=== PATIENT | male | born 1945 | race Caucasian/White ===

== ENCOUNTER 2019-11-28 10:31 | Outpatient (CLI) | payer MEDICARE, MEDICAID, SELFPAY ==
--- NOTE | ~2019-11-28 | US_ITS ---
EXAMINATION: US renal BI EXAM DATE: 11/28/2019 11:13 INDICATION: Elevated creatinine. TECHNIQUE: Multiple grayscale and Doppler images of the kidneys were obtained (by a technologist who performed the scan) and subsequently reviewed. Comparison is made to prior examination from 03/16/2019 . FINDINGS: There is bilateral renal cortical thinning with large amount of central hilar fat. Right kidney: There is normal contour and echogenicity. It measures 9.5 x 4.6 x 5.9 centimeters. Th ere are no focal renal lesions identified. There is no hydronephrosis. Left kidney: There is normal contour and echogenicity. It measures 10.1 x 5.3 x 5.4 centimeters. Th ere are no focal renal lesions identified. There is no hydronephrosis. Mild diffuse bladder wall thickening, possible chronic cystitis. IMPRESSION: 1. Bilateral renal cortical thinning, atrophy. 2. Mild diffuse bladder wall thickening. Reviewed, dictated and finalized at location B. CENTER RECEPTIONIST
== END 2019-11-28 10:32 | disposition home or self-care (01) ==
PROVIDERS: PCP Internal Medicine; Visit Provider Internal Medicine
DX: R79.89 Other specified abnormal findings of blood chemistry (principal); N28.9 Disorder of kidney and ureter, unspecified; N32.9 Bladder disorder, unspecified
CPT/HCPCS: 76775

== ENCOUNTER 2020-02-08 10:04 | Outpatient (CLI) | payer MEDICARE, MEDICAID, SELFPAY ==
--- NOTE | ~2020-02-08 | XR_ITS ---
XR chest 2V DATE: 02/08/2020 10:29 INDICATION: Shortness of breath. History of COPD. TECHNIQUE: PA and lateral views COMPARISON: 06/27/2019 2 view chest FINDINGS: Bilateral hyperinflation and relative flattening of the diaphragm Consistent with COPD. No pulmonary infiltrate or consolidation or pulmonary mass lesion is evident. Normal heart size. Aortic arch calcification. No hilar or mediastinal enlargement. No pleural effusio n or pulmonary vascular congestion or pneumothorax. Postoperative change from anterior and posterior cervical spine fusion. IMPRESSION: COPD Aortic atherosclerosis Osteopenia Status post anterior and posterior cervical spine surgical fusion Reviewed, dictated and finalized at location A.
[2020-02-08 10:33] LABS: Basophils Percent Auto 0.7 % (0.2-1.2); Eosinophils Absolute Auto 0.1 K/mm3 (0-0.3); Eosinophils Percent Auto 1.2 % (0-4.4); Hematocrit 41.8 % (42.0-52.0); Hemoglobin 13.5 g/dL (14.0-18.0); Immature Granulocyte Absolute 0.02 K/mm3 (0.00-0.031); Immature Granulocyte Percent A 0.3 % (0-0.5); Lymphocytes Absolute Auto 1.11 K/mm3 (0.9-3.2); Mean Corpuscular HGB Conc 32.3 g/dl (32-36); Mean Corpuscular Hemoglobin 31.9 pg (26-34); Mean Corpuscular Volume 98.8 fl (80-100); Mean Platelet Volume 10.4 fl (7.4-10.4); Monocytes Absolute Auto 0.6 K/mm3 (0.1-0.6); Monocytes Percent Auto 9.6 % (2.6-8.5); Neutrophils Absolute Auto 4.1 K/mm3 (1.3-6.7); Neutrophils Percent Auto 69.2 % (45.5-73.1); Platelet Count Result 192 k/mm3 (150-375); Red Blood Count 4.23 M/mm3 (4.6-6.20); Red Cell Distribution Width 12.7 % (11.5-14.5); White Blood Count 5.9 K/mm3 (4.5-10.0)
[2020-02-08 10:47] LABS: Blood Urea Nitrogen 28 mg/dL (9-20); Calcium 9.1 mg/dL (8.4-10.2); Carbon Dioxide 24 mmol/L (22-30); Chloride 108 mmol/L (98-107); Estimated Glomerular Filt Rate 42; Glucose 117 mg/dL (75-110); Sodium 139 mmol/L (137-145)
[2020-02-08 10:53] LABS: NT Pro B Type Natriuretic Pept 350 PG/ML (5-100)
== END 2020-02-08 10:05 | disposition home or self-care (01) ==
PROVIDERS: PCP Internal Medicine; Visit Provider Internal Medicine
DX: R06.02 Shortness of breath (principal); J44.9 Chronic obstructive pulmonary disease, unspecified; I70.0 Atherosclerosis of aorta; M85.89 Other specified disorders of bone density and structure, multiple sites; Z98.1 Arthrodesis status
CPT/HCPCS: 36415; 71046; 80048; 83880; 85025

== ENCOUNTER 2020-03-07 10:53 | Outpatient (CLI) | payer MEDICARE, MEDICAID, SELFPAY ==
--- NOTE | ~2020-03-07 | US_ITS ---
US renal BI DATE: 03/07/2020 11:20 INDICATION: Elevated serum creatinine level TECHNIQUE: Real-time imaging of kidneys and urinary bladder COMPARISON: 11/28/2019 bilateral renal ultrasound 11/03/[address] abdomen pelvis FINDINGS: The right kidney measures approximately 10 cm length, the left kidney approximately 9 cm le ngth. No renal mass lesion or hydronephrosis is evident. There is diffuse thickening of the urinary bladder wall no bladder filling defect is evident. IMPRESSION: No evidence of obstructive uropathy No renal mass lesion is evident. Diffuse thickening of the urinary bladder wall Reviewed, dictated and finalized at Location A. Reviewed, dictated and finalized at location A.
== END 2020-03-07 10:54 | disposition home or self-care (01) ==
PROVIDERS: PCP Internal Medicine; Visit Provider Internal Medicine
DX: R79.9 Abnormal finding of blood chemistry, unspecified (principal); N32.9 Bladder disorder, unspecified
CPT/HCPCS: 76775

== ENCOUNTER 2020-11-06 15:43 | Outpatient (CLI) | payer MEDICARE, MEDICAID, SELFPAY ==
--- NOTE | ~2020-11-06 | US_ITS ---
EXAMINATION: US soft tissue LE LT INDICATION: Left heel pain TECHNIQUE: Targeted ultrasound of the left heel was obtained. COMPARISON: None available FINDINGS: No sonographically detected abnormality is identified in the area of clinical concern. IMPRESSION: 1. No sonographic correlate for the patient's symptoms. Reviewed, dictated and finalized at location A. LLITE COMMUNICATIONS ENGINEER
--- NOTE | ~2020-11-06 | US_ITS ---
EXAMINATION: US venous doppler [facility] DATE: 11/06/2020 16:37 INDICATION: Left lower limb pain TECHNIQUE: Gonsalez scale images without and with compression and Doppler images of the left lower extrem ity veins were obtained. COMPARISON: None FINDINGS: The left common femoral vein, profunda femoral vein, femoral vein, popliteal vein, peroneal trunk, posterior tibial veins, and greater saphenous vein are patent. IMPRESSION: 1. Patent left lower extremity veins. No evidence of deep venous thrombosis. Reviewed, dictated and finalized at location A. HAND
--- NOTE | ~2020-11-06 | XR_ITS ---
EXAMINATION: XR foot LT min 3V DATE: 11/06/2020 16:47 INDICATION: Left heel pain TECHNIQUE: Dorsoplantar, two oblique and lateral views of the left foot were obtained. COMPARISON: None. FINDINGS: No acute fracture identified. There is however flattening of Boehler's angle suggesting either old he aled calcaneal fracture or more recent fracture with occult fracture lines. Otherwise normal alignmen t of the left foot. Mild polyarticular osteoarthritis involving many of the joints of the left foot. Tiny plantar calcaneal spur. IMPRESSION: 1. Abnormal appearance to the calcaneus with flattening of Boehler's angle suggesting age-indetermina te calcaneal fracture. Correlate with clinical history. 2. Mild polyarticular osteoarthritis throughout the left foot. Reviewed, dictated and finalized at location A. ETCAR OPERATOR IMPRESSION: 1. Abnormal appearance to the calcaneus with flattening of Boehler's angle sugg esting age-indeterminate calcaneal fracture. Correlate with clinical history. 2. Mild polyarticular osteoarthritis throughout the left foot.
== END 2020-11-06 15:44 | disposition home or self-care (01) ==
PROVIDERS: Family Provider Internal Medicine; PCP Internal Medicine; Visit Provider Internal Medicine
DX: M79.89 Other specified soft tissue disorders (principal); M19.072 Primary osteoarthritis, left ankle and foot
CPT/HCPCS: 73630; 76882; 93971

== ENCOUNTER 2021-11-28 08:20 | Outpatient (CLI) | payer MEDICARE, MEDICAID, SELFPAY ==
--- NOTE | 2021-11-28 08:49 | ECHO_ITS ---
Patient Info Name: Rc Rodríguez Age: 76 years : 1945 Gender: Male Ht: 74 in Wt: 199 lbs BSA: 2.18 m2 HR: 69 bpm BP: 156 / 78 mmHg Technical Quality: Fair Exam Date: 11/28/2021 9:04 AM Exam Location: [facility] Patient Status: Outpatient Admit Date: 11/28/2021 Staff Ordering Physician: Luis A Pang DO Mail List Processor: Luma Gonzales RDCS Attending Provider: Luis A Pang DO Referring Physician: Bird CLARK; Exam Type: CA echo doppler color flow Study Info Indications R06.09 - other forms of dyspnea Complete two-dimensional, color flow and Doppler transthoracic echocardiogram is performed. Summary 1. Complete two-dimensional, color flow and Doppler transthoracic echocardiogram is performed. 2. Left ventricular chamber dimension is normal. 3. Ventricular septum is sigmoid shaped. No LVOT obstruction. 4. Basal to mid posterior wall and basal to mid lateral wall are hypokinetic. 5. Left ventricular systolic function is mildly reduced, estimated at 45-50%. 6. The left ventricular diastolic function is grade I diastolic dysfunction. 7. E/e' 7 is not elevated. 8. Global longitudinal strain is abnormal at -13.7%. 9. There is moderate aortic valve sclerosis. 10. There is trace mitral valve regurgitation. 11. No pulmonary hypertension, estimated pulmonary arterial systolic pressure is 25 mmHg. Left Ventricle E/e' 7 is not elevated. Global longitudinal strain is abnormal at -13.7%. Ventricular septum is sigmoid shaped. No LVOT obstruction. Basal to mid posterior wall and basal to mid lateral wall are hypokinetic. Left ventricular chamber dimension is normal. Left ventricular systolic function is mildly reduced, estimated at 45-50%. The left ventricular diastolic function is grade I diastolic dysfunction. Right Ventricle Right ventricular chamber dimension is normal. Right ventricular systolic function is normal. Left Atria Left atrial chamber dimension is normal. Right Atria Right atrial chamber dimension is normal. Aortic Valve The aortic valve is trileaflet. There is moderate aortic valve sclerosis. There is no aortic valve stenosis. There is no aortic valve regurgitation. Pulmonic Valve There is no pulmonic regurgitation. Mitral Valve There is no mitral valve stenosis. There is trace mitral valve regurgitation. Tricuspid Valve There is no tricuspid valve regurgitation. No pulmonary hypertension, estimated pulmonary arterial systolic pressure is 25 mmHg. Pericardium/Pleural There is no pericardial effusion. Inferior Vena Cava Normal inferior vena cava with >50% collapse upon inspiration consistent with normal right atrial pressure, 5 mmHg. Aorta The aortic root size at the sinus of Valsalva is normal. Left Ventricular Outflow Tract Name Value Normal LVOT 2D LVOT Diameter 2.1 cm LVOT Doppler LVOT Peak Gradient 4 mmHg LVOT Mean Gradient 2 mmHg LVOT VTI 24 cm LVOT VTI/AV VTI Ratio 0.8 LVOT Stroke Volume
== END 2021-11-28 08:21 | disposition home or self-care (01) ==
LOC: ANHCARD 08:23
PROVIDERS: PCP Internal Medicine; Visit Provider Internal Medicine Cardiovascular Disease
DX: R06.09 Other forms of dyspnea (principal)
CPT/HCPCS: 93306

== ENCOUNTER 2022-03-05 08:57 | Outpatient (CLI) | payer MEDICARE, MEDICAID, SELFPAY ==
--- NOTE | ~2022-03-05 | NM_ITS ---
EXAMINATION: NM marie stress w perfusion DATE: 03/05/2022 11:05 INDICATION: Dyspnea. TECHNIQUE: Rest images were obtained following intravenous administration of 8.6 mCi Tc99m tetrofosmi n (Myoview). The patient was infused intravenously with Lexiscan (regadenoson). Then, 27.7 mCi Tc99m tetrofosmin (Myoview) was administered intravenously, and supine and prone stress images were obtaine d. Data was reconstructed into short axis and horizontal and vertical long axis SPECT images. Gated S PECT images were also obtained. COMPARISON: None. FINDINGS: There is no definite reversible or fixed perfusion abnormality to suggest ischemia or infar ction. There is no segmental wall motion abnormality. Left ventricular ejection fraction measures 5 4%. IMPRESSION: 1. No definite ischemia or infarct. 2. Normal left ventricular ejection fraction measuring 54%. Reviewed, dictated and finalized at location B.
--- NOTE | 2022-03-05 09:25 | EST_ITS ---
Patient Info Name: Rc Rodríguez Age: 76 years : 1945 Gender: Male Ht: 74 in Wt: 200 lbs BSA: 2.18 m2 HR: 56 bpm BP: 150 / 74 mmHg Heart Rhythm: Sinus Rhythm Exam Date: 03/05/2022 9:52 AM Exam Location: [facility] Stress Patient Status: Outpatient Admit Date: 03/05/2022 Staff Ordering Physician: Luis A Pang DO Attending Provider: Luis A Pang DO Exercise Technologist: Danika Gabriel CT Exercise Physician: Luis A Pang DO Exam Type: CA stress marie w NM Study Info Indications R06.09 - Other forms of dyspnea A regadenoson stress test was performed. Summary 1. 1. Negative lexiscan stress test for ischemic ST changes by ECG criteria. 2. 2. Baseline hypertension. 3. 3. Nuclear scan to follow and will be reported separately. Please correlate with it. 4. 4. Patient informed of the above results. Protocol: Lexiscan Stress ECG Details Stage: REST Duration (min): 0 min : 58 sec HR (bpm): 56 SBP (mmHg): 150 DBP (mmHg): 74 Stage: REST Duration (min): 16 min : 26 sec HR (bpm): 59 SBP (mmHg): 150 DBP (mmHg): 74 Stage: STAGE 1 Duration (min): 0 min : 59 sec HR (bpm): 63 SBP (mmHg): 146 DBP (mmHg): 64 Stage: RECOVERY Duration (min): 1 min : 0 sec HR (bpm): 71 SBP (mmHg): 146 DBP (mmHg): 64 Stage: RECOVERY Duration (min): 2 min : 0 sec HR (bpm): 78 SBP (mmHg): 146 DBP (mmHg): 64 Stage: RECOVERY Duration (min): 3 min : 0 sec HR (bpm): 73 SBP (mmHg): 138 DBP (mmHg): 64 Stage: RECOVERY Duration (min): 3 min : 5 sec HR (bpm): 74 SBP (mmHg): 138 DBP (mmHg): 64 Rest HR: 59 bpm Peak HR: 78 bpm Rest Sys BP: 150 mmHg Peak Sys BP: 146 mmHg Max Pred HR: 143 bpm % Max Pred HR: 55 % Target HR: 122 bpm Max RPP: 11,388 bpm*mmHg Termination Reason: Completed protocol Cardiac Symptoms: Shortness of breath Total Time: 1 min : 0 sec Rest Sethi BP: 74 mmHg Peak Sethi BP: 64 mmHg Total Dose: 0.4 mg Resting ECG Sinus bradycardia. Stress ECG No ST changes. Arrhythmias None. Report Signatures
== END 2022-03-05 08:58 | disposition home or self-care (01) ==
PROVIDERS: PCP Internal Medicine; Visit Provider Internal Medicine Cardiovascular Disease
DX: R06.00 Dyspnea, unspecified (principal)
CPT/HCPCS: 78452; 93017; A9502; J2785

== ENCOUNTER 2022-10-21 09:09 | Outpatient (CLI) | payer MEDICARE, MEDICAID, SELFPAY ==
--- NOTE | ~2022-10-21 | XR_ITS ---
EXAMINATION: XR ribs LT 2V w CXR 2V DATE: 10/21/2022 09:39 INDICATION: Pleurodynia. TECHNIQUE: Frontal and lateral views of the chest and 2 views on 4 radiographs of the left ribs were obtained. COMPARISON: Chest 2 views 02/08/2020 FINDINGS: CHEST TWO VIEWS: There is mild scarring at the lung apices. No pleural effusion or pneumothorax. The heart size is normal. There are changes of anterior and posterior fusion procedures in cervical spine . There is fracture of two posterior fixation screws. LEFT RIBS: There is an old healed fracture of left ninth rib. IMPRESSION: 1. No acute rib fracture. 2. Stable mild scarring at the lung apices. 3. Anterior and posterior fusion procedures in cervical spine with chronic fracture of 2 posterior fi xation screws. Reviewed, dictated and finalized at location A. LAPPER HAND IMPRESSION: 1. No acute rib fracture. 2. Stable mild scarring at the lung apices. 3. Anterior and posterior fusion procedures in cervical spine with chronic frac ture of 2 posterior fixation screws.
--- NOTE | ~2022-10-21 | XR_ITS ---
Left Shoulder Technique: AP and scapular Y views were obtained. Clinical History: Pain Findings: No fracture or dislocation is seen. Osseous alignment is anatomic. The glenohumeral and acr omioclavicular joint spaces are preserved. Soft tissues are unremarkable. Impression: Unremarkable left shoulder radiographs. Reviewed, dictated and finalized at [facility]. RADE ROLLER OPERATOR Impression: Unremarkable left shoulder radiographs.
== END 2022-10-21 09:10 | disposition home or self-care (01) ==
PROVIDERS: PCP Internal Medicine; Visit Provider Internal Medicine
DX: R07.81 Pleurodynia (principal); R07.89 Other chest pain; M25.512 Pain in left shoulder; Z98.1 Arthrodesis status; R91.8 Other nonspecific abnormal finding of lung field
CPT/HCPCS: 71046; 71100; 73030

== ENCOUNTER 2022-12-26 12:28 | Outpatient (CLI) | payer MEDICARE, MEDICAID, SELFPAY ==
--- NOTE | 2022-12-26 12:37 | ECHO_ITS ---
Patient Info Name: Rc Rodríguez Age: 77 years : 1945 Gender: Male Ht: 74 in Wt: 200 lbs BSA: 2.18 m2 HR: 70 bpm BP: 123 / 66 mmHg Heart Rhythm: Sinus Rhythm Technical Quality: Fair Exam Date: 12/26/2022 12:47 PM Exam Location: [facility] Patient Status: Outpatient Admit Date: 12/26/2022 Staff Ordering Physician: Luis A Pang DO Medical Biller Coder: Lindsey Higgins RDCS Attending Provider: Luis A Pang DO Referring Physician: Bird CLARK; Exam Type: CA echo doppler color flow Study Info Indications I51.9 - Heart disease, unspecified Complete two-dimensional, color flow and Doppler transthoracic echocardiogram is performed. Summary 1. Complete two-dimensional, color flow and Doppler transthoracic echocardiogram is performed. 2. Left ventricular chamber dimension is normal. 3. Left ventricular systolic function is normal, estimated at 60-65%. 4. The left ventricular diastolic function is grade I diastolic dysfunction. 5. E/e' 9 is minimally elevated. 6. There is moderate aortic valve sclerosis. 7. No pulmonary hypertension, estimated pulmonary arterial systolic pressure is 20 mmHg. Left Ventricle E/e' 9 is minimally elevated. Left ventricular chamber dimension is normal. Left ventricular systolic function is normal, estimated at 60-65%. The left ventricular diastolic function is grade I diastolic dysfunction. Right Ventricle Right ventricular systolic function is normal and with normal TAPSE 2.4 cm. Right ventricular chamber dimension is normal. Left Atria Left atrial chamber dimension is normal. Right Atria Right atrial chamber dimension is normal. Aortic Valve The aortic valve is trileaflet. There is moderate aortic valve sclerosis. There is no aortic valve stenosis. There is no aortic valve regurgitation. Pulmonic Valve There is no pulmonic regurgitation. Mitral Valve There is no mitral valve stenosis. There is no mitral valve regurgitation. Tricuspid Valve There is no tricuspid valve regurgitation. No pulmonary hypertension, estimated pulmonary arterial systolic pressure is 20 mmHg. Pericardium/Pleural There is no pericardial effusion. Inferior Vena Cava Normal inferior vena cava with >50% collapse upon inspiration consistent with normal right atrial pressure, 5 mmHg. Aorta The aortic root size at the sinus of Valsalva is normal. Left Ventricular Outflow Tract Name Value Normal LVOT 2D LVOT Diameter 2.0 cm LVOT Doppler LVOT Peak Gradient 3 mmHg LVOT Mean Gradient 1 mmHg LVOT VTI 19 cm LVOT VTI/AV VTI Ratio 0.6 LVOT Stroke Volume 60 ml LVOT CO 3.5 l/min LVOT CI 1.6 l/min/m2 Pulmonic Valve Name Value Normal RVOT Doppler
== END 2022-12-26 12:29 | disposition home or self-care (01) ==
LOC: ANHCARD 12:29
PROVIDERS: PCP Internal Medicine; Visit Provider Internal Medicine Cardiovascular Disease
DX: I51.9 Heart disease, unspecified (principal)
CPT/HCPCS: 93306

== ENCOUNTER 2023-02-27 14:32 | Outpatient (CLI) | payer MEDICARE, MEDICAID, SELFPAY ==
--- NOTE | ~2023-02-27 | XR_ITS ---
XR hip RT 2V w AP pelvis 02/27/2023 14:54 Indication: Right hip pain Procedure: AP pelvis and 2 views right hip Comparison: No prior studies for comparison. Findings: Mild osteoarthritis of the hips. Mild lower lumbar spondylosis. Osteopenia. There is athero sclerosis. No significant soft tissue abnormality. No foreign bodies. Impression: 1: Mild osteoarthritis of the hips. Reviewed, dictated and finalized at location B. Impression: 1: Mild osteoarthritis of the hips.
== END 2023-02-27 14:33 | disposition home or self-care (01) ==
LOC: ANHIMG 14:39
PROVIDERS: PCP Internal Medicine; Visit Provider Internal Medicine
DX: M16.11 Unilateral primary osteoarthritis, right hip (principal)
CPT/HCPCS: 73502

== ENCOUNTER 2023-02-28 08:16 | Emergency (ER) | payer MEDICARE, MEDICAID, SELFPAY ==
--- NOTE | ~2023-02-28 | CT_ITS ---
EXAMINATION: CT hip RT wo con DATE: 02/28/2023 08:39 INDICATION: Right hip pain TECHNIQUE: Computed tomography (CT) of the right hip was performed without intravenous contrast. The dose-length product was 445.19 mGy-cm. Automated exposure control and iterative reconstruction techni que were employed. COMPARISON: None FINDINGS: There is mild osteoarthritis of the right hip. There is chondrocalcinosis. There are small bone islands in the right pelvis. No acute fracture or traumatic malalignment. There is atheroscleros is. IMPRESSION: 1. No acute fracture. Reviewed, dictated and finalized at location A. IMPRESSION: 1. No acute fracture.
[2023-02-28 08:16] VITALS: BP 148/81; PULSE 64; RESP 16; TEMP 37.2; O2SAT 96
--- NOTE | 2023-02-28 08:24 | ED.FALL ---
HPI - Fall General Chief Complaint: Fall Stated Complaint: hip pain post fall History of Present Illness HPI Narrative: 77-year-old male presented to the ED for evaluation of right hip pain. Patient reports on he was walking to the couch when he tripped over a cat and injured his right hip. Patient states he was able to ambulate okay on . Patient was using a cane on Thursday to ambulate and did have outpatient x-rays. Patient states last night the pain woke him up so he presented to the emergency department for evaluation today. Patient did take aspirin for pain control but did not take any ibuprofen or Tylenol. Patient reports right hip pain that is worsened with movement including rolling over in bed. Patient denies any other pain or injury from the fall. Related Data Home Medications Medication Instructions Recorded Confirmed aspirin 81 mg tablet,delayed 81 mg PO DAILY 09/13/19 01/29/23 release (Adult Low Dose Aspirin) budesonide 160 mcg-glycopyr 9 2 inh inhalation BID 07/19/21 01/29/23 mcg-formot 4.8 mcg/actuation HFA inhaler (Breztri Aerosphere) cholecalciferol (vitamin D3) 50 150 mcg PO DAILY 07/19/21 01/29/23 mcg (2,000 unit) capsule calcium carbonate 600 mg calcium 600 mg PO DAILY 10/09/21 01/29/23 (1,500 mg) tablet (Calcium) valacyclovir 1 gram tablet 1,000 mg PO TID 09/17/22 01/29/23 Allergies Allergy/AdvReac Type Severity Reaction Status Date / Time metoprolol Allergy Unknown shortness Verified 01/28/23 10:56 of breath Review of Systems Review of Systems: All systems reviewed & are unremarkable except as noted in HPI and below [facility] Past Medical History Medical History (Updated 02/28/23 @ 09:45 by Av Irene MD) Anemia Anxiety Benign essential hypertension Blindness of right eye BMI 24.0-24.9, adult BMI 25.0-25.9,adult BMI 26.0-26.9,adult Bronchitis Cardiac arrhythmia Chronic obstructive pulmonary disease Chronic sinusitis CKD (chronic kidney disease) CKD (chronic kidney disease) Colon cancer screening COPD exacerbation Creatinine elevation Elevated homocysteine Encounter for Medicare annual wellness exam Encounter for routine adult health examination with abnormal findings Encounter for routine adult health examination without abnormal findings Encounter for special screening examination for neoplasm of prostate Follow up Generalized abdominal pain Herpes simplex infection of eye Hyperlipidemia Left shoulder pain Muscle cramps On roasterman drug therapy Optic disc edema Pain and swelling of left lower leg Pain of left heel Parotitis Personal history of nicotine dependence Pleuritic pain Pre-diabetes PVC's (premature ventricular contractions) Skin pruritus SOB (shortness of breath) Stage 1 chronic kidney disease Vision changes Vitamin D deficiency Family History Family History Mother Hypertension Family history of malignant neoplasm of breast in first degree relative Acute myocardial infarction Family history of congestive heart failure Social History Social History Smoking packs per day: 0 Smoking cigarettes per day: 0.0 Years smoked: 60 Smoking pack-years: 0.00 Smoking status: Former smoker Second hand tobacco smoke exposure: No Additional smoking assessment comments: 06/2018 Alcohol intake: never Substance use: unknown Substance use type: unknown Lack of Transportation: No Lack of Food: Never True Current Housing: I Have Housing Concerned About Future Housing: No Difficulty Paying Gas/Electric Bills: No Difficulty Paying for Meds: No Currently Unemployed: No Education: High School Diploma/GED Difficulty w/ Childcare or Family Care: No Living arrangements: with family Occupation/Education: retired Gender identity (if verbalized by the patient): Male Exam Narrative: MARYJANE
[2023-02-28] MEDS: HYDROcodone/acetaminophen (*CRX) 5-325 MG TABLET 1 TAB PO (08:40)
[2023-02-28] MEDS: CYCLOBENZAPRINE HCL 10 MG TABLET PO (08:40)
[2023-02-28 10:00] VITALS: BP 140/78; PULSE 66; RESP 16; O2SAT 97
== END 2023-02-28 10:10 | disposition home or self-care (01) ==
PROVIDERS: Emergency Provider Emergency Medicine; PCP Internal Medicine
DX: M25.551 Pain in right hip (principal); I12.9 Hypertensive chronic kidney disease with stage 1 through stage 4 chronic kidney disease, or unspecified chronic kidney disease; N18.9 Chronic kidney disease, unspecified; Z87.891 Personal history of nicotine dependence; W01.0XXA Fall on same level from slipping, tripping and stumbling without subsequent striking against object, initial encounter
CPT/HCPCS: 73700; 99284; A9270

== ENCOUNTER 2023-04-10 14:41 | Outpatient (CLI) | payer MEDICARE, MEDICAID, SELFPAY ==
--- NOTE | ~2023-04-10 | XR_ITS ---
EXAMINATION: XR chest 2V Exam Date/Time: 04/10/2023 14:57 CDT HISTORY: Shortness of breath;COPD, prev smoker,HTN Comparison: 10/21/2022. RESULT: Lines, tubes, and devices: Partially visualized cervical fusion hardware. Lungs and pleura: Senescent change. No focal consolidation, effusion, or pneumothorax. Emphysematous change. Cardiomediastinal silhouette: Stable. Other: No acute osseous or upper abdominal finding. IMPRESSION: No acute cardiopulmonary process. Reviewed, dictated and finalized at location K.
--- NOTE | ~2023-04-10 | XR_ITS ---
EXAM: XR lumbar spine 2-3V DATE: 04/10/2023 15:15 HISTORY: W19.XXXA - Unspecified fall, initial encounter . COMPARISON: None available. FINDINGS: Atherosclerotic aortic calcification, without evident aneurysm. Linear scar/atelectasis in the right lung base 5 nonrib-bearing lumbar-type vertebral bodies. Pedicles intact. Normal vertebral body alignment. Vertebral body heights preserved. Multilevel disc space narrowing and marginal osteop hytosis, moderate at L4-5 and severe at L5-S1. Level moderate facet sclerosis and hypertrophy in the mid and lower lumbar spine. Degenerative changes in the bilateral SI joints and hips. No fracture or dislocation. IMPRESSION: Multilevel degenerative disc disease, moderate at L4-5 and severe at L5-S1. Multilevel mo derate mid and lower lumbar facet arthropathy. Reviewed, dictated and finalized at location K. IMPRESSION: Multilevel degenerative disc disease, moderate at L4-5 and severe a t L5-S1. Multilevel moderate mid and lower lumbar facet arthropathy.
== END 2023-04-10 14:42 | disposition home or self-care (01) ==
PROVIDERS: PCP Internal Medicine; Visit Provider Internal Medicine
DX: R06.02 Shortness of breath (principal); R05.9 Cough, unspecified; M51.36 Other intervertebral disc degeneration, lumbar region; M51.37 Other intervertebral disc degeneration, lumbosacral region
CPT/HCPCS: 71046; 72100

== ENCOUNTER 2024-04-17 17:49 | Inpatient (IN) | payer MEDICARE, MEDICAID, SELFPAY ==
[2024-04-17] VITALS (13 sets, daily range): BP systolic 167–204; BP diastolic 57–99; PULSE 56–77; RESP 17–22; TEMP 36.4; O2SAT 87–98; BMI 24.7; BMI 24.4
--- NOTE | ~2024-04-17 | XR_ITS ---
EXAMINATION: XR chest 1V portable DATE: 04/18/2024 12:24 INDICATION: Hypoxia. TECHNIQUE: A single frontal view of the chest was obtained on 2 radiographs. COMPARISON: Chest 2 views 04/10/2023, CT abdomen and pelvis 04/17/2024 FINDINGS: There are lucencies in the lungs, consistent with emphysema. There is an interstitial patte rn in the lungs, consistent mild pulmonary edema. No pleural effusion or pneumothorax. The heart size is normal. There are prominent pericardial fat pads. There are changes of anterior fusion procedure in cervical spine. There are changes of posterior fusion procedure in cervical thoracic spine. IMPRESSION: 1. Mild pulmonary edema. 2. Emphysema. Reviewed, dictated and finalized at location A.
--- NOTE | ~2024-04-17 | XR_ITS ---
EXAMINATION: XR abdomen/kub 1V DATE: 04/20/2024 11:29 INDICATION: Abdominal distention. TECHNIQUE: A supine view of the abdomen on 2 radiographs was obtained. COMPARISON: MRCP 04/18/2024 FINDINGS: There are no dilated loops of bowel. A catheter overlies the bladder. There is a small left pleural effusion. There are airspace opacities at left lung base, likely atelectasis. IMPRESSION: 1. Nonobstructive bowel gas pattern. Reviewed, dictated and finalized at location A.
--- NOTE | ~2024-04-17 | XR_ITS ---
EXAMINATION: XR ERCP DATE: 04/22/2024 11:40 INDICATION: Choledocholithiasis. TECHNIQUE: 3 spot fluoroscopic images of the right upper quadrant were obtained during endoscopic ret rograde cholangiopancreatography (ERCP). Fluoroscopy exposure time was 104 seconds. COMPARISON: CT abdomen and pelvis 04/21/2024 FINDINGS: The endoscope is in the second portion of the duodenum. Images demonstrate contrast opacifi cation of the common duct and balloon sweeping of the common duct. IMPRESSION: 1. Balloon sweeping of the common duct. Please refer to the ERCP procedure note for additional detail s. Reviewed, dictated and finalized at location A. IMPRESSION: 1. Balloon sweeping of the common duct. Please refer to the ERCP procedure note for additional details.
--- NOTE | ~2024-04-17 | XR_ITS ---
EXAMINATION: XR abdomen/kub 1V DATE: 04/24/2024 10:52 INDICATION: Abdominal pain. Abdominal distention. TECHNIQUE: A supine view of the abdomen on 3 radiographs was obtained. COMPARISON: Abdomen radiograph 04/20/2024, CT abdomen and pelvis 08/22/2024 FINDINGS: There are dilated loops of small bowel. There is a small volume of stool in the colon. A ca theter overlies the bladder. There are small pleural effusions. IMPRESSION: 1. Dilated small bowel, likely adynamic ileus. 2. Small pleural effusions. Reviewed, dictated and finalized at location E.
--- NOTE | ~2024-04-17 | CT_ITS ---
EXAMINATION: CT abdomen pelvis wo con DATE: 04/21/2024 11:42 INDICATION: Epigastric abdominal pain. TECHNIQUE: Computed tomography (CT) of the abdomen and pelvis was performed without intravenous contr ast. Automated exposure control and iterative reconstruction technique were employed. The dose-length product was 717.12 mGy-cm. COMPARISON: CT abdomen and pelvis 04/17/2024, MRI 04/18/2024 FINDINGS: The visualized portions of the lung bases demonstrate emphysema and dependent atelectasis. There are small pleural effusions. The heart size is normal. There are coronary artery calcifications . There are calcifications of the aortic valve. No pericardial effusion. There is a small sliding hia kiki hernia. The liver and spleen are normal. The gallbladder is distended. There is hypodensity in th e head of the pancreas. There is fat stranding and fluid in the abdomen centered at the pancreas, con sistent with pancreatitis. There is a 5 mm stone at the ampulla of Vater. The adrenal glands and kidn eys are normal. There is a Nelson catheter in expected position. There are no dilated loops of bowel. The appendix is normal. There is a small volume of ascites. There are no pathologically enlarged lymp h nodes. There is moderate lumbar spondylosis. IMPRESSION: 1. 5 mm stone at the ampulla of Vater. 2. Stable acute pancreatitis. 3. Worsened small volume of ascites. 4. Worsened small pleural effusions. 5. Emphysema. Reviewed, dictated and finalized at location E.
--- NOTE | ~2024-04-17 | XR_ITS ---
Supine and upright views of the abdomen Clinical history: Reason ERCP, evaluate for free air Findings: Bowel gas pattern is nonspecific. No evidence for obstruction or free air. No abnormal mass lesion or calcification is seen. Osseous structures are intact. Impression: Nonspecific bowel gas pattern. No free air. Reviewed, dictated and finalized at [facility]. Impression: Nonspecific bowel gas pattern. No free air.
--- NOTE | ~2024-04-17 | MR_ITS ---
EXAMINATION: MR MRCP wo/w con/w 3D wo ind DATE: 04/18/2024 15:15 INDICATION: Pancreatitis and ampulla of Vater stone TECHNIQUE: Magnetic resonance imaging (MRI) of the abdomen was performed without and with 17 mL Multi brigitte intravenous contrast. Sequences included coronal T2-weighted SS-FSE, coronal T2-weighted FS SS- FSE, coronal T2-weighted FS FIESTA, axial T2-weighted FS FIESTA, axial T2-weighted FIESTA, sagittal T 2-weighted SS-FSE, axial T1-weighted dual-echo FSPGR, axial T2-weighted SS-FSE, axial T1-weighted LAV A, axial T2-weighted STIR FSE. Thick-slab T2-weighted FRFSE-XL images were obtained for magnetic reso nance cholangiopancreatography (MRCP). Rotating maximum intensity projection 3-D reconstructions of t he volumetric data were created by the technologist. Postcontrast sequences included a time course of axial T1-weighted LAVA. COMPARISON: None. FINDINGS: ABDOMEN MRI: Line small bilateral posterior layering pleural effusions with associated consolidation in the dependent bilateral lower lobes which could represent atelectasis or pneumonia. Heart size is normal. No pericardial effusion. Liver, gallbladder, spleen and bilateral adrenal glands are normal. Again seen is prominent peripancreatic inflammatory stranding and fluid consistent with acute interst itial pancreatitis. There is extensive retroperitoneal edema surrounding more prominently at the left pararenal space and along the lesser omentum and root of the mesentery. There is also a small amount of perihepatic and perisplenic ascites. There is a small ovoid 2.7 x 1.3 x 0.9 cm loculated fluid co llection without organized enhancing wall and which is new since the prior study position between the tail of the pancreas and the stomach consistent with an acute peripancreatic fluid collection. No ab scess. Bilateral kidneys are otherwise normal. No bowel obstruction. No pathologically enlarged abdom inal or upper pelvic lymphadenopathy. Moderate lumbar spondylosis. ABDOMEN MRCP: No intra or extrahepatic biliary ductal dilation with the common bile duct measuring 5 mm in maximal diameter which is normal. No evident cholelithiasis/choledocholithiasis. The previously seen calcifie d likely obstructing stone at the ampulla is no longer visualized. The main pancreatic duct is also n ormal in caliber. IMPRESSION: 1. Acute interstitial pancreatitis with adjacent 2.7 x 1.3 x 0.9 cm loculated acute peripancreatic fl uid collection. 2. No cholelithiasis/choledocholithiasis. No correlate identified for the previous noted calcified st one at the ampulla which has likely passed. 3. Small bilateral pleural effusions with consolidation in the dependent aspect of the lower lobes wh ich could represent atelectasis and/or pneumonia. 4. Likely reactive small amount of perihepatic and perisplenic ascites. Reviewed, dictated and finalized at location B. IMPRESSION: 1. Acute interstitial pancreatitis with adjacent 2.7 x 1.3 x 0.9 cm loculated a cute peripancreatic fluid collection. 2. No cholelithiasis/choledocholithiasis. No correlate identified for the previ ous noted calcified stone at the ampulla which has likely passed. 3. Small bilateral pleural effusions with consolidation in the dependent aspect of the lower lobes which could represent atelectasis and/or pneumonia. 4. Likely reactive small amount of perihepatic and perisplenic ascites.
--- NOTE | ~2024-04-17 | CT_ITS ---
EXAMINATION: CT abdomen pelvis w con DATE: 04/17/2024 20:58 INDICATION: Abdominal pain. Vomiting. TECHNIQUE: Computed tomography (CT) of the abdomen and pelvis was performed with 100 mL Omnipaque 350 intravenous contrast. Automated exposure control and iterative reconstruction technique were employe d. The dose-length product was 673.92 mGy-cm. COMPARISON: CT abdomen pelvis 11/03/2018 FINDINGS: The visualized portions of the lung bases demonstrate emphysema and mild atelectasis. There are calcified pleural plaques on the left. The heart size is normal. No pericardial effusion. There are coronary artery calcifications. The liver is normal. The gallbladder is normal in size. The splee n is normal. There is fat stranding and fluid around the pancreas, consistent with acute pancreatitis . There is a 5 mm stone at the ampulla of Vater. The adrenal glands are normal. Cortical thinning is noted. The bladder is distended. There is diverticulosis of the colon without evidence of diverticuli tis. There are no dilated loops of bowel. The appendix is not visualized. There is calcified atherosc lerosis of the aorta and many of the other arteries. There is moderate lumbar spondylosis. IMPRESSION: 1. Acute interstitial pancreatitis. 2. 5 mm stone at the ampulla of Vater. 3. Emphysema. Reviewed, dictated and finalized at location E.
--- NOTE | ~2024-04-17 | XR_ITS ---
Portable chest x-ray Comparison: 04/23/2024 Clinical History: Dyspnea Findings: There are small bilateral pleural effusions with diffuse interstitial pattern of the lungs and mild bibasilar haziness. Cardiomediastinal silhouette is stable. Stable cervicothoracic spinal fixation hardware. Impression: Small bilateral pleural effusions, with probable mild mixed alveolar and interstitial pulmonary edema . Correlate for underlying chronic interstitial disease. Reviewed, dictated and finalized at location . Impression: Small bilateral pleural effusions, with probable mild mixed alveolar and inters titial pulmonary edema. Correlate for underlying chronic interstitial disease.
--- NOTE | ~2024-04-17 | XR_ITS ---
EXAMINATION: XR chest 1V portable DATE: 04/23/2024 23:04 INDICATION: Shortness of breath. TECHNIQUE: A single frontal view of the chest was obtained. COMPARISON: Chest single view 04/18/2024, CT abdomen pelvis 04/21/2024 FINDINGS: There are small pleural effusions. There are lucencies and interstitial opacities in the mulu ngs, consistent with emphysema. There are airspace opacities at the lung bases. No pneumothorax. The heart size is normal. There are changes of posterior fusion procedure in cervical thoracic spine. The re are changes of anterior fusion procedure in cervical spine. IMPRESSION: 1. Emphysema. 2. Airspace opacities at the lung bases with worsening on the right, consistent with atelectasis vers us pneumonia. 3. Worsened small pleural effusions. Reviewed, dictated and finalized at location E. IMPRESSION: 1. Emphysema. 2. Airspace opacities at the lung bases with worsening on the right, consistent with atelectasis versus pneumonia. 3. Worsened small pleural effusions.
--- NOTE | 2024-04-17 19:24 | ED.NAVMDI ---
HPI - Nausea/Vomiting/Diarrhea General Chief complaint: Nausea/Vomiting/Diarrhea Stated complaint: n/v Time Seen by Provider: 04/17/24 18:58 Source: patient Mode of arrival: ambulatory Limitations: no limitations History of Present Illness HPI Narrative: This is a 78-year-old male that presents to the emergency department for abdominal pain, nausea and vomiting. Ongoing over the last several hours. Reports diffuse abdominal cramping. Reports shortness of breath that is chronic for him. Denies fever, chest pain or diarrhea. Related Data Home Medications Medication Instructions Recorded Confirmed aspirin 81 mg tablet,delayed 81 mg PO DAILY 09/13/19 03/16/24 release (Adult Low Dose Aspirin) budesonide 160 mcg-glycopyr 9 2 inh inhalation BID 07/19/21 03/16/24 mcg-formot 4.8 mcg/actuation HFA inhaler (Breztri Aerosphere) cholecalciferol (vitamin D3) 50 150 mcg PO DAILY 07/19/21 03/16/24 mcg (2,000 unit) capsule calcium carbonate (Calcium 600) 600 mg PO DAILY 10/09/21 03/16/24 valacyclovir 1 gram tablet 1,000 mg PO TID 09/17/22 03/16/24 melatonin 5 mg capsule mg PO 11/02/23 03/16/24 prednisolone acetate 1 % eye 1 drp RIGHT EYE DAILY 11/02/23 03/16/24 drops,suspension artificial tears EACH EYE 03/16/24 03/16/24 Allergies Allergy/AdvReac Type Severity Reaction Status Date / Time metoprolol Allergy Unknown shortness Verified 03/16/24 10:55 of breath Review of Systems Review of Systems: CONSTITUTIONAL: Denies fever CARDIOVASCULAR: Denies chest pain, or edema. RESPIRATORY: Reports dyspnea. GASTROINTESTINAL: Reports abdominal pain, nausea, vomiting. Denies diarrhea. All systems reviewed & are unremarkable except as noted in HPI and below PMFSH Past Medical History Medical History (Updated 04/17/24 @ 21:47 by Christine Bishop PA-C) Anemia Anxiety Benign essential hypertension Blindness of right eye BMI 24.0-24.9, adult BMI 25.0-25.9,adult BMI 26.0-26.9,adult Bronchitis Cardiac arrhythmia Chronic obstructive pulmonary disease Chronic sinusitis CKD (chronic kidney disease) CKD (chronic kidney disease) Colon cancer screening COPD exacerbation Creatinine elevation Elevated homocysteine Encounter for Medicare annual wellness exam Encounter for routine adult health examination with abnormal findings Encounter for routine adult health examination without abnormal findings Follow up Generalized abdominal pain Herpes simplex infection of eye Hyperlipidemia Insomnia Left shoulder pain Muscle cramps 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 Optic disc edema Pain and swelling of left lower leg Pain of left heel Parotitis Personal history of nicotine dependence Pleuritic pain Pre-diabetes PVC's (premature ventricular contractions) Skin pruritus SOB (shortness of breath) Stage 1 chronic kidney disease Vision changes Vitamin D deficiency Family History Family History Mother Hypertension Family history of malignant neoplasm of breast in first degree relative Acute myocardial infarction Family history of congestive heart failure Social History Social History Smoking packs per day: 0 Smoking cigarettes per day: 0.0 Years smoked: 60 Smoking pack-years: 0.00 Smoking status: Former smoker Second hand tobacco smoke exposure: No Additional smoking assessment comments: 06/2018 Alcohol intake: never Substance use: unknown Substance use type: unknown Lack of Transportation: No Lack of Food: Never True Current Housing: I Have Housing Concerned About Future Housing: No Difficulty Paying Gas/Electric Bills: No Difficulty Paying for Meds: No Currently Unemployed: No Education: High School Diploma/GED Difficulty w/ Childcare or Family Care: No Living arrangements: with family Occupation/Education: retired Gender identity (if verbalized by the patient): Male
[2024-04-17] MEDS: ONDANSETRON INJ 4 MG/2 ML VIAL IV PUSH (19:38)
[2024-04-17] MEDS: SODIUM CHLORIDE 0.9% IV 500 ML 999 ML IV CONT (19:38)
[2024-04-17] MEDS: MORPHINE SULFATE (*CRX) 4 MG/ML INJ IV PUSH ×2 (19:38→21:49)
[2024-04-17 19:39] LABS: Basophils Percent Auto 0.3 % (0.2-1.2); Eosinophils Percent Auto 0.1 % (0-4.4); Hematocrit 41.8 % (42.0-52.0); Hemoglobin 14.6 g/dL (14.0-18.0); Immature Granulocyte Absolute 0.03 K/mm3 (0.00-0.031); Immature Granulocyte Percent A 0.2 % (0-0.5); Lymphocytes Percent Auto 5.8 % (18.3-44.2); Mean Corpuscular HGB Conc 34.9 g/dl (32-36); Mean Corpuscular Hemoglobin 35.4 pg (26-34); Mean Corpuscular Volume 101.2 fl (80-100); Mean Platelet Volume 10.1 fl (7.4-10.4); Monocytes Absolute Auto 0.7 K/mm3 (0.1-0.6); Monocytes Percent Auto 5.5 % (2.6-8.5); Neutrophils Absolute Auto 10.6 K/mm3 (1.3-6.7); Neutrophils Percent Auto 88.1 % (45.5-73.1); Platelet Count Result 191 k/mm3 (150-375); Red Blood Count 4.13 M/mm3 (4.6-6.20); Red Cell Distribution Width 13.4 % (11.5-14.5)
[2024-04-17 19:56] LABS: Lactic Acid Reflex 1.3 mmol/L (0.7-2.0)
[2024-04-17 20:09] LABS: Alanine Aminotransferase 26 U/L (6-50); Albumin Level 4.7 g/dL (3.5-5.1); Alkaline Phosphatase 81 U/L (38-126); Anion Gap 11 mmol/L (4-12); Aspartate Amino Transferase 33 U/L (17-59); Bilirubin,Total 0.6 mg/dL (0.2-1.3); Blood Urea Nitrogen 44 mg/dL (9-20); Calcium 9.9 mg/dL (8.4-10.2); Carbon Dioxide 23 mmol/L (22-30); Chloride 105 mmol/L (98-107); Estimated CRCL calculation 35 ml/min; Estimated Glomerular Filt Rate 37; Glucose 188 mg/dL (65-110); Potassium 4.5 mmol/L (3.4-5.0); Sodium 139 mmol/L (137-145)
[2024-04-17 20:54] LABS: Lipase 31663 U/L (23-300)
[2024-04-17 21:34] LABS: Appearance Urine Clear (Clear); Bacteria Urine None Seen /hpf; Bilirubin Urine Negative (Negative); Blood Urine Negative (Negative); Color Urine Yellow (Yellow); Glucose Urine UA Negative (Negative); Ketones Urine Trace mg/dL (Negative); Leukocyte Esterase Ur Negative LEU/UL (Negative); Nitrate Urine Negative (Negative); Non Pathogenic Casts 0-2; Protein Urine 2+ mg/dL (Negative); RBC Urine 0-2 /hpf (0-2); Specific Grav Ur 1.026 (1.001-1.035); Squamous Epithelial Cell Urine None Seen /hpf (Few); Urobilinogen Urine 0.2 mg/dL (<2.0); WBC Urine 0-5 /hpf (0-3)
[2024-04-17 21:35] LABS: Add Urine Microscopic? YES
--- NOTE | 2024-04-17 21:40 | PM.IMHP ---
H&P: HPI History of Present Illness Date/Time: 04/17/24 21:40 Chief Complaint: epigastric pain Narrative: This is a 78-year-old male with past medical history significant for COPD/ emphysema, hypertension, chronic kidney disease, dyslipidemia. patient presents to the emergency room with acute onset of epigastric pain, nausea, vomiting rates his pain at 10/10 in intensity, patient has been his usual state of health prior to today, denies any fevers, rigors, chills, night sweats. Preliminary workup was significant for CT of abdomen and pelvis with a 5 mm stone in the ampulla of Vater acute interstitial pancreatitis. patient has been admitted for further evaluation management and treatment. EXAMINATION: CT abdomen pelvis w con DATE: 04/17/2024 20:58 INDICATION: Abdominal pain. Vomiting. TECHNIQUE: Computed tomography (CT) of the abdomen and pelvis was performed with 100 mL Omnipaque 350 intravenous contrast. Automated exposure control and iterative reconstruction technique were employed. The dose-length product was 673.92 mGy-cm. COMPARISON: CT abdomen pelvis 11/03/2018 FINDINGS: The visualized portions of the lung bases demonstrate emphysema and mild atelectasis. There are calcified pleural plaques on the left. The heart size is normal. No pericardial effusion. There are coronary artery calcifications. The liver is normal. The gallbladder is normal in size. The spleen is normal. There is fat stranding and fluid around the pancreas, consistent with acute pancreatitis. There is a 5 mm stone at the ampulla of Vater. The adrenal glands are normal. Cortical thinning is noted. The bladder is distended. There is diverticulosis of the colon without evidence of diverticulitis. There are no dilated loops of bowel. The appendix is not visualized. There is calcified atherosclerosis of the aorta and many of the other arteries. There is moderate lumbar spondylosis. IMPRESSION: 1. Acute interstitial pancreatitis. 2. 5 mm stone at the ampulla of Vater. 3. Emphysema. Review of Systems Review of Systems: epigastric pain, n/V PMFSH Past Medical History Medical History Anemia Anxiety Benign essential hypertension Blindness of right eye BMI 24.0-24.9, adult BMI 25.0-25.9,adult BMI 26.0-26.9,adult Bronchitis Cardiac arrhythmia Chronic obstructive pulmonary disease Chronic sinusitis CKD (chronic kidney disease) CKD (chronic kidney disease) Colon cancer screening COPD exacerbation Creatinine elevation Elevated homocysteine Encounter for Medicare annual wellness exam Encounter for routine adult health examination with abnormal findings Encounter for routine adult health examination without abnormal findings Follow up Generalized abdominal pain Herpes simplex infection of eye Hyperlipidemia Insomnia Left shoulder pain Muscle cramps On [facility] drug therapy Optic disc edema Pain and swelling of left lower leg Pain of left heel Parotitis Personal history of nicotine dependence Pleuritic pain Pre-diabetes PVC's (premature ventricular contractions) Skin pruritus SOB (shortness of breath) Stage 1 chronic kidney disease Vision changes Vitamin D deficiency Family History Family History Mother Hypertension Family history of malignant neoplasm of breast in first degree relative Acute myocardial infarction Family history of congestive heart failure Social History Social History (Updated 04/17/24 @ 23:25 by Leroy Donovan, RN) Smoking packs per day: 0 Smoking cigarettes per day: 0.0 Years smoked: 60 Smoking pack-years: 0.00 Smoking status: Former smoker Second hand tobacco smoke exposure: No Additional smoking assessment comments: 06/2018 Alcohol intake: never Substance use: unknown Substance use type: unknown Lack of Transportation: No Lack of Food: Never True Current Housing: I
[2024-04-17] MEDS: SODIUM CHLORIDE 0.9% IV 1,000 ML 999 ML IV CONT (21:49)
[2024-04-17] MEDS: HYDROmorphone HCL INJ (*CRX) 1 MG/ML SYR IV PUSH (23:41)
[2024-04-18] VITALS (17 sets, daily range): BP systolic 111–151; BP diastolic 41–64; PULSE 66–94; RESP 16–22; TEMP 36.1–36.4; O2SAT 89–94
[2024-04-18] MEDS: DEXTROSE 5%/LACTATED RINGERS 1,000 ML 85 ML IV CONT (00:28)
--- NOTE | 2024-04-18 00:29 | ADMGEN ---
This patient, Rc Rodríguez, was admitted to IMU Room 212-01 at 2320. Patient/family oriented to hospital policies and general routines including ID bracelet, bed and alarms, visiting hours, pain management, procedures, bathroom and other care routines, personal items, smoking policy, room service/diet, and visiting hours. Information on how to activate the Rapid Response Team has been discussed. Patient/Family are encouraged to report perceived risks to care and to ask questions if they do not understand what they are told or what they should do.
[2024-04-18] MEDS: HYDROmorphone HCL INJ (*CRX) 1 MG/ML SYR IV PUSH ×6 (02:31→22:53)
--- NOTE | 2024-04-18 08:20 | PCRCNOTE ---
Pt. states unable to take a powder inhaler; called his son to bring in his Breztri inhaler from home. R.N. notified.
--- NOTE | 2024-04-18 08:44 | WPDGICN ---
Assessment and Plan Assessment and plan (1) Acute pancreatitis: Qualifiers: Acute pancreatitis complication: no infection or necrosis Pancreatitis type: unspecified pancreatitis type Qualified Code(s): K85.90 - Acute pancreatitis without necrosis or infection, unspecified Code(s): K85.90 - Acute pancreatitis without necrosis or infection, unspecified Status: Acute (2) Elevated lipase: Code(s): R74.8 - Abnormal levels of other serum enzymes Status: Acute Plan 1) Acute pancreatitis/elevated lipase: Presented with acute onset epigastric stabbing pain, nausea and vomiting. Pain started yesterday afternoon and progressed to the point he couldn't get out of chair or stand up. Patient has never had an EGD. CT showed fat stranding and fluid around pancreas consistent with acute interstitial pancreatitis as well as a 5 mm stone at the [place]pulla [place] [id number]. Liver enzymes are normal. Of note, patient reports that about 6 weeks ago he was trying to cut some branches back that were hanging over his driveway and he got bit by something but didn't pay attention to it at the time. Later that day he noticed a ring about the size of a half dollar with a spot right in the middle on his arm. It stayed that way for about a week then started turning yellow and faded away. Denies any recent change in medications, illness, or EtOH use. No prior history of pancreatitis. Gallbladder in situ. Patient on aspirin 81 mg daily but denies any other anticoagulant use. DXX: pancreatitis secondary to biliary obstruction versus idiopathic versus secondary to unknown sting/bite MRCP pending to further evaluate pancreatic and biliary ducts NPO, IV fluids, pain control May need ERCP depending on MRCP results Will also check labs for possible autoimmune etiology Thank you very much for allowing me to share in the care of this very nice patient. This report may have been done utilizing a voice recognition system. Attempts have been made to correct errors. However, there may be uncorrected grammatical, spelling, and recognition errors present. GI Consult Note Consult date/time: 04/18/24 08:44 Reason for consult: pancreatitis HPI: This is a very pleasant 78 year old male with past medical surgical history of COPD, emphysema, HTN, CKD, HLD who presented to the emergency room yesterday with complaints of acute onset epigastric pain, nausea and vomiting. GI consulted for pancreatitis. Patient reports that yesterday afternoon around 3 or 4 o'clock he started having dry heaves and noticed his stomach was starting to hurt. The pain kept getting worse to the point he couldn't even hardly get out of the chair and couldn't stand up. He describes the pain as a big pain and a stabbing pain located in the epigastric region. He denies any pain like this before. He had a negative Cologuard 07/29/2021. He denies any swallowing difficulty, heartburn, weight loss, changes in bowel habits, blood in stool or black stools. He reports having a colonoscopy more than 10 years ago but has never had an EGD. He takes an 81 mg aspirin daily for his age and denies any other NSAIDs or blood thinners. He still has his gallbladder and appendix. He denies any alcohol or tobacco use. Of note, patient reports that about 6 weeks ago he was trying to cut some branches back that were hanging over his driveway and he got bit by something but didn't pay attention to it at the time. Later that day he noticed a ring about the size of a half dollar with a spot right in the middle on his arm. It stayed that way for about a week then started turning yellow and faded away. He showed it to his PCP at his annual checkup who couldn't figure out what it was but it wasn't swollen or hardened so they figured something just bit him. ENDOSCOPY HISTORY: The patient states that his last colonosc
--- NOTE | 2024-04-18 10:37 | PM.IMPN ---
Progress Note: A&P Assessment and Plan (1) Acute pancreatitis: Qualifiers: Acute pancreatitis complication: no infection or necrosis Pancreatitis type: unspecified pancreatitis type Qualified Code(s): K85.90 - Acute pancreatitis without necrosis or infection, unspecified Code(s): K85.90 - Acute pancreatitis without necrosis or infection, unspecified Status: Acute Assessment and Plan: 04/18/24: CT showing acute interstitial pancreatitis, 5 mm stone at the ampulla of Vater, emphysema Currently NPO MRCP shown acute interstitial pancreatitis with adjacent 2.7x1.3X0.9 cm loculated acute peripancreatic fluid collection. No cholelithiasis/choledocholithiasis, small bilateral pleural effusions with consolidation in the dependent aspect of the lower lobes which could represent atelectasis or pneumonia, reactive small amount of perihepatic and perisplenic ascites GI consulted Continue antiemetic and pain medication as needed IVF switched to LR @ 150ml/hr (2) Acute hypoxic respiratory failure: Code(s): J96.01 - Acute respiratory failure with hypoxia Status: Acute Assessment and Plan: 04/18/24: O2 saturation noted to be 87 % on room air while in the ED, patient was placed on 2 L nasal cannula Patient does have history of COPD He is a former smoker and smoked 1 pack per day for 60 years, quit in June of 2018 Wean oxygen to keep sat between 88-92% Chest x-ray today shown mild pulmonary edema (3) Chronic obstructive pulmonary disease: Qualifiers: COPD type: unspecified COPD Qualified Code(s): J44.9 - Chronic obstructive pulmonary disease, unspecified Code(s): J44.9 - Chronic obstructive pulmonary disease, unspecified Status: Acute Assessment and Plan: See above (4) CKD (chronic kidney disease): Qualifiers: Chronic kidney disease stage: stage 4 (severe) Qualified Code(s): N18.4 - Chronic kidney disease, stage 4 (severe) Code(s): N18.9 - Chronic kidney disease, unspecified Status: Acute Assessment and Plan: 04/18/24: Initial creatinine 1.8, EGFR 37 Baseline creatinine 1.6 to 2.12 according to EMR Baseline EGFR 31-43 Continue to trend (5) Essential (primary) hypertension: Code(s): I10 - Essential (primary) hypertension Status: Acute Assessment and Plan: 04/18/24: Blood pressures ranging 128/62 193/76 Continue Bystolic (6) Hyperlipidemia: Qualifiers: Hyperlipidemia type: mixed hyperlipidemia Qualified Code(s): E78.2 - Mixed hyperlipidemia Code(s): E78.5 - Hyperlipidemia, unspecified Status: Acute Assessment and Plan: 04/18/24: Continue atorvastatin Aspirin on hold for today Time Spent With Patient Time with patient: Greater than 35 minutes Subjective Date/time seen: 04/18/24 10:37 Interval history: This is a 78-year-old male presented to on 04/17/2024 complaints of nausea vomiting. Workup in the hospital included an abdomen/pelvis CT which showed acute interstitial pancreatitis, 5 mm stone at the ampulla Vater, emphysema. Initial labs revealed white blood cell count of 12.0, creatinine 1.8, EGFR 37, lactic acid was 1.9, liver enzymes were normal, lipase 31,663. UA was obtained and showed 2+ urine protein, trace urine ketones. Echo from 12/26/2022 was reviewed and shown normal LV systolic function with an estimated EF of 60-65%, grade 1 diastolic dysfunction, moderate aortic valve sclerosis. Patient was given 1 L normal saline, pain meds, antiemetics while in the ED. GI was consulted. Patient endorses 10/10 abdominal pain and nausea. Patient denies any fever, chills, nausea, vomiting, diarrhea, abdominal pain, chest pain. Patient did state that he was bit or stung by something on his left arm but did not feel any pain or itching. He states that a red ring formed around it for a few days and then it went away. He has not been anywhere geographically that scorp
[2024-04-18] MEDS: HYDROcodone/acetaminophen (*CRX) 5-325 MG TABLET 1 TAB PO (12:46)
[2024-04-18] MEDS: ATORVASTATIN 20 MG TABLET BY MOUTH (12:47)
[2024-04-18] MEDS: LACTATED RINGERS 1,000 ML 150 ML IV CONT ×2 (12:47→20:30)
[2024-04-18] MEDS: MONTELUKAST SODIUM 10 MG TABLET BY MOUTH (12:47)
[2024-04-18] MEDS: NEBIVOLOL HCL 5 MG TABLET BY MOUTH (12:47)
[2024-04-18] MEDS: ONDANSETRON INJ 4 MG/2 ML VIAL IV PUSH (12:49)
[2024-04-18 13:07] LABS: Basophils Percent Auto 0.2 % (0.2-1.2); Hematocrit 43.8 % (42.0-52.0); Hemoglobin 14.9 g/dL (14.0-18.0); Immature Granulocyte Absolute 0.06 K/mm3 (0.00-0.031); Immature Granulocyte Percent A 0.4 % (0-0.5); Lymphocytes Percent Auto 3.6 % (18.3-44.2); Mean Corpuscular Hemoglobin 35.3 pg (26-34); Mean Corpuscular Volume 103.8 fl (80-100); Mean Platelet Volume 10.2 fl (7.4-10.4); Monocytes Absolute Auto 1.2 K/mm3 (0.1-0.6); Monocytes Percent Auto 6.9 % (2.6-8.5); Neutrophils Absolute Auto 14.7 K/mm3 (1.3-6.7); Neutrophils Percent Auto 88.9 % (45.5-73.1); Platelet Count Result 169 k/mm3 (150-375); Red Blood Count 4.22 M/mm3 (4.6-6.20); Red Cell Distribution Width 13.6 % (11.5-14.5); White Blood Count 16.6 K/mm3 (4.5-10.0)
[2024-04-18 13:44] LABS: Alanine Aminotransferase 20 U/L (6-50); Alkaline Phosphatase 63 U/L (38-126); Anion Gap 9 mmol/L (4-12); Aspartate Amino Transferase 30 U/L (17-59); Bilirubin,Total 0.6 mg/dL (0.2-1.3); Blood Urea Nitrogen 35 mg/dL (9-20); Calcium 8.3 mg/dL (8.4-10.2); Carbon Dioxide 22 mmol/L (22-30); Chloride 109 mmol/L (98-107); Estimated CRCL calculation 39 ml/min; Estimated Glomerular Filt Rate 42; Glucose 129 mg/dL (65-110); Potassium 3.9 mmol/L (3.4-5.0); Sodium 140 mmol/L (137-145)
--- NOTE | 2024-04-18 15:43 | PHAR ---
PT'S HOME MED BREZTRI AEROSPHERE INHALER VERIFIED BY PHARMACY
[2024-04-18 16:17] LABS: Lipase 7052 U/L (23-300)
[2024-04-18] MEDS: PIPERACILLN/TAZ 3.375GM/NS50ML 3.375 GM/50 ML BAG IVPB (18:56)
[2024-04-18] MEDS: FORMOTEROL FUMARATE INHALATION (20:35)
[2024-04-18] MEDS: BUDESONIDE INHALATION (20:35)
[2024-04-18] MEDS: GLYCOPYRROLATE INHALATION (20:35)
[2024-04-18] MEDS: [UNRECOGNIZED DRUG - OTHER] INHALATION (20:35)
[2024-04-19] VITALS (22 sets, daily range): BP systolic 118–149; BP diastolic 48–64; PULSE 70–90; RESP 20–24; TEMP 36.2–36.9; O2SAT 92–95
[2024-04-19] MEDS: PIPERACILLN/TAZ 3.375GM/NS50ML 3.375 GM/50 ML BAG IVPB ×3 (00:46→11:03)
[2024-04-19] MEDS: HYDROmorphone HCL INJ (*CRX) 1 MG/ML SYR IV PUSH ×7 (01:59→22:11)
[2024-04-19] MEDS: LACTATED RINGERS 1,000 ML 150 ML IV CONT ×3 (04:57→17:15)
[2024-04-19] MEDS: [UNRECOGNIZED DRUG - OTHER] INHALATION ×2 (08:00→20:06)
[2024-04-19] MEDS: GLYCOPYRROLATE INHALATION ×2 (08:00→20:06)
[2024-04-19] MEDS: FORMOTEROL FUMARATE INHALATION ×2 (08:00→20:06)
[2024-04-19] MEDS: BUDESONIDE INHALATION ×2 (08:00→20:06)
[2024-04-19] MEDS: HYDROcodone/acetaminophen (*CRX) 5-325 MG TABLET 1 TAB PO ×4 (08:49→20:55)
[2024-04-19] MEDS: NEBIVOLOL HCL 5 MG TABLET BY MOUTH (08:50)
[2024-04-19] MEDS: CHOLECALCIFEROL 1,000 UNITS TABLET 6000 UNITS PO ×2 (08:50→15:59)
[2024-04-19] MEDS: prednisoLONE ACETATE 1% OPHTH 5 ML 1 DROP RIGHT EYE (08:50)
[2024-04-19] MEDS: ATORVASTATIN 20 MG TABLET BY MOUTH (08:50)
[2024-04-19] MEDS: MONTELUKAST SODIUM 10 MG TABLET BY MOUTH (08:50)
[2024-04-19] MEDS: ARTIFICIAL TEARS OPHTH SOLN 15 ML BOTTLE 2 DROP EACH EYE ×2 (08:51→15:59)
--- NOTE | 2024-04-19 09:03 | P.PNIM_ITS ---
Progress Note: A&P Assessment and Plan (1) Acute pancreatitis: Qualifiers: Acute pancreatitis complication: no infection or necrosis Pancreatitis type: unspecified pancreatitis type Qualified Code(s): K85.90 - Acute pancreatitis without necrosis or infection, unspecified Code(s): K85.90 - Acute pancreatitis without necrosis or infection, unspecified Status: Acute Assessment and Plan: 04/18/24: * CT showing acute interstitial pancreatitis, 5 mm stone at the ampulla of [address] ter, emphysema * Currently NPO * MRCP shown acute interstitial pancreatitis with adjacent 2.7x1.3X0.9 cm loculated acute peripancreatic fluid collection. No cholelithiasis/choledocholithiasis, small bilateral pleural effusions with consolidation in the dependent aspect of the lower lobes which could represent atelectasis or pneumonia, reactive small amount of perihepatic and perisplenic ascites * GI consulted * Continue antiemetic and pain medication as needed * IVF switched to LR @ 150ml/hr 04/19/24: * Continue IV fluid * Continue NPO status * Continue antiemetic and pain medication as needed * Lipase 1950 * Patient still reporting severe abdominal pain and nausea (2) Acute hypoxic respiratory failure: Code(s): J96.01 - Acute respiratory failure with hypoxia Status: Acute Assessment and Plan: 04/18/24: * O2 saturation noted to be 87 % on room air while in the ED, patient was placed on 2 L nasal cannula * Patient does have history of COPD * He is a former smoker and smoked 1 pack per day for 60 years, quit in June of 2018 * Wean oxygen to keep sat between 88-92% * Chest x-ray today shown mild pulmonary edema 04/19/24: * Patient currently on room air with oxygen sat 93-94% (3) Chronic obstructive pulmonary disease: Qualifiers: COPD type: unspecified COPD Qualified Code(s): J44.9 - Chronic obstructive pulmonary disease, unspecified Code(s): J44.9 - Chronic obstructive pulmonary disease, unspecified Status: Acute Assessment and Plan: See above (4) CKD (chronic kidney disease): Qualifiers: Chronic kidney disease stage: stage 4 (severe) Qualified Code(s): N18.4 - Chronic kidney disease, stage 4 (severe) Code(s): N18.9 - Chronic kidney disease, unspecified Status: Acute Assessment and Plan: 04/18/24: * Initial creatinine 1.8, EGFR 37 * Baseline creatinine 1.6 to 2.12 according to EMR * Baseline EGFR 31-43 * Continue to trend 04/19/24: * Creatinine 1.8 * Continue to trend (5) Essential (primary) hypertension: Code(s): I10 - Essential (primary) hypertension Status: Acute Assessment and Plan: 04/18/24: * Blood pressures ranging 128/62-193/76 * Continue Bystolic 04/19/24: * Change to current treatment plan (6) Hyperlipidemia: Qualifiers: Hyperlipidemia type: mixed hyperlipidemia Qualified Code(s): E78.2 - Mixed hyperlipidemia Code(s): E78.5 - Hyperlipidemia, unspecified Status: Acute Assessment and Plan: 04/18/24: * Continue atorvastatin * Aspirin on hold for today 04/18/24: * Continue aspirin Time Spent With Patient Time with patient: Greater than 35 minutes Subjective Date/time seen: 04/19/24 09:03 Interval history: Interval history: This is a 78-year-old male presented to on 04/17/2024 complaints of nausea vomiting. Workup in the hospital included an abdomen/pelvis CT which showed acute interstitial pancreatitis, 5 mm stone at the ampulla Vater, emphysema.
--- NOTE | 2024-04-19 09:03 | PM.IMPN ---
Progress Note: A&P Assessment and Plan (1) Acute pancreatitis: Qualifiers: Acute pancreatitis complication: no infection or necrosis Pancreatitis type: unspecified pancreatitis type Qualified Code(s): K85.90 - Acute pancreatitis without necrosis or infection, unspecified Code(s): K85.90 - Acute pancreatitis without necrosis or infection, unspecified Status: Acute Assessment and Plan: 04/18/24: CT showing acute interstitial pancreatitis, 5 mm stone at the ampulla of Vater, emphysema Currently NPO MRCP shown acute interstitial pancreatitis with adjacent 2.7x1.3X0.9 cm loculated acute peripancreatic fluid collection. No cholelithiasis/choledocholithiasis, small bilateral pleural effusions with consolidation in the dependent aspect of the lower lobes which could represent atelectasis or pneumonia, reactive small amount of perihepatic and perisplenic ascites GI consulted Continue antiemetic and pain medication as needed IVF switched to LR @ 150ml/hr 04/19/24: Continue IV fluid Continue NPO status Continue antiemetic and pain medication as needed Lipase 1950 Patient still reporting severe abdominal pain and nausea (2) Acute hypoxic respiratory failure: Code(s): J96.01 - Acute respiratory failure with hypoxia Status: Acute Assessment and Plan: 04/18/24: O2 saturation noted to be 87 % on room air while in the ED, patient was placed on 2 L nasal cannula Patient does have history of COPD He is a former smoker and smoked 1 pack per day for 60 years, quit in June of 2018 Wean oxygen to keep sat between 88-92% Chest x-ray today shown mild pulmonary edema 04/19/24: Patient currently on room air with oxygen sat 93-94% (3) Chronic obstructive pulmonary disease: Qualifiers: COPD type: unspecified COPD Qualified Code(s): J44.9 - Chronic obstructive pulmonary disease, unspecified Code(s): J44.9 - Chronic obstructive pulmonary disease, unspecified Status: Acute Assessment and Plan: See above (4) CKD (chronic kidney disease): Qualifiers: Chronic kidney disease stage: stage 4 (severe) Qualified Code(s): N18.4 - Chronic kidney disease, stage 4 (severe) Code(s): N18.9 - Chronic kidney disease, unspecified Status: Acute Assessment and Plan: 04/18/24: Initial creatinine 1.8, EGFR 37 Baseline creatinine 1.6 to 2.12 according to EMR Baseline EGFR 31-43 Continue to trend 04/19/24: Creatinine 1.8 Continue to trend (5) Essential (primary) hypertension: Code(s): I10 - Essential (primary) hypertension Status: Acute Assessment and Plan: 04/18/24: Blood pressures ranging 128/62-193/76 Continue Bystolic 04/19/24: Change to current treatment plan (6) Hyperlipidemia: Qualifiers: Hyperlipidemia type: mixed hyperlipidemia Qualified Code(s): E78.2 - Mixed hyperlipidemia Code(s): E78.5 - Hyperlipidemia, unspecified Status: Acute Assessment and Plan: 04/18/24: Continue atorvastatin Aspirin on hold for today 04/18/24: Continue aspirin Time Spent With Patient Time with patient: Greater than 35 minutes Subjective Date/time seen: 04/19/24 09:03 Interval history: Interval history: This is a 78-year-old male presented to on 04/17/2024 complaints of nausea vomiting. Workup in the hospital included an abdomen/pelvis CT which showed acute interstitial pancreatitis, 5 mm stone at the ampulla Vater, emphysema. Initial labs revealed white blood cell count of 12.0, creatinine 1.8, EGFR 37, lactic acid was 1.9, liver enzymes were normal, lipase 31,663. UA was obtained and showed 2+ urine protein, trace urine ketones. Echo from 12/26/2022 was reviewed and shown normal LV systolic function with an estimated EF of 60-65%, grade 1 diastolic dysfunction, moderate aortic valve sclerosis. Patient was given 1 L normal saline, pain meds, antiemetics while in the ED. GI was consulted.
[2024-04-19 09:20] LABS: Basophils Absolute Auto 0.1 K/mm3 (0.0-0.1); Basophils Percent Auto 0.3 % (0.2-1.2); Hematocrit 39.8 % (42.0-52.0); Hemoglobin 13.4 g/dL (14.0-18.0); Immature Granulocyte Absolute 0.07 K/mm3 (0.00-0.031); Immature Granulocyte Percent A 0.4 % (0-0.5); Lymphocytes Percent Auto 3.9 % (18.3-44.2); Mean Corpuscular HGB Conc 33.7 g/dl (32-36); Mean Corpuscular Hemoglobin 35.4 pg (26-34); Mean Corpuscular Volume 105.3 fl (80-100); Mean Platelet Volume 10.1 fl (7.4-10.4); Monocytes Absolute Auto 1.1 K/mm3 (0.1-0.6); Neutrophils Absolute Auto 16.1 K/mm3 (1.3-6.7); Neutrophils Percent Auto 89.4 % (45.5-73.1); Platelet Count Result 137 k/mm3 (150-375); Red Blood Count 3.78 M/mm3 (4.6-6.20); Red Cell Distribution Width 13.9 % (11.5-14.5)
[2024-04-19 09:31] LABS: Alanine Aminotransferase 18 U/L (6-50); Albumin Level 3.6 g/dL (3.5-5.1); Alkaline Phosphatase 60 U/L (38-126); Anion Gap 6 mmol/L (4-12); Aspartate Amino Transferase 32 U/L (17-59); Bilirubin,Total 1.1 mg/dL (0.2-1.3); Blood Urea Nitrogen 37 mg/dL (9-20); Calcium 7.9 mg/dL (8.4-10.2); Carbon Dioxide 25 mmol/L (22-30); Chloride 108 mmol/L (98-107); Estimated CRCL calculation 35 ml/min; Estimated Glomerular Filt Rate 37; Glucose 117 mg/dL (65-110); Lipase 1951 U/L (23-300); Potassium 4.2 mmol/L (3.4-5.0); Sodium 139 mmol/L (137-145)
[2024-04-19] MEDS: MEROPENEM 1 GM/NS 100 ML 1 GM/100 ML BAG IVPB (13:42)
--- NOTE | 2024-04-19 16:57 | WPDGIPROGNO ---
Progress Note: A&P Assessment and Plan (1) Acute pancreatitis: Qualifiers: Acute pancreatitis complication: no infection or necrosis Pancreatitis type: unspecified pancreatitis type Qualified Code(s): K85.90 - Acute pancreatitis without necrosis or infection, unspecified Code(s): K85.90 - Acute pancreatitis without necrosis or infection, unspecified Status: Acute Assessment and Plan: probably GB related without any other clear etiology- it seems that stone has passed- not longer seen in MRCP still quite symptomatic no cholelithiasis but on admission description of possible stone at ampulla- will ask surgery to evaluate (2) Elevated lipase: Code(s): R74.8 - Abnormal levels of other serum enzymes Status: Acute Assessment and Plan: trending down (3) Nausea & vomiting: Code(s): R11.2 - Nausea with vomiting, unspecified Status: Acute Assessment and Plan: better (4) Leukocytosis: Code(s): D72.829 - Elevated white blood cell count, unspecified Status: Acute Assessment and Plan: probably reactive from pancreatitis (5) Abdominal pain: Code(s): R10.9 - Unspecified abdominal pain Status: Acute (6) Acute hypoxic respiratory failure: Code(s): J96.01 - Acute respiratory failure with hypoxia Status: Acute Subjective Date/time seen: 04/19/24 16:57 Interval history: nausea has improved but still significant pain and feeling bloated Review of Systems Review of Systems: All systems reviewed & are unremarkable except as noted in HPI and below Exam Const: General: no acute distress HENMT: Face/Nose/Sinus: Normal nares present Eyes: General: appearance normal, both eyes and all related structures Neck: Neck: supple Resp: Auscultation: clear to auscultation bilaterally Cardio: Rate: regular rate Rhythm: regular rhythm GI: Inspection: distended GI Palp: Yes Soft to palpation and Yes Tenderness to palpation present (GI) (diffusely) Other: decrease BS Skin: General skin exam: normal color Neuro: Speech: normal speech Motor exam (neuro): 5/5 motor strength present throughout Extrem: General: normal to inspection Psych: Mental Status: mental status grossly normal Objective Data Vital Signs Vital Signs: Vital Signs - 24 hr 04/18/24 18:00 04/18/24 20:15 04/18/24 20:38 Temperature 97.3 F L Pulse Rate 74 78 Respiratory Rate 20 Blood Pressure 111/41 L Pulse Oximetry 89 L 90 Oxygen Delivery Nasal Cannula Oxygen Flow Rate 3 04/18/24 20:38 04/18/24 20:00 04/18/24 22:00 Temperature Pulse Rate 88 81 79 Respiratory Rate 20 Blood Pressure Pulse Oximetry Oxygen Delivery Oxygen Flow Rate 04/19/24 00:06 04/19/24 00:00 04/19/24 02:00 Temperature 97.3 F L Pulse Rate 83 81 77 Respiratory Rate 20 Blood Pressure 118/48 L Pulse Oximetry 92 Oxygen Delivery Oxygen Flow Rate 04/19/24 05:01 04/19/24 04:00 04/19/24 04:00 Temperature 97.2 F L Pulse Rate 70 90 Respiratory Rate 20 Blood Pressure 131/51 L Pulse Oximetry 92 Oxygen Delivery Room Air Oxygen Flow Rate 04/19/24 06:00 04/19/24 07:46 04/19/24 08:16 Temperature 97.8 F Pulse Rate 79 71 Respiratory Rate 24 H Blood Pressure 145/52 H Pulse Oximetry 95 93 Oxygen Delivery Nasal Cannula Oxygen Flow Rate 3 04/19/24 08:50 04/19/24 08:00 04/19/24 10:00 Temperature Pulse Rate 80 81 80 Respiratory Rate Blood Pressure Pulse Oximetry Oxygen Delivery Oxygen Flow Rate 04/19/24 08:00 04/19/24 11:32 04/19/24 12:00 Temperature 98.1 F Pulse Rate 81 71 74 Respiratory Rate 20 Blood Pressure 134/59 L Pulse Oximetry 93 Oxygen Delivery Room Air Oxygen Flow Rate 04/19/24 12:00 04/19/24 14:00 04/19/24 15:48 Temperature 98.5 F Pulse Rate 74 80 73 Respiratory Rate 20 Blood Pressure 149/62 H Pulse Oximetry 95 O
[2024-04-19] MEDS: LIDOCAINE HCL 2% GEL UROJET 10 ML PKG MUCOUS MEM (18:53)
[2024-04-20] VITALS (20 sets, daily range): BP systolic 140–169; BP diastolic 55–92; PULSE 61–90; RESP 18–24; TEMP 35.7–37.1; O2SAT 91–95
[2024-04-20] MEDS: MEROPENEM 1 GM/NS 100 ML 1 GM/100 ML BAG IVPB ×3 (00:10→23:56)
[2024-04-20] MEDS: HYDROmorphone HCL INJ (*CRX) 1 MG/ML SYR IV PUSH ×9 (01:31→23:56)
[2024-04-20] MEDS: HYDROmorphone HCL INJ (*CRX) 1 MG/ML SYR 0.5 MG IV PUSH (02:17)
[2024-04-20 04:42] LABS: Basophils Percent Auto 0.3 % (0.2-1.2); Eosinophils Absolute Auto 0.1 K/mm3 (0-0.3); Eosinophils Percent Auto 0.5 % (0-4.4); Hematocrit 37.6 % (42.0-52.0); Hemoglobin 13.1 g/dL (14.0-18.0); Immature Granulocyte Absolute 0.05 K/mm3 (0.00-0.031); Immature Granulocyte Percent A 0.4 % (0-0.5); Immature Platelet Fraction Pct 3.2 % (0.9-11.2); Lymphocytes Absolute Auto 0.48 K/mm3 (0.9-3.2); Lymphocytes Percent Auto 3.8 % (18.3-44.2); Mean Corpuscular HGB Conc 34.8 g/dl (32-36); Mean Corpuscular Hemoglobin 35.8 pg (26-34); Mean Corpuscular Volume 102.7 fl (80-100); Mean Platelet Volume 10.6 fl (7.4-10.4); Monocytes Absolute Auto 0.7 K/mm3 (0.1-0.6); Monocytes Percent Auto 5.3 % (2.6-8.5); Neutrophils Absolute Auto 11.2 K/mm3 (1.3-6.7); Neutrophils Percent Auto 89.7 % (45.5-73.1); Platelet Count Result 124 k/mm3 (150-375); Red Blood Count 3.66 M/mm3 (4.6-6.20); Red Cell Distribution Width 13.7 % (11.5-14.5); White Blood Count 12.5 K/mm3 (4.5-10.0)
[2024-04-20] MEDS: LACTATED RINGERS 1,000 ML 150 ML IV CONT ×3 (04:47→19:57)
[2024-04-20 07:32] LABS: Alanine Aminotransferase 25 U/L (6-50); Albumin Level 3.6 g/dL (3.5-5.1); Alkaline Phosphatase 103 U/L (38-126); Anion Gap 9 mmol/L (4-12); Aspartate Amino Transferase 47 U/L (17-59); Bilirubin,Total 0.8 mg/dL (0.2-1.3); Blood Urea Nitrogen 37 mg/dL (9-20); Calcium 8.1 mg/dL (8.4-10.2); Carbon Dioxide 21 mmol/L (22-30); Chloride 108 mmol/L (98-107); Estimated CRCL calculation 42 ml/min; Estimated Glomerular Filt Rate 45; Glucose 113 mg/dL (65-110); Potassium 3.6 mmol/L (3.4-5.0); Sodium 138 mmol/L (137-145)
[2024-04-20] MEDS: NEBIVOLOL HCL 5 MG TABLET BY MOUTH (08:04)
[2024-04-20] MEDS: MONTELUKAST SODIUM 10 MG TABLET BY MOUTH (08:04)
[2024-04-20] MEDS: ASPIRIN 81 MG ENTERIC TABLET PO (08:04)
[2024-04-20] MEDS: ATORVASTATIN 20 MG TABLET BY MOUTH (08:05)
[2024-04-20] MEDS: ARTIFICIAL TEARS OPHTH SOLN 15 ML BOTTLE 2 DROP EACH EYE ×2 (08:05→16:05)
[2024-04-20] MEDS: CHOLECALCIFEROL 1,000 UNITS TABLET 6000 UNITS PO (08:05)
[2024-04-20] MEDS: prednisoLONE ACETATE 1% OPHTH 5 ML 1 DROP RIGHT EYE (08:05)
[2024-04-20] MEDS: BUDESONIDE INHALATION ×2 (08:14→19:56)
[2024-04-20] MEDS: FORMOTEROL FUMARATE INHALATION ×2 (08:14→19:56)
[2024-04-20] MEDS: GLYCOPYRROLATE INHALATION ×2 (08:14→19:56)
[2024-04-20] MEDS: [UNRECOGNIZED DRUG - OTHER] INHALATION ×2 (08:14→19:56)
--- NOTE | 2024-04-20 09:38 | PM.CNGS ---
Assessment and Plan Assessment and plan (1) Acute pancreatitis: Qualifiers: Acute pancreatitis complication: no infection or necrosis Pancreatitis type: unspecified pancreatitis type Qualified Code(s): K85.90 - Acute pancreatitis without necrosis or infection, unspecified Code(s): K85.90 - Acute pancreatitis without necrosis or infection, unspecified Status: Acute Assessment and Plan: The patient was admitted with acute pancreatitis. Lipase was initially 31,000 and is down to 1,[address] scan three days ago showed a gallstone at the ampulla of Vater, as well as acute pancreatitis. MRCP two days ago showed the stone likely passed, and again showed acute pancreatitis with a small adjacent peripancreatic fluid collection. The etiology for his pancreatitis appears to be biliary, but there are no other gallstones seen in the gallbladder on his CT or MRCP. He would likely benefit from eventually having a laparoscopic cholecystectomy, but this is not urgent. His pancreatitis would need to improve prior to considering an interval cholecystectomy. We would recommend to continue medical management for the pancreatitis at this time, and we will continue to follow along to decide timing of surgery depending on how he progresses clinically. (2) Abdominal pain: Code(s): R10.9 - Unspecified abdominal pain Status: Acute Assessment and Plan: He continues to have abdominal pain reportedly without much improvement. He feels it is not well controlled. We will adjust his pain medication to try and improve his pain control. Will also get a KUB today as I am concerned he may be developing an ileus. Will have nursing try to get him up to the chair and increase his activity if tolerated today. May try stimulating his bowels depending on KUB results. He is having nausea this morning but no vomiting. May need to consider NG tube placement if he starts vomiting. (3) Chronic obstructive pulmonary disease: Qualifiers: COPD type: unspecified COPD Qualified Code(s): J44.9 - Chronic obstructive pulmonary disease, unspecified Code(s): J44.9 - Chronic obstructive pulmonary disease, unspecified Status: Acute (4) CKD (chronic kidney disease) stage 3, GFR 30-59 ml/min: Code(s): N18.3 - Chronic kidney disease, stage 3 (moderate) Status: Acute (5) Urinary retention: Code(s): R33.9 - Retention of urine, unspecified Status: Acute Assessment and Plan: Urinary retention yesterday with Nelson placement. Creatinine down some today. Plan I have discussed the patient's case and plan of care with Dr. Alvarez. Thank you for allowing us to see the patient in consultation and we will continue to follow along with you. History of Present Illness Consult details Consult date: 04/20/24 Reason for consult: other (Pancreatitis) Requesting physician: Danie Manuel MD Narrative: This is a 78-year-old man with a history of COPD/emphysema, CKD, and hypertension, who we have been asked to see in surgical consultation for pancreatitis. He presented to the ER 4 days ago for evaluation of abdominal pain, nausea, and vomiting. Workup in the ER showed CT evidence of acute pancreatitis and a 5 mm stone at the ampulla Vater. Labs showed a white blood cell count 08060 and lipase 31,000. LFTs essentially normal. He was admitted to the hospitalist service. GI was consulted and evaluated the patient. MRCP ordered and showed no cholelithiasis or choledocholithiasis. Previous noted calcified stone at the ampulla has likely passed. Also seen is acute interstitial pancreatitis with adjacent 2.7 x 1.3 x 0.9 cm loculated acute peripancreatic fluid collection. Lipase has been trending down to 1900 yesterday. GI consulted our service for evaluation of the biliary pancreatitis. The patient is now seen in IMU. He is still having a significant amount of abdominal pain. He feels his
[2024-04-20] MEDS: IBUPROFEN IV 400 MG in SODIUM CHLORIDE 0.9% IV 100 ML 208 MG IVPB ×2 (11:52→18:15)
--- NOTE | 2024-04-20 15:21 | WPDGIPROGNO ---
Progress Note: A&P Assessment and Plan (1) Acute pancreatitis: Qualifiers: Acute pancreatitis complication: no infection or necrosis Pancreatitis type: unspecified pancreatitis type Qualified Code(s): K85.90 - Acute pancreatitis without necrosis or infection, unspecified Code(s): K85.90 - Acute pancreatitis without necrosis or infection, unspecified Status: Acute Assessment and Plan: probably GB related without any other clear etiology- it seems that stone has passed- not longer seen in MRCP symptomatic no cholelithiasis but on admission description of possible stone at ampulla interval cholecystectomy but once pancreatitis resolves continue supportive care (2) Elevated lipase: Code(s): R74.8 - Abnormal levels of other serum enzymes Status: Acute Assessment and Plan: trending down (3) Nausea & vomiting: Code(s): R11.2 - Nausea with vomiting, unspecified Status: Acute Assessment and Plan: better (4) Leukocytosis: Code(s): D72.829 - Elevated white blood cell count, unspecified Status: Acute Assessment and Plan: probably reactive from pancreatitis (5) Abdominal pain: Code(s): R10.9 - Unspecified abdominal pain Status: Acute Assessment and Plan: still with pain (6) Acute hypoxic respiratory failure: Code(s): J96.01 - Acute respiratory failure with hypoxia Status: Acute Subjective Date/time seen: 04/20/24 15:21 Interval history: some improvement but still with abdominal pain Review of Systems Review of Systems: All systems reviewed & are unremarkable except as noted in HPI and below Exam Const: General: comfortable and no acute distress Nutritional Appearance: average body habitus Orientation/consciousness: patient oriented x3 HENMT: Head: normocephalic and atraumatic Ears: hearing grossly normal bilaterally Mouth: Yes moist mucous membranes Eyes: General: appearance normal, both eyes and all related structures Pupils: Equal, round and reactive pupils present Neck: Neck: normal visual inspection and full ROM Resp: Effort & Inspection: no respiratory distress Auscultation: clear to auscultation bilaterally Cardio: Rate: regular rate Rhythm: regular rhythm GI: Inspection: distended GI Palp: Yes Soft to palpation, Yes Tenderness to palpation present (GI) (diffusely tender), Yes Guarding due to palpation present (GI) (voluntary guarding across the upper abdomen) and No Rebound tenderness present Auscultation: Hypoactive bowel sounds present Skin: General skin exam: normal color Neuro: General: moves all extremities and no focal motor deficits Speech: normal speech Motor exam (neuro): 5/5 motor strength present throughout Extrem: General: normal to inspection and no edema Psych: Mental Status: mental status grossly normal Attitude: cooperative Insight: Good insight present (Psych) Judgement: Good judgement present (Psych) Objective Data Vital Signs Vital Signs: Vital Signs - 24 hr 04/19/24 15:48 04/19/24 16:00 04/19/24 18:00 Temperature 98.5 F Pulse Rate 73 72 77 Respiratory Rate 20 Blood Pressure 149/62 H Pulse Oximetry 95 Oxygen Delivery Oxygen Flow Rate 04/19/24 16:00 04/19/24 19:54 04/19/24 20:00 Temperature 98.5 F Pulse Rate 72 74 Respiratory Rate 20 Blood Pressure 145/60 H Pulse Oximetry 95 Oxygen Delivery Room Air Room Air Oxygen Flow Rate 04/19/24 20:00 04/19/24 23:53 04/20/24 00:00 Temperature 98.5 F Pulse Rate 85 70 Respiratory Rate 20 Blood Pressure 136/64 Pulse Oximetry 94 Oxygen Delivery Room Air Oxygen Flow Rate 04/19/24 20:06 04/19/24 22:00 04/20/24 00:00 Temperature Pulse Rate 75 74 Respiratory Rate Blood Pressure Pulse Oximetry 95 Oxygen Delivery Room Air Oxygen Flow Rate 04/20/24 02:00 04/20/24 04:00 04/20/24 04:29 Temperature 98.7 F Pulse Rate 75 72
[2024-04-20] MEDS: CHOLECALCIFEROL 5,000 UNITS TABLET 5000 UNITS PO (16:04)
[2024-04-20] MEDS: CHOLECALCIFEROL 1,000 UNITS TABLET 1000 UNITS PO (16:05)
[2024-04-20] MEDS: BISACODYL 10 MG SUPPOSITORY RECTAL (16:25)
--- NOTE | 2024-04-20 16:41 | WPDPN ---
Progress Note: A&P Assessment and Plan (1) Acute pancreatitis: Qualifiers: Acute pancreatitis complication: no infection or necrosis Pancreatitis type: unspecified pancreatitis type Qualified Code(s): K85.90 - Acute pancreatitis without necrosis or infection, unspecified Code(s): K85.90 - Acute pancreatitis without necrosis or infection, unspecified Status: Acute (2) Acute hypoxic respiratory failure: Code(s): J96.01 - Acute respiratory failure with hypoxia Status: Acute (3) Chronic obstructive pulmonary disease: Qualifiers: COPD type: unspecified COPD Qualified Code(s): J44.9 - Chronic obstructive pulmonary disease, unspecified Code(s): J44.9 - Chronic obstructive pulmonary disease, unspecified Status: Acute (4) CKD (chronic kidney disease) stage 3, GFR 30-59 ml/min: Code(s): N18.3 - Chronic kidney disease, stage 3 (moderate) Status: Acute (5) Essential (primary) hypertension: Code(s): I10 - Essential (primary) hypertension Status: Acute Plan Interval history: 04/20/2024: 78 y/o male presented with epigastric pain is found to have acute complicated pancreatitis seen by GI suspect most likely 2/2 gallbladder as patient had MRCP showed no cholelithiasis/choledocholithiasis suggesting patient had passed the stone, patient continue to have epigastric pain seen by surgery survice suggested to monitor until clinical symptoms improve before lap gena, will monitor LFT. Subjective Date/time seen: 04/20/24 16:41 Interval history: Interval history: 04/20/2024: 78 y/o male presented with epigastric pain is found to have acute complicated pancreatitis seen by GI suspect most likely 2/2 gallbladder as patient had MRCP showed no cholelithiasis/choledocholithiasis suggesting patient had passed the stone, patient continue to have epigastric pain seen by surgery survice suggested to monitor until clinical symptoms improve before lap gena, will monitor LFT. Review of Systems Review of Systems: All systems reviewed & are unremarkable except as noted in HPI and below Exam Narrative: General: patient is comfortable NAD HEENT: eyes are clear nonicteric, normocephalic, atraumatic. Oral mucosa moist. RESP: CTA HEART: RR S1S2 LUNGS: CTA ABD: obese BS+, diffusely tender. SKIN: no obvious rash EXTREMITIES: no edema NEURO:A&O grossly intact PSYCH: Pleasant and cooperative with normal mood and affect Objective Data Vital Signs Vital Signs: Vital Signs - 24 hr 04/19/24 18:00 04/19/24 19:54 04/19/24 20:00 Temperature 36.9 C Pulse Rate 77 74 Respiratory Rate 20 Blood Pressure 145/60 H Pulse Oximetry 95 Oxygen Delivery Room Air Oxygen Flow Rate 04/19/24 20:00 04/19/24 23:53 04/20/24 00:00 Temperature 36.9 C Pulse Rate 85 70 Respiratory Rate 20 Blood Pressure 136/64 Pulse Oximetry 94 Oxygen Delivery Room Air Oxygen Flow Rate 04/19/24 20:06 04/19/24 22:00 04/20/24 00:00 Temperature Pulse Rate 75 74 Respiratory Rate Blood Pressure Pulse Oximetry 95 Oxygen Delivery Room Air Oxygen Flow Rate 04/20/24 02:00 04/20/24 04:00 04/20/24 04:29 Temperature 37.1 C Pulse Rate 75 72 Respiratory Rate 22 H Blood Pressure 162/65 H Pulse Oximetry 95 Oxygen Delivery Room Air Oxygen Flow Rate 04/20/24 04:00 04/20/24 06:00 04/20/24 07:56 Temperature 35.8 C L Pulse Rate 78 79 80 Respiratory Rate 22 H Blood Pressure 163/65 H Pulse Oximetry 91 Oxygen Delivery Oxygen Flow Rate 04/20/24 08:04 04/20/24 08:15 04/20/24 08:00 Temperature Pulse Rate 90 Respiratory Rate Blood Pressure Pulse Oximetry 93 92 Oxygen Delivery Nasal Cannula Nasal Cannula Oxygen Flow Rate 2 2 04/20/24 08:00 04/20/24 11:48 04/20/24 10:00 Temperature 35.7 C L Pulse Rate 75 77 67 Respiratory Rate 24 H Blood Pressure 140/92 H Pulse Oximetry 92 Oxygen Del
--- NOTE | 2024-04-20 16:44 | PC.NURSE ---
Discussed with patient upon assuming care @ 1300 that our plan was to treat pain with PRN hydromorphone, attempt to nap until 1600 when it is time for vitals, we will attempt to ambulate around room, attempt to use restroom, and sit in recliner for dinner. Upon 1600 rounds/med pass his pain had increased to a 10/10 after sitting at the bedside to get cleaned up with the assistance of tech. Redosed PRN medications (see MAR) administered one time dose suppository, and encouraged patient to ambulate. At this time he only felt capable of stand pivot to the bedside commode where he proceeded to belch and pass gas. Stressed the importance of ambulation to promote bowel motility and relief of gas pains, however he still declined at this time. Attempted to have him at least sit in the recliner for dinner (his diet has been advanced to clear liquids) he stated that recliner is a sad excuse of a chair, I'd rather sit on this commode all day Returned to bed with no further issues.
[2024-04-20 22:38] LABS: Immunoglobulin G, Serum 440 mg/dL (600-1540); Immunoglobulin G1 295 mg/dL (382-929); Immunoglobulin G2 42 mg/dL (241-700); Immunoglobulin G3 43 mg/dL (22-178); Immunoglobulin G4 2.6 mg/dL (4.0-86.0)
[2024-04-21] VITALS (20 sets, daily range): BP systolic 145–171; BP diastolic 56–69; PULSE 67–81; RESP 14–24; TEMP 36.6–37.5; O2SAT 90–100
[2024-04-21] MEDS: HYDROmorphone HCL INJ (*CRX) 1 MG/ML SYR IV PUSH ×11 (02:10→22:36)
[2024-04-21] MEDS: LACTATED RINGERS 1,000 ML 150 ML IV CONT ×3 (02:11→17:34)
[2024-04-21] MEDS: IBUPROFEN IV 400 MG in SODIUM CHLORIDE 0.9% IV 100 ML 208 MG IVPB ×3 (03:10→22:25)
[2024-04-21 04:31] LABS: Hematocrit 35.3 % (42.0-52.0); Hemoglobin 12.5 g/dL (14.0-18.0); Mean Corpuscular HGB Conc 35.4 g/dl (32-36); Mean Corpuscular Hemoglobin 35.7 pg (26-34); Mean Corpuscular Volume 100.9 fl (80-100); Mean Platelet Volume 10.4 fl (7.4-10.4); Platelet Count Result 124 k/mm3 (150-375); Red Cell Distribution Width 13.3 % (11.5-14.5); White Blood Count 11.4 K/mm3 (4.5-10.0)
[2024-04-21 04:42] LABS: Alanine Aminotransferase 23 U/L (6-50); Albumin Level 3.4 g/dL (3.5-5.1); Alkaline Phosphatase 102 U/L (38-126); Anion Gap 8 mmol/L (4-12); Aspartate Amino Transferase 46 U/L (17-59); Bilirubin,Total 0.9 mg/dL (0.2-1.3); Blood Urea Nitrogen 37 mg/dL (9-20); Calcium 8.4 mg/dL (8.4-10.2); Carbon Dioxide 22 mmol/L (22-30); Chloride 109 mmol/L (98-107); Estimated CRCL calculation 45 ml/min; Estimated Glomerular Filt Rate 49; Glucose 100 mg/dL (65-110); Lipase 59 U/L (23-300); Magnesium 2.2 mg/dL (1.6-2.3); Potassium 3.4 mmol/L (3.4-5.0); Sodium 139 mmol/L (137-145)
[2024-04-21 05:02] LABS: Anisocytosis 1+; Band Neutrophils Percent 13 % (0-6); Burr Cells 1+; Lymphocytes Absolute Manual 0.22 K/mm3 (1.1-4.5); Monocytes Absolute Manual 1.02 K/mm3 (0.1-0.90); Monocytes Percent Manual 9 % (3-9); Neutrophils Absolute Manual 10.14 K/mm3 (1.3-6.7); Neutrophils Percent Manual 76 % (46-73); Platelet Estimate Decreased (Adequate); Schistocytes None Seen; Total Cells Counted 100
[2024-04-21] MEDS: BUDESONIDE INHALATION ×2 (07:38→19:58)
[2024-04-21] MEDS: FORMOTEROL FUMARATE INHALATION ×2 (07:38→19:58)
[2024-04-21] MEDS: [UNRECOGNIZED DRUG - OTHER] INHALATION ×2 (07:38→19:58)
[2024-04-21] MEDS: GLYCOPYRROLATE INHALATION ×2 (07:38→19:58)
[2024-04-21] MEDS: hydrALAZINE HCL 20 MG/ML VIAL 10 MG IV PUSH (08:32)
[2024-04-21] MEDS: NEBIVOLOL HCL 5 MG TABLET BY MOUTH (10:12)
[2024-04-21] MEDS: prednisoLONE ACETATE 1% OPHTH 5 ML 1 DROP RIGHT EYE (10:13)
[2024-04-21] MEDS: ARTIFICIAL TEARS OPHTH SOLN 15 ML BOTTLE 2 DROP EACH EYE ×2 (10:13→16:58)
--- NOTE | 2024-04-21 10:38 | PM.PNGS ---
Progress Note: A&P Assessment and Plan (1) Acute pancreatitis: Qualifiers: Acute pancreatitis complication: no infection or necrosis Pancreatitis type: unspecified pancreatitis type Qualified Code(s): K85.90 - Acute pancreatitis without necrosis or infection, unspecified Code(s): K85.90 - Acute pancreatitis without necrosis or infection, unspecified Status: Acute Assessment and Plan: labs normalized, still c/o significant pain, would hold off on interval cholecystectomy until symptoms improve, will give Miralax for constipation Subjective Subjective Date/Time Seen: 04/21/24 10:38 Interval history: still c/o significant abd pain c radiation to back, feels quite weak and constipated Review of Systems Review of Systems: All systems reviewed & are unremarkable except as noted in HPI and below Exam Const: General: cooperative, no acute distress, ill appearing, tired appearing and uncomfortable Resp: Auscultation: clear to auscultation bilaterally Cardio: Rate: regular rate Rhythm: regular rhythm GI: Inspection: normal to inspection and distended GI Palp: Yes abdominal tenderness, Yes Soft to palpation, Yes Tenderness to palpation present (GI), No Guarding due to palpation present (GI) and No Rigid due to palpation Objective Data Vital Signs Vital Signs: Vital Signs - 24 hr 04/20/24 11:48 04/20/24 12:00 04/20/24 14:00 Temperature 35.7 C L Pulse Rate 77 77 74 Respiratory Rate 24 H Blood Pressure 140/92 H Pulse Oximetry 92 Oxygen Delivery Oxygen Flow Rate 04/20/24 12:00 04/20/24 16:36 04/20/24 16:00 Temperature 35.8 C L Pulse Rate 63 61 Respiratory Rate 20 Blood Pressure 153/68 H Pulse Oximetry 92 95 Oxygen Delivery Oxygen Flow Rate 3 04/20/24 16:00 04/20/24 18:00 04/20/24 19:11 Temperature 36.3 C L Pulse Rate 79 66 Respiratory Rate 18 Blood Pressure 156/55 H Pulse Oximetry 94 91 Oxygen Delivery Nasal Cannula Oxygen Flow Rate 2 04/20/24 20:00 04/20/24 20:00 04/20/24 20:00 Temperature Pulse Rate 75 Respiratory Rate Blood Pressure Pulse Oximetry 91 93 Oxygen Delivery Nasal Cannula Nasal Cannula Oxygen Flow Rate 2 3 04/20/24 20:00 04/20/24 22:00 04/20/24 23:41 Temperature 37.0 C Pulse Rate 64 68 65 Respiratory Rate 18 Blood Pressure 169/63 H Pulse Oximetry 92 Oxygen Delivery Oxygen Flow Rate 04/21/24 00:00 04/21/24 00:00 04/21/24 02:00 Temperature Pulse Rate 67 69 Respiratory Rate Blood Pressure Pulse Oximetry 92 Oxygen Delivery Nasal Cannula Oxygen Flow Rate 3 04/21/24 03:20 04/21/24 03:48 04/21/24 04:00 Temperature 36.6 C Pulse Rate 69 68 Respiratory Rate 18 Blood Pressure 153/64 H Pulse Oximetry 92 94 Oxygen Delivery Nasal Cannula Oxygen Flow Rate 3 04/21/24 07:39 04/21/24 07:52 04/21/24 06:00 Temperature 36.7 C Pulse Rate 67 76 Respiratory Rate 24 H Blood Pressure 168/62 H Pulse Oximetry 100 94 Oxygen Delivery Nasal Cannula Oxygen Flow Rate 3 Intake/Output Intake/Output: Intake & Output 04/18/24 04/19/24 04/20/24 04/21/24 23:59 23:59 23:59 23:59 Intake Total 2129.4 4295 2950.5 2859 Output Total 2250 675 1000 500 Balance -120.6 3620 1950.5 2359 Meds/Results Medications: Active Medications Generic Name Dose Route Start Last Admin Trade Name Freq PRN Reason Stop Dose Admin Acetaminophen 650 mg 04/18/24 10:42 Acetaminophen 325 Mg Tablet PO Q4H PRN Mild Pain (1-3) or Fever Artificial Tears 2 drop 04/18/24 09:00 04/21/24 10:13 Artificial Tears Ophth Soln 15 Ml Bottle EACH EYE 2 drop BID [facility] Administration Aspirin 81 mg 04/20/24 09:00 04/20/24 08:04 Aspirin 81 Mg Enteric Tablet PO 81 mg DAILY [facility] Administration Atorvastatin Calcium 20 mg 04/18/24 10:55 04/21/24 10:18 Atorvastatin 20 Mg Tablet BY MOUTH Not Given DAILY [facility] Hydralazine HCl 10 m
--- NOTE | 2024-04-21 10:50 | WPDGIPROGNO ---
Progress Note: A&P Assessment and Plan (1) Acute pancreatitis: Qualifiers: Acute pancreatitis complication: no infection or necrosis Pancreatitis type: unspecified pancreatitis type Qualified Code(s): K85.90 - Acute pancreatitis without necrosis or infection, unspecified Code(s): K85.90 - Acute pancreatitis without necrosis or infection, unspecified Status: Acute Assessment and Plan: probably GB related without any other clear etiology- it seems that stone has passed- not longer seen in MRCP stil symptomatic but labs normalized including lipase, also normal liver enzymes no cholelithiasis but on admission description of possible stone at ampulla interval cholecystectomy but once pancreatitis resolves and pain is better, surgery team on board continue supportive care (2) Elevated lipase: Code(s): R74.8 - Abnormal levels of other serum enzymes Status: Acute Assessment and Plan: resolved but still with pain (3) Nausea & vomiting: Code(s): R11.2 - Nausea with vomiting, unspecified Status: Acute (4) Leukocytosis: Code(s): D72.829 - Elevated white blood cell count, unspecified Status: Acute Assessment and Plan: probably reactive from pancreatitis, improved (5) Abdominal pain: Code(s): R10.9 - Unspecified abdominal pain Status: Acute Assessment and Plan: still with pain (6) Acute on chronic renal failure: Code(s): N17.9 - Acute kidney failure, unspecified; N18.9 - Chronic kidney disease, unspecified Status: Acute Assessment and Plan: improving Subjective Date/time seen: 04/21/24 10:50 Interval history: still with significant abdominal pain, he almost fell after using commode Review of Systems Review of Systems: All systems reviewed & are unremarkable except as noted in HPI and below Exam Const: General: no acute distress Nutritional Appearance: average body habitus Orientation/consciousness: patient oriented x3 Other: still with pain HENMT: Head: normocephalic and atraumatic Ears: hearing grossly normal bilaterally Mouth: Yes moist mucous membranes Eyes: General: appearance normal, both eyes and all related structures Pupils: Equal, round and reactive pupils present Neck: Neck: normal visual inspection and full ROM Resp: Effort & Inspection: no respiratory distress Auscultation: clear to auscultation bilaterally Cardio: Rate: regular rate Rhythm: regular rhythm GI: Inspection: distended GI Palp: Yes Soft to palpation, Yes Tenderness to palpation present (GI) (diffusely tender), Yes Guarding due to palpation present (GI) (voluntary guarding across the upper abdomen) and No Rebound tenderness present Auscultation: Hypoactive bowel sounds present Skin: General skin exam: normal color Neuro: General: moves all extremities and no focal motor deficits Speech: normal speech Motor exam (neuro): 5/5 motor strength present throughout Extrem: General: normal to inspection and no edema Psych: Mental Status: mental status grossly normal Attitude: cooperative Insight: Good insight present (Psych) Judgement: Good judgement present (Psych) Objective Data Vital Signs Vital Signs: Vital Signs - 24 hr 04/20/24 11:48 04/20/24 12:00 04/20/24 14:00 Temperature 96.3 F L Pulse Rate 77 77 74 Respiratory Rate 24 H Blood Pressure 140/92 H Pulse Oximetry 92 Oxygen Delivery Oxygen Flow Rate 04/20/24 12:00 04/20/24 16:36 04/20/24 16:00 Temperature 96.4 F L Pulse Rate 63 61 Respiratory Rate 20 Blood Pressure 153/68 H Pulse Oximetry 92 95 Oxygen Delivery Oxygen Flow Rate 3 04/20/24 16:00 04/20/24 18:00 04/20/24 19:11 Temperature 97.4 F L Pulse Rate 79 66 Respiratory Rate 18 Blood Pressure 156/55 H Pulse Oximetry 94 91 Oxygen Delivery Nasal Cannula Oxygen Flow Rate 2 04/20/24 20:00 04/20/24 20:00 04/20/24 20:00 Temperature
[2024-04-21] MEDS: MEROPENEM 1 GM/NS 100 ML 1 GM/100 ML BAG IVPB ×2 (12:15→23:41)
--- NOTE | 2024-04-21 18:58 | WPDPN ---
Progress Note: A&P Assessment and Plan (1) Acute pancreatitis: Qualifiers: Acute pancreatitis complication: no infection or necrosis Pancreatitis type: unspecified pancreatitis type Qualified Code(s): K85.90 - Acute pancreatitis without necrosis or infection, unspecified Code(s): K85.90 - Acute pancreatitis without necrosis or infection, unspecified Status: Acute (2) Acute hypoxic respiratory failure: Code(s): J96.01 - Acute respiratory failure with hypoxia Status: Acute (3) Chronic obstructive pulmonary disease: Qualifiers: COPD type: unspecified COPD Qualified Code(s): J44.9 - Chronic obstructive pulmonary disease, unspecified Code(s): J44.9 - Chronic obstructive pulmonary disease, unspecified Status: Acute (4) CKD (chronic kidney disease) stage 3, GFR 30-59 ml/min: Code(s): N18.3 - Chronic kidney disease, stage 3 (moderate) Status: Acute (5) Essential (primary) hypertension: Code(s): I10 - Essential (primary) hypertension Status: Acute Plan Interval history: 04/20/2024: 78 y/o male presented with epigastric pain is found to have acute complicated pancreatitis seen by GI suspect most likely 2/2 gallbladder as patient had MRCP showed no cholelithiasis/choledocholithiasis suggesting patient had passed the stone, patient continue to have epigastric pain seen by surgery survice suggested to monitor until clinical symptoms improve before lap gena, will monitor LFT. Interval history 04/21/2024: patient with acute complicated pancreatitis contineu to have persistent pain epigastric pain to further evaluate today patient had repeat CT scan of the abdomen, whiche showed: 1. 5 mm stone at the ampulla of Vater. 2. Stable acute pancreatitis. 3. Worsened small volume of ascites. 4. Worsened small pleural effusions. 5. Emphysema. Discussed with GI, most likely pain is worsening due to stone and patient will need ERCP to remove the stone, which is scheduled for tomorrow 04/22/2024, today patient family is present and with patient permission was given updates and answered all the questions. will monitor and plan. Subjective Date/time seen: 04/21/24 18:58 Interval history: Interval history: 04/20/2024: 78 y/o male presented with epigastric pain is found to have acute complicated pancreatitis seen by GI suspect most likely 2/2 gallbladder as patient had MRCP showed no cholelithiasis/choledocholithiasis suggesting patient had passed the stone, patient continue to have epigastric pain seen by surgery survice suggested to monitor until clinical symptoms improve before lap gena, will monitor LFT. Interval history 04/21/2024: patient with acute complicated pancreatitis contineu to have persistent pain epigastric pain to further evaluate today patient had repeat CT scan of the abdomen, whiche showed: 1. 5 mm stone at the ampulla of Vater. 2. Stable acute pancreatitis. 3. Worsened small volume of ascites. 4. Worsened small pleural effusions. 5. Emphysema. Discussed with GI, most likely pain is worsening due to stone and patient will need ERCP to remove the stone, which is scheduled for tomorrow 04/22/2024, today patient family is present and with patient permission was given updates and answered all the questions. will monitor and plan. Review of Systems Review of Systems: epigastric pain, n/V Exam Narrative: General: patient is comfortable NAD HEENT: eyes are clear nonicteric, normocephalic, atraumatic. Oral mucosa moist. RESP: CTA HEART: RR S1S2 LUNGS: CTA ABD: obese BS+, diffusely tender. SKIN: no obvious rash EXTREMITIES: no edema NEURO:A&O grossly intact PSYCH: Pleasant and cooperative with normal mood and affect Objective Data Vital Signs Vital Signs: Vital Signs - 24 hr 04/20/24 19:11 04/20/24 20:00 04/20/24 20:00 Temperature 36.3 C L Pulse Rate 66 75 Respiratory Rate 18 Blood Pressure 156/55 H Pulse Oxim
[2024-04-22] VITALS (27 sets, daily range): BP systolic 151–177; BP diastolic 62–97; PULSE 69–94; RESP 12–24; TEMP 36–37.1; O2SAT 89–98
[2024-04-22] MEDS: HYDROmorphone HCL INJ (*CRX) 1 MG/ML SYR IV PUSH ×11 (01:14→23:42)
[2024-04-22] MEDS: LACTATED RINGERS 1,000 ML 150 ML IV CONT ×3 (01:14→10:52)
[2024-04-22 05:02] LABS: Hematocrit 35.4 % (42.0-52.0); Immature Platelet Fraction Pct 3.2 % (0.9-11.2); Mean Corpuscular HGB Conc 33.9 g/dl (32-36); Mean Corpuscular Hemoglobin 34.9 pg (26-34); Mean Corpuscular Volume 102.9 fl (80-100); Mean Platelet Volume 10.4 fl (7.4-10.4); Platelet Count Result 136 k/mm3 (150-375); Red Blood Count 3.44 M/mm3 (4.6-6.20); Red Cell Distribution Width 13.2 % (11.5-14.5); White Blood Count 11.1 K/mm3 (4.5-10.0)
[2024-04-22 05:13] LABS: Alanine Aminotransferase 27 U/L (6-50); Albumin Level 3.1 g/dL (3.5-5.1); Alkaline Phosphatase 94 U/L (38-126); Anion Gap 6 mmol/L (4-12); Aspartate Amino Transferase 45 U/L (17-59); Bilirubin,Total 0.8 mg/dL (0.2-1.3); Blood Urea Nitrogen 36 mg/dL (9-20); Calcium 8.3 mg/dL (8.4-10.2); Carbon Dioxide 24 mmol/L (22-30); Chloride 109 mmol/L (98-107); Estimated CRCL calculation 52 ml/min; Estimated Glomerular Filt Rate 58; Glucose 98 mg/dL (65-110); Lipase 31 U/L (23-300); Magnesium 2.1 mg/dL (1.6-2.3); Potassium 3.6 mmol/L (3.4-5.0); Sodium 139 mmol/L (137-145)
[2024-04-22 05:37] LABS: Anisocytosis 1+; Burr Cells 1+; Myelocytes Percent 1 %; Platelet Estimate Decreased (Adequate); Poikilocytosis 1+; Schistocytes None Seen; Total Cells Counted 100
[2024-04-22 05:43] LABS: Band Neutrophils Percent 10 % (0-6); Eosinophils Absolute Manual 0.11 K/mm3 (0.02-0.50); Eosinophils Percent Manual 1 % (0-4); Lymphocytes Absolute Manual 0.66 K/mm3 (1.1-4.5); Monocytes Absolute Manual 0.55 K/mm3 (0.1-0.90); Monocytes Percent Manual 5 % (3-9); Neutrophils Absolute Manual 9.65 K/mm3 (1.3-6.7); Neutrophils Percent Manual 77 % (46-73)
[2024-04-22] MEDS: CHOLECALCIFEROL 1,000 UNITS TABLET 1000 UNITS PO ×2 (08:02→16:18)
[2024-04-22] MEDS: CHOLECALCIFEROL 5,000 UNITS TABLET 5000 UNITS PO ×2 (08:02→16:19)
[2024-04-22] MEDS: NEBIVOLOL HCL 5 MG TABLET BY MOUTH (08:02)
[2024-04-22] MEDS: ATORVASTATIN 20 MG TABLET BY MOUTH (08:02)
[2024-04-22] MEDS: MONTELUKAST SODIUM 10 MG TABLET BY MOUTH (08:02)
[2024-04-22] MEDS: prednisoLONE ACETATE 1% OPHTH 5 ML 1 DROP RIGHT EYE (08:03)
[2024-04-22] MEDS: ARTIFICIAL TEARS OPHTH SOLN 15 ML BOTTLE 2 DROP EACH EYE ×2 (08:03→16:17)
--- NOTE | 2024-04-22 08:14 | PM.PNGS ---
Progress Note: A&P Assessment and Plan (1) Acute pancreatitis: Qualifiers: Acute pancreatitis complication: no infection or necrosis Pancreatitis type: unspecified pancreatitis type Qualified Code(s): K85.90 - Acute pancreatitis without necrosis or infection, unspecified Code(s): K85.90 - Acute pancreatitis without necrosis or infection, unspecified Status: Acute Assessment and Plan: Still experiencing significant pain. Lipase normalized. Repeat CT yesterday showed worsening fluid collections around pancreas and persistent stone in CBD. ERCP today per GI. Hopefully that will help with symptoms. Continue to monitor. Surgery won't be considered until pancreatitis resolves. (2) Choledocholithiasis: Code(s): K80.50 - Calculus of bile duct without cholangitis or cholecystitis without obstruction Status: Acute Subjective Subjective Date/Time Seen: 04/22/24 08:14 Interval history: Still with significant pain. Repeat CT yesterday shows persistent stone at ampulla of Vater. Bowels moving. Exam GI: Inspection: distended GI Palp: Yes Soft to palpation, Yes Tenderness to palpation present (GI) (epigastric) and No Guarding due to palpation present (GI) Auscultation: Hypoactive bowel sounds present Objective Data Vital Signs Vital Signs: Vital Signs - 24 hr 04/21/24 11:57 04/21/24 15:57 04/21/24 12:00 Temperature 37.4 C 37.2 C Pulse Rate 76 71 Respiratory Rate 20 14 Blood Pressure 170/68 H 159/69 H Pulse Oximetry 90 95 90 Oxygen Delivery Nasal Cannula Oxygen Flow Rate 3 04/21/24 16:00 04/21/24 10:00 04/21/24 12:00 Temperature Pulse Rate 78 71 Respiratory Rate Blood Pressure Pulse Oximetry 95 Oxygen Delivery Nasal Cannula Oxygen Flow Rate 3 04/21/24 14:00 04/21/24 16:00 04/21/24 18:00 Temperature Pulse Rate 69 76 70 Respiratory Rate Blood Pressure Pulse Oximetry Oxygen Delivery Oxygen Flow Rate 04/21/24 19:59 04/21/24 20:00 04/21/24 20:00 Temperature 37.5 C Pulse Rate 74 81 Respiratory Rate 20 Blood Pressure 171/69 H Pulse Oximetry 91 92 Oxygen Delivery Nasal Cannula Oxygen Flow Rate 4 04/21/24 20:00 04/21/24 23:58 04/21/24 22:00 Temperature 36.6 C Pulse Rate 70 72 Respiratory Rate 18 Blood Pressure 145/56 H Pulse Oximetry 90 94 Oxygen Delivery Nasal Cannula Oxygen Flow Rate 4 04/22/24 00:00 04/22/24 00:00 04/22/24 02:00 Temperature Pulse Rate 83 69 Respiratory Rate Blood Pressure Pulse Oximetry 92 Oxygen Delivery Nasal Cannula Oxygen Flow Rate 4 04/22/24 04:00 04/22/24 04:00 04/22/24 04:00 Temperature 36.7 C Pulse Rate 73 85 Respiratory Rate 18 Blood Pressure 167/62 H Pulse Oximetry 95 97 Oxygen Delivery Nasal Cannula Oxygen Flow Rate 4 04/22/24 06:00 04/22/24 08:02 04/22/24 08:00 Temperature 37.0 C Pulse Rate 73 83 82 Respiratory Rate 24 H Blood Pressure 177/70 H Pulse Oximetry 95 Oxygen Delivery Oxygen Flow Rate Intake/Output Intake/Output: Intake & Output 04/19/24 04/20/24 04/21/24 04/22/24 23:59 23:59 23:59 23:59 Intake Total 4295 2950.5 4407 2100 Output Total 675 1000 1150 500 Balance 3620 1950.5 3257 1600 Meds/Results Medications: Active Medications Generic Name Dose Route Start Last Admin Trade Name Freq PRN Reason Stop Dose Admin Acetaminophen 650 mg 04/18/24 10:42 Acetaminophen 325 Mg Tablet PO Q4H PRN Mild Pain (1-3) or Fever Artificial Tears 2 drop 04/18/24 09:00 04/22/24 08:03 Artificial Tears Ophth Soln 15 Ml Bottle EACH EYE 2 drop BID [facility] Administration Aspirin 81 mg 04/20/24 09:00 04/20/24 08:04 Aspirin 81 Mg Enteric Tablet PO 81 mg DAILY [facility] Administration Atorvastatin Calcium 20 mg 04/18/24 10:55 04/22/24 08:02 Atorvastatin 20 Mg Tablet BY MOUTH 20 mg DAILY [facility] Administration Hydralazine HCl 10 mg 04/18/24 00:
[2024-04-22] MEDS: FORMOTEROL FUMARATE INHALATION ×2 (08:19→20:04)
[2024-04-22] MEDS: BUDESONIDE INHALATION ×2 (08:19→20:04)
[2024-04-22] MEDS: [UNRECOGNIZED DRUG - OTHER] INHALATION ×2 (08:19→20:04)
[2024-04-22] MEDS: GLYCOPYRROLATE INHALATION ×2 (08:19→20:04)
--- NOTE | 2024-04-22 10:33 | PC.NURSE ---
off floor at 1035 for GI lab for ERCP
--- NOTE | 2024-04-22 10:46 | WPDANESEPPF ---
Anes - Initial Pre Proc Eval Procedure: Operation Date: 04/22/24 16:00 Proposed Procedures p Endoscopic Retro Cholangiopancreatogram - Danie Manuel MD Date/Time: 04/22/24 10:46 Surgeon: Polly Feng APRN Pre Op Diagnosis: Pancreatitis acute respiratory failure hypoxia Patient Data Age: 78 Gender: M Height: 1.88 m Weight: 94 kg Last Vital Signs Temp 98.6 F 04/22/24 08:00 Pulse 90 04/22/24 10:00 Resp 22 H 04/22/24 08:00 BP 177/70 H 04/22/24 08:00 Pulse Ox 94 04/22/24 08:21 O2 Del Method Nasal Cannula 04/22/24 08:21 O2 Flow Rate 4 04/22/24 08:21 FiO2 36 04/22/24 08:21 Allergies Allergy/AdvReac Type Severity Reaction Status Date / Time metoprolol Allergy Unknown shortness Verified 03/16/24 10:55 of breath Home Medications Medication Instructions Recorded Confirmed Type aspirin 81 mg tablet,delayed 81 mg PO DAILY 09/13/19 04/17/24 History release (Adult Low Dose Aspirin) budesonide 160 mcg-glycopyr 9 2 inh inhalation BID 07/19/21 04/17/24 History mcg-formot 4.8 mcg/actuation HFA inhaler (Breztri Aerosphere) cholecalciferol (vitamin D3) 50 150 mcg PO BID 07/19/21 04/17/24 History mcg (2,000 unit) capsule calcium carbonate (Calcium 600) 600 mg PO BID 10/09/21 04/17/24 History valacyclovir 1 gram tablet 500 mg PO BID 09/17/22 04/17/24 History prednisolone acetate 1 % eye 1 drp RIGHT EYE DAILY 11/02/23 04/17/24 History drops,suspension nebivolol 5 mg tablet See Rx Instructions .Route 01/05/24 04/17/24 Rx .COMPLEX #90 tabs atorvastatin 20 mg tablet See Rx Instructions .Route 03/04/24 04/17/24 Rx .COMPLEX #100 tabs montelukast 10 mg tablet See Rx Instructions .Route 03/04/24 04/17/24 Rx .COMPLEX #100 tabs artificial tears 2 drp EACH EYE BID 03/16/24 04/17/24 History Laboratory Tests 04/22/24 04:24 WBC 11.1 H K/mm3 (4.5-10.0) RBC 3.44 L M/mm3 (4.6-6.20) Hgb 12.0 L g/dL (14.0-18.0) Hct 35.4 L % (42.0-52.0) MCV 102.9 H fl (80-100) MCH 34.9 H pg (26-34) MCHC 33.9 g/dl (32-36) RDW 13.2 % (11.5-14.5) Plt Count 136 L k/mm3 (150-375) MPV 10.4 fl (7.4-10.4) Immature Gran % (Auto) Not Reportable Neut % (Auto) Not Reportable Lymph % (Auto) Not Reportable Curry % (Auto) Not Reportable Eos % (Auto) Not Reportable Baso % (Auto) Not Reportable Lymph # (Auto) Not Reportable Curry # (Auto) Not Reportable Eos # (Auto) Not Reportable Baso # (Auto) Not Reportable Abs Immat Gran (auto) Not Reportable Absolute Neuts (auto) Not Reportable Absolute Nucleated RBC Not Reportable Total Counted 100 Neutrophils % (Manual) 77 H % (46-73) Band Neutrophils % 10 H % (0-6) Lymphocytes % (Manual) 6.0 L % (18-44) Monocytes % (Manual) 5 % (3-9) Eosinophils % (Manual) 1 % (0-4) Myelocytes % 1 % Nucleated RBC % Not Reportable Abs Neuts (Manual) 9.65 H K/mm3 (1.3-6.7) Abs Lymphs (Manual) 0.66 L K/mm3 (1.1-4.5) Abs Monocytes (Manual) 0.55 K/mm3 (0.1-0.90) Absolute Eos (Manual) 0.11 K/mm3 (0.02-0.50) Platelet Estimate Decreased (Adequate) % Immature Plt Fraction 3.2 % (0.9-11.2) Poikilocytosis 1+ Anisocytosis 1+ Selvin Cells 1+ Schistocytes None seen Sodium 139 mmol/L (137-145) Potassium 3.6 mmol/L (3.4-5.0) Chloride 109 H mmol/L (98-107) Carbon Dioxide 24 mmol/L (22-30) Anion Gap 6 mmol/L (4-12) BUN 36 H mg/dL (9-20) Creatinine 1.20 mg/dL (0.7-1.3) Estim Creat Clear Calc 52 ml/min Estimated GFR 58 L (59 - ) Glucose 98 mg/dL (65-110) Calcium 8.3 L mg/dL (8.4-10.2) Magnesium 2.1 mg/dL (1.6-2.3) Total Bilirubin 0.8 mg/dL (0.2-1.3) AST 45 U/L (17-59) ALT 27 U/L (6-50) Alkaline Phosphatase 94 U/L (38-126) Total Protein 6.0
[2024-04-22] MEDS: MEROPENEM 1 GM/NS 100 ML 1 GM/100 ML BAG IVPB ×2 (13:02→23:10)
--- NOTE | 2024-04-22 13:14 | PC.NURSE ---
returned to floor at 1255 from lab
[2024-04-22] MEDS: SIMETHICONE 80 MG TAB.CHEW 160 MG PO (15:36)
[2024-04-22] MEDS: IBUPROFEN IV 400 MG in SODIUM CHLORIDE 0.9% IV 100 ML 208 MG IVPB ×2 (15:37→22:36)
[2024-04-22] MEDS: polyethylene glycoL 3350 17 GM POWD.PACK PO (15:37)
[2024-04-22] MEDS: hydrALAZINE HCL 20 MG/ML VIAL 10 MG IV PUSH (17:15)
--- NOTE | 2024-04-22 18:42 | WPDPN ---
Progress Note: A&P Assessment and Plan (1) Acute pancreatitis: Qualifiers: Acute pancreatitis complication: no infection or necrosis Pancreatitis type: unspecified pancreatitis type Qualified Code(s): K85.90 - Acute pancreatitis without necrosis or infection, unspecified Code(s): K85.90 - Acute pancreatitis without necrosis or infection, unspecified Status: Acute (2) Acute hypoxic respiratory failure: Code(s): J96.01 - Acute respiratory failure with hypoxia Status: Acute (3) Chronic obstructive pulmonary disease: Qualifiers: COPD type: unspecified COPD Qualified Code(s): J44.9 - Chronic obstructive pulmonary disease, unspecified Code(s): J44.9 - Chronic obstructive pulmonary disease, unspecified Status: Acute (4) CKD (chronic kidney disease) stage 3, GFR 30-59 ml/min: Code(s): N18.3 - Chronic kidney disease, stage 3 (moderate) Status: Acute (5) Essential (primary) hypertension: Code(s): I10 - Essential (primary) hypertension Status: Acute Plan Interval history: 04/20/2024: 78 y/o male presented with epigastric pain is found to have acute complicated pancreatitis seen by GI suspect most likely 2/2 gallbladder as patient had MRCP showed no cholelithiasis/choledocholithiasis suggesting patient had passed the stone, patient continue to have epigastric pain seen by surgery survice suggested to monitor until clinical symptoms improve before lap gena, will monitor LFT. Interval history 04/21/2024: patient with acute complicated pancreatitis contineu to have persistent pain epigastric pain to further evaluate today patient had repeat CT scan of the abdomen, whiche showed: 1. 5 mm stone at the ampulla of Vater. 2. Stable acute pancreatitis. 3. Worsened small volume of ascites. 4. Worsened small pleural effusions. 5. Emphysema. Discussed with GI, most likely pain is worsening due to stone and patient will need ERCP to remove the stone, which is scheduled for tomorrow 04/22/2024, today patient family is present and with patient permission was given updates and answered all the questions. Interval history 04/22/2024: patient continue to c/o epigastric pain and seen by GI and patient will have ERCP today.which will improve patient pain, this will also improve patient pancreatitis as patient LFT and lipase are improving, once clinically stable patient will have lap gena. will continue to monitor. will monitor and plan. Subjective Date/time seen: 04/22/24 18:42 Interval history: Interval history: 04/20/2024: 78 y/o male presented with epigastric pain is found to have acute complicated pancreatitis seen by GI suspect most likely 2/2 gallbladder as patient had MRCP showed no cholelithiasis/choledocholithiasis suggesting patient had passed the stone, patient continue to have epigastric pain seen by surgery survice suggested to monitor until clinical symptoms improve before lap gena, will monitor LFT. Interval history 04/21/2024: patient with acute complicated pancreatitis contineu to have persistent pain epigastric pain to further evaluate today patient had repeat CT scan of the abdomen, whiche showed: 1. 5 mm stone at the ampulla of Vater. 2. Stable acute pancreatitis. 3. Worsened small volume of ascites. 4. Worsened small pleural effusions. 5. Emphysema. Discussed with GI, most likely pain is worsening due to stone and patient will need ERCP to remove the stone, which is scheduled for tomorrow 04/22/2024, today patient family is present and with patient permission was given updates and answered all the questions. will monitor and plan. Interval history 04/22/2024: patient continue to c/o epigastric pain and seen by GI and patient will have ERCP today.which will improve patient pain, this will also improve patient pancreatitis as patient LFT and lipase are improving, once clinically stable patient will have lap gena. will continue to monitor.
[2024-04-23] VITALS (22 sets, daily range): BP systolic 146–159; BP diastolic 61–87; PULSE 62–169; RESP 19–24; TEMP 36.4–36.8; O2SAT 92–98
[2024-04-23] MEDS: HYDROmorphone HCL INJ (*CRX) 1 MG/ML SYR IV PUSH ×4 (02:51→22:58)
[2024-04-23 03:57] LABS: Basophils Percent Auto 0.1 % (0.2-1.2); Eosinophils Absolute Auto 0.1 K/mm3 (0-0.3); Eosinophils Percent Auto 1.2 % (0-4.4); Hematocrit 35.2 % (42.0-52.0); Hemoglobin 11.9 g/dL (14.0-18.0); Immature Granulocyte Absolute 0.07 K/mm3 (0.00-0.031); Immature Granulocyte Percent A 0.6 % (0-0.5); Lymphocytes Percent Auto 3.5 % (18.3-44.2); Mean Corpuscular HGB Conc 33.8 g/dl (32-36); Mean Corpuscular Hemoglobin 34.9 pg (26-34); Mean Corpuscular Volume 103.2 fl (80-100); Monocytes Absolute Auto 0.9 K/mm3 (0.1-0.6); Monocytes Percent Auto 7.7 % (2.6-8.5); Neutrophils Absolute Auto 9.8 K/mm3 (1.3-6.7); Neutrophils Percent Auto 86.9 % (45.5-73.1); Platelet Count Result 136 k/mm3 (150-375); Red Blood Count 3.41 M/mm3 (4.6-6.20); Red Cell Distribution Width 13.4 % (11.5-14.5); White Blood Count 11.3 K/mm3 (4.5-10.0)
[2024-04-23 04:12] LABS: Alanine Aminotransferase 80 U/L (6-50); Albumin Level 2.8 g/dL (3.5-5.1); Alkaline Phosphatase 198 U/L (38-126); Anion Gap 6 mmol/L (4-12); Aspartate Amino Transferase 126 U/L (17-59); Bilirubin,Total 3.1 mg/dL (0.2-1.3); Blood Urea Nitrogen 33 mg/dL (9-20); Carbon Dioxide 21 mmol/L (22-30); Chloride 108 mmol/L (98-107); Estimated CRCL calculation 52 ml/min; Estimated Glomerular Filt Rate 58; Glucose 105 mg/dL (65-110); Lipase 297 U/L (23-300); Sodium 135 mmol/L (137-145)
[2024-04-23] MEDS: IBUPROFEN IV 400 MG in SODIUM CHLORIDE 0.9% IV 100 ML 208 MG IVPB ×3 (05:41→17:50)
[2024-04-23] MEDS: POTASSIUM CHLORIDE 20 MEQ PACKET (FOR LIQUID) PO (06:43)
[2024-04-23] MEDS: POTASSIUM CHLORIDE INJ 40 MEQ in SODIUM CHLORIDE 0.9% IV 500 ML 130 MEQ IVPB (06:43)
[2024-04-23] MEDS: [UNRECOGNIZED DRUG - OTHER] INHALATION ×2 (07:09→19:54)
[2024-04-23] MEDS: BUDESONIDE INHALATION ×2 (07:09→19:54)
[2024-04-23] MEDS: FORMOTEROL FUMARATE INHALATION ×2 (07:09→19:54)
[2024-04-23] MEDS: GLYCOPYRROLATE INHALATION ×2 (07:09→19:54)
[2024-04-23] MEDS: SIMETHICONE 80 MG TAB.CHEW 160 MG PO ×2 (08:17→14:22)
[2024-04-23] MEDS: ATORVASTATIN 20 MG TABLET BY MOUTH (08:18)
[2024-04-23] MEDS: CHOLECALCIFEROL 1,000 UNITS TABLET 1000 UNITS PO ×2 (08:18→16:59)
[2024-04-23] MEDS: CHOLECALCIFEROL 5,000 UNITS TABLET 5000 UNITS PO ×2 (08:18→16:59)
[2024-04-23] MEDS: prednisoLONE ACETATE 1% OPHTH 5 ML 1 DROP RIGHT EYE (08:18)
[2024-04-23] MEDS: MONTELUKAST SODIUM 10 MG TABLET BY MOUTH (08:18)
[2024-04-23] MEDS: ARTIFICIAL TEARS OPHTH SOLN 15 ML BOTTLE 2 DROP EACH EYE ×2 (08:18→16:59)
[2024-04-23] MEDS: NEBIVOLOL HCL 5 MG TABLET BY MOUTH (08:18)
--- NOTE | 2024-04-23 11:10 | P.PNAN_ITS ---
Anes - Prog Note Post-Op Date/Time: 04/23/24 11:10 Cardiovascular status: normal Respiratory status: normal Airway patency: baseline Mental status: baseline Post-Op hydration status: normal Vital Signs: Last Vital Signs Temp 36.6 C 04/23/24 08:00 Pulse 83 04/23/24 08:18 Resp 24 H 04/23/24 08:00 BP 152/87 H 04/23/24 08:00 Pulse Ox 92 04/23/24 08:00 O2 Del Method Nasal Cannula 04/23/24 08:00 O2 Flow Rate 3 04/23/24 08:00 FiO2 36 04/22/24 08:21 Pain Score (VAS): 01/26 I/O: Intake & Output 04/22/24 04/23/24 04/23/24 23:59 07:59 15:59 Intake Total 2398 554 240 Output Total 1000 450 Balance 1398 104 240 Laboratory Tests 04/23/24 03:35 04/23/24 03:35 04/23/24 03:35 WBC 11.3 H RBC 3.41 L Hgb 11.9 L Hct 35.2 L MCV 103.2 H MCH 34.9 H MCHC 33.8 RDW 13.4 Plt Count 136 L MPV 10.0 Immature Gran % (Auto) 0.6 H Neut % (Auto) 86.9 H Lymph % (Auto) 3.5 L [place] % (Auto) 7.7 Eos % (Auto) 1.2 Baso % (Auto) 0.1 L Lymph # (Auto) 0.40 L [place] # (Auto) 0.9 H Eos # (Auto) 0.1 Baso # (Auto) 0.0 Abs Immat Gran (auto) 0.07 H Absolute Neuts (auto) 9.8 H Absolute Nucleated RBC 0.000 Nucleated RBC % 0.0 Sodium 135 L Potassium 3.0 L Chloride 108 H Carbon Dioxide 21 L Anion Gap 6 BUN 33 H Creatinine 1.20 Estim Creat Clear Calc 52 Estimated GFR 58 L Glucose 105 Calcium 8.0 L Magnesium 2.0 Total Bilirubin 3.1 H AST 126 H ALT 80 H Alkaline Phosphatase 198 H Total Protein 5.0 L Albumin 2.8 L Lipase 297 Post-procedural complaints: none Patient Feedback: Patient satisfied with anesthetic care.
--- NOTE | 2024-04-23 11:16 | PM.PNGS ---
Progress Note: A&P Assessment and Plan (1) Choledocholithiasis: Code(s): K80.50 - Calculus of bile duct without cholangitis or cholecystitis without obstruction Status: Acute Assessment and Plan: ERCP reviewed, exam improving, cont clears and ADAT, cont abx, will need interval gena, encourage OOB Subjective Subjective Date/Time Seen: 04/23/24 11:16 Interval history: feels a little better, bev clears Review of Systems Review of Systems: All systems reviewed & are unremarkable except as noted in HPI and below Exam Const: General: cooperative, no acute distress and uncomfortable Resp: Auscultation: clear to auscultation bilaterally Cardio: Rate: regular rate Rhythm: regular rhythm GI: Inspection: normal to inspection and distended GI Palp: Yes abdominal tenderness, Yes Soft to palpation, Yes Tenderness to palpation present (GI), No Guarding due to palpation present (GI) and No Rigid due to palpation Objective Data Vital Signs Vital Signs: Vital Signs - 24 hr 04/22/24 11:38 04/22/24 11:48 04/22/24 11:58 Temperature 37.0 C Pulse Rate 77 77 84 Respiratory Rate 12 12 22 H Blood Pressure 170/81 H 162/78 H 176/81 H Pulse Oximetry 98 93 94 Oxygen Delivery Simple Face Mask Simple Face Mask Simple Face Mask Oxygen Flow Rate 10 4 4 04/22/24 12:08 04/22/24 12:18 04/22/24 12:28 Temperature Pulse Rate 75 77 73 Respiratory Rate 17 21 H 19 Blood Pressure 171/85 H 166/78 H 170/97 H Pulse Oximetry 92 92 94 Oxygen Delivery Simple Face Mask Simple Face Mask Simple Face Mask Oxygen Flow Rate 4 4 4 04/22/24 14:00 04/22/24 14:28 04/22/24 15:16 Temperature Pulse Rate 76 83 Respiratory Rate 22 H Blood Pressure Pulse Oximetry 92 92 Oxygen Delivery Nasal Cannula Nasal Cannula Oxygen Flow Rate 4 4 04/22/24 16:00 04/22/24 16:00 04/22/24 17:40 Temperature 36.0 C L Pulse Rate 82 73 80 Respiratory Rate 24 H 20 Blood Pressure 161/95 H Pulse Oximetry 89 L 90 Oxygen Delivery Nasal Cannula Oxygen Flow Rate 5 04/22/24 18:00 04/22/24 19:37 04/22/24 19:57 Temperature 36.6 C Pulse Rate 72 74 Respiratory Rate 22 H Blood Pressure 151/77 H Pulse Oximetry 93 92 Oxygen Delivery Nasal Cannula Oxygen Flow Rate 5 04/22/24 20:04 04/22/24 20:00 04/22/24 22:00 Temperature Pulse Rate 80 87 Respiratory Rate Blood Pressure Pulse Oximetry 93 Oxygen Delivery Nasal Cannula Oxygen Flow Rate 5 04/22/24 23:27 04/23/24 00:03 04/23/24 00:00 Temperature 36.4 C Pulse Rate 79 Respiratory Rate 20 Blood Pressure 159/72 H Pulse Oximetry 92 95 92 Oxygen Delivery Nasal Cannula Nasal Cannula Oxygen Flow Rate 5 4 04/23/24 00:00 04/23/24 01:55 04/23/24 03:01 Temperature Pulse Rate 75 78 Respiratory Rate Blood Pressure Pulse Oximetry 93 Oxygen Delivery Nasal Cannula Oxygen Flow Rate 4 04/23/24 04:00 04/23/24 04:00 04/23/24 05:49 Temperature 36.6 C Pulse Rate 81 78 169 H Respiratory Rate 19 Blood Pressure 151/61 H Pulse Oximetry 94 Oxygen Delivery Oxygen Flow Rate 04/23/24 06:00 04/23/24 07:12 04/23/24 08:00 Temperature 36.6 C Pulse Rate 79 91 Respiratory Rate 24 H Blood Pressure 152/87 H Pulse Oximetry 92 92 Oxygen Delivery Nasal Cannula Oxygen Flow Rate 3 04/23/24 08:18 04/23/24 08:00 Temperature Pulse Rate 83 Respiratory Rate Blood Pressure Pulse Oximetry 92 Oxygen Delivery Nasal Cannula Oxygen Flow Rate 3 Intake/Output Intake/Output: Intake & Output 04/20/24 04/21/24 04/22/24 04/23/24 23:59 23:59 23:59 23:59 Intake Total 2950.5 4407 4598 794 Output Total 1000 1150 1500 450 Balance 1950.5 3257 3098 344 Meds/Results Medications: Active Medications Generic Name Dose Route Start Last Admin Trade Name Freq PRN Reason Stop Dose Admin Acetaminophen 650 mg 04/18/24 10:42 Acetaminophen 325 Mg Tablet PO Q4H PRN Mild P
--- NOTE | 2024-04-23 11:24 | WPDGIPROGNO ---
Progress Note: A&P Assessment and Plan (1) Acute pancreatitis: Qualifiers: Acute pancreatitis complication: no infection or necrosis Pancreatitis type: unspecified pancreatitis type Qualified Code(s): K85.90 - Acute pancreatitis without necrosis or infection, unspecified Code(s): K85.90 - Acute pancreatitis without necrosis or infection, unspecified Status: Acute Assessment and Plan: s/p ercp after repeat CT scan showed stone at ampulla interval cholecystectomy but once pancreatitis resolves and pain is better, surgery team on board continue supportive care, overall better with less pain (2) Elevated lipase: Code(s): R74.8 - Abnormal levels of other serum enzymes Status: Acute Assessment and Plan: today more elevated liver enzymes, this is probably from ercp instrumentation (3) Nausea & vomiting: Code(s): R11.2 - Nausea with vomiting, unspecified Status: Acute Assessment and Plan: better (4) Leukocytosis: Code(s): D72.829 - Elevated white blood cell count, unspecified Status: Acute Assessment and Plan: probably reactive from pancreatitis, improved and stable (5) Abdominal pain: Code(s): R10.9 - Unspecified abdominal pain Status: Acute Assessment and Plan: still with pain but better Subjective Date/time seen: 04/23/24 11:24 Interval history: better, still some abdominal distension, less nausea ercp yesterday, noted dark bile with some sludge but no stone (clear bile duct after multiple sweeps) Review of Systems Review of Systems: All systems reviewed & are unremarkable except as noted in HPI and below Exam Const: General: cooperative and no acute distress HENMT: Face/Nose/Sinus: Normal nares present Eyes: General: appearance normal, both eyes and all related structures Neck: Neck: supple Resp: Auscultation: clear to auscultation bilaterally Cardio: Rate: regular rate Rhythm: regular rhythm GI: Inspection: normal to inspection and distended GI Palp: Yes abdominal tenderness, Yes Soft to palpation, Yes Tenderness to palpation present (GI) (less tender), No Guarding due to palpation present (GI) and No Rigid due to palpation Skin: General skin exam: normal color Neuro: Speech: normal speech Motor exam (neuro): 5/5 motor strength present throughout Extrem: General: normal to inspection Psych: Mental Status: mental status grossly normal Objective Data Vital Signs Vital Signs: Vital Signs - 24 hr 04/22/24 11:38 04/22/24 11:48 04/22/24 11:58 Temperature 98.6 F Pulse Rate 77 77 84 Respiratory Rate 12 12 22 H Blood Pressure 170/81 H 162/78 H 176/81 H Pulse Oximetry 98 93 94 Oxygen Delivery Simple Face Mask Simple Face Mask Simple Face Mask Oxygen Flow Rate 10 4 4 04/22/24 12:08 04/22/24 12:18 04/22/24 12:28 Temperature Pulse Rate 75 77 73 Respiratory Rate 17 21 H 19 Blood Pressure 171/85 H 166/78 H 170/97 H Pulse Oximetry 92 92 94 Oxygen Delivery Simple Face Mask Simple Face Mask Simple Face Mask Oxygen Flow Rate 4 4 4 04/22/24 14:00 04/22/24 14:28 04/22/24 15:16 Temperature Pulse Rate 76 83 Respiratory Rate 22 H Blood Pressure Pulse Oximetry 92 92 Oxygen Delivery Nasal Cannula Nasal Cannula Oxygen Flow Rate 4 4 04/22/24 16:00 04/22/24 16:00 04/22/24 17:40 Temperature 96.8 F L Pulse Rate 82 73 80 Respiratory Rate 24 H 20 Blood Pressure 161/95 H Pulse Oximetry 89 L 90 Oxygen Delivery Nasal Cannula Oxygen Flow Rate 5 04/22/24 18:00 04/22/24 19:37 04/22/24 19:57 Temperature 97.8 F Pulse Rate 72 74 Respiratory Rate 22 H Blood Pressure 151/77 H Pulse Oximetry 93 92 Oxygen Delivery Nasal Cannula Oxygen Flow Rate 5 04/22/24 20:04 04/22/24 20:00 04/22/24 22:00 Temperature Pulse Rate 80 87 Respiratory Rate Blood Pressure Pulse Oximetry 93 Oxygen Delivery Nasal Cannula Oxygen Flow Rate 5
[2024-04-23] MEDS: polyethylene glycoL 3350 17 GM POWD.PACK PO (11:35)
[2024-04-23] MEDS: MEROPENEM 1 GM/NS 100 ML 1 GM/100 ML BAG IVPB (11:36)
--- NOTE | 2024-04-23 13:50 | WPDPN ---
Progress Note: A&P Assessment and Plan (1) Acute pancreatitis: Qualifiers: Acute pancreatitis complication: no infection or necrosis Pancreatitis type: unspecified pancreatitis type Qualified Code(s): K85.90 - Acute pancreatitis without necrosis or infection, unspecified Code(s): K85.90 - Acute pancreatitis without necrosis or infection, unspecified Status: Acute (2) Acute hypoxic respiratory failure: Code(s): J96.01 - Acute respiratory failure with hypoxia Status: Acute (3) Chronic obstructive pulmonary disease: Qualifiers: COPD type: unspecified COPD Qualified Code(s): J44.9 - Chronic obstructive pulmonary disease, unspecified Code(s): J44.9 - Chronic obstructive pulmonary disease, unspecified Status: Acute (4) CKD (chronic kidney disease) stage 3, GFR 30-59 ml/min: Code(s): N18.3 - Chronic kidney disease, stage 3 (moderate) Status: Acute (5) Essential (primary) hypertension: Code(s): I10 - Essential (primary) hypertension Status: Acute Plan Interval history: 04/20/2024: 78 y/o male presented with epigastric pain is found to have acute complicated pancreatitis seen by GI suspect most likely 2/2 gallbladder as patient had MRCP showed no cholelithiasis/choledocholithiasis suggesting patient had passed the stone, patient continue to have epigastric pain seen by surgery survice suggested to monitor until clinical symptoms improve before lap gena, will monitor LFT. Interval history 04/21/2024: patient with acute complicated pancreatitis contineu to have persistent pain epigastric pain to further evaluate today patient had repeat CT scan of the abdomen, whiche showed: 1. 5 mm stone at the ampulla of Vater. 2. Stable acute pancreatitis. 3. Worsened small volume of ascites. 4. Worsened small pleural effusions. 5. Emphysema. Discussed with GI, most likely pain is worsening due to stone and patient will need ERCP to remove the stone, which is scheduled for tomorrow 04/22/2024, today patient family is present and with patient permission was given updates and answered all the questions. Interval history 04/22/2024: patient continue to c/o epigastric pain and seen by GI and patient will have ERCP today.which will improve patient pain, this will also improve patient pancreatitis as patient LFT and lipase are improving, once clinically stable patient will have lap gena. will continue to monitor. Interval history 04/23/2024: Repeat scan showed in a stone in CBD and on 04/22/2024 patient had ERCP and the duct was flushed, today patient stats his epigastric pain has improved, but patent feels bloated and has not had BM for everal days will reduce his pain medication, and start patient stool softener and erick lax. seen by surgery service once pancreatitis has improved patient will have gena, will have PT/OT work with the patient. will monitor and plan. Subjective Date/time seen: 04/23/24 13:50 Interval history: Interval history: 04/20/2024: 78 y/o male presented with epigastric pain is found to have acute complicated pancreatitis seen by GI suspect most likely 2/2 gallbladder as patient had MRCP showed no cholelithiasis/choledocholithiasis suggesting patient had passed the stone, patient continue to have epigastric pain seen by surgery survice suggested to monitor until clinical symptoms improve before lap gena, will monitor LFT. Interval history 04/21/2024: patient with acute complicated pancreatitis contineu to have persistent pain epigastric pain to further evaluate today patient had repeat CT scan of the abdomen, whiche showed: 1. 5 mm stone at the ampulla of Vater. 2. Stable acute pancreatitis. 3. Worsened small volume of ascites. 4. Worsened small pleural effusions. 5. Emphysema. Discussed with GI, most likely pain is worsening due to stone and patient will need ERCP to remove the stone, which is scheduled for tomorrow 04/22/2024, today patient
[2024-04-23] MEDS: ACETAMINOPHEN 325 MG TABLET 650 MG PO (14:21)
--- NOTE | 2024-04-23 15:19 | PCOTNOTE ---
Patient OT evaluation was not completed this date due to patient refusing secondary to pain from increased gas present. Will evaluate when patient agreeable.
[2024-04-23] MEDS: HYDROcodone/acetaminophen (*CRX) 5-325 MG TABLET 1 TAB PO ×2 (15:48→20:34)
[2024-04-23] MEDS: SENNA/DOCUSATE SODIUM TABLET 1 TAB PO (20:34)
[2024-04-23] MEDS: IPRATROPIUM 0.5 MG/ALBUTEROL SULFATE 2.5 MG AMPUL.NEB 3 ML INHALATION (22:57)
--- NOTE | 2024-04-23 23:00 | PC.NURSE ---
patient and medication barcode override due to scanner not working. Medication dose, route, and patient verified by this nurse and Lesly Zamudio RN.
[2024-04-23] MEDS: guaiFENesin 12 HR 600 MG TABCR 1200 MG PO (23:15)
[2024-04-24] VITALS (24 sets, daily range): BP systolic 145–168; BP diastolic 61–76; PULSE 68–88; RESP 16–22; TEMP 36.4–36.7; O2SAT 92–95
[2024-04-24] MEDS: IBUPROFEN IV 400 MG in SODIUM CHLORIDE 0.9% IV 100 ML 208 MG IVPB ×5 (00:38→23:46)
[2024-04-24] MEDS: MEROPENEM 1 GM/NS 100 ML 1 GM/100 ML BAG IVPB ×3 (01:14→23:16)
[2024-04-24] MEDS: HYDROcodone/acetaminophen (*CRX) 5-325 MG TABLET 1 TAB PO (03:00)
[2024-04-24] MEDS: HYDROmorphone HCL INJ (*CRX) 1 MG/ML SYR IV PUSH (04:33)
[2024-04-24] MEDS: SIMETHICONE 80 MG TAB.CHEW 160 MG PO (04:41)
[2024-04-24 05:09] LABS: Basophils Absolute Auto 0.1 K/mm3 (0.0-0.1); Basophils Percent Auto 0.9 % (0.2-1.2); Eosinophils Absolute Auto 0.2 K/mm3 (0-0.3); Eosinophils Percent Auto 1.5 % (0-4.4); Hematocrit 33.4 % (42.0-52.0); Hemoglobin 11.8 g/dL (14.0-18.0); Immature Granulocyte Absolute 0.16 K/mm3 (0.00-0.031); Lymphocytes Absolute Auto 0.49 K/mm3 (0.9-3.2); Lymphocytes Percent Auto 3.1 % (18.3-44.2); Mean Corpuscular HGB Conc 35.3 g/dl (32-36); Mean Corpuscular Hemoglobin 35.9 pg (26-34); Mean Corpuscular Volume 101.5 fl (80-100); Mean Platelet Volume 10.7 fl (7.4-10.4); Monocytes Percent Auto 6.6 % (2.6-8.5); Neutrophils Absolute Auto 13.7 K/mm3 (1.3-6.7); Neutrophils Percent Auto 86.9 % (45.5-73.1); Platelet Count Result 142 k/mm3 (150-375); Red Blood Count 3.29 M/mm3 (4.6-6.20); Red Cell Distribution Width 13.7 % (11.5-14.5); White Blood Count 15.7 K/mm3 (4.5-10.0)
[2024-04-24 05:28] LABS: Alanine Aminotransferase 80 U/L (6-50); Albumin Level 2.7 g/dL (3.5-5.1); Alkaline Phosphatase 245 U/L (38-126); Anion Gap 7 mmol/L (4-12); Aspartate Amino Transferase 83 U/L (17-59); Bilirubin,Total 1.1 mg/dL (0.2-1.3); Blood Urea Nitrogen 34 mg/dL (9-20); Calcium 8.1 mg/dL (8.4-10.2); Carbon Dioxide 21 mmol/L (22-30); Chloride 107 mmol/L (98-107); Estimated CRCL calculation 52 ml/min; Estimated Glomerular Filt Rate 58; Glucose 109 mg/dL (65-110); Lipase 31 U/L (23-300); Magnesium 2.1 mg/dL (1.6-2.3); Potassium 3.2 mmol/L (3.4-5.0); Sodium 135 mmol/L (137-145)
[2024-04-24] MEDS: FORMOTEROL FUMARATE INHALATION (07:08)
[2024-04-24] MEDS: GLYCOPYRROLATE INHALATION (07:08)
[2024-04-24] MEDS: BUDESONIDE INHALATION (07:08)
[2024-04-24] MEDS: IPRATROPIUM 0.5 MG/ALBUTEROL SULFATE 2.5 MG AMPUL.NEB 3 ML INHALATION ×3 (07:08→19:40)
[2024-04-24] MEDS: [UNRECOGNIZED DRUG - OTHER] INHALATION (07:08)
--- NOTE | 2024-04-24 08:48 | PM.PNGS ---
Progress Note: A&P Assessment and Plan (1) Choledocholithiasis: Code(s): K80.50 - Calculus of bile duct without cholangitis or cholecystitis without obstruction Status: Acute Assessment and Plan: cont diet, cont bowel regimen, LFTs improved and exam improved, will need interval gena at some point Subjective Subjective Date/Time Seen: 04/24/24 08:48 Interval history: feels ok, still quite constipated, bev full liquids this am Review of Systems Review of Systems: All systems reviewed & are unremarkable except as noted in HPI and below Exam Const: General: cooperative, no acute distress and uncomfortable Resp: Auscultation: clear to auscultation bilaterally Cardio: Rate: regular rate Rhythm: regular rhythm GI: Inspection: normal to inspection and distended GI Palp: Yes abdominal tenderness, Yes Soft to palpation, Yes Tenderness to palpation present (GI), No Guarding due to palpation present (GI) and No Rigid due to palpation Objective Data Vital Signs Vital Signs: Vital Signs - 24 hr 04/23/24 11:59 04/23/24 10:00 04/23/24 12:00 Temperature 36.5 C Pulse Rate 78 74 95 Respiratory Rate 20 Blood Pressure 146/68 H Pulse Oximetry 93 Oxygen Delivery Oxygen Flow Rate 04/23/24 12:00 04/23/24 13:53 04/23/24 14:00 Temperature Pulse Rate 77 Respiratory Rate Blood Pressure Pulse Oximetry 92 Oxygen Delivery Nasal Cannula Nasal Cannula Oxygen Flow Rate 3 3 04/23/24 16:00 04/23/24 16:00 04/23/24 16:00 Temperature 36.4 C Pulse Rate 68 62 Respiratory Rate 24 H Blood Pressure 147/70 H Pulse Oximetry 96 95 Oxygen Delivery Nasal Cannula Oxygen Flow Rate 3 04/23/24 18:00 04/23/24 19:54 04/23/24 20:00 Temperature 36.8 C Pulse Rate 77 70 Respiratory Rate 19 Blood Pressure 154/80 H Pulse Oximetry 94 93 Oxygen Delivery Nasal Cannula Oxygen Flow Rate 3 04/23/24 20:00 04/23/24 22:57 04/23/24 23:03 Temperature Pulse Rate 73 82 Respiratory Rate 22 H 22 H Blood Pressure Pulse Oximetry 94 Oxygen Delivery Nasal Cannula Oxygen Flow Rate 3 04/23/24 20:00 04/23/24 22:00 04/24/24 00:00 Temperature Pulse Rate 66 66 72 Respiratory Rate Blood Pressure Pulse Oximetry Oxygen Delivery Oxygen Flow Rate 04/24/24 00:00 04/23/24 23:00 04/24/24 01:48 Temperature 36.4 C Pulse Rate 71 Respiratory Rate 19 Blood Pressure 152/61 H Pulse Oximetry 95 98 95 Oxygen Delivery Nasal Cannula Nasal Cannula Oxygen Flow Rate 3 2 04/24/24 02:00 04/24/24 03:17 04/24/24 04:00 Temperature 36.4 C Pulse Rate 68 72 Respiratory Rate 19 Blood Pressure 166/72 H Pulse Oximetry 93 94 Oxygen Delivery Nasal Cannula Oxygen Flow Rate 2 04/24/24 04:00 04/24/24 06:00 04/24/24 07:08 Temperature Pulse Rate 68 72 Respiratory Rate Blood Pressure Pulse Oximetry 95 Oxygen Delivery Nasal Cannula Oxygen Flow Rate 2 04/24/24 07:08 04/24/24 08:00 04/24/24 08:00 Temperature 36.7 C Pulse Rate 75 70 84 Respiratory Rate 22 H 20 Blood Pressure 145/66 H Pulse Oximetry 95 Oxygen Delivery Oxygen Flow Rate Intake/Output Intake/Output: Intake & Output 04/21/24 04/22/24 04/23/24 04/24/24 23:59 23:59 23:59 23:59 Intake Total 4407 4598 2112 824 Output Total 1150 1500 850 400 Balance 3257 3098 1262 424 Meds/Results Medications: Active Medications Generic Name Dose Route Start Last Admin Trade Name Freq PRN Reason Stop Dose Admin Acetaminophen 650 mg 04/18/24 10:42 04/23/24 14:21 Acetaminophen 325 Mg Tablet PO 650 mg Q4H PRN Administration Mild Pain (1-3) or Fever Hydrocodone Bitart/Acetaminophen 1 tab 04/23/24 14:31 04/24/24 03:00 Hydrocodone/Acetaminophen (*Crx) 5-325 Mg Tablet PO 1 tab Q4H PRN Administration Pain Rated 4-6 Albuterol/Ipratropium 3 ml 04/24/24 02:00 04/24/24 07:08 Ipratropium 0.5 Mg/Albuterol Sulfa
[2024-04-24] MEDS: guaiFENesin 12 HR 600 MG TABCR 1200 MG PO (09:41)
[2024-04-24] MEDS: CHOLECALCIFEROL 1,000 UNITS TABLET 1000 UNITS PO (09:41)
[2024-04-24] MEDS: polyethylene glycoL 3350 17 GM POWD.PACK PO (09:41)
[2024-04-24] MEDS: CHOLECALCIFEROL 5,000 UNITS TABLET 5000 UNITS PO (09:41)
[2024-04-24] MEDS: MONTELUKAST SODIUM 10 MG TABLET BY MOUTH (09:41)
[2024-04-24] MEDS: ATORVASTATIN 20 MG TABLET BY MOUTH (09:41)
[2024-04-24] MEDS: NEBIVOLOL HCL 5 MG TABLET BY MOUTH (09:41)
[2024-04-24] MEDS: ARTIFICIAL TEARS OPHTH SOLN 15 ML BOTTLE 2 DROP EACH EYE ×2 (09:41→18:14)
[2024-04-24] MEDS: POTASSIUM CHLORIDE 20 MEQ PACKET (FOR LIQUID) 40 MEQ PO (12:39)
[2024-04-24] MEDS: prednisoLONE ACETATE 1% OPHTH 5 ML 1 DROP RIGHT EYE (12:39)
--- NOTE | 2024-04-24 12:46 | WPDPN ---
Progress Note: A&P Assessment and Plan (1) Acute pancreatitis: Qualifiers: Acute pancreatitis complication: no infection or necrosis Pancreatitis type: unspecified pancreatitis type Qualified Code(s): K85.90 - Acute pancreatitis without necrosis or infection, unspecified Code(s): K85.90 - Acute pancreatitis without necrosis or infection, unspecified Status: Acute (2) Acute hypoxic respiratory failure: Code(s): J96.01 - Acute respiratory failure with hypoxia Status: Acute (3) Chronic obstructive pulmonary disease: Qualifiers: COPD type: unspecified COPD Qualified Code(s): J44.9 - Chronic obstructive pulmonary disease, unspecified Code(s): J44.9 - Chronic obstructive pulmonary disease, unspecified Status: Acute (4) CKD (chronic kidney disease) stage 3, GFR 30-59 ml/min: Code(s): N18.3 - Chronic kidney disease, stage 3 (moderate) Status: Acute (5) Essential (primary) hypertension: Code(s): I10 - Essential (primary) hypertension Status: Acute Plan Interval history: 04/20/2024: 78 y/o male presented with epigastric pain is found to have acute complicated pancreatitis seen by GI suspect most likely 2/2 gallbladder as patient had MRCP showed no cholelithiasis/choledocholithiasis suggesting patient had passed the stone, patient continue to have epigastric pain seen by surgery survice suggested to monitor until clinical symptoms improve before lap gena, will monitor LFT. Interval history 04/21/2024: patient with acute complicated pancreatitis contineu to have persistent pain epigastric pain to further evaluate today patient had repeat CT scan of the abdomen, whiche showed: 1. 5 mm stone at the ampulla of Vater. 2. Stable acute pancreatitis. 3. Worsened small volume of ascites. 4. Worsened small pleural effusions. 5. Emphysema. Discussed with GI, most likely pain is worsening due to stone and patient will need ERCP to remove the stone, which is scheduled for tomorrow 04/22/2024, today patient family is present and with patient permission was given updates and answered all the questions. Interval history 04/22/2024: patient continue to c/o epigastric pain and seen by GI and patient will have ERCP today.which will improve patient pain, this will also improve patient pancreatitis as patient LFT and lipase are improving, once clinically stable patient will have lap gena. will continue to monitor. Interval history 04/23/2024: Repeat scan showed in a stone in CBD and on 04/22/2024 patient had ERCP and the duct was flushed, today patient stats his epigastric pain has improved, but patent feels bloated and has not had BM for everal days will reduce his pain medication, and start patient stool softener and erick lax. seen by surgery service once pancreatitis has improved patient will have gena, will have PT/OT work with the patient. Interval history 04/24/2024: Repeat scan showed in a stone in CBD and on 04/22/2024 patient had ERCP and the duct was flushed, today patient stats his epigastric pain has improved, but patent feels bloated and has not had BM for everal days and passing some gas will reduce his pain medication, and started patient stool softener and erick lax. today still no BM, KUB showed 1. Dilated small bowel, likely adynamic ileus., will keep patient NPO, will gently hydrate the patient will encourage patient to ambulate. will monitor. Subjective Date/time seen: 04/24/24 12:46 Interval history: Interval history: 04/20/2024: 78 y/o male presented with epigastric pain is found to have acute complicated pancreatitis seen by GI suspect most likely 2/2 gallbladder as patient had MRCP showed no cholelithiasis/choledocholithiasis suggesting patient had passed the stone, patient continue to have epigastric pain seen by surgery survice suggested to monitor until clinical symptoms improve before lap gena, will monitor LFT. Interval history 04/21/2024: karen
[2024-04-24] MEDS: KCL 20MEQ/0.9% SOD CHL 1,000 ML 75 ML IV CONT (14:32)
--- NOTE | 2024-04-24 15:29 | WPDGIPROGNO ---
Progress Note: A&P Assessment and Plan (1) Acute pancreatitis: Qualifiers: Acute pancreatitis complication: no infection or necrosis Pancreatitis type: unspecified pancreatitis type Qualified Code(s): K85.90 - Acute pancreatitis without necrosis or infection, unspecified Code(s): K85.90 - Acute pancreatitis without necrosis or infection, unspecified Status: Acute Assessment and Plan: s/p ercp after repeat CT scan showed stone at ampulla interval cholecystectomy but once pancreatitis resolves and pain is better, surgery team on board kub showed ileus but now he is passing gas and feeling better after BM npo but if continues to improve then ok to advance diet again no need of NGT now (2) Elevated lipase: Code(s): R74.8 - Abnormal levels of other serum enzymes Status: Acute Assessment and Plan: liver enzymes trending down, this is probably from ercp instrumentation (3) Nausea & vomiting: Code(s): R11.2 - Nausea with vomiting, unspecified Status: Acute Assessment and Plan: better (4) Leukocytosis: Code(s): D72.829 - Elevated white blood cell count, unspecified Status: Acute Assessment and Plan: probably reactive from pancreatitis (5) Abdominal pain: Code(s): R10.9 - Unspecified abdominal pain Status: Acute Assessment and Plan: better after BM Subjective Date/time seen: 04/24/24 15:29 Interval history: still abdominal distension and earlier had KUB that showed ileus however just right now he is passing gas and had BM- feeling much better Review of Systems Review of Systems: All systems reviewed & are unremarkable except as noted in HPI and below Exam Const: General: cooperative and no acute distress HENMT: Face/Nose/Sinus: Normal nares present Eyes: General: appearance normal, both eyes and all related structures Neck: Neck: supple Resp: Auscultation: clear to auscultation bilaterally Cardio: Rate: regular rate Rhythm: regular rhythm GI: Inspection: distended GI Palp: Yes abdominal tenderness, Yes Soft to palpation, Yes Tenderness to palpation present (GI) (less tender), No Guarding due to palpation present (GI) and No Rigid due to palpation Skin: General skin exam: normal color Neuro: Speech: normal speech Motor exam (neuro): 5/5 motor strength present throughout Extrem: General: normal to inspection Psych: Mental Status: mental status grossly normal Objective Data Vital Signs Vital Signs: Vital Signs - 24 hr 04/23/24 16:00 04/23/24 16:00 04/23/24 16:00 Temperature 97.6 F Pulse Rate 68 62 Respiratory Rate 24 H Blood Pressure 147/70 H Pulse Oximetry 96 95 Oxygen Delivery Nasal Cannula Oxygen Flow Rate 3 04/23/24 18:00 04/23/24 19:54 04/23/24 20:00 Temperature 98.2 F Pulse Rate 77 70 Respiratory Rate 19 Blood Pressure 154/80 H Pulse Oximetry 94 93 Oxygen Delivery Nasal Cannula Oxygen Flow Rate 3 04/23/24 20:00 04/23/24 22:57 04/23/24 23:03 Temperature Pulse Rate 73 82 Respiratory Rate 22 H 22 H Blood Pressure Pulse Oximetry 94 Oxygen Delivery Nasal Cannula Oxygen Flow Rate 3 04/23/24 20:00 04/23/24 22:00 04/24/24 00:00 Temperature Pulse Rate 66 66 72 Respiratory Rate Blood Pressure Pulse Oximetry Oxygen Delivery Oxygen Flow Rate 04/24/24 00:00 04/23/24 23:00 04/24/24 01:48 Temperature 97.6 F Pulse Rate 71 Respiratory Rate 19 Blood Pressure 152/61 H Pulse Oximetry 95 98 95 Oxygen Delivery Nasal Cannula Nasal Cannula Oxygen Flow Rate 3 2 04/24/24 02:00 04/24/24 03:17 04/24/24 04:00 Temperature 97.6 F Pulse Rate 68 72 Respiratory Rate 19 Blood Pressure 166/72 H Pulse Oximetry 93 94 Oxygen Delivery Nasal Cannula Oxygen Flow Rate 2 04/24/24 04:00 04/24/24 06:00 04/24/24 07:08 Temperature Pulse Rate 68 72 Respiratory Rate Blood Pressure Pulse O
--- NOTE | 2024-04-24 20:44 | PC.NURSE ---
Spoke with Dr Rubio and Dr Rubio consents to transfer to medical with tele.
--- NOTE | 2024-04-24 21:54 | PC.NURSE ---
Transfer patient received from IMU per bed. Report received from CHRIS Tellez.
--- NOTE | 2024-04-24 22:16 | PC.NURSE ---
Pt transferred to room 247.
[2024-04-25] VITALS (21 sets, daily range): BP systolic 150–167; BP diastolic 60–80; PULSE 69–126; RESP 17–24; TEMP 35.7–36.8; O2SAT 94–98; BMI 28.8
[2024-04-25] MEDS: IPRATROPIUM 0.5 MG/ALBUTEROL SULFATE 2.5 MG AMPUL.NEB 3 ML INHALATION ×4 (02:18→20:27)
[2024-04-25] MEDS: hydrALAZINE HCL 20 MG/ML VIAL 10 MG IV PUSH (04:07)
[2024-04-25] MEDS: KCL 20MEQ/0.9% SOD CHL 1,000 ML 75 ML IV CONT (04:11)
--- NOTE | 2024-04-25 04:23 | ECG_ITS ---
Test Date: 2024-04-25 04:41:25 Measurements Intervals [place] Rate: 81 P: 61 NH: 170 QRS: 58 QRSD: 113 T: 54 QT: 373 QTc: 434 Interpretive Statements SINUS RHYTHM WITH FREQUENT VENTRICULAR PREMATURE COMPLEXES BORDERLINE ST-T WAVE ABNORMALITY- LAT/HIGH LAT LEADS ABNORMAL ECG No previous ECG available for comparison Electronically Signed On 04-25-2024 06:22:11 CDT by Luis A Pang D.O.
[2024-04-25 04:54] LABS: Basophils Percent Auto 0.3 % (0.2-1.2); Eosinophils Absolute Auto 0.1 K/mm3 (0-0.3); Eosinophils Percent Auto 0.7 % (0-4.4); Hematocrit 34.4 % (42.0-52.0); Hemoglobin 11.6 g/dL (14.0-18.0); Immature Granulocyte Absolute 0.16 K/mm3 (0.00-0.031); Immature Granulocyte Percent A 1.1 % (0-0.5); Lymphocytes Absolute Auto 0.67 K/mm3 (0.9-3.2); Lymphocytes Percent Auto 4.6 % (18.3-44.2); Mean Corpuscular HGB Conc 33.7 g/dl (32-36); Mean Corpuscular Hemoglobin 34.3 pg (26-34); Mean Corpuscular Volume 101.8 fl (80-100); Monocytes Absolute Auto 0.8 K/mm3 (0.1-0.6); Monocytes Percent Auto 5.4 % (2.6-8.5); Neutrophils Absolute Auto 12.9 K/mm3 (1.3-6.7); Neutrophils Percent Auto 87.9 % (45.5-73.1); Platelet Count Result 170 k/mm3 (150-375); Red Blood Count 3.38 M/mm3 (4.6-6.20); Red Cell Distribution Width 13.4 % (11.5-14.5); White Blood Count 14.7 K/mm3 (4.5-10.0)
[2024-04-25] MEDS: GLYCOPYRROLATE INHALATION ×3 (04:56→20:36)
[2024-04-25] MEDS: BUDESONIDE INHALATION ×3 (04:56→20:36)
[2024-04-25] MEDS: FORMOTEROL FUMARATE INHALATION ×3 (04:56→20:36)
[2024-04-25] MEDS: [UNRECOGNIZED DRUG - OTHER] INHALATION ×3 (04:56→20:36)
[2024-04-25 05:03] LABS: Alanine Aminotransferase 50 U/L (6-50); Albumin Level 2.7 g/dL (3.5-5.1); Alkaline Phosphatase 192 U/L (38-126); Anion Gap 9 mmol/L (4-12); Aspartate Amino Transferase 41 U/L (17-59); Bilirubin,Total 0.8 mg/dL (0.2-1.3); Blood Urea Nitrogen 30 mg/dL (9-20); Calcium 8.4 mg/dL (8.4-10.2); Carbon Dioxide 19 mmol/L (22-30); Chloride 107 mmol/L (98-107); Estimated CRCL calculation 52 ml/min; Estimated Glomerular Filt Rate 58; Glucose 122 mg/dL (65-110); Lipase 28 U/L (23-300); Magnesium 1.9 mg/dL (1.6-2.3); Potassium 3.6 mmol/L (3.4-5.0); Sodium 135 mmol/L (137-145)
[2024-04-25] MEDS: IBUPROFEN IV 400 MG in SODIUM CHLORIDE 0.9% IV 100 ML 208 MG IVPB ×2 (05:06→12:45)
[2024-04-25 05:14] LABS: Troponin I 0.033 ng/mL (0.000-0.034)
[2024-04-25 05:18] LABS: Platelet Estimate Adequate (Adequate)
[2024-04-25 05:20] LABS: Anisocytosis 1+; Microcytosis 1+ (NORMAL); Platelet Clumps Present; Poikilocytosis 2+
[2024-04-25 05:21] LABS: Acanthocytes 2+; Schistocytes None Seen
[2024-04-25] MEDS: PANTOPRAZOLE SODIUM IV 40 MG VIAL IV PUSH (05:26)
[2024-04-25] MEDS: BELLADONNA ALK/PHENOB ELIX 10 ML, MAG HYDROX/ALUMINUM HYD/SIMETH 30 ML, LIDOCAINE HCL 2... PO (05:29)
[2024-04-25] MEDS: FUROSEMIDE INJ 40 MG/4 ML VIAL IV PUSH (05:46)
[2024-04-25] MEDS: ATORVASTATIN 20 MG TABLET BY MOUTH (08:31)
[2024-04-25] MEDS: CHOLECALCIFEROL 5,000 UNITS TABLET 5000 UNITS PO ×2 (08:31→17:27)
[2024-04-25] MEDS: CHOLECALCIFEROL 1,000 UNITS TABLET 1000 UNITS PO ×2 (08:31→17:27)
[2024-04-25] MEDS: guaiFENesin 12 HR 600 MG TABCR 1200 MG PO ×2 (08:32→21:39)
[2024-04-25] MEDS: NEBIVOLOL HCL 5 MG TABLET BY MOUTH (08:32)
[2024-04-25] MEDS: prednisoLONE ACETATE 1% OPHTH 5 ML 1 DROP RIGHT EYE (08:35)
[2024-04-25] MEDS: MONTELUKAST SODIUM 10 MG TABLET BY MOUTH (08:37)
[2024-04-25] MEDS: MEROPENEM 1 GM/NS 100 ML 1 GM/100 ML BAG IVPB ×2 (12:09→21:40)
--- NOTE | 2024-04-25 13:06 | PC.NURSE ---
On 04/25/24, the RN EDUCATION REVIEWER, [Dalton Barlow ], provided care and completed [facility] documentation on this patient. I have reviewed the EDUCATION REVIEWER's documentation and agree with the findings.
--- NOTE | 2024-04-25 14:40 | P.PN_ITS ---
Progress Note: A&P Assessment and Plan (1) Acute pancreatitis: Qualifiers: Acute pancreatitis complication: no infection or necrosis Pancreatitis type: unspecified pancreatitis type Qualified Code(s): K85.90 - Acute pancreatitis without necrosis or infection, unspecified Code(s): K85.90 - Acute pancreatitis without necrosis or infection, unspecified Status: Acute (2) Acute hypoxic respiratory failure: Code(s): J96.01 - Acute respiratory failure with hypoxia Status: Acute (3) Chronic obstructive pulmonary disease: Qualifiers: COPD type: unspecified COPD Qualified Code(s): J44.9 - Chronic obstructive pulmonary disease, unspecified Code(s): J44.9 - Chronic obstructive pulmonary disease, unspecified Status: Acute (4) CKD (chronic kidney disease) stage 3, GFR 30-59 ml/min: Code(s): N18.3 - Chronic kidney disease, stage 3 (moderate) Status: Acute (5) Essential (primary) hypertension: Code(s): I10 - Essential (primary) hypertension Status: Acute Plan Interval history: 04/20/2024: 78 y/o male presented with epigastric pain is found to have acute complicated pancreatitis seen by GI suspect most likely 2/2 gallbladder as patient had MRCP showed no cholelithiasis/choledocholithiasis suggesting patient had passed the stone, patient continue to have epigastric pain seen by surgery survice suggested to monitor until clinical symptoms improve before lap gena, will monitor LFT. Interval history 04/21/2024: patient with acute complicated pancreatitis contineu to have persistent pain epigastric pain to further evaluate today patient had repeat CT scan of the abdomen, whiche showed: 1. 5 mm stone at the ampulla of Vater. 2. Stable acute pancreatitis. 3. Worsened small volume of ascites. 4. Worsened small pleural effusions. 5. Emphysema. Discussed with GI, most likely pain is worsening due to stone and patient will need ERCP to remove the stone, which is scheduled for tomorrow 04/22/2024, today patient family is present and with patient permission was given updates and ans wered all the questions. Interval history 04/22/2024: patient continue to c/o epigastric pain and seen by GI and patient will have ERCP today.which will improve patient pain, this will also improve patient pancreatitis as patient LFT and lipase are improving, once clinically stable patient will have lap gena. will continue to monitor. Interval history 04/23/2024: Repeat scan showed in a stone in CBD and on 04/22/2024 patient had ERCP and the duct was flushed, today patient stats his epigastric pain has improved, but patent feels bloated and has not had BM for everal days will reduce his pain medication, and start patient stool softener and erick lax. seen by surgery service once pancreatitis has improved patient will have gena, will have PT/OT work with the patient. Interval history 04/24/2024: Repeat scan showed in a stone in CBD and on 04/22/2024 patient had ERCP and the duct was flushed, today patient stats his epigastric pain has improved, but patent feels bloated and has not had BM for everal days and passing some gas will reduce his pain medication, and started patient stool softener and erick lax. today still no BM, KUB showed 1. Dilated small bowel, likely adynamic ileus., will keep patient NPO, will gently hydrate the patient will encourage patient to ambulate. will monitor. Interval history 04/25/2024: Repeat scan showed in a stone in CBD and on 04/22/2024 patient had ERCP and the duct was flushed,last night and today had couple of BM, patient stats his epigastric pain has improved, and patient feels he is not as bl
--- NOTE | 2024-04-25 14:55 | PM.PNGS ---
Progress Note: A&P Assessment and Plan (1) Choledocholithiasis: Code(s): K80.50 - Calculus of bile duct without cholangitis or cholecystitis without obstruction Status: Acute Assessment and Plan: He will eventually need an interval cholecystectomy. His pancreatitis is resolving, but he is very weak and deconditioned from his acute illness. Discussed with the patient that he will eventual need a cholecystectomy, but it would be ideal to allow him to recover from this episode of pancreatitis and try to regain strength prior to proceeding with surgery. We can plan for a laparoscopic cholecystectomy as an outpatient when he is better medically optimized. (2) Acute pancreatitis: Qualifiers: Acute pancreatitis complication: no infection or necrosis Pancreatitis type: unspecified pancreatitis type Qualified Code(s): K85.90 - Acute pancreatitis without necrosis or infection, unspecified Code(s): K85.90 - Acute pancreatitis without necrosis or infection, unspecified Status: Acute Assessment and Plan: Resolving. Lipase normalized. WBC up slightly over the weekend, but down to 14,000 today. Clinically, his abdominal pain and exam have improved significantly. Ileus has resolved as well. Advance to a low fat diet. Plan I have discussed the patient's case and plan of care with Dr. Alvarez. Subjective Subjective Date/Time Seen: 04/25/24 14:55 Patient reports: no new complaints, feels better, pain is less, tolerating liquids well, flatus, bowel movement and afebrile Interval history: Chart reviewed since last seen. Patient has significantly improved over the past few days. He denies any abdominal pain today. Denies any nausea, vomiting, or bloating. He is tolerating clear liquids. He had a large bowel movement yesterday and again today. He reports generalized weakness and requiring 1-2 staff members to help him get up out of bed. He was previously independent. Per nursing, he had a fall today when trying to get out of bed. Therapy is working with the patient on his strength. Exam Const: General: comfortable and no acute distress Orientation/consciousness: patient oriented x3 GI: Inspection: non-distended GI Palp: Yes Soft to palpation, Yes Tenderness to palpation present (GI) (very mild RUQ and LUQ tenderness, much improved), No Guarding due to palpation present (GI) and No Rebound tenderness present Auscultation: normal bowel sounds Objective Data Vital Signs Vital Signs: Vital Signs - 24 hr 04/24/24 16:00 04/24/24 16:00 04/24/24 18:00 Temperature 98.1 F Pulse Rate 73 75 74 Respiratory Rate 16 Blood Pressure 168/68 H Pulse Oximetry 95 Oxygen Delivery Oxygen Flow Rate Fraction of Inspired Oxygen 04/24/24 16:00 04/24/24 19:32 04/24/24 19:40 Temperature 98.0 F Pulse Rate 76 78 Respiratory Rate 20 20 Blood Pressure 158/64 H Pulse Oximetry 92 94 Oxygen Delivery Nasal Cannula Oxygen Flow Rate 2 Fraction of Inspired Oxygen 04/24/24 19:41 04/24/24 19:48 04/24/24 22:10 Temperature Pulse Rate 74 88 Respiratory Rate 20 Blood Pressure Pulse Oximetry 95 Oxygen Delivery Nasal Cannula Oxygen Flow Rate 2 Fraction of Inspired Oxygen 04/24/24 22:26 04/25/24 00:00 04/25/24 00:00 Temperature 98.1 F Pulse Rate 74 81 Respiratory Rate 20 Blood Pressure 150/67 H Pulse Oximetry 95 95 Oxygen Delivery Nasal Cannula Oxygen Flow Rate 2 Fraction of Inspired Oxygen 04/25/24 02:18 04/25/24 02:27 04/25/24 04:00 Temperature 98.2 F Pulse Rate 81 84 97 Respiratory Rate 20 20 20 Blood Pressure 167/68 H Pulse Oximetry 95 Oxygen Delivery Oxygen Flow Rate Fraction of Inspired Oxygen 04/25/24 04:00 04/25/24 07:12 04/25/24 07:12 Temperature Pulse Rate 83 104 H Respiratory Rate 20 Blood Pressure Pulse Oximetry 94 Oxygen Delivery Nasal Cannula Oxygen Flow Rate 2 [facility]
--- NOTE | 2024-04-25 16:13 | WPDGIPROGNO ---
Progress Note: A&P Assessment and Plan (1) Acute pancreatitis: Qualifiers: Acute pancreatitis complication: no infection or necrosis Pancreatitis type: unspecified pancreatitis type Qualified Code(s): K85.90 - Acute pancreatitis without necrosis or infection, unspecified Code(s): K85.90 - Acute pancreatitis without necrosis or infection, unspecified Status: Acute Assessment and Plan: s/p ercp after repeat CT scan showed stone at ampulla interval cholecystectomy but once pancreatitis resolves and pain is better, surgery team on board- probably will need more time to recover and could be done as outpatietn tolerating diet and ok to advance to low fat, normalization of liver enzymes and he is passing gas, abdomen is better (2) Nausea & vomiting: Code(s): R11.2 - Nausea with vomiting, unspecified Status: Acute Assessment and Plan: better (3) Leukocytosis: Code(s): D72.829 - Elevated white blood cell count, unspecified Status: Acute Assessment and Plan: probably reactive from pancreatitis (4) Abdominal pain: Code(s): R10.9 - Unspecified abdominal pain Status: Acute Assessment and Plan: this is improving Subjective Date/time seen: 04/25/24 16:13 Interval history: better, tolerating liquid diet Review of Systems Review of Systems: All systems reviewed & are unremarkable except as noted in HPI and below Exam Const: General: comfortable and no acute distress Orientation/consciousness: patient oriented x3 HENMT: Face/Nose/Sinus: Normal nares present Eyes: Sclera: sclerae normal Neck: Neck: supple Resp: Effort & Inspection: normal respiratory effort Cardio: Rate: regular rate GI: Inspection: non-distended GI Palp: Yes Soft to palpation, Yes Tenderness to palpation present (GI) (very mild RUQ and LUQ tenderness, much improved), No Guarding due to palpation present (GI) and No Rebound tenderness present Auscultation: normal bowel sounds Skin: General skin exam: normal color Neuro: Speech: normal speech Motor exam (neuro): 5/5 motor strength present throughout Extrem: General: normal to inspection Psych: Mental Status: mental status grossly normal Objective Data Vital Signs Vital Signs: Vital Signs - 24 hr 04/24/24 18:00 04/24/24 19:32 04/24/24 19:40 Temperature 98.0 F Pulse Rate 74 76 78 Respiratory Rate 20 20 Blood Pressure 158/64 H Pulse Oximetry 94 Oxygen Delivery Oxygen Flow Rate Fraction of Inspired Oxygen 04/24/24 19:41 04/24/24 19:48 04/24/24 22:10 Temperature Pulse Rate 74 88 Respiratory Rate 20 Blood Pressure Pulse Oximetry 95 Oxygen Delivery Nasal Cannula Oxygen Flow Rate 2 Fraction of Inspired Oxygen 04/24/24 22:26 04/25/24 00:00 04/25/24 00:00 Temperature 98.1 F Pulse Rate 74 81 Respiratory Rate 20 Blood Pressure 150/67 H Pulse Oximetry 95 95 Oxygen Delivery Nasal Cannula Oxygen Flow Rate 2 Fraction of Inspired Oxygen 04/25/24 02:18 04/25/24 02:27 04/25/24 04:00 Temperature 98.2 F Pulse Rate 81 84 97 Respiratory Rate 20 20 20 Blood Pressure 167/68 H Pulse Oximetry 95 Oxygen Delivery Oxygen Flow Rate Fraction of Inspired Oxygen 04/25/24 04:00 04/25/24 07:12 04/25/24 07:12 Temperature Pulse Rate 83 104 H Respiratory Rate 20 Blood Pressure Pulse Oximetry 94 Oxygen Delivery Nasal Cannula Oxygen Flow Rate 2 Fraction of Inspired Oxygen 04/25/24 07:21 04/25/24 08:00 04/25/24 08:17 Temperature 96.9 F L Pulse Rate 92 106 H 104 H Respiratory Rate 20 19 Blood Pressure 150/80 H Pulse Oximetry 96 Oxygen Delivery Oxygen Flow Rate Fraction of Inspired Oxygen 04/25/24 08:32 04/25/24 09:30 04/25/24 09:30 Temperature 96.3 F L Pulse Rate 111 H 126 H Respiratory Rate 24 H Blood Pressure 153/71 H Pulse Oximetry 95 96 Oxygen Delivery Nasal Cannula Oxyg
[2024-04-25] MEDS: ARTIFICIAL TEARS OPHTH SOLN 15 ML BOTTLE 2 DROP EACH EYE (17:27)
[2024-04-25] MEDS: SENNA/DOCUSATE SODIUM TABLET 1 TAB PO (21:40)
[2024-04-25] MEDS: SIMETHICONE 80 MG TAB.CHEW 160 MG PO (21:45)
[2024-04-26] VITALS (19 sets, daily range): BP systolic 134–156; BP diastolic 57–73; PULSE 68–112; RESP 16–20; TEMP 35.9–36.8; O2SAT 93–100
[2024-04-26] MEDS: HYDROmorphone HCL INJ (*CRX) 1 MG/ML SYR IV PUSH ×2 (01:10→07:40)
[2024-04-26] MEDS: IPRATROPIUM 0.5 MG/ALBUTEROL SULFATE 2.5 MG AMPUL.NEB 3 ML INHALATION ×4 (01:29→20:27)
[2024-04-26] MEDS: HYDROcodone/acetaminophen (*CRX) 5-325 MG TABLET 1 TAB PO ×3 (04:17→23:14)
[2024-04-26] MEDS: SIMETHICONE 80 MG TAB.CHEW 160 MG PO (04:17)
[2024-04-26] MEDS: hydrALAZINE HCL 20 MG/ML VIAL 10 MG IV PUSH (04:17)
[2024-04-26 05:06] LABS: Basophils Percent Auto 0.3 % (0.2-1.2); Eosinophils Absolute Auto 0.1 K/mm3 (0-0.3); Eosinophils Percent Auto 0.9 % (0-4.4); Hematocrit 32.6 % (42.0-52.0); Immature Granulocyte Absolute 0.15 K/mm3 (0.00-0.031); Immature Granulocyte Percent A 1.2 % (0-0.5); Lymphocytes Absolute Auto 0.69 K/mm3 (0.9-3.2); Lymphocytes Percent Auto 5.4 % (18.3-44.2); Mean Corpuscular HGB Conc 33.7 g/dl (32-36); Mean Corpuscular Hemoglobin 34.5 pg (26-34); Mean Corpuscular Volume 102.2 fl (80-100); Mean Platelet Volume 10.5 fl (7.4-10.4); Monocytes Absolute Auto 0.8 K/mm3 (0.1-0.6); Neutrophils Percent Auto 86.2 % (45.5-73.1); Platelet Count Result 195 k/mm3 (150-375); Red Blood Count 3.19 M/mm3 (4.6-6.20); Red Cell Distribution Width 13.5 % (11.5-14.5); White Blood Count 12.8 K/mm3 (4.5-10.0)
[2024-04-26 05:13] LABS: Alanine Aminotransferase 40 U/L (6-50); Albumin Level 2.7 g/dL (3.5-5.1); Alkaline Phosphatase 172 U/L (38-126); Anion Gap 9 mmol/L (4-12); Aspartate Amino Transferase 38 U/L (17-59); Bilirubin,Total 0.8 mg/dL (0.2-1.3); Blood Urea Nitrogen 32 mg/dL (9-20); Calcium 8.5 mg/dL (8.4-10.2); Carbon Dioxide 23 mmol/L (22-30); Chloride 104 mmol/L (98-107); Estimated CRCL calculation 45 ml/min; Estimated Glomerular Filt Rate 49; Glucose 137 mg/dL (65-110); Lipase 57 U/L (23-300); Magnesium 1.8 mg/dL (1.6-2.3); Potassium 3.4 mmol/L (3.4-5.0); Sodium 136 mmol/L (137-145)
[2024-04-26] MEDS: BELLADONNA ALK/PHENOB ELIX 10 ML, MAG HYDROX/ALUMINUM HYD/SIMETH 30 ML, LIDOCAINE HCL 2... PO (05:29)
[2024-04-26] MEDS: MEROPENEM 1 GM/NS 100 ML 1 GM/100 ML BAG IVPB (05:30)
[2024-04-26] MEDS: PANTOPRAZOLE SODIUM IV 40 MG VIAL IV PUSH (05:30)
[2024-04-26] MEDS: FUROSEMIDE INJ 40 MG/4 ML VIAL 20 MG IV PUSH (08:23)
[2024-04-26] MEDS: guaiFENesin 12 HR 600 MG TABCR 1200 MG PO ×2 (08:24→21:16)
[2024-04-26] MEDS: NEBIVOLOL HCL 5 MG TABLET BY MOUTH (08:24)
[2024-04-26] MEDS: CHOLECALCIFEROL 1,000 UNITS TABLET 1000 UNITS PO ×2 (08:24→16:31)
[2024-04-26] MEDS: ATORVASTATIN 20 MG TABLET BY MOUTH (08:24)
[2024-04-26] MEDS: MONTELUKAST SODIUM 10 MG TABLET BY MOUTH (08:24)
[2024-04-26] MEDS: CHOLECALCIFEROL 5,000 UNITS TABLET 5000 UNITS PO ×2 (08:24→16:31)
[2024-04-26] MEDS: ARTIFICIAL TEARS OPHTH SOLN 15 ML BOTTLE 2 DROP EACH EYE ×2 (08:25→16:31)
[2024-04-26] MEDS: prednisoLONE ACETATE 1% OPHTH 5 ML 1 DROP RIGHT EYE (08:25)
[2024-04-26] MEDS: levoFLOXacin 750 MG TABLET PO (08:31)
--- NOTE | 2024-04-26 09:58 | WPDPN ---
Progress Note: A&P Assessment and Plan (1) Acute pancreatitis: Qualifiers: Acute pancreatitis complication: no infection or necrosis Pancreatitis type: unspecified pancreatitis type Qualified Code(s): K85.90 - Acute pancreatitis without necrosis or infection, unspecified Code(s): K85.90 - Acute pancreatitis without necrosis or infection, unspecified Status: Acute (2) Acute hypoxic respiratory failure: Code(s): J96.01 - Acute respiratory failure with hypoxia Status: Acute (3) Chronic obstructive pulmonary disease: Qualifiers: COPD type: unspecified COPD Qualified Code(s): J44.9 - Chronic obstructive pulmonary disease, unspecified Code(s): J44.9 - Chronic obstructive pulmonary disease, unspecified Status: Acute (4) CKD (chronic kidney disease) stage 3, GFR 30-59 ml/min: Code(s): N18.3 - Chronic kidney disease, stage 3 (moderate) Status: Acute (5) Essential (primary) hypertension: Code(s): I10 - Essential (primary) hypertension Status: Acute Plan Interval history: 04/20/2024: 78 y/o male presented with epigastric pain is found to have acute complicated pancreatitis seen by GI suspect most likely 2/2 gallbladder as patient had MRCP showed no cholelithiasis/choledocholithiasis suggesting patient had passed the stone, patient continue to have epigastric pain seen by surgery survice suggested to monitor until clinical symptoms improve before lap gena, will monitor LFT. Interval history 04/21/2024: patient with acute complicated pancreatitis contineu to have persistent pain epigastric pain to further evaluate today patient had repeat CT scan of the abdomen, whiche showed: 1. 5 mm stone at the ampulla of Vater. 2. Stable acute pancreatitis. 3. Worsened small volume of ascites. 4. Worsened small pleural effusions. 5. Emphysema. Discussed with GI, most likely pain is worsening due to stone and patient will need ERCP to remove the stone, which is scheduled for tomorrow 04/22/2024, today patient family is present and with patient permission was given updates and answered all the questions. Interval history 04/22/2024: patient continue to c/o epigastric pain and seen by GI and patient will have ERCP today.which will improve patient pain, this will also improve patient pancreatitis as patient LFT and lipase are improving, once clinically stable patient will have lap gena. will continue to monitor. Interval history 04/23/2024: Repeat scan showed in a stone in CBD and on 04/22/2024 patient had ERCP and the duct was flushed, today patient stats his epigastric pain has improved, but patent feels bloated and has not had BM for everal days will reduce his pain medication, and start patient stool softener and erick lax. seen by surgery service once pancreatitis has improved patient will have gena, will have PT/OT work with the patient. Interval history 04/24/2024: Repeat scan showed in a stone in CBD and on 04/22/2024 patient had ERCP and the duct was flushed, today patient stats his epigastric pain has improved, but patent feels bloated and has not had BM for everal days and passing some gas will reduce his pain medication, and started patient stool softener and erick lax. today still no BM, KUB showed 1. Dilated small bowel, likely adynamic ileus., will keep patient NPO, will gently hydrate the patient will encourage patient to ambulate. will monitor. Interval history 04/25/2024: Repeat scan showed in a stone in CBD and on 04/22/2024 patient had ERCP and the duct was flushed,last night and today had couple of BM, patient stats his epigastric pain has improved, and patient feels he is not as bloated, his LFT are improving, patient will be seen by GI and surgery and further recommendation to follow. Interval history 04/26/2024: Repeat scan showed stone in CBD and on 04/22/2024 patient had ERCP and the duct was flushed,on 04/25 had couple of BM, apparently patient had a lar
--- NOTE | 2024-04-26 10:21 | PC.NURSE ---
On 04/26/24, RN the LABEL MACHINE OPERATOR, [ Dalton Barlow], provided care and completed [facility] documentation on this patient. I have reviewed the LABEL MACHINE OPERATOR's documentation and agree with the findings.
[2024-04-26] MEDS: metroNIDAZOLE 500 MG TABLET PO ×2 (13:36→21:16)
[2024-04-26] MEDS: FUROSEMIDE INJ 40 MG/4 ML VIAL IV PUSH (14:26)
[2024-04-26] MEDS: IBUPROFEN IV 400 MG in SODIUM CHLORIDE 0.9% IV 100 ML 208 MG IVPB (14:31)
--- NOTE | 2024-04-26 16:41 | WPDGIPROGNO ---
Progress Note: A&P Assessment and Plan (1) Acute pancreatitis: Qualifiers: Acute pancreatitis complication: no infection or necrosis Pancreatitis type: unspecified pancreatitis type Qualified Code(s): K85.90 - Acute pancreatitis without necrosis or infection, unspecified Code(s): K85.90 - Acute pancreatitis without necrosis or infection, unspecified Status: Acute Assessment and Plan: s/p ercp after repeat CT scan showed stone at ampulla interval cholecystectomy but once pancreatitis resolves and pain is better, surgery team on board- probably will need more time to recover and could be done as outpatietn advance again to low fat diet- eat only small amount, daughter at bedside (2) Leukocytosis: Code(s): D72.829 - Elevated white blood cell count, unspecified Status: Acute Assessment and Plan: probably reactive from pancreatitis stable (3) Abdominal pain: Code(s): R10.9 - Unspecified abdominal pain Status: Acute Assessment and Plan: stable Subjective Date/time seen: 04/26/24 16:41 Interval history: had again abdominal discomfort after eating but better now. daughter is at bedside, she herself had pancreatitis and would like to try again strict low fat diet, patient is willing again had BM x2 yesterday Review of Systems Review of Systems: All systems reviewed & are unremarkable except as noted in HPI and below Exam Const: General: comfortable and no acute distress Orientation/consciousness: patient oriented x3 HENMT: Face/Nose/Sinus: Normal nares present Eyes: Sclera: sclerae normal Neck: Neck: supple Resp: Effort & Inspection: normal respiratory effort Cardio: Rate: regular rate GI: Inspection: distended GI Palp: Yes Soft to palpation, Yes Tenderness to palpation present (GI) (very mild RUQ and LUQ tenderness), No Guarding due to palpation present (GI) and No Rebound tenderness present Auscultation: normal bowel sounds Skin: General skin exam: normal color Neuro: Speech: normal speech Motor exam (neuro): 5/5 motor strength present throughout Extrem: General: normal to inspection Psych: Mental Status: mental status grossly normal Objective Data Vital Signs Vital Signs: Vital Signs - 24 hr 04/25/24 18:06 04/25/24 19:38 04/25/24 20:28 Temperature 96.5 F L 97.0 F L Pulse Rate 71 78 94 Respiratory Rate 21 H 18 18 Blood Pressure 151/60 H 150/67 H Pulse Oximetry 98 95 Oxygen Delivery Oxygen Flow Rate 04/25/24 20:28 04/25/24 20:38 04/25/24 20:00 Temperature Pulse Rate 90 104 H Respiratory Rate 18 Blood Pressure Pulse Oximetry 95 Oxygen Delivery Nasal Cannula Oxygen Flow Rate 2 04/25/24 20:00 04/26/24 00:00 04/26/24 00:00 Temperature 97.5 F L Pulse Rate 86 68 Respiratory Rate 20 Blood Pressure 149/58 H Pulse Oximetry 95 100 Oxygen Delivery Nasal Cannula Oxygen Flow Rate 2 04/26/24 01:30 04/26/24 01:40 04/26/24 04:00 Temperature Pulse Rate 98 97 82 Respiratory Rate 20 20 Blood Pressure Pulse Oximetry Oxygen Delivery Oxygen Flow Rate 04/26/24 04:00 04/26/24 07:53 04/26/24 07:53 Temperature 97.4 F L Pulse Rate 86 96 Respiratory Rate 20 20 Blood Pressure 156/66 H Pulse Oximetry 98 93 Oxygen Delivery Nasal Cannula Oxygen Flow Rate 2 04/26/24 08:02 04/26/24 08:05 04/26/24 08:24 Temperature 96.6 F L Pulse Rate 96 106 H 112 H Respiratory Rate 18 20 Blood Pressure 145/73 H Pulse Oximetry 93 Oxygen Delivery Oxygen Flow Rate 04/26/24 08:00 04/26/24 08:24 04/26/24 12:06 Temperature 97.2 F L Pulse Rate 101 H 84 Respiratory Rate 20 Blood Pressure 147/69 H Pulse Oximetry 94 96 Oxygen Delivery Nasal Cannula Oxygen Flow Rate 2 04/26/24 12:00 04/26/24 14:07 04/26/24 14:22 Temperature Pulse Rate 83 73 77 Respiratory Rate 20 20 Blood Pressure Pulse Oximetry Oxygen Delivery Oxygen Justin
--- NOTE | 2024-04-26 16:48 | PM.PNGS ---
Progress Note: A&P Assessment and Plan (1) Choledocholithiasis: Code(s): K80.50 - Calculus of bile duct without cholangitis or cholecystitis without obstruction Status: Acute Assessment and Plan: He will eventually need an interval cholecystectomy. His pancreatitis is resolving, but he is very weak and deconditioned from his acute illness. Discussed with the patient that he will eventual need a cholecystectomy, but it would be ideal to allow him to recover from this episode of pancreatitis and try to regain strength prior to proceeding with surgery. We can plan for a laparoscopic cholecystectomy as an outpatient when he is better medically optimized. (2) Acute pancreatitis: Qualifiers: Acute pancreatitis complication: no infection or necrosis Pancreatitis type: unspecified pancreatitis type Qualified Code(s): K85.90 - Acute pancreatitis without necrosis or infection, unspecified Code(s): K85.90 - Acute pancreatitis without necrosis or infection, unspecified Status: Acute Assessment and Plan: Resolving. Lipase normalized. WBC up slightly over the weekend, trending down. Clinically, his abdominal pain and exam have improved. Still slightly distended. Advance to a low fat diet tomorrow. Subjective Subjective Date/Time Seen: 04/26/24 16:48 Interval history: Pain a little better this afternoon, but had severe pain last night after eating dinner. Backed off to clear liquids today. Attempting low fat diet for breakfast tomorrow. Exam Const: General: comfortable and no acute distress Orientation/consciousness: patient oriented x3 GI: Inspection: distended and obesity GI Palp: Yes Soft to palpation, Yes Tenderness to palpation present (GI) (very mild RUQ and LUQ tenderness, much improved), No Guarding due to palpation present (GI) and No Rebound tenderness present Auscultation: normal bowel sounds Objective Data Vital Signs Vital Signs: Vital Signs - 24 hr 04/25/24 18:06 04/25/24 19:38 04/25/24 20:28 Temperature 35.8 C L 36.1 C L Pulse Rate 71 78 94 Respiratory Rate 21 H 18 18 Blood Pressure 151/60 H 150/67 H Pulse Oximetry 98 95 Oxygen Delivery Oxygen Flow Rate 04/25/24 20:28 04/25/24 20:38 04/25/24 20:00 Temperature Pulse Rate 90 104 H Respiratory Rate 18 Blood Pressure Pulse Oximetry 95 Oxygen Delivery Nasal Cannula Oxygen Flow Rate 2 04/25/24 20:00 04/26/24 00:00 04/26/24 00:00 Temperature 36.4 C L Pulse Rate 86 68 Respiratory Rate 20 Blood Pressure 149/58 H Pulse Oximetry 95 100 Oxygen Delivery Nasal Cannula Oxygen Flow Rate 2 04/26/24 01:30 04/26/24 01:40 04/26/24 04:00 Temperature Pulse Rate 98 97 82 Respiratory Rate 20 20 Blood Pressure Pulse Oximetry Oxygen Delivery Oxygen Flow Rate 04/26/24 04:00 04/26/24 07:53 04/26/24 07:53 Temperature 36.3 C L Pulse Rate 86 96 Respiratory Rate 20 20 Blood Pressure 156/66 H Pulse Oximetry 98 93 Oxygen Delivery Nasal Cannula Oxygen Flow Rate 2 04/26/24 08:02 04/26/24 08:05 04/26/24 08:24 Temperature 35.9 C L Pulse Rate 96 106 H 112 H Respiratory Rate 18 20 Blood Pressure 145/73 H Pulse Oximetry 93 Oxygen Delivery Oxygen Flow Rate 04/26/24 08:00 04/26/24 08:24 04/26/24 12:06 Temperature 36.2 C L Pulse Rate 101 H 84 Respiratory Rate 20 Blood Pressure 147/69 H Pulse Oximetry 94 96 Oxygen Delivery Nasal Cannula Oxygen Flow Rate 2 04/26/24 12:00 04/26/24 14:07 04/26/24 14:22 Temperature Pulse Rate 83 73 77 Respiratory Rate 20 20 Blood Pressure Pulse Oximetry Oxygen Delivery Oxygen Flow Rate 04/26/24 16:00 Temperature Pulse Rate 85 Respiratory Rate Blood Pressure Pulse Oximetry Oxygen Delivery Oxygen Flow Rate Intake/Output Intake/Output: Intake & Output 04/23/24 04/24/24 04/25/24 04/26/24 23:59 23:59 23:59 23:59 Intake Total 2119 133
[2024-04-26] MEDS: BUDESONIDE INHALATION (20:31)
[2024-04-26] MEDS: FORMOTEROL FUMARATE INHALATION (20:31)
[2024-04-26] MEDS: [UNRECOGNIZED DRUG - OTHER] INHALATION (20:31)
[2024-04-26] MEDS: GLYCOPYRROLATE INHALATION (20:31)
[2024-04-26] MEDS: SENNA/DOCUSATE SODIUM TABLET 1 TAB PO (21:16)
[2024-04-27] VITALS (14 sets, daily range): BP systolic 132–138; BP diastolic 59–64; PULSE 80–110; RESP 16–20; TEMP 36.1–36.8; O2SAT 89–96
[2024-04-27] MEDS: HYDROmorphone HCL INJ (*CRX) 1 MG/ML SYR IV PUSH ×2 (00:23→05:30)
[2024-04-27] MEDS: IPRATROPIUM 0.5 MG/ALBUTEROL SULFATE 2.5 MG AMPUL.NEB 3 ML INHALATION ×3 (02:42→13:16)
[2024-04-27] MEDS: HYDROcodone/acetaminophen (*CRX) 5-325 MG TABLET 1 TAB PO ×4 (04:09→15:23)
[2024-04-27 05:16] LABS: Basophils Absolute Auto 0.1 K/mm3 (0.0-0.1); Basophils Percent Auto 0.4 % (0.2-1.2); Eosinophils Absolute Auto 0.1 K/mm3 (0-0.3); Eosinophils Percent Auto 0.9 % (0-4.4); Hemoglobin 10.2 g/dL (14.0-18.0); Immature Granulocyte Absolute 0.13 K/mm3 (0.00-0.031); Immature Granulocyte Percent A 1.1 % (0-0.5); Lymphocytes Absolute Auto 0.64 K/mm3 (0.9-3.2); Lymphocytes Percent Auto 5.7 % (18.3-44.2); Mean Corpuscular Hemoglobin 34.9 pg (26-34); Mean Corpuscular Volume 102.7 fl (80-100); Mean Platelet Volume 10.4 fl (7.4-10.4); Monocytes Absolute Auto 0.7 K/mm3 (0.1-0.6); Monocytes Percent Auto 6.5 % (2.6-8.5); Neutrophils Absolute Auto 9.7 K/mm3 (1.3-6.7); Neutrophils Percent Auto 85.4 % (45.5-73.1); Platelet Count Result 182 k/mm3 (150-375); Red Blood Count 2.92 M/mm3 (4.6-6.20); Red Cell Distribution Width 13.5 % (11.5-14.5); White Blood Count 11.3 K/mm3 (4.5-10.0)
[2024-04-27 05:27] LABS: Alanine Aminotransferase 31 U/L (6-50); Albumin Level 2.5 g/dL (3.5-5.1); Alkaline Phosphatase 137 U/L (38-126); Anion Gap 8 mmol/L (4-12); Aspartate Amino Transferase 32 U/L (17-59); Bilirubin,Total 0.8 mg/dL (0.2-1.3); Blood Urea Nitrogen 32 mg/dL (9-20); Calcium 8.4 mg/dL (8.4-10.2); Carbon Dioxide 24 mmol/L (22-30); Chloride 100 mmol/L (98-107); Estimated CRCL calculation 45 ml/min; Estimated Glomerular Filt Rate 49; Glucose 139 mg/dL (65-110); Lipase 72 U/L (23-300); Magnesium 1.7 mg/dL (1.6-2.3); Potassium 3.2 mmol/L (3.4-5.0); Sodium 132 mmol/L (137-145)
[2024-04-27] MEDS: metroNIDAZOLE 500 MG TABLET PO (05:27)
[2024-04-27] MEDS: FORMOTEROL FUMARATE INHALATION (07:31)
[2024-04-27] MEDS: [UNRECOGNIZED DRUG - OTHER] INHALATION (07:31)
[2024-04-27] MEDS: GLYCOPYRROLATE INHALATION (07:31)
[2024-04-27] MEDS: BUDESONIDE INHALATION (07:31)
[2024-04-27] MEDS: ARTIFICIAL TEARS OPHTH SOLN 15 ML BOTTLE 2 DROP EACH EYE (08:48)
[2024-04-27] MEDS: CHOLECALCIFEROL 1,000 UNITS TABLET 1000 UNITS PO (08:48)
[2024-04-27] MEDS: ATORVASTATIN 20 MG TABLET BY MOUTH (08:48)
[2024-04-27] MEDS: POTASSIUM CHLORIDE 20 MEQ PACKET (FOR LIQUID) 40 MEQ PO (08:48)
[2024-04-27] MEDS: guaiFENesin 12 HR 600 MG TABCR 1200 MG PO (08:49)
[2024-04-27] MEDS: CHOLECALCIFEROL 5,000 UNITS TABLET 5000 UNITS PO (08:49)
[2024-04-27] MEDS: MONTELUKAST SODIUM 10 MG TABLET BY MOUTH (08:49)
[2024-04-27] MEDS: polyethylene glycoL 3350 17 GM POWD.PACK PO (08:49)
[2024-04-27] MEDS: levoFLOXacin 750 MG TABLET PO (08:49)
[2024-04-27] MEDS: prednisoLONE ACETATE 1% OPHTH 5 ML 1 DROP RIGHT EYE (08:49)
[2024-04-27] MEDS: NEBIVOLOL HCL 5 MG TABLET BY MOUTH (08:49)
--- NOTE | 2024-04-27 10:51 | PCNFU ---
Nutrition Follow-Up Complete: Inadequate oral intake related to altered GI function, as evidenced by ileus, clear liquid diet Goal: Adequate PO intake after diet advancement Patient is progressing towards goal. We will continue current goal. Pt current nutrition is Low Fat/Low Fiber diet. Last recorded weight is 97.7 kg, down from 101.63 kg on admit. Bowel Motility: +BM reported 04/25 Labs Reviewed:Glu 139, BUN 32, K 3.2,Alb 2.5 Meds Noted: Flagyl, Dilaudid, Levaquin, Mucinex, Lipitor. Skin: WNL Additional Notes: Diet order has advanced to a Low fat/Low Fiber diet. Patient reports eating fruit-peaches/pears and cream of wheat for breakfast. PO intake encouraged. Agree with diet orders. Monitoring diet advancement, intakes, weights, labs, plan of care Follow up in 5 days
--- NOTE | 2024-04-27 12:38 | PM.DS ---
DS: Admitting Diagnosis Discharge Date 04/27/2024 Admitting Diagnosis epigastric pain DS: Discharge Diagnosis Discharge Diagnosis (1) Acute necrotizing pancreatitis: Code(s): K85.91 - Acute pancreatitis with uninfected necrosis, unspecified Status: Acute (2) Macrocytic anemia: Code(s): D53.9 - Nutritional anemia, unspecified Status: Acute (3) Anasarca: Code(s): R60.1 - Generalized edema Status: Acute (4) Hypoxic respiratory failure: Code(s): J96.91 - Respiratory failure, unspecified with hypoxia Status: Acute DS: Summary Hospital Course Hospital Course: Interval history: 04/20/2024: 78 y/o male presented with epigastric pain is found to have acute complicated pancreatitis seen by GI suspect most likely 2/2 gallbladder as patient had MRCP showed no cholelithiasis/choledocholithiasis suggesting patient had passed the stone, patient continue to have epigastric pain seen by surgery survice suggested to monitor until clinical symptoms improve before lap gena, will monitor LFT. Interval history 04/21/2024: patient with acute complicated pancreatitis contineu to have persistent pain epigastric pain to further evaluate today patient had repeat CT scan of the abdomen, whiche showed: 1. 5 mm stone at the ampulla of Vater. 2. Stable acute pancreatitis. 3. Worsened small volume of ascites. 4. Worsened small pleural effusions. 5. Emphysema. Discussed with GI, most likely pain is worsening due to stone and patient will need ERCP to remove the stone, which is scheduled for tomorrow 04/22/2024, today patient family is present and with patient permission was given updates and answered all the questions. Interval history 04/22/2024: patient continue to c/o epigastric pain and seen by GI and patient will have ERCP today.which will improve patient pain, this will also improve patient pancreatitis as patient LFT and lipase are improving, once clinically stable patient will have lap gena. will continue to monitor. Interval history 04/23/2024: Repeat scan showed in a stone in CBD and on 04/22/2024 patient had ERCP and the duct was flushed, today patient stats his epigastric pain has improved, but patent feels bloated and has not had BM for everal days will reduce his pain medication, and start patient stool softener and erick lax. seen by surgery service once pancreatitis has improved patient will have gena, will have PT/OT work with the patient. Interval history 04/24/2024: Repeat scan showed in a stone in CBD and on 04/22/2024 patient had ERCP and the duct was flushed, today patient stats his epigastric pain has improved, but patent feels bloated and has not had BM for everal days and passing some gas will reduce his pain medication, and started patient stool softener and erick lax. today still no BM, KUB showed 1. Dilated small bowel, likely adynamic ileus., will keep patient NPO, will gently hydrate the patient will encourage patient to ambulate. will monitor. Interval history 04/25/2024: Repeat scan showed in a stone in CBD and on 04/22/2024 patient had ERCP and the duct was flushed,last night and today had couple of BM, patient stats his epigastric pain has improved, and patient feels he is not as bloated, his LFT are improving, patient will be seen by GI and surgery and further recommendation to follow. Interval history 04/26/2024: Repeat scan showed stone in CBD and on 04/22/2024 patient had ERCP and the duct was flushed,on 04/25 had couple of BM, apparently patient had a large meal last night now having abdomen pain, will switch diet to clear liquids, his LFT are improving, patient will be seen by GI and surgery and further recommendation to follow. surgery recommending to wait for lap gena as patient is weak and needs time to recover from pancreatitis, patient will benefit going to rehab, will monitor. Today patient is clinically stable, able to tolerate his diet, he is quite weak, will discharge
[2024-04-27 14:14] LABS: SARS-CoV-2 RNA PCR Negative (Negative)
--- NOTE | 2024-04-27 16:40 | WPDGIPROGNO ---
Progress Note: A&P Assessment and Plan (1) Acute pancreatitis: Qualifiers: Acute pancreatitis complication: no infection or necrosis Pancreatitis type: unspecified pancreatitis type Qualified Code(s): K85.90 - Acute pancreatitis without necrosis or infection, unspecified Code(s): K85.90 - Acute pancreatitis without necrosis or infection, unspecified Status: Acute Assessment and Plan: s/p ercp after repeat CT scan showed stone at ampulla interval cholecystectomy but as outpatient, he is going now to rehab and once he is fully recovered then surgery is planning to set up gena low fat diet (2) Leukocytosis: Code(s): D72.829 - Elevated white blood cell count, unspecified Status: Acute Assessment and Plan: probably reactive from pancreatitis stable (3) Abdominal pain: Code(s): R10.9 - Unspecified abdominal pain Status: Acute Assessment and Plan: stable (4) Choledocholithiasis: Code(s): K80.50 - Calculus of bile duct without cholangitis or cholecystitis without obstruction Status: Acute Assessment and Plan: treated with ercp few days ago Subjective Date/time seen: 04/27/24 13:40 Interval history: much better, he is going to be discharged to short term rehab eating and less discomfort Review of Systems Review of Systems: All systems reviewed & are unremarkable except as noted in HPI and below Exam Const: General: comfortable and no acute distress Orientation/consciousness: patient oriented x3 HENMT: Face/Nose/Sinus: Normal nares present Eyes: Sclera: sclerae normal Neck: Neck: supple Resp: Effort & Inspection: normal respiratory effort Cardio: Rate: regular rate GI: GI Palp: Yes Soft to palpation, Yes Tenderness to palpation present (GI) (very mild RUQ and LUQ tenderness), No Guarding due to palpation present (GI) and No Rebound tenderness present Auscultation: normal bowel sounds Skin: General skin exam: normal color Neuro: Speech: normal speech Motor exam (neuro): 5/5 motor strength present throughout Extrem: General: normal to inspection Psych: Mental Status: mental status grossly normal Objective Data Vital Signs Vital Signs: Vital Signs - 24 hr 04/26/24 17:11 04/26/24 19:36 04/26/24 20:28 Temperature 98.2 F 96.7 F L Pulse Rate 80 76 74 Respiratory Rate 17 16 20 Blood Pressure 134/57 L 144/69 H Pulse Oximetry 95 94 Oxygen Delivery Oxygen Flow Rate 04/26/24 20:33 04/26/24 20:00 04/26/24 20:00 Temperature Pulse Rate 72 Respiratory Rate Blood Pressure Pulse Oximetry 94 94 Oxygen Delivery Nasal Cannula Nasal Cannula Oxygen Flow Rate 2 2 04/27/24 00:00 04/27/24 00:00 04/27/24 02:44 Temperature 97.2 F L Pulse Rate 98 93 82 Respiratory Rate 20 20 Blood Pressure 137/60 Pulse Oximetry 94 Oxygen Delivery Oxygen Flow Rate 04/27/24 02:50 04/27/24 04:00 04/27/24 04:00 Temperature 96.9 F L Pulse Rate 80 88 84 Respiratory Rate 20 20 Blood Pressure 138/59 L Pulse Oximetry 93 Oxygen Delivery Oxygen Flow Rate 04/27/24 07:32 04/27/24 07:32 04/27/24 07:46 Temperature Pulse Rate 88 89 Respiratory Rate 20 20 Blood Pressure Pulse Oximetry 92 Oxygen Delivery Nasal Cannula Oxygen Flow Rate 1.5 04/27/24 08:00 04/27/24 08:49 04/27/24 08:00 Temperature 97.9 F Pulse Rate 103 H 110 H Respiratory Rate 20 Blood Pressure 134/64 Pulse Oximetry 93 93 Oxygen Delivery Nasal Cannula Oxygen Flow Rate 2 04/27/24 08:00 04/27/24 12:00 04/27/24 12:32 Temperature Pulse Rate 108 H 110 H Respiratory Rate Blood Pressure Pulse Oximetry 96 Oxygen Delivery Nasal Cannula Oxygen Flow Rate 1.5 04/27/24 12:43 04/27/24 13:17 04/27/24 13:28 Temperature Pulse Rate 96 99 Respiratory Rate 20 20 Blood Pressure Pulse Oximetry 89 L Oxygen Delivery Room Air Oxygen Flow Rate 04/27/24
== END 2024-04-27 15:52 | DRG 438 ==
LOC: ANHED 21:52 → ANHIMU 22:36 → ANH2MED 04-27 12:34 → ANHIMU 04-28 09:53
PROVIDERS: Internal Medicine Gastroenterology; Nurse Practitioner; Nurse Practitioner Acute Care; Nurse Practitioner Family; Admitting Provider Internal Medicine; Emergency Provider Physician Assistant; PCP Internal Medicine; Visit Provider Family Medicine
PROC: 0FC98ZZ Extirpation of Matter from Common Bile Duct, Via Natural or Artificial Opening Endoscopic (ICD-10-PCS; CPT 43260; principal; 2024-04-22 16:00)
DX: K85.10 Biliary acute pancreatitis without necrosis or infection (principal); J96.01 Acute respiratory failure with hypoxia; K56.0 Paralytic ileus; N18.4 Chronic kidney disease, stage 4 (severe); N17.9 Acute kidney failure, unspecified; K80.50 Calculus of bile duct without cholangitis or cholecystitis without obstruction; I12.9 Hypertensive chronic kidney disease with stage 1 through stage 4 chronic kidney disease, or unspecified chronic kidney disease; J44.9 Chronic obstructive pulmonary disease, unspecified; J32.9 Chronic sinusitis, unspecified; E78.5 Hyperlipidemia, unspecified; E55.9 Vitamin D deficiency, unspecified; F41.9 Anxiety disorder, unspecified; Z20.822 Contact with and (suspected) exposure to COVID-19; Z79.82 Long term (current) use of aspirin; Z79.899 Other long term (current) drug therapy; Z87.891 Personal history of nicotine dependence
CPT/HCPCS: 36415; 71045; 74018; 74019; 74176; 74177; 74183; 74329; 76376; 80053; 81001; 82784; 82787; 83605; 83690; 83735; 84484; 85025; 85055; 87635; 93005; 94640; 96361; 96374; 96375; 96376; 97110; 97161; 97165; 97530; 97535; 99285; A9270; A9577; J0330; J0360; J1170; J1741; J1940; J2185; J2270; J2405; J2470; J2543; J2704; J3480; J7030; J7040; J7120; J7121; Q9966; Q9967

== ENCOUNTER 2024-04-28 13:58 | Inpatient (IN) | payer MEDICARE, MEDICAID, SELFPAY ==
[2024-04-28] VITALS (28 sets, daily range): BP systolic 132–159; BP diastolic 61–137; PULSE 70–91; RESP 13–32; TEMP 36.7; O2SAT 92–100
--- NOTE | ~2024-04-28 | XR_ITS ---
Supine and upright views of the abdomen Clinical history: Pancreatitis COMPARISON: 04/25/2024 Findings: Bowel gas pattern is nonspecific. No evidence for obstruction or free air. No abnormal mass lesion or calcification is seen. Osseous structures are intact. Impression: No significant abnormality is seen. Reviewed, dictated and finalized at [facility]. Impression: No significant abnormality is seen.
--- NOTE | ~2024-04-28 | CT_ITS ---
EXAMINATION: CT abdomen pelvis w con DATE: 04/28/2024 16:20 INDICATION: Abdominal pain. Constipation. TECHNIQUE: Computed tomography (CT) of the abdomen and pelvis was performed with 100 mL Omnipaque 350 intravenous contrast. Automated exposure control and iterative reconstruction technique were employe d. The dose-length product was 1029.34 mGy-cm. COMPARISON: CT abdomen pelvis 04/21/2024 FINDINGS: The visualized portions of the lung bases demonstrate emphysema and dependent atelectasis. There are small pleural effusions. The heart size is normal. There are coronary artery calcifications . No pericardial effusion. There are dystrophic calcifications in left hepatic lobe. The gallbladder spleen are normal. The adrenal glands and kidneys are normal. The pancreas enhances throughout. There is widespread fat stranding in the abdomen centered at the pancreas. There is a rim-enhancing collec tion around the pancreas, consistent with an acute necrotic collection. There is a small volume of as cites. The appendix is normal. There is calcified atherosclerosis of the aorta and many of the other arteries. There are no pathologically enlarged lymph nodes. There is moderate lumbar spondylosis. IMPRESSION: 1. Worsened acute necrotizing pancreatitis with acute necrotic collection. 2. Small volume of ascites. 3. Worsened small pleural effusions. Reviewed, dictated and finalized at location [facility].
--- NOTE | ~2024-04-28 | CT_ITS ---
EXAMINATION: CT abdomen pelvis w con DATE: 04/30/2024 07:48 INDICATION: Necrotizing pancreatitis TECHNIQUE: Computed tomography (CT) of the abdomen and pelvis was performed with 100 mL Omnipaque-350 intravenous contrast. Automated exposure control and iterative reconstruction technique were employe d. The dose-length product was 1368.58 mGy-cm. COMPARISON: 04/28/2024 FINDINGS: Mild emphysema at the visualized lung bases. Unchanged small posterior layering bilateral pleural eff usions with associated dependent atelectasis in both lower lobes. A few scattered calcified pleural p laques at the inferior left hemithorax suggesting prior exudative effusion. Heart size is normal. Ath erosclerotic coronary artery calcific location. No pericardial effusion. Unchanged small cluster of d ystrophic calcification in the left hepatic lobe. Spleen, bilateral adrenal glands and kidneys are no rmal. No significant interval change in rim-enhancing collections around the pancreas with prominent surrounding inflammatory stranding in the central abdomen consistent with acute necrotic collections in the setting of acute pancreatitis. Interval increase in a still small amount of ascites in the abd omen and pelvis. Bladder is normal with some residual excreted contrast from the earlier contrast-enh anced CT. No bowel obstruction. Normal appendix. There is calcified atherosclerosis of the aorta and many of the other arteries. Vasculature is otherwise unremarkable with no evident thrombosis in the p ortal venous system. No pathologically enlarged moderate lumbar spondylosis. lymphadenopathy. IMPRESSION: 1. Relatively stable appearance of acute necrotic pancreatitis with peripancreatic acute necrotic col lections. 2. Increasing still small amount of ascites. 3. Emphysema with unchanged small bilateral pleural effusions. Reviewed, dictated and finalized at location A. IMPRESSION: 1. Relatively stable appearance of acute necrotic pancreatitis with peripancrea tic acute necrotic collections. 2. Increasing still small amount of ascites. 3. Emphysema with unchanged small bilateral pleural effusions.
--- NOTE | ~2024-04-28 | XR_ITS ---
XR chest 1V portable Ordering provider: Gail Carvalho MD History: 78 years Male with . hypoxia . Comparison: April 25, 2024 FINDINGS: MEDIASTINUM: The cardiac silhouette is not enlarged. Congestive cj. LUNGS: No pneumothorax. Opacification in the left lung base suggestive of atelectasis versus pneumoni a with possible effusion. Bilateral interstitial thickening. OTHER: No free air under the diaphragm. IMPRESSION: Left basal pneumonia. Possibility of left effusion is not excluded. Underlying pulmonary edema cannot be excluded. Reviewed, dictated and finalized at location A.
--- NOTE | 2024-04-28 14:45 | ED.GENADULT ---
HPI - General Adult General Chief complaint: Recheck/Abnormal Lab/Rx Stated complaint: sbo Time Seen by Provider: 04/28/24 14:33 History of Present Illness HPI narrative: 78-year-old male presents to the emergency department for evaluation for worsening abdominal pain. Patient was discharged from the hospital yesterday to [facility]. Patient had been admitted for SBO and a large gallstone. Patient reports prior To being discharged that he did feel improved. Patient states he is only getting [place] 5s for pain control and thinks this may have contributed to his poorly controlled pain. patient describes 06/28 abdominal pain. Plan is for the patient to go to the intermediate to regain his strength ultimately to have cholecystectomy once his strength is improved. Related Data Home Medications Medication Instructions Recorded Confirmed aspirin 81 mg tablet,delayed 81 mg PO DAILY 09/13/19 04/17/24 release (Adult Low Dose Aspirin) budesonide 160 mcg-glycopyr 9 2 inh inhalation BID 07/19/21 04/17/24 mcg-formot 4.8 mcg/actuation HFA inhaler (Aunt [employer] Access Closure) cholecalciferol (vitamin D3) 50 150 mcg PO BID 07/19/21 04/17/24 mcg (2,000 unit) capsule calcium carbonate (Calcium 600) 600 mg PO BID 10/09/21 04/17/24 valacyclovir 1 gram tablet 500 mg PO BID 09/17/22 04/17/24 prednisolone acetate 1 % eye 1 drp RIGHT EYE DAILY 11/02/23 04/17/24 drops,suspension artificial tears 2 drp EACH EYE BID 03/16/24 04/17/24 Allergies Allergy/AdvReac Type Severity Reaction Status Date / Time metoprolol Allergy Unknown shortness Verified 03/16/24 10:55 of breath Review of Systems Review of Systems: All systems reviewed & are unremarkable except as noted in HPI and below PMFSH Past Medical History Medical History (Updated 04/28/24 @ 21:17 by Av Irene MD) Acute on chronic renal failure Anemia Anxiety Benign essential hypertension Blindness of right eye Bronchitis Cardiac arrhythmia Chronic obstructive pulmonary disease Chronic sinusitis CKD (chronic kidney disease) COPD exacerbation Creatinine elevation 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 Hyperlipidemia Insomnia Left shoulder pain Muscle cramps 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 SOB (shortness of breath) Stage 1 chronic kidney disease Vitamin D deficiency Family History Family History Mother Hypertension Family history of malignant neoplasm of breast in first degree relative Acute myocardial infarction Family history of congestive heart failure Social History Social History Smoking packs per day: 1 Smoking cigarettes per day: 20.0 Years smoked: 60 Smoking pack-years: 60.00 Smoking status: Former smoker Second hand tobacco smoke exposure: No Additional smoking assessment comments: 06/2018 Alcohol intake: current Drinks per week: 1 Substance use: never Substance use type: unknown Do You Feel Safe in your Home?: Yes Lack of Transportation: YES Lack of Food: Never True Current Housing: I Have Housing Concerned About Future Housing: No Difficulty Paying Gas/Electric Bills: No Difficulty Paying for Meds: No Currently Unemployed: No Education: High School Diploma/GED Difficulty w/ Childcare or Family Care: No Living arrangements: with family Occupation/Education: retired Gender identity (if verbalized by the patient): Male Spiritual care concerns: No Exam Narrative: APPEARANCE: Uncomfortable appearing HEAD: normocephalic, atraumatic. EYES: PERRLA/EOMI, conjunctivae clear. NOSE: Normal no drainage EARS:TMS clear with good light reflex. THROAT: Pharynx clear, no exudate. NE
[2024-04-28 14:59] LABS: Basophils Percent Auto 0.3 % (0.2-1.2); Eosinophils Absolute Auto 0.1 K/mm3 (0-0.3); Eosinophils Percent Auto 0.7 % (0-4.4); Hematocrit 31.2 % (42.0-52.0); Hemoglobin 10.6 g/dL (14.0-18.0); Immature Granulocyte Absolute 0.15 K/mm3 (0.00-0.031); Immature Granulocyte Percent A 1.2 % (0-0.5); Lymphocytes Absolute Auto 0.73 K/mm3 (0.9-3.2); Lymphocytes Percent Auto 5.7 % (18.3-44.2); Mean Corpuscular Hemoglobin 34.8 pg (26-34); Mean Corpuscular Volume 102.3 fl (80-100); Mean Platelet Volume 10.3 fl (7.4-10.4); Monocytes Absolute Auto 0.7 K/mm3 (0.1-0.6); Monocytes Percent Auto 5.4 % (2.6-8.5); Neutrophils Absolute Auto 11.1 K/mm3 (1.3-6.7); Neutrophils Percent Auto 86.7 % (45.5-73.1); Platelet Count Result 224 k/mm3 (150-375); Red Blood Count 3.05 M/mm3 (4.6-6.20); Red Cell Distribution Width 13.4 % (11.5-14.5); White Blood Count 12.8 K/mm3 (4.5-10.0)
[2024-04-28 15:08] LABS: Alanine Aminotransferase 26 U/L (6-50); Albumin Level 2.6 g/dL (3.5-5.1); Alkaline Phosphatase 135 U/L (38-126); Anion Gap 8 mmol/L (4-12); Aspartate Amino Transferase 33 U/L (17-59); Bilirubin,Total 0.8 mg/dL (0.2-1.3); Blood Urea Nitrogen 30 mg/dL (9-20); Calcium 8.8 mg/dL (8.4-10.2); Carbon Dioxide 24 mmol/L (22-30); Chloride 99 mmol/L (98-107); Estimated CRCL calculation 45 ml/min; Estimated Glomerular Filt Rate 49; Glucose 105 mg/dL (65-110); Lipase 39 U/L (23-300); Potassium 3.8 mmol/L (3.4-5.0); Sodium 131 mmol/L (137-145)
[2024-04-28] MEDS: SODIUM CHLORIDE 0.9% IV 1,000 ML 999 ML IV CONT (15:48)
[2024-04-28] MEDS: HYDROmorphone HCL INJ (*CRX) 1 MG/ML SYR 0.5 MG IV PUSH ×3 (15:49→22:39)
[2024-04-28 16:20] LABS: Lactic Acid Reflex 1.1 mmol/L (0.7-2.0)
[2024-04-28 16:21] LABS: INR 1.2; Prothrombin Time 15.8 Seconds (11.1-14.7)
[2024-04-28 16:24] LABS: Partial Thromboplastin Time 27.7 Seconds (22.3-36.8)
--- NOTE | 2024-04-28 17:45 | PC.NURSE ---
Pt had large, liquid BM in bed. Pt cleaned up and clean linens placed on bed. Reconnected to monitors. Pt and family updated by MD Irene on CT results and plan to transfer. Pt requested transfer to [place]. No requests or complaints at this time. Call light in reach.
[2024-04-28 17:54] LABS: Appearance Urine Clear (Clear); Bacteria Urine None Seen /hpf; Bilirubin Urine Negative (Negative); Blood Urine Negative (Negative); Color Urine Yellow (Yellow); Glucose Urine UA Negative (Negative); Ketones Urine Negative (Negative); Leukocyte Esterase Ur Negative LEU/UL (Negative); Nitrate Urine Negative (Negative); Non Pathogenic Casts 0-2; Protein Urine Trace mg/dL (Negative); RBC Urine 0-2 /hpf (0-2); Specific Grav Ur 1.024 (1.001-1.035); Squamous Epithelial Cell Urine None Seen /hpf (Few); Urobilinogen Urine 0.2 mg/dL (<2.0); WBC Urine 0-5 /hpf (0-3); pH Urine 6.5 (5.0-9.0)
[2024-04-28 17:56] LABS: Add Urine Microscopic? YES
--- NOTE | 2024-04-28 20:18 | PC.NURSE ---
Pt placed on hospital bed at this time. Pt awaiting bed placement at [place].
[2024-04-28] MEDS: PIPERACILLN/TAZ 3.375GM/NS50ML 3.375 GM/50 ML BAG IVPB (21:19)
[2024-04-28] MEDS: SODIUM CHLORIDE 0.9% IV 1,000 ML 125 ML IV CONT (21:19)
[2024-04-28] MEDS: prednisoLONE ACETATE 1% OPHTH 5 ML 1 DROP RIGHT EYE (21:36)
[2024-04-29] VITALS (15 sets, daily range): BP systolic 141–166; BP diastolic 60–78; PULSE 72–96; RESP 14–22; TEMP 36.4; O2SAT 91–98
[2024-04-29] MEDS: HYDROmorphone HCL INJ (*CRX) 1 MG/ML SYR 0.5 MG IV PUSH ×4 (02:38→19:03)
[2024-04-29] MEDS: PIPERACILLN/TAZ 3.375GM/NS50ML 3.375 GM/50 ML BAG IVPB ×4 (04:01→21:03)
[2024-04-29] MEDS: SODIUM CHLORIDE 0.9% IV 1,000 ML 125 ML IV CONT (05:08)
--- NOTE | 2024-04-29 07:09 | PC.NURSE ---
report given to melanie stark at this time. call light within reach.
[2024-04-29] MEDS: ASPIRIN 81 MG CHEWABLE TABLET PO (09:10)
[2024-04-29] MEDS: prednisoLONE ACETATE 1% OPHTH 5 ML 1 DROP RIGHT EYE (09:12)
--- NOTE | 2024-04-29 11:05 | PC.NURSE ---
Spoke w/[facility] transfer center, no placement at this time.
[2024-04-29] MEDS: SODIUM CHLORIDE 0.9% IV 1,000 ML 999 ML IV CONT (11:50)
--- NOTE | 2024-04-29 12:17 | ECG_ITS ---
Test Date: 2024-04-29 12:22:58 Measurements Intervals [place] Rate: 81 P: 58 TX: 173 QRS: 60 QRSD: 113 T: 52 QT: 389 QTc: 454 Interpretive Statements SINUS RHYTHM WITH FREQUENT VENTRICULAR PREMATURE COMPLEXES INTRAVENTRICULAR CONDUCTION DELAY BORDERLINE ST-T WAVE ABNORMALITY- HIGH LATERAL LEADS BASELINE ARTIFACT- I, II, III, AVR, V3 ABNORMAL ECG Compared to ECG 04/25/2024 04:41:25 NO SIGNIFICANT CHANGE Electronically Signed On 04-29-2024 12:51:52 CDT by Luis A Pang D.O.
[2024-04-29] MEDS: SODIUM CHLORIDE 0.9% IV 1,000 ML 250 ML IV CONT (12:23)
--- NOTE | 2024-04-29 12:31 | PC.NURSE ---
[facility] only taking time critical patients
[2024-04-29 12:56] LABS: Basophils Percent Auto 0.4 % (0.2-1.2); Eosinophils Absolute Auto 0.1 K/mm3 (0-0.3); Eosinophils Percent Auto 0.9 % (0-4.4); Hematocrit 30.7 % (42.0-52.0); Hemoglobin 10.4 g/dL (14.0-18.0); Immature Granulocyte Absolute 0.09 K/mm3 (0.00-0.031); Immature Granulocyte Percent A 0.8 % (0-0.5); Lymphocytes Absolute Auto 0.65 K/mm3 (0.9-3.2); Lymphocytes Percent Auto 5.7 % (18.3-44.2); Mean Corpuscular HGB Conc 33.9 g/dl (32-36); Mean Corpuscular Hemoglobin 34.8 pg (26-34); Mean Corpuscular Volume 102.7 fl (80-100); Monocytes Absolute Auto 0.6 K/mm3 (0.1-0.6); Monocytes Percent Auto 5.5 % (2.6-8.5); Neutrophils Absolute Auto 9.9 K/mm3 (1.3-6.7); Neutrophils Percent Auto 86.7 % (45.5-73.1); Platelet Count Result 231 k/mm3 (150-375); Red Blood Count 2.99 M/mm3 (4.6-6.20); Red Cell Distribution Width 13.4 % (11.5-14.5); White Blood Count 11.4 K/mm3 (4.5-10.0)
[2024-04-29 13:07] LABS: Alanine Aminotransferase 22 U/L (6-50); Albumin Level 2.5 g/dL (3.5-5.1); Alkaline Phosphatase 121 U/L (38-126); Anion Gap 10 mmol/L (4-12); Aspartate Amino Transferase 34 U/L (17-59); Bilirubin,Total 0.7 mg/dL (0.2-1.3); Blood Urea Nitrogen 28 mg/dL (9-20); Calcium 8.4 mg/dL (8.4-10.2); Carbon Dioxide 22 mmol/L (22-30); Chloride 102 mmol/L (98-107); Estimated CRCL calculation 42 ml/min; Estimated Glomerular Filt Rate 45; Glucose 89 mg/dL (65-110); Lipase 31 U/L (23-300); Potassium 3.6 mmol/L (3.4-5.0); Sodium 134 mmol/L (137-145)
[2024-04-29 13:14] LABS: Amylase < 30 U/L (30-110)
[2024-04-29 13:19] LABS: Troponin I 0.016 ng/mL (0.000-0.034)
--- NOTE | 2024-04-29 13:30 | PC.NURSE ---
[facility] and [facility] contacted for possible placement. Both facilities declined patient stating they were only accepting time sensitive patients at this time. Provider aware. Will continue to wait for [facility]. Patient and family aware.
[2024-04-29] MEDS: ONDANSETRON INJ 4 MG/2 ML VIAL IV PUSH ×2 (14:30→19:04)
[2024-04-29] MEDS: SODIUM CHLORIDE 0.9% IV 1,000 ML 150 ML IV CONT (19:03)
--- NOTE | 2024-04-29 21:32 | PC.NURSE ---
Updated [facility] transfer center who states they still do not have a bed and it could still be days before they will.
[2024-04-30] VITALS (112 sets, daily range): BP systolic 140–182; BP diastolic 56–128; PULSE 68–114; RESP 12–26; TEMP 37.2; O2SAT 87–100
[2024-04-30] MEDS: HYDROmorphone HCL INJ (*CRX) 1 MG/ML SYR 0.5 MG IV PUSH ×4 (00:15→21:39)
[2024-04-30] MEDS: PIPERACILLN/TAZ 3.375GM/NS50ML 3.375 GM/50 ML BAG IVPB ×4 (03:35→21:31)
--- NOTE | 2024-04-30 05:44 | PC.NURSE ---
Pt has been turned every 3 hours throughout this shift. Pt has gotten up to use commode 3 times since 1930. Pt has had 3 bowel movements. Pt has been receiving PRN pain medications every 4 hours. Pt continues to have c/o increasing abd pain. Pt is currently resting comfortably.
[2024-04-30] MEDS: ASPIRIN 81 MG CHEWABLE TABLET PO (08:08)
--- NOTE | 2024-04-30 08:22 | ECG_ITS ---
Test Date: 2024-04-30 08:21:19 Measurements Intervals [place] Rate: 87 P: 67 MS: 198 QRS: 59 QRSD: 111 T: 64 QT: 386 QTc: 466 Interpretive Statements SINUS RHYTHM WITH FREQUENT VENTRICULAR PREMATURE COMPLEXES INTRAVENTRICULAR CONDUCTION DELAY ABNORMAL ECG Compared to ECG 04/29/2024 12:22:58 No significant changes Electronically Signed On 04-30-2024 10:00:17 CDT by Luis A Pang D.O.
--- NOTE | 2024-04-30 09:16 | PC.NURSE ---
[facility] transfer line called for patient status update. All questions answered.
[2024-04-30] MEDS: prednisoLONE ACETATE 1% OPHTH 5 ML 1 DROP RIGHT EYE (09:20)
--- NOTE | 2024-04-30 15:58 | PC.NURSE ---
1558 update-still @ capacity remains on waitlist
--- NOTE | 2024-04-30 19:26 | PC.NURSE ---
Report received from CHRIS Castro. Assumed care of patient at this time. Patient resting with eyes closed on stretcher, VSS. Call light within reach.
--- NOTE | 2024-04-30 20:38 | PC.NURSE ---
Patient given ice chips upon request. Patient denies any pain and complaints at this time. Patient states he does not need to be turned at this time. Patient states I can turn or readjust myself if needed. Patient resting comfortably on stretcher, urinal and call light within reach.
--- NOTE | 2024-04-30 20:38 | PC.NURSE ---
Ice chips provided to pt per request. Also assisted pt with covering up with blankets, having urinal in reach and putting pulse ox back in finger. Pt verbalized no additional needs at this time. States was trying to sleep. Door closed for comfort. Call light in reach.
--- NOTE | 2024-04-30 21:22 | PC.NURSE ---
Updated [facility] with pt most recent VS.
--- NOTE | 2024-04-30 21:45 | PC.NURSE ---
Patient used bedside commode and transferred back to bed with minimal assistance. Patient has call light within reach. PRN pain meds given via IVP. Patient also has IV abx going at this time.
[2024-05-01] VITALS (43 sets, daily range): BP systolic 130–173; BP diastolic 28–86; PULSE 67–109; RESP 11–26; TEMP 36.6–37; O2SAT 93–100
--- NOTE | 2024-05-01 01:50 | PC.NURSE ---
Patient boosted in bed. Patient updated that no beds available at this time, that patient is still on waitlist for room.
[2024-05-01] MEDS: HYDROmorphone HCL INJ (*CRX) 1 MG/ML SYR 0.5 MG IV PUSH ×5 (03:09→22:09)
[2024-05-01] MEDS: SODIUM CHLORIDE 0.9% IV 1,000 ML 125 ML IV CONT ×2 (03:10→11:40)
[2024-05-01] MEDS: PIPERACILLN/TAZ 3.375GM/NS50ML 3.375 GM/50 ML BAG IVPB ×4 (03:24→21:12)
--- NOTE | 2024-05-01 03:36 | PC.NURSE ---
Patient used BSC with minimal assistance. Patient assisted back into bed. Patient repositioned, connected back to monitor. Patient had IV fluids started via pump and IV abx as well. Patient given new ice chips upon request. Call light within reach.
[2024-05-01 05:28] LABS: Anion Gap 10 mmol/L (4-12); Blood Urea Nitrogen 27 mg/dL (9-20); Calcium 8.4 mg/dL (8.4-10.2); Carbon Dioxide 20 mmol/L (22-30); Chloride 105 mmol/L (98-107); Estimated CRCL calculation 45 ml/min; Estimated Glomerular Filt Rate 49; Glucose 86 mg/dL (65-110); Lipase 34 U/L (23-300); Potassium 3.4 mmol/L (3.4-5.0); Sodium 135 mmol/L (137-145)
--- NOTE | 2024-05-01 06:11 | PC.NURSE ---
Called [facility] transfer at [phone], remains on waiting list. Hopefully to have patient discharge today.
[2024-05-01] MEDS: ASPIRIN 81 MG CHEWABLE TABLET PO (07:15)
--- NOTE | 2024-05-01 07:17 | PC.NURSE ---
Assumed care of pt. Pt medicated for pain as per prn orders. Pt denies nausea at this time. Abd soft tender to palpation. Bowel sounds hypoactive. Continue to wait for transfer to [place]
[2024-05-01] MEDS: prednisoLONE ACETATE 1% OPHTH 5 ML 1 DROP RIGHT EYE (09:50)
--- NOTE | 2024-05-01 13:26 | PC.NURSE ---
Family at bedside. Pt update given. Pt up to BSC with x1 assist. Medicated for pain. Hygiene items given. Pt not ready at this time for hygiene care
--- NOTE | 2024-05-01 17:08 | PC.NURSE ---
Pt & family informed of update from [facility]. All voice understanding.
--- NOTE | 2024-05-01 20:30 | PC.NURSE ---
this rn assumed care of patient. this rn took patient report from lincoln garcia.
--- NOTE | 2024-05-01 21:29 | PC.NURSE ---
this rn spoke with Rubi Park at [facility] transfer center to give update on patient status. rubi park stated there were no beds available at this time for patient.
[2024-05-02] VITALS (39 sets, daily range): BP systolic 136–179; BP diastolic 59–118; PULSE 64–104; RESP 12–31; TEMP 36.6–37.1; O2SAT 94–100
--- NOTE | 2024-05-02 02:38 | PC.NURSE ---
pt repositioned in bed. pt was able to ambulate with a stand by assist from bedside commode to patient bed. pt requested pain medication due to pain being a 9/10.
[2024-05-02] MEDS: HYDROmorphone HCL INJ (*CRX) 1 MG/ML SYR 0.5 MG IV PUSH ×4 (03:04→21:04)
[2024-05-02] MEDS: PIPERACILLN/TAZ 3.375GM/NS50ML 3.375 GM/50 ML BAG IVPB ×4 (03:05→21:42)
[2024-05-02] MEDS: DEXTROSE 5%/0.9% SOD CHL 1,000 ML 125 ML IV CONT ×2 (03:53→12:41)
[2024-05-02 05:25] LABS: Anion Gap 10 mmol/L (4-12); Blood Urea Nitrogen 24 mg/dL (9-20); Calcium 8.3 mg/dL (8.4-10.2); Carbon Dioxide 20 mmol/L (22-30); Chloride 105 mmol/L (98-107); Estimated CRCL calculation 52 ml/min; Estimated Glomerular Filt Rate 58; Glucose 98 mg/dL (65-110); Potassium 3.8 mmol/L (3.4-5.0); Sodium 135 mmol/L (137-145)
--- NOTE | 2024-05-02 07:03 | PC.NURSE ---
pt had bowel movement accident and urinary accident in bed. pt was able to use call light for help. this rn gave patient a partial bed bath. pt was then able to use bedside commode with standby assist to get to commode. this rn changed patient linen, pt gown, pt diaper.
[2024-05-02] MEDS: ASPIRIN 81 MG CHEWABLE TABLET PO (08:25)
[2024-05-02] MEDS: ONDANSETRON INJ 4 MG/2 ML VIAL IV PUSH (08:34)
[2024-05-02] MEDS: prednisoLONE ACETATE 1% OPHTH 5 ML 1 DROP RIGHT EYE (09:06)
--- NOTE | 2024-05-02 11:09 | PC.NURSE ---
This RN spoke with Tonya at [facility] transfer center who stated pt is still on medical waitlist but is considered a high priority patient
[2024-05-02] MEDS: FUROSEMIDE INJ 40 MG/4 ML VIAL 20 MG IV PUSH (19:42)
[2024-05-02] MEDS: MONTELUKAST SODIUM 10 MG TABLET PO (21:05)
[2024-05-02] MEDS: CHOLECALCIFEROL 1,000 UNITS TABLET 2000 UNITS PO (21:05)
--- NOTE | 2024-05-02 21:34 | PHAR ---
HOME MED BREZTRI INHALER VERIFIED BY PHARMACY
[2024-05-02] MEDS: valACYclovir HCL 500 MG TABLET PO (22:43)
[2024-05-03] VITALS (15 sets, daily range): BP systolic 135–167; BP diastolic 48–76; PULSE 62–88; RESP 14–20; TEMP 36.4–36.6; O2SAT 90–98; BMI 26.7
[2024-05-03] MEDS: HYDROmorphone HCL INJ (*CRX) 1 MG/ML SYR 0.5 MG IV PUSH ×2 (02:51→09:04)
[2024-05-03] MEDS: FUROSEMIDE INJ 40 MG/4 ML VIAL IV PUSH (02:53)
--- NOTE | 2024-05-03 03:15 | PC.NURSE ---
This RN attempted to initiate scheduled abx. Pt c/o pain at IV site in L forearm. This RN attempted to flush 2nd line in L wrist, unable to flush, infiltrated. This RN unable to establish additional IV access due to edema to upper extremities. hand drawer in helper made aware, will wait for vascular access in AM.
--- NOTE | 2024-05-03 07:17 | ED.PROGRESS ---
Subjective Date/time seen: 05/03/24 05:17 Objective Data Vital Signs Vital Signs: Vital Signs - 24 hr 05/03/24 04:47 05/03/24 07:40 05/03/24 09:11 Temperature 36.5 C Pulse Rate 71 80 76 Respiratory Rate 14 20 Blood Pressure 157/62 H 163/76 H Pulse Oximetry 96 97 05/03/24 09:00 Temperature 36.6 C Pulse Rate 74 Respiratory Rate 18 Blood Pressure 146/63 H Pulse Oximetry 97 Intake/Output Intake/Output: Intake & Output 05/01/24 05/02/24 05/03/24 05/04/24 23:59 23:59 23:59 23:59 Intake Total 2200 2200.0 50 / 200 Output Total 700 400 Balance 1500 1800.0 50 / 200 Meds/Results Medications: Active Medications Generic Name Dose Route Start Last Admin Trade Name Freq PRN Reason Stop Dose Admin Aspirin 81 mg 04/29/24 08:00 05/03/24 09:16 Aspirin 81 Mg Chewable Tablet PO 81 mg DAILY@0800 SOFYA Administration Atorvastatin Calcium 20 mg 05/03/24 09:00 05/03/24 09:12 Atorvastatin 20 Mg Tablet PO 20 mg DAILY SOFYA Administration Calcium Carbonate 600 mg 05/02/24 15:49 Calcium Carbonate (Tums) 500 Mg (200 Mg Elemental) PO BID PRN Indigestion Dextrose 12.5 gm 05/03/24 09:30 Dextrose 50% 25 Gm/50 Ml Syringe IV PUSH PRN PRN Hypoglycemia Protocol Glucose 15 gm 05/03/24 09:30 Glucose Oral Gel 15 Gm Of Glucse In 37.5 Gm Tube PO PRN PRN Hypoglycemia Protocol Heparin Sodium (Porcine) 5,000 units 05/03/24 10:00 05/03/24 10:31 Heparin Sodium 5,000 Units/Ml Vial SUB-Q 5,000 units Q8H SOFYA Administration Hydromorphone HCl 0.5 mg 04/28/24 21:24 05/03/24 02:51 Hydromorphone Hcl Inj (*Crx) 1 Mg/Ml Syr IV PUSH 0.5 mg Q4H PRN Administration Pain Rated 7-10 Piperacillin/Tazobactam/Dextrose 3.375 gm in 50 mls @ 100 mls/hr 04/28/24 21:00 05/03/24 20:51 Zosyn 3.375 Gm/Ns 50 Ml IVPB 100 mls/hr Q6H SOFYA Administration Metronidazole 500 mg in 100 mls @ 100 mls/hr 05/03/24 10:00 05/03/24 20:51 Flagyl 500 Mg/Iso Soln 100 Ml IVPB 100 mls/hr Q8H SOFYA Administration Albumin Human 100 mls @ 60 mls/hr 05/03/24 10:00 05/03/24 16:44 Albutein IVPB 60 mls/hr Q6H SOFYA Administration Dextrose 1,000 mls @ 100 mls/hr 05/03/24 09:30 Dextrose 5% 1,000 Ml IVPB PRN PRN Hypoglycemia Protocol Montelukast Sodium 10 mg 05/02/24 21:00 05/03/24 20:51 Montelukast Sodium 10 Mg Tablet PO 10 mg HS SOFYA Administration Nebivolol 5 mg 05/03/24 09:00 05/03/24 09:11 Nebivolol Hcl 5 Mg Tablet PO 5 mg DAILY SOFYA Administration Non-Formulary Medication 2 inhalation 05/03/24 09:40 05/03/24 20:49 Agzmiqdpyw-Bhysxayh-Hbsrodepxw [Breztri Aerosphere] INHALATION 06/02/24 09:39 2 inhalation Q12HRT SOFYA Administration Ondansetron HCl 4 mg 04/28/24 21:24 05/02/24 08:34 Ondansetron Inj 4 Mg/2 Ml Vial IV PUSH 4 mg Q4H PRN Administration Nausea Pantoprazole Sodium 40 mg 05/03/24 09:00 05/03/24 12:14 Pantoprazole Sodium Iv 40 Mg Vial IV PUSH Not Given QAM SOFYA Prednisolone Acetate 1 drop 04/30/24 09:00 05/03/24 09:11 Prednisolone Acetate 1% Ophth 5 Ml RIGHT EYE 1 drop DAILY SOFYA Administration Valacyclovir HCl 500 mg 05/02/24 21:00 05/03/24 20:51 Valacyclovir Hcl 500 Mg Tablet PO 500 mg Q12HR SOFYA Administration Vitamin D 2,000 units 05/02/24 17:00 05/03/24 16:44 Cholecalciferol 1,000 Units Tablet PO 2,000 units BID SOFYA Administration Radiology Results: ITS Impressions Abdomen/Pelvis CT 04/30/24 07:52 IMPRESSION: 1. Relatively stable appearance of acute necrotic pancreatitis with peripancreatic acute necrotic collections. 2. Increasing still small amount of ascites. 3. Emphysema with unchanged small bilateral pleural effusions. Chest X-Ray 05/03/24 10:00 IMPRESSION: Left basal pneumonia. Possibility of left effusion is not excluded. Underlying pulmonary edema cannot be excluded.
[2024-05-03 07:59] LABS: Basophils Percent Auto 0.6 % (0.2-1.2); Eosinophils Absolute Auto 0.1 K/mm3 (0-0.3); Eosinophils Percent Auto 1.9 % (0-4.4); Hematocrit 30.2 % (42.0-52.0); Hemoglobin 10.5 g/dL (14.0-18.0); Immature Granulocyte Absolute 0.09 K/mm3 (0.00-0.031); Immature Granulocyte Percent A 1.2 % (0-0.5); Lymphocytes Absolute Auto 0.75 K/mm3 (0.9-3.2); Lymphocytes Percent Auto 10.3 % (18.3-44.2); Mean Corpuscular HGB Conc 34.8 g/dl (32-36); Mean Corpuscular Hemoglobin 34.9 pg (26-34); Mean Corpuscular Volume 100.3 fl (80-100); Mean Platelet Volume 9.3 fl (7.4-10.4); Monocytes Absolute Auto 0.6 K/mm3 (0.1-0.6); Monocytes Percent Auto 8.3 % (2.6-8.5); Neutrophils Absolute Auto 5.7 K/mm3 (1.3-6.7); Neutrophils Percent Auto 77.7 % (45.5-73.1); Platelet Count Result 346 k/mm3 (150-375); Red Blood Count 3.01 M/mm3 (4.6-6.20); Red Cell Distribution Width 12.9 % (11.5-14.5); White Blood Count 7.3 K/mm3 (4.5-10.0)
[2024-05-03 08:10] LABS: Alanine Aminotransferase 19 U/L (6-50); Albumin Level 2.6 g/dL (3.5-5.1); Alkaline Phosphatase 98 U/L (38-126); Amylase 42 U/L (30-110); Anion Gap 8 mmol/L (4-12); Aspartate Amino Transferase 36 U/L (17-59); Bilirubin,Total 0.4 mg/dL (0.2-1.3); Blood Urea Nitrogen 17 mg/dL (9-20); Calcium 8.5 mg/dL (8.4-10.2); Carbon Dioxide 25 mmol/L (22-30); Chloride 102 mmol/L (98-107); Estimated CRCL calculation 45 ml/min; Estimated Glomerular Filt Rate 49; Glucose 111 mg/dL (65-110); Lipase 51 U/L (23-300); Sodium 135 mmol/L (137-145)
[2024-05-03] MEDS: PIPERACILLN/TAZ 3.375GM/NS50ML 3.375 GM/50 ML BAG IVPB ×3 (09:02→20:51)
[2024-05-03] MEDS: POTASSIUM CHLORIDE INJ 40 MEQ in SODIUM CHLORIDE 0.9% IV 500 ML 130 MEQ IVPB (09:03)
[2024-05-03] MEDS: NEBIVOLOL HCL 5 MG TABLET PO (09:11)
[2024-05-03] MEDS: prednisoLONE ACETATE 1% OPHTH 5 ML 1 DROP RIGHT EYE (09:11)
[2024-05-03] MEDS: ATORVASTATIN 20 MG TABLET PO (09:12)
[2024-05-03] MEDS: CHOLECALCIFEROL 1,000 UNITS TABLET 2000 UNITS PO ×2 (09:12→16:44)
[2024-05-03] MEDS: ASPIRIN 81 MG CHEWABLE TABLET PO (09:16)
[2024-05-03] MEDS: valACYclovir HCL 500 MG TABLET PO ×2 (09:16→20:51)
[2024-05-03 09:38] LABS: Magnesium 1.4 mg/dL (1.6-2.3)
--- NOTE | 2024-05-03 10:04 | PM.IMHP ---
H&P: HPI History of Present Illness Date/Time: 05/03/24 10:04 Chief Complaint: Abdominal pain Narrative: Mr. Rodríguez is a pleasant 78-year-old male with PMH COPD, hypertension, dyslipidemia, chronic macrocytic anemia, CKD stage IIIA, prior tobacco abuse. He was recently discharged with pancreatitis and returns with increased abdominal pain. The story is as follows: Admitted on 04/17/2024 to [facility] with abdominal pain and found to have acute pancreatitis with peripancreatic fluid collection and small amount of ascites. His course was complicated by refractory pain requiring large amounts of IV Dilaudid. Abdomen was extremely distended. A MRCP was performed on 04/18 demonstrating acute interstitial pancreatitis with adjacent 2.7 x 1.3 x 0.9 cm loculated acute peripancreatic fluid collection. Small bilateral pleural effusions with consolidation at the dependent lower lobes. He did present with transaminitis and elevated total bilirubin which eventually resolved. CT imaging revealed stone at the ampulla. ERCP was performed on 04/22/2024 with sphincterotomy, revealing 10 mm diameter dilation in the common bile duct without finding of stricture, filling defect, or obvious stone. Bile duct was swept with removal of sludge in dark bile but no stones identified. To this extent, his pancreatitis is thought to be due to choledocholithiasis. Ultimately, treated conservatively and discharged on 04/27/2024. Plan was to perform interval cholecystectomy. He presents again to [place] ER on 04/28/[address] with [address] abdomen pelvis with contrast demonstrating worsened acute necrotizing pancreatitis with acute necrotic collection, small volume of ascites and worsened small pleural effusions. The patient was accepted to [facility]. However, on 05/03 the patient has still not been transferred due to bed hold up. Repeat CT on 04/30 demonstrates acute necrotizing pancreatitis which is stable. Requested by Dr. Son of the ER to admit the patient day-to-day management while awaiting transfer. GI and general surgery consultants request transfer out to tertiary care center. Unfortunately the patient's ER course is now complicated by anasarca status post isotonic volume resuscitation, fluids now DC'ed and received multiple doses of Lasix. He is also now requiring 3 L of nasal cannula. Does not complain of shortness of breath or chest pain. Reports his abdominal pain is actually very well controlled and his abdominal distention is greatly improved compared to prior admission. While the patient would benefit greatly from transfer, noted by Dr. Son he has slightly worsened in the ER and would benefit from inpatient status for day to day medical care while awaiting transfer. Dr. Davidson aware however at this time the patient does not need ICU care and will be admitted to telemetry floor on 05/03/2024. Of note, Dr. Son has had the patient accepted to [facility] and [facility] as well however they report there is a bed hold up. Initially, they refused because of time sensitive transfers only. [facility] refused as they could not manage necrotizing pancreatitis. 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
[2024-05-03 10:13] LABS: Influenza A QL RT-PCR Negative (Negative); Influenza B QL RT-PCR Negative (Negative); RSV RNA, RT-PCR Negative (Negative); SARS-CoV-2 RNA PCR Negative (Negative)
[2024-05-03] MEDS: HEPARIN SODIUM 5,000 UNITS/ML VIAL 5000 UNITS SUB-Q (10:31)
[2024-05-03] MEDS: [UNRECOGNIZED DRUG - OTHER] 2 EACH INHALATION ×2 (10:33→20:49)
--- OUTSIDE RECORDS SUMMARY | 2024-05-03 11:26 | XMS_ITS | Continuity of Care Document ---
Author Name Unknown Organization [facility] Address [address] [place] [phone] Care Team Providers Care Water Commissioner Name Role Phone Bo Chang Primary Care Physician Encounter [facility] Financial Number [id number] Date(s): 06/19/22 - 06/19/[address] [id number] Encounter Diagnosis Optic neuritis, left(Discharge Diagnosis) - 06/19/22 Discharge Disposition: Home or Self Care Attending Physician: Moe López M.D. Referring Physician: Self, Referred Allergies, Adverse Reactions, Alerts No Known Allergies Medications montelukast 10 mg oral tablet 0 Start Date: 06/19/22 Status: Ordered predniSONE 20 mg oral tablet 80 mg, 4 tablet(s), Oral, daily, 7 day(s), 28 tablet(s), Tablet(s), 0, 0, 06/26/2022 1552, Print Requisition Start Date: 06/19/22 Stop Date: 06/26/22 Status: Ordered Mental Status 06/19/22 Orientation_ND Oriented x4 Results Laboratory List Name Date Basic Metabolic Profile (BMP) 06/19/22 C-Reactive Protein (CRP) 06/19/22 CBC with Differential 06/19/22 Differential, Automated 06/19/22 Sedimentation Rate (Sed Rate) 06/19/22 Most recent to oldest [Reference Range]: 1 BUN [9-20 mg/dL] 31 mg/dL *H* (06/19/22 2:29 PM) Calcium [8.4-10.2 mg/dL] 10.0 mg/dL (06/19/22 2:29 PM) Chloride [98-107 mmol/L] 107 mmol/L (06/19/22 2:29 PM) CO2 [22-30 mmol/L] 20 mmol/L *L* (06/19/22 2:29 PM) Glucose [74-106 mg/dL] 93 mg/dL (06/19/22 2:29 PM) Potassium [3.5-4.9 mmol/L] 4.1 mmol/L (06/19/22 2:29 PM) Sodium [137-145 mmol/L] 137 mmol/L (06/19/22 2:29 PM) CRP (Non-Cardiac) [0.0-0.9 mg/dL] <0.5 m g/dL (06/19/22 2:29 PM) Baso # [0.0-0
--- OUTSIDE RECORDS SUMMARY | 2024-05-03 11:26 | XMS_ITS | Continuity of Care Document ---
Author Name Unknown Organization [facility] Address [address] [place] [phone] Care Team Providers Care Curb Worker Name Role Phone Bo Chang Primary Care Physician Encounter [facility] Financial Number [id number] Date(s): 06/09/22 - 06/09/[address] [id number] Discharge Disposition: Home or Self Care Attending Physician: Jeet Donohue MD Referring Physician: Jeet Donohue MD Problem List Diagnosis Diagnosis Type Effective Dates Health Status Clinical Service Informant Unspecified optic neuritis 06/09/22 Non-Specified Unspecified optic neuritis 06/09/22 Non-Specified Unspecified optic neuritis 06/09/22 Non-Specified Results Laboratory List Name Date C-Reactive Protein 06/09/22 CBC with Differential 06/09/22 Differential, Automated 06/09/22 Sedimentation Rate 06/09/22 Most recent to oldest [Reference Range]: 1 CRP (Non-Cardiac) [0.0-0.9 mg/dL] <0.5 m g/dL (06/09/22 11:23 AM) Baso # [0.0-0.2 K/uL] 0.0 K/uL (06/09/22 11:23 AM) Eos # [0.0-0.7 K/uL] 0.2 K/uL (06/09/22 11:23 AM) Hematocrit [40.0-48.0 %] 39.6 % *L* (06/09/22 11:23 AM) Lymph % 16 % (06/09/22 11:23 AM) Lymph # [0.7-4.5 K/uL] 1.0 K/uL (06/09/22 11:23 AM) MCHC [31.5-35.5 g/dL] 34.1 g/dL (06/09/22 11:23 AM) MCH [27.2-32.6 pg] 36.2 pg *H* (06/09/22 11:23 AM) MCV [82.0-99.0 fL] 106.2 fL *H* (06/09/22 11:23 AM) [place] # [0.1-1.3 K/uL] 0.6 K/uL
--- NOTE | 2024-05-03 11:36 | ADMGEN ---
This patient, Rc Rodríguez, was admitted to IMU Room 204-01. Patient/family oriented to hospital policies and general routines including ID bracelet, bed and alarms, visiting hours, pain management, procedures, bathroom and other care routines, personal items, smoking policy, room service/diet, and visiting hours. Information on how to activate the Rapid Response Team has been discussed. Patient/Family are encouraged to report perceived risks to care and to ask questions if they do not understand what they are told or what they should do.
[2024-05-03] MEDS: MAGNESIUM SULF 4 GM/WATER100ML 4 GM/100 ML BAG IVPB (11:58)
[2024-05-03] MEDS: metroNIDAZOLE 500 MG/ISO 100ML 500 MG/100 ML BAG 100 MG IVPB ×2 (12:04→20:51)
--- NOTE | 2024-05-03 13:07 | PC.NURSE ---
Family requested to speak with me. Upon arrival daughterLesly was present at the bedside. Patient was alert and oriented x4, VSS. Patient was tearful but pleasant. Patient was concerned that he wasn't getting the care he needed and since he was placed in a bed, then it would delay transfer. As patient began to talk, more family came into the room with equal concerns. Lesly, stated they said he was number 4 on the list at [facility] on Thursday05-01-24. Lesly had many concerns with ER care and had already made call to patient advocacy. I told the family I would talk with our team, and see what his status is. Family was speaking with Rakel as I left the room. Care continued
[2024-05-03] MEDS: ALBUMIN HUMAN 25% 25 GM/100 ML 100 ML IVPB ×3 (13:12→22:14)
[2024-05-03 16:32] LABS: Glucose Point of Care 99 mg/dl (65-105)
--- NOTE | 2024-05-03 17:10 | WPDGICN ---
Assessment and Plan Assessment and plan (1) Acute necrotizing pancreatitis: Code(s): K85.91 - Acute pancreatitis with uninfected necrosis, unspecified Status: Inactive Assessment and Plan: he had earlier ercp, no stones but dark bile noted worsening pancreatitis with fluid collection, awaiting bed at tertiary hospital given early satiety probably will need endoscopy intervention with EUS to assess if may benefit from drainage on liquid diet for now (2) Abdominal pain: Code(s): R10.9 - Unspecified abdominal pain Status: Acute Assessment and Plan: on iv pain meds (3) Anasarca: Code(s): R60.1 - Generalized edema Status: Acute (4) Macrocytic anemia: Code(s): D53.9 - Nutritional anemia, unspecified Status: Acute Assessment and Plan: stable GI Consult Note Consult date/time: 05/03/24 17:10 Reason for consult: necrotizing pancreatitis HPI: Rc Rodríguez is a 78 year old male with PMH COPD, hypertension, dyslipidemia, chronic macrocytic anemia, CKD stage IIIA, prior tobacco abuse. He was recently discharged with pancreatitis, underwent ERCP after CT scan noted stone at ampulla with acute interstitial pancreatitis, ERCP was successful, did not find stone but duct swept multiple times and removed dark bile with sludge, treated also with iv antibiotics because persistent leukocytosis. He also was evaluated by surgery and decided to discharge to rehab and elective cholecystectomy when more stable. He is back again with increased abdominal pain and came to [place] on 04/28/2024, CT abdomen pelvis with contrast demonstrating worsened acute necrotizing pancreatitis with acute necrotic collection, small volume of ascites and worsened small pleural effusions. The patient was accepted to [facility] and has been in the ER since however they did not have bed ready yet therefore admitted to floor, abdominal pain has improved, still poor appetite mostly because early satiety. Repeat CT on 04/30 demonstrates acute necrotizing pancreatitis which is stable Review of Systems Constitutional: Constitutional: Reports lethargy Eyes: Eyes: Denies blurry vision ENT: Reports Normal hearing present Cardiovascular: Cardiovascular: Denies chest pain Respiratory: Respiratory: Denies cough Gastrointestinal: Gastrointestinal: Reports abdominal pain and Reports nausea Genitourinary: Genitourinary: Denies urinary frequency Musculoskeletal: Musculoskeletal: Denies neck pain Integumentary/Breasts: Skin/Breast: Denies rash Neurologic: Denies Abnormal speech present Psychiatric: Psychiatric: Denies behavioral changes [facility] Past Medical History Medical History Acute on chronic renal failure Anemia Anxiety Benign essential hypertension Blindness of right eye Bronchitis Cardiac arrhythmia Chronic obstructive pulmonary disease Chronic sinusitis CKD (chronic kidney disease) COPD exacerbation Creatinine elevation 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 Hyperlipidemia Insomnia Left shoulder pain Muscle cramps On halfway 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 SOB (shortness of breath) Stage 1 chronic kidney disease Vitamin D deficiency Family History Family History Mother Hypertension Family history of malignant neoplasm of breast in first degree relative Acute myocardial infarction Family history of congestive heart failure Social History Social History Smoking packs per day: 1 Smoking cigarettes per day: 20.0 Years smoked: 60 Smoking pack-years: 60.00 Smoking status: Former smoker
[2024-05-03 20:13] LABS: Glucose Point of Care 103 mg/dl (65-105)
[2024-05-03] MEDS: MONTELUKAST SODIUM 10 MG TABLET PO (20:51)
[2024-05-03 23:32] LABS: Glucose Point of Care 95 mg/dl (65-105)
[2024-05-04] VITALS (16 sets, daily range): BP systolic 151–179; BP diastolic 58–69; PULSE 58–96; RESP 16–20; TEMP 36.2–36.7; O2SAT 94–99
[2024-05-04 04:28] LABS: Basophils Percent Auto 0.5 % (0.2-1.2); Eosinophils Absolute Auto 0.1 K/mm3 (0-0.3); Eosinophils Percent Auto 2.2 % (0-4.4); Hematocrit 26.8 % (42.0-52.0); Hemoglobin 9.3 g/dL (14.0-18.0); Immature Granulocyte Absolute 0.06 K/mm3 (0.00-0.031); Immature Granulocyte Percent A 1.1 % (0-0.5); Lymphocytes Absolute Auto 0.65 K/mm3 (0.9-3.2); Lymphocytes Percent Auto 11.8 % (18.3-44.2); Mean Corpuscular HGB Conc 34.7 g/dl (32-36); Mean Corpuscular Hemoglobin 34.3 pg (26-34); Mean Corpuscular Volume 98.9 fl (80-100); Mean Platelet Volume 9.5 fl (7.4-10.4); Monocytes Absolute Auto 0.4 K/mm3 (0.1-0.6); Monocytes Percent Auto 7.5 % (2.6-8.5); Neutrophils Absolute Auto 4.2 K/mm3 (1.3-6.7); Neutrophils Percent Auto 76.9 % (45.5-73.1); Platelet Count Result 305 k/mm3 (150-375); Red Blood Count 2.71 M/mm3 (4.6-6.20); Red Cell Distribution Width 12.5 % (11.5-14.5); White Blood Count 5.5 K/mm3 (4.5-10.0)
[2024-05-04 04:37] LABS: Alanine Aminotransferase 15 U/L (6-50); Albumin Level 3.1 g/dL (3.5-5.1); Alkaline Phosphatase 77 U/L (38-126); Anion Gap 12 mmol/L (4-12); Aspartate Amino Transferase 30 U/L (17-59); Bilirubin,Total 0.6 mg/dL (0.2-1.3); Blood Urea Nitrogen 16 mg/dL (9-20); Calcium 8.8 mg/dL (8.4-10.2); Carbon Dioxide 24 mmol/L (22-30); Chloride 99 mmol/L (98-107); Estimated CRCL calculation 45 ml/min; Estimated Glomerular Filt Rate 49; Glucose 88 mg/dL (65-110); Magnesium 1.8 mg/dL (1.6-2.3); Phosphorus 3.5 mg/dL (2.5-4.5); Potassium 3.1 mmol/L (3.4-5.0); Sodium 135 mmol/L (137-145)
[2024-05-04 04:40] LABS: Iron 30 ug/dL (49-181)
[2024-05-04] MEDS: PIPERACILLN/TAZ 3.375GM/NS50ML 3.375 GM/50 ML BAG IVPB ×3 (04:45→15:29)
[2024-05-04] MEDS: ALBUMIN HUMAN 25% 25 GM/100 ML 100 ML IVPB ×2 (04:45→10:21)
[2024-05-04] MEDS: metroNIDAZOLE 500 MG/ISO 100ML 500 MG/100 ML BAG 100 MG IVPB ×2 (04:45→10:22)
[2024-05-04 04:49] LABS: Percent Iron Saturation 21 % (20-50)
[2024-05-04 04:56] LABS: Procalcitonin 0.2 ng/mL
[2024-05-04] MEDS: HEPARIN SODIUM 5,000 UNITS/ML VIAL 5000 UNITS SUB-Q (05:26)
[2024-05-04 05:44] LABS: Vitamin B12 > 1000.0 pg/mL (239-931)
[2024-05-04 06:50] LABS: Glucose Point of Care 85 mg/dl (65-105)
[2024-05-04] MEDS: [UNRECOGNIZED DRUG - OTHER] 2 EACH INHALATION (07:15)
--- NOTE | 2024-05-04 07:17 | ECG_ITS ---
Test Date: 2024-05-04 10:31:57 Measurements Intervals [place] Rate: 63 P: 53 [place]: 202 QRS: 44 QRSD: 109 T: 66 QT: 494 QTc: 507 Interpretive Statements SINUS RHYTHM NORMAL ECG Compared to ECG 04/30/2024 08:21:19 Ventricular premature complex(es) no longer present Electronically Signed On 05-04-2024 17:33:23 CDT by Luis A Pang D.O.
--- NOTE | 2024-05-04 07:19 | PM.IMPN ---
Progress Note: A&P Assessment and Plan (1) Macrocytic anemia: Code(s): D53.9 - Nutritional anemia, unspecified Status: Acute (2) Anasarca: Code(s): R60.1 - Generalized edema Status: Acute (3) Hypoxic respiratory failure: Code(s): J96.91 - Respiratory failure, unspecified with hypoxia Status: Acute (4) Choledocholithiasis: Code(s): K80.50 - Calculus of bile duct without cholangitis or cholecystitis without obstruction Status: Acute (5) Acute necrotizing pancreatitis: Code(s): K85.91 - Acute pancreatitis with uninfected necrosis, unspecified Status: Inactive Plan Mr. 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 He was recently discharged with pancreatitis and returns with increased abdominal pain. The story is as follows: Admitted on 04/17/2024 to [facility] with abdominal pain and found to have acute pancreatitis with peripancreatic fluid collection and small amount of ascites. His course was complicated by refractory pain requiring large amounts of IV Dilaudid. Abdomen was extremely distended. A MRCP was performed on 04/18 demonstrating acute interstitial pancreatitis with adjacent 2.7 x 1.3 x 0.9 cm loculated acute peripancreatic fluid collection. Small bilateral pleural effusions with consolidation at the dependent lower lobes. He did present with transaminitis and elevated total bilirubin which eventually resolved. CT imaging revealed stone at the ampulla. ERCP was performed on 04/22/2024 with sphincterotomy, revealing 10 mm diameter dilation in the common bile duct without finding of stricture, filling defect, or obvious stone. Bile duct was swept with removal of sludge in dark bile but no stones identified. To this extent, his pancreatitis is thought to be due to choledocholithiasis. Ultimately, treated conservatively and discharged on 04/27/2024. Plan was to perform interval cholecystectomy. He presents again to [place] ER on 04/28/2024 with increased abdominal pain. CT abdomen pelvis with contrast demonstrating worsened acute necrotizing pancreatitis with acute necrotic collection, small volume of ascites and worsened small pleural effusions. The patient was accepted to [facility]. However, on 05/03 the patient has still not been transferred due to bed hold up. Repeat CT on 04/30 demonstrates acute necrotizing pancreatitis which is stable. Requested by Dr. Son of the ER to admit the patient day-to-day management while awaiting transfer. GI and general surgery consultants request transfer out to tertiary care center. Unfortunately the patient's ER course is now complicated by anasarca status post isotonic volume resuscitation, fluids now DC'ed and received multiple doses of Lasix. He is also now requiring 3 L of nasal cannula. Does not complain of shortness of breath or chest pain. Reports his abdominal pain is actually very well controlled and his abdominal distention is greatly improved compared to prior admission. While the patient would benefit greatly from transfer, noted by Dr. Son he has slightly worsened in the ER and would benefit from inpatient status for day to day medical care while awaiting transfer. Dr. Son has persuaded [facility] to move the pt to high priority list. Dr. Beltranly aware however at this time the patient does not need ICU care and will be admitted to telemetry floor on 05/03/2024. # acute necrotic pancreatitis with peripancreatic acute necrotic collections with small amount of ascites # choledocholithiasis # anasarca # diarrhea -status: Acute, severe, improved. -as described above, the patient is on a high prior transfer list for [facility], on transfer list for [facility] and [facility]. -at this time, will continue supportive management with Dilaudid 0.5 mg IV q.4 hours p.r.n., Zofran p.r.n.
[2024-05-04 07:42] LABS: Troponin I 0.018 ng/mL (0.000-0.034)
[2024-05-04] MEDS: ASPIRIN 81 MG CHEWABLE TABLET PO (08:41)
[2024-05-04] MEDS: POTASSIUM CHLORIDE INJ 40 MEQ in SODIUM CHLORIDE 0.9% IV 500 ML 130 MEQ IVPB (08:41)
[2024-05-04] MEDS: CHOLECALCIFEROL 1,000 UNITS TABLET 2000 UNITS PO (08:42)
[2024-05-04] MEDS: amLODIPine BESYLATE 5 MG TABLET PO ×2 (08:42→15:29)
[2024-05-04] MEDS: NEBIVOLOL HCL 5 MG TABLET PO (08:42)
[2024-05-04] MEDS: ATORVASTATIN 20 MG TABLET PO (08:42)
[2024-05-04] MEDS: prednisoLONE ACETATE 1% OPHTH 5 ML 1 DROP RIGHT EYE (08:43)
[2024-05-04] MEDS: valACYclovir HCL 500 MG TABLET PO (08:43)
[2024-05-04] MEDS: PANTOPRAZOLE SODIUM IV 40 MG VIAL IV PUSH (08:43)
[2024-05-04] MEDS: DEXTROSE 5%/0.9% SOD CHL 1,000 ML 20 ML IV CONT (08:46)
[2024-05-04 14:19] LABS: IFOB Positive Control Positive; Immunochemical Fecal Occult Bl Negative (N)
[2024-05-04 14:46] LABS: Glucose Point of Care 88 mg/dl (65-105)
[2024-05-04] MEDS: IPRATROPIUM 0.5 MG/ALBUTEROL SULFATE 2.5 MG AMPUL.NEB 3 ML INHALATION (16:00)
[2024-05-04] MEDS: HYDROmorphone HCL INJ (*CRX) 1 MG/ML SYR 0.5 MG IV PUSH (16:12)
--- NOTE | 2024-05-04 18:19 | WPDGIPROGNO ---
Progress Note: A&P Assessment and Plan (1) Acute necrotizing pancreatitis: Code(s): K85.91 - Acute pancreatitis with uninfected necrosis, unspecified Status: Inactive Assessment and Plan: he has been accepted to [facility] and will be moved later today (2) Nausea & vomiting: Code(s): R11.2 - Nausea with vomiting, unspecified Status: Acute Assessment and Plan: on antiemetics (3) Abdominal pain: Code(s): R10.9 - Unspecified abdominal pain Status: Acute Assessment and Plan: better but still needs iv narcotics (4) Anasarca: Code(s): R60.1 - Generalized edema Status: Acute (5) Macrocytic anemia: Code(s): D53.9 - Nutritional anemia, unspecified Status: Acute Subjective Date/time seen: 05/04/24 18:19 Interval history: less pain, on liquid diet but gets full quickly Review of Systems Review of Systems: All systems reviewed & are unremarkable except as noted in HPI and below Exam Const: General: comfortable and no acute distress Other: A&O x3. HENMT: Face/Nose/Sinus: Normal nares present Eyes: EOM: EOMs intact bilaterally Neck: Neck: supple Resp: Effort & Inspection: normal respiratory effort Other: Diminished lung sounds at bilateral bases. No rhonchi crackles or wheezes identified Cardio: Rate: regular rate Rhythm: regular rhythm GI: Other: Mildly distended. Nontender. No guarding. Bowel sounds hyperactive. Skin: General skin exam: normal color Neuro: Speech: normal speech Motor exam (neuro): 5/5 motor strength present throughout Extrem: General: pedal edema Other: Diffuse anasarca, pitting. Psych: Affect: normal affect Objective Data Vital Signs Vital Signs: Vital Signs - 24 hr 05/03/24 20:00 05/03/24 20:45 05/03/24 20:45 Temperature Pulse Rate 66 66 66 Respiratory Rate 18 Blood Pressure Pulse Oximetry 93 Oxygen Delivery Nasal Cannula Oxygen Flow Rate 2 05/03/24 23:11 05/03/24 20:00 05/04/24 00:00 Temperature 97.8 F Pulse Rate 72 72 72 Respiratory Rate 16 16 16 Blood Pressure 167/61 H Pulse Oximetry 96 96 96 Oxygen Delivery Nasal Cannula Nasal Cannula Oxygen Flow Rate 2 2 05/04/24 03:16 05/04/24 04:00 05/03/24 20:00 Temperature 97.2 F L Pulse Rate 67 67 73 Respiratory Rate 20 20 Blood Pressure 162/58 H Pulse Oximetry 96 96 Oxygen Delivery Nasal Cannula Oxygen Flow Rate 2 05/04/24 00:00 05/04/24 02:00 05/04/24 04:00 Temperature Pulse Rate 69 68 67 Respiratory Rate Blood Pressure Pulse Oximetry Oxygen Delivery Oxygen Flow Rate 05/04/24 06:00 05/03/24 22:00 05/04/24 07:15 Temperature Pulse Rate 65 70 61 Respiratory Rate 18 Blood Pressure Pulse Oximetry 95 Oxygen Delivery Nasal Cannula Oxygen Flow Rate 2 05/04/24 07:15 05/04/24 08:14 05/04/24 08:42 Temperature 97.4 F L Pulse Rate 61 62 60 Respiratory Rate 18 16 Blood Pressure 179/60 H Pulse Oximetry 98 Oxygen Delivery Oxygen Flow Rate 05/04/24 11:57 05/04/24 16:08 05/04/24 16:15 Temperature 97.6 F 98.1 F Pulse Rate 61 96 73 Respiratory Rate 16 16 18 Blood Pressure 173/69 H 151/68 H Pulse Oximetry 97 99 Oxygen Delivery Oxygen Flow Rate 05/04/24 08:00 05/04/24 12:00 05/04/24 16:00 Temperature Pulse Rate Respiratory Rate Blood Pressure Pulse Oximetry 94 97 95 Oxygen Delivery Nasal Cannula Nasal Cannula Nasal Cannula Oxygen Flow Rate 2 2 2 05/04/24 08:00 05/04/24 10:00 05/04/24 12:00 Temperature Pulse Rate 59 L 58 L 61 Respiratory Rate Blood Pressure Pulse Oximetry Oxygen Delivery Oxygen Flow Rate 05/04/24 14:00 Temperature Pulse Rate 60 Respiratory Rate Blood Pressure Pulse Oximetry Oxygen Delivery Oxygen Flow Rate Intake/Output Intake/Output: Intake & Output 05/01/24 05/02/24 05/03/24 05/04/24 23:59 23:59 23:59 23:59
[2024-05-09 18:18] LABS: Pneumococcal Antigen Urine NOT DETECTED
--- NOTE | 2024-05-10 18:03 | PM.TDS ---
Transfer Discharge Sum: Prov Provider Date of admission: 05/03/24 10:14 Primary care physician: Bo Chang MD Admitting clinician: Gail Carvalho MD Attending physician on admission: Gail Carvalho Consults: 05/03/24 Care Coordination Consult Routine Reason for Consult:: Other Additional Comments: Patient reports transportation issue since he has gone blind. does not drive. Consult to Physician Routine Comment: Consulting Provider: Danie Manuel Reason for consultation: necrotizing pancreatitis Has provider been notified: Yes Attending physician on discharge: Gail Carvalho Discharging clinician: Gail Carvalho Anticipated date of transfer: 05/04/24 Receiving physician/facility: [facility] DS: Admitting Diagnosis Discharge Date 05/04/24 Admitting Diagnosis abdominal pain DS: Discharge Diagnosis Discharge Diagnosis (1) Acute pancreatitis: Qualifiers: Acute pancreatitis complication: no infection or necrosis Pancreatitis type: unspecified pancreatitis type Qualified Code(s): K85.90 - Acute pancreatitis without necrosis or infection, unspecified Code(s): K85.90 - Acute pancreatitis without necrosis or infection, unspecified Status: Acute (2) Acute necrotizing pancreatitis: Code(s): K85.91 - Acute pancreatitis with uninfected necrosis, unspecified Status: Acute Transfer Discharge Sum: Med Medications Active and Home Medications: Home Medications aspirin 81 mg tablet,delayed release (Adult Low Dose Aspirin) 81 mg PO DAILY 09/13/19 [History Confirmed 05/02/24] budesonide 160 mcg-glycopyr 9 mcg-formot 4.8 mcg/actuation HFA inhaler (Breztri Aerosphere) 2 inh inhalation BID 07/19/21 [History Confirmed 05/02/24] cholecalciferol (vitamin D3) 50 mcg (2,000 unit) capsule 150 mcg PO BID 07/19/21 [History Confirmed 05/02/24] calcium carbonate (Calcium 600) 600 mg PO BID 10/09/21 [History Confirmed 05/02/24] valacyclovir 1 gram tablet 500 mg PO BID 09/17/22 [History Confirmed 05/02/24] prednisolone acetate 1 % eye drops,suspension 1 drp RIGHT EYE DAILY 11/02/23 [History Confirmed 05/02/24] nebivolol 5 mg tablet See Rx Instructions .Route .COMPLEX #90 tabs 03/19/24 [Rx Confirmed 05/02/24] atorvastatin 20 mg tablet See Rx Instructions .Route .COMPLEX #100 tabs 03/04/24 [Rx Confirmed 05/02/24] montelukast 10 mg tablet See Rx Instructions .Route .COMPLEX #100 tabs 03/04/24 [Rx Confirmed 05/02/24] artificial tears 2 drp LEFT EYE ONCE 03/16/24 [History Confirmed 05/02/24] guaifenesin 600 mg tablet, extended release 12 hr (Mucus Relief ER) 1,200 mg PO Q12HR #30 tabs 04/27/24 [Rx Confirmed 05/03/24] hydrocodone 5 mg-acetaminophen 325 mg tablet 1 tablet PO Q4H PRN Pain Rated 4-6 #10 tabs 04/27/24 [Rx Confirmed 05/03/24] polyethylene glycol 3350 17 gram oral powder packet (Miralax) 17 g PO QAM #30 ea 04/27/24 [Rx Confirmed 05/03/24] sennosides 8.6 mg-docusate sodium 50 mg tablet (Senokot-S) 1 tab-cap PO HS #30 tabs 04/27/24 [Rx Confirmed 05/03/24] simethicone 80 mg chewable tablet 160 mg PO QID PRN Gas Discomfort #30 tabs 04/27/24 [Rx Confirmed 05/03/24] Transfer Discharge Sum: Hosp Hospital Course Hospital course: Mr. 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 He was recently discharged with pancreatitis and returns with increased abdominal pain. The story is as follows: Admitted on 04/17/2024 to [facility] with abdominal pain and found to have acute pancreatitis with peripancreatic fluid collection and small amount of ascites. His course was complicated by refractory pain requiring large amounts of IV Dilaudid. Abdomen was extremely distended. A MRCP was performed on 04/18 demonstrating acute interstitial pancreatitis with adjacent 2.7 x 1.3 x 0.9 cm loculated ac
[2024-05-14 22:38] LABS: Legionella pneumophila Ag Ur NOT DETECTED
== END 2024-05-04 19:03 | disposition short-term general hospital (02) | DRG 438 ==
LOC: ANHED 04-30 08:58 → ANHIMU 05-03 11:24
PROVIDERS: Emergency Medicine; Admitting Provider General Practice; Emergency Provider Emergency Medicine; PCP Internal Medicine; Visit Provider General Practice
DX: K85.11 Biliary acute pancreatitis with uninfected necrosis (principal); J18.9 Pneumonia, unspecified organism; J96.01 Acute respiratory failure with hypoxia; R18.8 Other ascites; I12.9 Hypertensive chronic kidney disease with stage 1 through stage 4 chronic kidney disease, or unspecified chronic kidney disease; N18.31 Chronic kidney disease, stage 3a; J44.9 Chronic obstructive pulmonary disease, unspecified; J32.9 Chronic sinusitis, unspecified; D53.9 Nutritional anemia, unspecified; E78.5 Hyperlipidemia, unspecified; E55.9 Vitamin D deficiency, unspecified; F41.9 Anxiety disorder, unspecified; Z20.822 Contact with and (suspected) exposure to COVID-19; Z79.82 Long term (current) use of aspirin; Z79.899 Other long term (current) drug therapy; Z87.891 Personal history of nicotine dependence
CPT/HCPCS: 36415; 71045; 74018; 74177; 80048; 80053; 81001; 82150; 82274; 82607; 82728; 82746; 82948; 83540; 83550; 83605; 83690; 83735; 84100; 84145; 84484; 85025; 85610; 85730; 87040; 87070; 87205; 87449; 87637; 87899; 93005; 94640; 96361; 96374; 96375; 96376; 99285; A9270; J1170; J1644; J1836; J1940; J2405; J2470; J2543; J3475; J3480; J7030; J7040; J7042; P9047; Q9967

== ENCOUNTER 2024-08-19 03:02 | Day surgery (SDC) | payer MEDICARE, MEDICAID, SELFPAY ==
--- NOTE | 2024-08-15 09:30 | PC.NURSE ---
Report to the Outpatient Waiting Room, entrance under the green pavilion located off [facility], at time __10 AM on date _08/19/24 . Planned Procedure Time: 1200 PM .? Time changes happen often and if your time is changed the preop area will call you the afternoon before. - You and your visitor will be asked to self-screen and do not enter if you have any COVID symptoms. Please call surgeon if you need to reschedule. - A mask is optional within the hospital at this time. Patients may have clear liquids (water, carbonated beverages, clear teas, apple juice) until 3 hours prior to surgery( 9 AM) with a maximum of 20 ounces. - No food from midnight until time of surgery and no smoking - Infants may have breast milk until 4 hours before surgery, infant formula 6 hours prior to surgery. - Children will be allowed to drink immediately following surgery.? If applicable, please bring a bottle or sippy cup to assist with drinking. Juice, water, soda, and popsicles are readily available.? For infants on formula, please bring formula the day of surgery.? Pacifiers are allowed. Take only the following medications with a SIP of water on the morning of surgery: _BREZTRI INHALER,GABAPENTIN,VALACYCLOVIR DO NOT STOP ANY OF YOUR OTHER PRESCRIPTION MEDICATIONS PRIOR TO SURGERY EXCEPT THE FOLLOWING Medications to discontinue per physician MAY CONTINUE ASPIRIN [address] ESPOSITO BUT DO NOT TAKE MORNING OF SURGERY.HOLD ALL VITAMINS AND SUPPLEMENTS 3 DAYS PRE OP .LAST DOSE 08/15/24 Please no make-up, nail greek, hairspray, perfume, deodorant, or body powder the day of surgery.? No jewelry (including any body piercings) or valuables the day of surgery, leave them at home.? Please take a shower or bath the night before, or the morning of, surgery with an antibacterial soap.? Wear comfortable, loose fitting clothing.? Children are encouraged to wear pajamas. - Jewelry must be removed prior to entering the operating room.? Rings and piercings that are not removed may be cut off. - The hospital will not accept responsibility for valuables.? - Please leave all valuables, including medications, at home the day of surgery. If you are going home after surgery, a licensed courtesy car driver must drive you home.? - NO public transportation without another adult if you receive anesthesia. - We recommend that an adult stay with you for 24 hours following discharge. - We also recommend that you do not drive, make important decision, drink alcoholic beverages, or take any drugs that were not prescribed by your health care provider for at least 24 hours after your discharge time. Follow any additional instructions given to you from your surgeon. Telephone instructions given to __PATIENT and asked if any additional questions and then verbalized understanding. Patient advised to call surgeon office or pre surgery nurse liaison [phone] if any additional questions.
[2024-08-15 09:38] VITALS: BMI 22.9
[2024-08-19] VITALS (11 sets, daily range): BP systolic 127–161; BP diastolic 53–85; PULSE 64–86; RESP 12–24; TEMP 36.2–36.9; O2SAT 93–100
--- NOTE | ~2024-08-19 | XR_ITS ---
EXAMINATION: XR cholangiogram surg 1st inj DATE: 08/19/2024 13:12 INDICATION: Intraoperative evaluation during laparoscopic cholecystectomy TECHNIQUE: Multiple fluoroscopic images of the right upper quadrant were obtained during intraoperati ve cholangiography. A total of 111 fluoroscopic images were obtained. The amount of fluoroscopy time used during this procedure was 0.3 minutes. Total DAP was 0.128 mGycm^2 COMPARISON: None. FINDINGS: Cannulation of the cystic duct demonstrates filling of the mildly dilated common bile duct which measures up to 9 mm in maximal diameter. No intraluminal filling defects to suggest choledochol ithiasis. There is reflux of contrast into the normal-appearing central intrahepatic biliary tree as well as normal spillage into the duodenum. There is normal tapering of the distal common bile duct bu t with mildly irregular mucosal surface. There is also a stellate-appearing collection in the region of the ampulla which is not definitively within the duodenum. IMPRESSION: 1. No filling defects within the common bile duct or contrast opacified central biliary tree. 2. Mild mucosal irregularity at the distal common bile duct with small stellate collection of contras t not definitively within the common bile duct or duodenum. This does raise some concern for malignan cy although this more likely to represent sequela of the recent acute necrotic pancreatitis. No lesio n suspicious for malignancy at this location on an MRI/MRCP study performed earlier during the course of the acute pancreatitis which would also favor sequela of pancreatitis. Could consider further liudmila luation with pre and postcontrast MRI of the pancreas both to correlate with the earlier imaging and to establish a baseline should further follow-up be anticipated. Reviewed, dictated and finalized at location A. IMPRESSION: 1. No filling defects within the common bile duct or contrast opacified central biliary tree. 2. Mild mucosal irregularity at the distal common bile duct with small stellate collection of contrast not definitively within the common bile duct or duodenu m. This does raise some concern for malignancy although this more likely to rep resent sequela of the recent acute necrotic pancreatitis. No lesion suspicious for malignancy at this location on an MRI/MRCP study performed earlier during t he course of the acute pancreatitis which would also favor sequela of pancreati tis. Could consider further evaluation with pre and postcontrast MRI of the bryan creas both to correlate with the earlier imaging and to establish a baseline sh ould further follow-up be anticipated.
[2024-08-19] MEDS: LACTATED RINGERS 1,000 ML 30 ML IV CONT ×2 (10:50→13:22)
[2024-08-19] MEDS: ACETAMINOPHEN 500 MG TABLET 1000 MG PO (11:07)
--- NOTE | 2024-08-19 11:10 | WPDANESEPPF ---
Anes - Initial Pre Proc Eval Procedure: Operation Date: 08/19/24 12:00 Proposed Procedures p Laparoscopic Cholecystectomy Intraoperative Cholangiogram, Possible Open - Lior Alvarez DO Date/Time: 08/19/24 11:10 Surgeon: Lior Alvarez DO Pre Op Diagnosis: gall stones, pancreatitis Patient Data Age: 79 Gender: M Height: 1.88 m Weight: 81.2 kg Allergies Allergy/AdvReac Type Severity Reaction Status Date / Time metoprolol Allergy Unknown shortness Verified 08/15/24 09:14 of breath Home Medications Medication Instructions Recorded Confirmed Type aspirin 81 mg tablet,delayed 81 mg PO DAILY 09/13/19 08/19/24 History release (Adult Low Dose Aspirin) budesonide 160 mcg-glycopyr 9 2 inh inhalation BID 07/19/21 08/19/24 History mcg-formot 4.8 mcg/actuation HFA inhaler (Breztri Aerosphere) valacyclovir 1 gram tablet 500 mg PO BID 09/17/22 08/19/24 History prednisolone acetate 1 % eye 1 drp RIGHT EYE QPM 11/02/23 08/19/24 History drops,suspension atorvastatin 20 mg tablet See Rx Instructions .Route 03/04/24 08/19/24 Rx .COMPLEX #100 tabs montelukast 10 mg tablet See Rx Instructions .Route 03/04/24 08/19/24 Rx .COMPLEX #100 tabs calcium carbonate (Calcium 600) 1,200 mg PO BID 05/16/24 08/19/24 History cholecalciferol (vitamin D3) 10 See Rx Instructions .Route .COMPLEX 06/06/24 08/19/24 History mcg (400 unit) capsule mecobalamin (vitamin B12) 1,000 1,000 mcg sublingual DAILY 08/02/24 08/19/24 History mcg disintegrating tablet,sublingual gabapentin 100 mg capsule 100 mg PO TID #180 caps 08/10/24 08/19/24 Rx Laboratory Tests 08/19/24 08/19/24 10:59 11:03 PT Pending INR Pending APTT Pending Total Bilirubin Pending Direct Bilirubin Pending AST Pending ALT Pending Alkaline Phosphatase Pending Total Protein Pending Albumin Pending Amylase Pending Lipase Pending Patient hx anesthesia problems: none Family hx anesthesia problems: none Results Review: All pre-operative results and documents have been reviewed as part of the pre-operative evaluation. 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 Optic disc edema Pain and swelling of left lower leg Parotitis Peripheral neuropathy Personal history of nicotine dependence Pleuritic pain Pre-diabetes PVC's (premature ventricular contractions) Skin pruritus SOB (shortness of breath) Stage 1 chronic kidney disease Vitamin D deficiency Surgical History Surgical History (Updated 08/19/24 @ 11:14 by Walker Morales MD) History of ERCP S/P cervical spinal fusion Family History Family History Mother Hypertension Family history of malignant neoplasm of breast in first degree relative Acute myocardial infarction Family history of congestive heart failure Social History Social History Smoking packs per day: 1 Smoking cigarettes per day: 20.0 Years smoked: 60 Smoking pack-years: 60.00 Smoking status: Former smoker Tobacco type: cigarettes Second hand tobacco smoke exposure: No Smoking end date: 10/19/17 Additional smoking assessment comments: 06/2018 Alcohol intake: current Drinks per week: 1 Substance use: never Substance use type: does not use Do You Feel Safe in your Home?: Yes Lack of Transportation: No Lack of Food: Never True Current Housing: I Have Housing Concerned About Future Housing: No Difficulty Paying Gas/Electric Bills: No Difficulty Paying for Meds: No Currently Unemployed: No Education: Trade/Vocational Certificate Difficulty w/ Childcare or Family Care: No Living arrangements: with friend(s) Occupation/Education: retired Gender identity (if verbalized by the patient): Male Spiritual care concerns: No Anes - Eval Final PreProcedure Day of Procedure 08/19/24 11:10 Patient weight: normal Heart: regular rate and rhythm Lungs: clear to auscultation Airway: Mallampati scale class III and special considerations poor extension Neurological: alert and oriented Last oral intake: >/= 8 hours ASA classification: III Emergent: no Anesthetic plan: proceed Anesthesia type and monitoring: general ETT and standard monitoring Results Review: All pre-operative results and documents have been reviewed as part of the pre-operative evaluation. Informed Consent: The patient's anesthetic plan and its attendant risks and benefits were discussed with the patient/family/POA. Questions were solicited and answers provided to the satisfaction of the patient/family/POA.
[2024-08-19] MEDS: KETOROLAC 15 MG/ML VIAL (*BKC) IV PUSH (11:15)
[2024-08-19 11:19] LABS: Alanine Aminotransferase 25 U/L (6-50); Albumin Level 4.2 g/dL (3.5-5.1); Alkaline Phosphatase 80 U/L (38-126); Amylase 52 U/L (30-110); Aspartate Amino Transferase 26 U/L (17-59); Bilirubin,Total 0.4 mg/dL (0.2-1.3); Lipase 38 U/L (23-300)
[2024-08-19 11:21] LABS: Prothrombin Time 13.4 Seconds (11.1-14.7)
[2024-08-19 11:22] LABS: Partial Thromboplastin Time 26.4 Seconds (22.3-36.8)
--- NOTE | 2024-08-19 11:40 | P.HP_ITS ---
H&P: HPI History of Present Illness Date/Time: 08/19/24 11:40 Chief Complaint: Gallstone pancreatitis Narrative: 79 yo man presents for laparoscopic cholecystectomy. He reports no significant changes since last seen in office. He has recovered from prior episode of pancreatitis. He now is ready to proceed with surgery. Review of Systems Review of Systems: All systems reviewed & are unremarkable except as noted in HPI and below Constitutional: Constitutional: Denies chills, Denies fever(s), Denies headache(s) and Denies weight loss Eyes: Eyes: Denies change in vision ENT: Denies dizziness, Denies headache(s), Denies neck mass and Denies throat swelling Cardiovascular: Cardiovascular: Denies chest pain, Denies lightheadedness and Denies dyspnea Respiratory: Respiratory: Denies cough, Denies dyspnea and Denies wheezing Gastrointestinal: Gastrointestinal: Denies abdominal pain, Denies change in bowel habits, Denies nausea and Denies vomiting Genitourinary: Genitourinary: Denies hematuria and Denies dysuria Musculoskeletal: Musculoskeletal: Reports as per HPI Integumentary/Breasts: Skin/Breast: Reports as per HPI Neurologic: Denies dizziness and Denies headache(s) Allergic/Immunologic: Allergic/Immunologic: Denies throat swelling and Denies wheezing PMFSH Past Medical History Medical History Acute necrotizing pancreatitis Acute on chronic renal failure Anemia Anxiety Benign essential hypertension Blindness of right eye BMI 21.0-21.9, adult BMI 25.0-25.9,adult BMI 26.0-26.9,adult Bronchitis Cardiac arrhythmia Chronic obstructive pulmonary disease Chronic sinusitis CKD (chronic kidney disease) COPD exacerbation Creatinine elevation Elevated homocysteine Essential (primary) hypertension Gallstones Herpes simplex infection of eye Hyperlipidemia Insomnia Left shoulder pain Muscle cramps On custodial drug therapy Optic disc edema Pain and swelling of left lower leg Parotitis Peripheral neuropathy Personal history of nicotine dependence Pleuritic pain Pre-diabetes PVC's (premature ventricular contractions) Skin pruritus SOB (shortness of breath) Stage 1 chronic kidney disease Vitamin D deficiency Surgical History Surgical History (Updated 08/19/24 @ 11:14 by Walker Morales MD) History of ERCP S/P cervical spinal fusion Family History Family History Mother Hypertension Family history of malignant neoplasm of breast in first degree relative Acute myocardial infarction Family history of congestive heart failure Social History Social History Smoking packs per day: 1 Smoking cigarettes per day: 20.0 Years smoked: 60 Smoking pack-years: 60.00 Smoking status: Former smoker Tobacco type: cigarettes Second hand tobacco smoke exposure: No Smoking end date: 10/19/17 Additional smoking assessment comments: 06/2018 Alcohol intake: current Drinks per week: 1 Substance use: never Substance use type: does not use Do You Feel Safe in your Home?: Yes Lack of Transportation: No Lack of Food: Never True Current Housing: I Have Housing Concerned About Future Housing: No Difficulty Paying Gas/Electric Bills: No Difficulty Paying for Meds: No Currently Unemployed: No Education: Trade/Vocational Certificate Difficulty w/ Childcare or Family Care: No Living arrangements: with friend(s) Occupation/Education: retired Gender identity (if verbalized by the patient): Male Spiritual care concerns: No Meds Home Medications and Allergies Home Medications Medication Instructions Recorded Confirmed Type aspirin 81 mg tablet,delayed 81 mg PO DAILY 09/13/19 08/19/24 History release (Adult Low Dose Aspirin) budesonide 160 mcg-glycopyr 9 2 inh inhalation BID 07/19/21 08/19/24 History mcg-formot 4.8 mcg/actuation HFA inhaler (Breztri Aerosphere) valacyclovir 1 gram tablet 500 mg PO BID 09/17/22 08/19/24 History prednisolone acetate 1 % eye 1 drp RIGHT EYE QPM 11/02/23 08/19/24 History drops,suspension atorvastatin 20 mg tablet See Rx Instructions .Route 03/04/24 08/19/24 Rx .COMPLEX #100 tabs montelukast 10 mg tablet See Rx Instructions .Route 03/04/24 08/19/24 Rx .COMPLEX #100 tabs calcium carbonate (Calcium 600) 1,200 mg PO BID 05/16/24 08/19/24 History cholecalciferol (vitamin D3) 10 See Rx Instructions .Route .COMPLEX 06/06/24 08/19/24 History mcg (400 unit) capsule mecobalamin (vitamin B12) 1,000 1,000 mcg sublingual DAILY 08/02/24 08/19/24 History mcg disintegrating tablet,sublingual gabapentin 100 mg capsule 100 mg PO TID #180 caps 08/10/24 08/19/24 Rx Allergies Allergy/AdvReac Type Severity Reaction Status Date / Time metoprolol Allergy Unknown shortness Verified 08/15/24 09:14 of breath Vital Signs Vital Signs - 24 hr 08/19/24 10:26 Temperature 98.5 F Pulse Rate 73 Respiratory Rate 20 Blood Pressure 146/73 H Pulse Oximetry 100 Oxygen Delivery Room Air Exam Const: General: no acute distress and alert Orientation/consciousness: patient oriented x3 HENMT: Head: normocephalic and atraumatic Ears: hearing grossly normal bila terally Face/Nose/Sinus: Normal nares present Mouth: Yes Normal oral and palatal mucosa present Eyes: Periorbital: periorbital findings normal Sclera: sclerae normal EOM: EOMs intact bilaterally Neck: Neck: normal visual inspection, no lymphadenopathy and trachea midline Chest: Chest palpation & inspection: normal inspection of the chest Resp: Effort & Inspection: normal respiratory effort Auscultation: clear to auscultation bilaterally Cardio: Jugular venous distension: no JVD Rate: regular rate Rhythm: regular rhythm Heart sounds: S1 normal heart sound present and S2 normal heart sound present Peripheral pulses: Peripheral pulses 2+ throughout GI: Inspection: normal to inspection GI Palp: Yes Soft to palpation, No Tenderness to palpation present (GI), No Guarding due to palpation present (GI) and No Rebound tenderness present Percussion: Yes normal to percussion Auscultation: normal bowel sounds : General: Yes no CVA tenderness Back/Spine/Pelvis: Back: no CVA tenderness Neuro: General: patient oriented x3, no focal motor deficits and CN's II-XI intact bilaterally Cognition (Neuro): normal cognition Speech: normal s peech Motor exam (neuro): 5/5 motor strength present throughout Extrem: General: capillary refill normal and no clubbing, cyanosis or edema H&P: Results Labs Labs: Liver Function 08/19/24 Range/Units 10:59 Total Bilirubin 0.4 (0.2-1.3) mg/dL Direct Bilirubin 0.0 (0-0.3) mg/dL AST 26 (17-59) U/L ALT 25 (6-50) U/L Alkaline Phosphatase 80 (38-126) U/L Albumin 4.2 (3.5-5.1) g/dL Assessment and Plan Assessment and plan (1) Gallstones: Code(s): K80.20 - Calculus of gallbladder without cholecystitis without obstruction Status: Acute Assessment and Plan: I have recommended laparoscopic cholecystectomy with intraoperative cholangiogram. I have discussed the procedure, risks, benefits, and alternatives with the patient. All questions answered. No changes since last seen in office. (2) Acute necrotizing pancreatitis: Code(s): K85.91 - Acute pancreatitis with uninfected necrosis, unspecified Status: Acute
--- NOTE | 2024-08-19 11:43 | WPDHPUPDATE1 ---
History and Physical Update Update Date/Time: 08/19/24 11:43 History and Physical has been reviewed, including an updated exam of the patient. There are NO changes in the patient's condition. Risks, benefits, and alternatives have been discussed and questions answered. Patient agrees to proceed with procedure.
[2024-08-19] MEDS: ceFAZolin 2 GM/D5W 50 ML 2 GM/50 ML BAG IVPB (12:30)
[2024-08-19] MEDS: BUPIVACAINE/EPINEPHRINE 0.5% 50 ML VIAL 30 ML INFILTRATE (12:33)
--- NOTE | 2024-08-19 13:00 | P.OP_ITS ---
Procedure Note - Detailed Date of Procedure 08/19/24 Pre-op Diagnosis gallstones, pancreatitis Post-op Diagnosis Same Procedure Performed Laparoscopic cholecystectomy with intraoperative cholangiogram Surgeon Lior Alvarez, DO Anesthesia General and Local (0.5% bupivacaine) Indications This is an 79-year-old man who presented with a prior history of gallstone pancreatitis. He was hospitalized for a long period of time with severe necrotizing pancreatitis. He eventually recovered from this and has been doing well. On his initial workup during his hospitalization several months ago he was found to have gallstones and this was suspected to be the cause. Discussions were made with the patient about treatment options and decision was made to proceed with laparoscopic cholecystectomy with intraoperative cholangiogram, possible open. Findings Laparoscopic cholecystectomy with cholangiogram was performed. The gallbladder appeared slightly dilated and elongated, but there were no signs of acute inflammation. The cystic duct appeared normal in size. Cholangiogram was performed using Omnipaque contrast and fluoroscopy. There did not appear to be any filling defects or obstruction within common bile duct. The gallbladder was removed and sent to the lab for pathology. Description of Procedure Procedure as well as risks, benefits, and alternatives were discussed with patient. Written consent was obtained and placed in chart prior to procedure. The patient was brought back to surgical suite. Patient was placed in supine position on operating table. Time-out was done to confirm patient and procedure. Patient was then intubated by the anesthesia department. Abdomen was prepped and draped in sterile fashion using chlorhexidine prep. 0.5% bupivacaine with epinephrine was infiltrated at each site of incision. A 5 millimeter incision was made near the umbilicus, and a 5 millimeter Optiview trocar was advanced through the abdominal layers under direct visualization. Once inside the abdominal cavity, carbon dioxide was insufflated to create a pneumoperitoneum. The camera was inserted and the abdomen was inspected. No immediate abnormalities were identified. The patient was placed in reverse Trendelenburg position and rotated slightly to the left. An 11 millimeter incision was made in the subxiphoid region, and an 11 millimeter trocar was inserted under direct visualization. Two 5 millimeter incisions were made in the right upper quadrant, and two 5 millimeter trocars were inserted under direct visualization. The gallbladder was identified and grasped at the fundus and retracted superiorly. It was then grasped at the infundibulum retracted laterally. Careful dissection around the neck of the gallbladder was performed using blunt dissection with a [place] grasper and hook electrocautery. The cystic duct was identified, and a window was created behind it. The cystic artery was also identified and a window was created behind it. The critical view of safety was identified, visualizing the cystic duct running directly into the neck of the gallbladder, and the cystic artery running directly into the wall of the gallbladder. A 5 millimeter clip novelty chain maker was then used to place 2 clips proximally and 1 clip distally on the cystic artery. It was then transected using endoscopic scissors. The patient was then flattened out in bed and a Coleman clamp was placed across the distal neck of the gallbladder. The Coleman cholangiocatheter was then advanced into the distal neck of the gallbladder. Bile was able to be aspirated and the catheter flushed with saline with ease. Fluoroscopy was then used to obtain a cholangiogram with Omnipaque contrast. The images were sent to Radiology for interpretation. The patient was then placed back in reverse Trendelenburg position. The cholangiocatheter was removed. A 5 mm Endoclip novelty chain maker was then used to place 2 clips proximal and 1 clip distal on the cystic duct. It was then transected using endoscopic scissors. Once safely away from the kiya hepatitis, the gallbladder was dissected free from the liver bed using hook electrocautery. Hemostasis was achieved along the way. The gallbladder was removed completely and then removed through the subxiphoid port. The liver bed was then inspected. Hemostasis appeared adequate, and our clips appeared secure. The area was gently irrigated with sterile saline. No other abnormalities were seen. The patient was flattened out in bed, and 1 final inspection was made around the abdominal cavity. The subxiphoid port was removed, and a Ken Angelia cone was used to approximate the fascia with an 0-Vicryl simple interrupted suture. The remaining ports were then removed under direct visualization, the camera was removed, and the pneumoperitoneum was released. The skin of the incisions was approximated using 4-0 Monocryl subcuticular sutures. Exofin glue was applied on top. The patient was then awakened from anesthesia, extubated, and transferred to recovery. Estimated Blood Loss 10 Pathology Yes (Gallbladder) Complications No immediate complications Condition Stable Disposition Observation [facility] Billing Surgery - Charge Forward: Surgery Billing
[2024-08-19] MEDS: fentaNYL CITRATE INJ (*CRX) 100 MCG/2 ML VIAL 25 MCG IV PUSH ×4 (13:10→13:20)
--- NOTE | 2024-08-19 14:33 | ADMGEN ---
This patient, Rc Rodríguez, was admitted to 3 [facility] Surg Room 319-01. Patient/family oriented to hospital policies and general routines including ID bracelet, bed and alarms, visiting hours, pain management, procedures, bathroom and other care routines, personal items, smoking policy, room service/diet, and visiting hours. Information on how to activate the Rapid Response Team has been discussed. Patient/Family are encouraged to report perceived risks to care and to ask questions if they do not understand what they are told or what they should do.
[2024-08-19] MEDS: GABAPENTIN 100 MG CAPSULE PO ×2 (14:50→17:08)
[2024-08-19] MEDS: LACTATED RINGERS 1,000 ML 100 ML IV CONT (14:50)
[2024-08-19] MEDS: valACYclovir HCL 500 MG TABLET PO (17:08)
[2024-08-19] MEDS: HYDROcodone/acetaminophen (*CRX) 7.5-325 MG TABLET 1 TAB PO (23:08)
[2024-08-20 01:20] VITALS: BP 119/44; PULSE 55; RESP 16; TEMP 36.1; O2SAT 90
[2024-08-20] MEDS: IBUPROFEN IV 800 MG/200 ML 800 MG/200 ML BAG 400 MG IVPB (04:09)
[2024-08-20 05:55] VITALS: BP 140/83; PULSE 58; RESP 16; TEMP 36.7; O2SAT 91
[2024-08-20 06:49] LABS: Hematocrit 33.7 % (42.0-52.0); Hemoglobin 11.4 g/dL (14.0-18.0); Mean Corpuscular HGB Conc 33.8 g/dl (32-36); Mean Corpuscular Hemoglobin 35.3 pg (26-34); Mean Corpuscular Volume 104.3 fl (80-100); Mean Platelet Volume 10.8 fl (7.4-10.4); Platelet Count Result 145 k/mm3 (150-375); Red Blood Count 3.23 M/mm3 (4.6-6.20); Red Cell Distribution Width 13.2 % (11.5-14.5); White Blood Count 7.2 K/mm3 (4.5-10.0)
[2024-08-20 07:07] LABS: Anion Gap 7 mmol/L (4-12); Blood Urea Nitrogen 31 mg/dL (9-20); Calcium 9.1 mg/dL (8.4-10.2); Carbon Dioxide 25 mmol/L (22-30); Chloride 106 mmol/L (98-107); Estimated CRCL calculation 33 ml/min; Estimated Glomerular Filt Rate 36; Glucose 100 mg/dL (65-110); Potassium 4.1 mmol/L (3.4-5.0); Sodium 138 mmol/L (137-145)
[2024-08-20] MEDS: ASPIRIN 81 MG ENTERIC TABLET PO (08:58)
[2024-08-20] MEDS: GABAPENTIN 100 MG CAPSULE PO (08:59)
[2024-08-20] MEDS: valACYclovir HCL 500 MG TABLET PO (08:59)
[2024-08-20] MEDS: ATORVASTATIN 20 MG TABLET PO (08:59)
[2024-08-20] MEDS: MONTELUKAST SODIUM 10 MG TABLET PO (08:59)
[2024-08-20 09:00] VITALS: BP 147/74; PULSE 52; RESP 16; TEMP 36.1; O2SAT 95
[2024-08-20] MEDS: ENOXAPARIN 40 MG/0.4 ML SYRINGE SUB-Q (09:01)
--- NOTE | 2024-08-20 09:25 | PC.NURSE ---
On 08/20/24, the student, [Awilda Kim ], provided care and completed [facility] documentation on this patient. I have reviewed the student's documentation and agree with the findings.
[2024-08-20 11:54] VITALS: BP 129/71; PULSE 67; RESP 16; TEMP 36.4; O2SAT 93
--- NOTE | 2024-08-20 14:11 | P.DS_ITS ---
DS: Admitting Diagnosis Discharge Date August 20, 2024 Admitting Diagnosis Chronic cholecystitis secondary to cholelithiasis, history of necrotizing gallstone pancreatitis. DS: Discharge Diagnosis Discharge Diagnosis (1) Acute necrotizing pancreatitis: Code(s): K85.91 - Acute pancreatitis with uninfected necrosis, unspecified Status: Acute Assessment and Plan: Resolved. Patient does not seem to have any pancreatic insufficiency and has not become a diabetic. (2) Chronic cholecystitis: Code(s): K81.1 - Chronic cholecystitis Status: Acute Assessment and Plan: Status post laparoscopic cholecystectomy with intraoperative cholangiogram. No evidence of retained common bile duct stone. He did very well after surgery and is to be discharged home today. DS: Summary Hospital Course Reason for hospitalization: Chronic cholecystitis secondary to cholelithiasis, history of necrotizing acute gallstone pancreatitis Hospital Course: Patient was previously admitted with acute cholecystitis and necrotizing gallstone pancreatitis. He had a prolonged hospital course to recover from that but has done well and presented for an elective laparoscopic cholecystectomy with intraoperative cholangiogram. He had that done here at [facility] on August 19, 2024. It was an uncomplicated surgery and no common bile duct stone was seen. Postoperatively his course of recovery was uneventful and his transfer to the surgical floor for routine postoperative care due to his medical morbidities. He has had no issues overnight and tolerated full liquids and then solid food without any difficulty within 24hours of the surgery. He was up walking the hallways and urinate spontaneously. Not taking any narcotic pain medications. His abdomen was soft and nondistended. Slight ecchymosis around the cup of the port sites but no bleeding or drainage. Postop day 1. He was doing very well and so was discharged home in improved condition. Patient to follow-up see Dr. Esposito in the office in 1 to 2 weeks. Status at Discharge Functional status at discharge: independent ambulation Overall status at discharge: patient is progressing back to baseline Time Spent with Patient Time attestation: Total time spent providing and/or coordinating discharge services: Time spent: Less than 30 minutes Exam GI: Other: Abdomen is soft and nondistended. Port sites are healing well without redness or drainage. Skin glue was then placed. Mild ecchymosis around 2 of the port sites without hematoma formation. DS: Data Data Completed and Pending Pending studies at discharge: Pending at discharge 08/19/24 12:43 Surgical [PTH] Routine Labs on day of discharge: Labs from last 24 hours 08/20/24 06:14 WBC 7.2 RBC 3.23 L Hgb 11.4 L Hct 33.7 L MCV 104.3 H MCH 35.3 H MCHC 33.8 RDW 13.2 Plt Count 145 L D MPV 10.8 H Sodium 138 Potassium 4.1 Chloride 106 Carbon Dioxide 25 Anion Gap 7 BUN 31 H D Creatinine 1.80 H Estim Creat Clear Calc 33 Estimated GFR 36 L Glucose 100 Calcium 9.1 Discharge Plan Discharge Patient Disposition: Home, Self-Care Discharge Instructions: DISCHARGE INSTRUCTION SHEET FOR HERNIA, GALLBLADDER AND APPENDIX SURGERIES DR. ESPOSITO PATIENT TO TAKE HOME 1. May shower, no soaking in bath x 2weeks. 2. Call office for: * Wound increasingly painful or bleeding * Vomiting * Fever of greater than 101 degrees 3. If no bowel movement for three days, take 1 oz. (30 ml) Milk of Magnesia or MiraLax 17g 1 to 2 times daily. 4. No heavy lifting > 10-15 pounds x 2 weeks for laparoscopic cholecystectomy or appendectomy. 5. No driving for 3 days or while taking narcotic pain medications. 6. Ice to surgical site for 48 hours (30 min on, then 30 min off). 7. Up walking 10-30 minutes three times per day. 8. Resume previous home medications. 9. Follow-up 10-14 days in office for wound check or as previously scheduled. ([phone]) 10. Oral pain medications prescription to be sent to pharmacy. Take Tylenol 500mg every 6 hours and Ibuprofen 600mg every 6 hours for the first 2 days, then as needed. 11. NUTRITION: Start out by drinking fluids and increase your diet as tolerated. If you experience nausea, try dry toast, crackers, and 7-UP. If nausea or vomiting persists, contact your surgeon?s office. 12. Gallbladders-Low Fat Diet for 2 weeks (send care note of low fat diet) 13. Inguinal Hernias-wear scrotal support for 48 hours 14. Abdominal Hernias-if sent home with abdominal binder, wear for the first 2 weeks (may remove to shower or at night to sleep). Revised February 2019 Stand Alone Forms: General Discharge Instructions Follow-up/Referrals: Lior Esposito, [Physician] - Keep Reg. Scheduled Appt. Discharge Medications: Continued valacyclovir 1 gram tablet 500 mg PO BID Rx Instructions: 500mg BID per pt report. mecobalamin (vitamin B12) 1,000 mcg tablet,disintegrating 1,000 mcg sublingual DAILY Rx Instructions: place tablet under tongue and allow to dissolve for at least30 secs before swallowing aspirin [Adult Low Dose Aspirin] 81 mg tablet,delayed release (DR/EC) 81 mg PO DAILY Breztri Aerosphere 160-9-4.8 mcg/actuation HFA aerosol inhaler 2 inh inhalation BID prednisolone acetate 1 % drops,suspension 1 drp RIGHT EYE QPM montelukast 10 mg tablet See Rx Instructions .ROUTE .COMPLEX Qty: 100 2RF Dose Instruction: TAKE 1 TABLET BY MOUTH DAILY Rx Instructions: TAKE 1 TABLET BY MOUTH DAILY atorvastatin 20 mg tablet See Rx Instructions .ROUTE .COMPLEX Qty: 100 2RF Dose Instruction: TAKE 1 TABLET BY MOUTH ONCE DAILY Rx Instructions: TAKE 1 TABLET BY MOUTH ONCE DAILY calcium carbonate [Calcium 600] 600 mg calcium (1,500 mg) tablet 1,200 mg PO BID cholecalciferol (vitamin D3) 10 mcg (400 unit) capsule See Rx Instructions .ROUTE .COMPLEX Rx Instructions: 1 in the am & 2 capsules po at hs gabapentin 100 mg capsule 100 mg PO TID Qty: 180 0RF
== END 2024-08-20 14:53 | disposition home or self-care (01) ==
LOC: ANHSURGERY 13:08 → ANH3MEDSUR 14:13
PROVIDERS: PCP Internal Medicine; Visit Provider Surgery
PROC: 0FT44ZZ Resection of Gallbladder, Percutaneous Endoscopic Approach (ICD-10-PCS; CPT 47562; principal; 2024-08-19 12:00)
DX: K81.1 Chronic cholecystitis (principal); I12.9 Hypertensive chronic kidney disease with stage 1 through stage 4 chronic kidney disease, or unspecified chronic kidney disease; N18.1 Chronic kidney disease, stage 1; J44.9 Chronic obstructive pulmonary disease, unspecified; E78.5 Hyperlipidemia, unspecified; D64.9 Anemia, unspecified; G47.00 Insomnia, unspecified; R73.03 Prediabetes; E55.9 Vitamin D deficiency, unspecified; F41.9 Anxiety disorder, unspecified; I49.9 Cardiac arrhythmia, unspecified; J32.9 Chronic sinusitis, unspecified; I49.3 Ventricular premature depolarization; Z79.82 Long term (current) use of aspirin; Z79.51 Long term (current) use of inhaled steroids; Z79.899 Other long term (current) drug therapy; Z98.890 Other specified postprocedural states; Z98.1 Arthrodesis status; Z87.891 Personal history of nicotine dependence; Z80.3 Family history of malignant neoplasm of breast; Z82.49 Family history of ischemic heart disease and other diseases of the circulatory system
CPT/HCPCS: 47563; 36415; 74300; 80048; 80076; 82150; 83690; 85027; 85610; 85730; 88304; A9270; J0690; J1100; J1596; J1650; J1741; J1885; J2003; J2405; J2704; J3010; J7120; Q9966

== ENCOUNTER 2024-09-13 12:50 | Outpatient (CLI) | payer MEDICARE, MEDICAID, SELFPAY | END 2024-09-13 12:51 | disposition home or self-care (01) | LOC: ANHAUDASC 12:52 | PROVIDERS: PCP Internal Medicine; Visit Provider Internal Medicine | DX: H90.3 Sensorineural hearing loss, bilateral (principal) | CPT/HCPCS: 92557; 92567 ==

== ENCOUNTER 2025-05-02 07:03 | Outpatient (CLI) | payer MEDICARE, MEDICAID, SELFPAY ==
--- OUTSIDE RECORDS SUMMARY | 2025-05-02 07:06 | XMS_ITS | Clinical Summary ---
Author Organization [facility] Address [address] [place] [id number] Phone Care Team Providers Care Ncr Operator Name Role Phone Bo Chang MD Primary Care Provider [phone] Allergies No known active allergies Medications atorvastatin (LIPITOR) 20 MG tablet TK 1 T PO D 0 Active buPROPion XL (WELLBUTRIN XL) 150 MG 24 hr tablet Take 150 mg by mouth 1 (one) time each day in the morning 0 Active hydrALAZINE (APRESOLINE) 25 MG tablet TK 1 T PO TID WF 0 Active LORazepam (ATIVAN) 0.5 MG tablet TAKE 1 TABLET BY MOUTH THREE TIMES DAILY NEEDED FOR ANXIETY OR DIFFICULT BREATHING 0 Active montelukast (SINGULAIR) 10 MG tablet TK 1 T PO D 0 Active Bystolic 5 MG tablet Take 5 mg by mouth 1 (one) time each day 0 Active sertraline (ZOLOFT) 50 MG tablet TK 1 T PO D. STOP THE 25 MG TABLETS. 0 Active ProAir HFA 108 (90 Base) MCG/ACT inhaler INHALE 2 PUFFS BY MOUTH EVERY 6 HOURS NEEDED FOR SHORTNESS OF BREATH 1 Active fluticasone (FLONASE) 50 MCG/ACT nasal spray SHAKE LIQUID AND USE 1 SPRAY IN EACH NOSTRIL TWICE DAILY 1 Active amoxicillin (AMOXIL) 500 MG capsule TAKE FOUR CAPSULES BY MOUTH 1 HOUR BEFORE DENTAL APPOINTMENT 2 Active Breztri Aerosphere 160-9-4.8 MCG/ACT aerosol INHALE 2 PUFFS BY MOUTH TWICE DAILY. 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 07/03/2022 Chronic obstructive pulmonary disease 10/29/2020 Angina pectoris 12/11/2018 Dyslipidemia 12/11/2018 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 Sinus bradycardia 12/11/2018 Disorder of carotid artery 08/22/2018 Dyspnea 08/22/2018 Smoker 08/22/2018 Coronary arteriosclerosis 08/20/2018 Palpitations 08/20/2018 Tobacco dependence syndrome 08/20/2018 Spinal stenosis of cervical region 03/27/2016 Cervical disc disorder with myelopathy 6 Prediabetes Mixed hyperlipidemia Chronic kidney disease Resolved Problems Problem Noted Date Diagnosed Date Resolved Date Vitamin D deficiency 022 Hypertension 04/29/2022 Anxiety 04/29/2022 Immunizations Immunization Administration Dates Next Due Fluzone High-Dose 06/19/2020 Influenza Split High Dose Preservative Free IM 06/21/2018,06/29/2017,08/31/2016,2014 Influenza TIV (IM) 07/04/2013 Influenza Trivalent Adjuvanted 07/07/2019 Influenza, Quadrivalent 06/19/2020 Influenza, Unspecified 07/16/2020,2019,06/06/2014,2011 Pneumococcal Conjugate 13-Valent 08/31/2016 Sars-cov-2, Unspecified 01/17/2021,12/20/2020 Tdap 08/25/2013 Family History Medical History Relation Comments Breast cancer Mother Coronary artery disease Mother Heart failure Mother Hypertension Mother Relation Status Comments Mother Social History Tobacco Use Types Packs/Day Years Used Date Smoking Tobacco: Former Cigarettes 1 60 Smokeless Tobacco: Never Alcohol Use Standard Drinks/Week Comments Never 0 (1 standard drink = 0.6 oz pur e alcohol) AUDIT-C Answer Date Recorded Q1: How often do you have a drink containing alc ohol? Never 10/29/2020 Q2: How many drinks containi ng alcohol do you have on a typical day when you are drinking? Not asked 10/29/2020 Q3: How often do you have six or more drinks on one occasion? Never 10/29/2020 Sex and Gender Information Value Date Recorded Sex Assigned at Not on file Legal Sex Male 1:03 PM MST Gender Identity Not on file Sexual Orientation Not on file Last Filed Vital Signs Vital Sign Reading Time Taken Comments Blood Pressure 120/68 07/28/2022 2:37 PM CDT Pulse - - Temperature 35.9 C (96.7 F) 07/28/2022 2:37 PM CDT Respiratory Rate 18 07/28/2022 2:37 PM CDT Oxygen Saturation - - Inhaled Oxygen Concentration - - Weight 91.6 kg (202 lb) 07/28/2022 2:37 PM CDT Height 188 cm (6' 2) 07/28/2022 2:37 PM CDT Body Mass Index 25.94 07/28/2022 2:37 PM CDT Plan of Treatment Health Maintenance Due Date Last Done Comments Pneumococcal PPSV23/PCV13 65 + Years / Low and Medium Risk (2 of 3 - PCV20 or PCV21) 08/31/2017 08/31/2016 COVID-19 Vaccine (2023-2 5 season) 2024 01/17/2021, 01/07/2021, 12/20/2020, Additional history exists Influenza Vaccine (#1) 2025 0, 06/19/2020, 07/07/2019, Additional history exists [place] [address] [place] [address] MEDICARE ADVANTAGE MEDICAID [place] Care Teams Ncr Operator Relationship Specialty Start Date End Date Bo Chang MD [address] [facility] [address] [place] [address] PCP - General Internal Medicine 10/23/20
--- OUTSIDE RECORDS SUMMARY | 2025-05-02 07:06 | XMS_ITS | Continuity of Care Document ---
Author Organization [facility] Address [address] [facility] [address] [place] [address] Phone Care Team Providers Care Bulldozer Mechanic Name Role Phone Perri OD OD, Harinder Unavailable Unavailabl e Procedures Procedure Date Office/outpatient Visit, Est No Charge Refractive Evaluation 007 Office/outpatient Visit, Est Advance Directives Directive Yes / No Effective Date File Name No Information Encounters Encounter Description Practice Location Reason(s) For Visit Diagnoses Date Provider Providers Copied on Encounter Office/outpat ient Visit, [facility], [address], [place], [place], [id number], [place] tel:[phone] [facility] No Information [address] [place] OD Harinder. [address] [place], [place], [id number], [place]. tel:[phone] Referring Provider: Harinder Rayo OD P, [address] [place], [address] . tel:[phone] [facility], [address], [place], [place], [id number], [place] tel:[phone] [facility] No Information [address] [place] OD Harinder. [address] [place], [place], [id number], [place]. tel:[phone] Referring Provider: Harinder Rayo OD P, [address] [facility] [place], [address] . tel:[phone] Office/outpat ient Visit, [facility], [address], [place], [place], [id number], [place] tel:[phone] [facility] No Information 0-200 7 Kevin OD [place]. [address], [place], [address], [place]. tel:[phone] Family History Family Member Type Diagnosis Age At Onset No Information Payers Payer name Insurance type Covered alliance party ID Authorallison richards(s) [facility] CI [id number] Social History Type Description Quantity Date Captured [...]
--- OUTSIDE RECORDS SUMMARY | 2025-05-02 07:06 | XMS_ITS | Clinical Summary ---
Author Organization [facility] Address [address] [place] [address] Care Team Providers Care Ug Designer Name Role Phone Bo Chang MD Primary Care Provider Luis A Pang DO Unavailable Rosalinda Chappell OD Unavailable Yury Novoa MD Unavailable [phone] Varun Calderno MD Unavailable Jeet Donohue MD Unavailable Dalton Kevin OD Unavailable [phone] Lesly Schultz MD PhD Unavailable [phone] Allergies No known active allergies Medications aspirin 81 mg enteric coated tabletIndicatio ns:prevention of thrombosis Take 1 tablet (81 mg total) by mouth nightly Active atorvastatin (LIPITOR) 20 mg tabletIndicatio ns:hyperlipidem ia Take 1 tablet (20 mg total) by mouth every morning 09/19/20 19 Active calcium carbonate (CALCIUM 600 ORAL)Indication s:for supplement Take 600 mg by mouth 2 (two) times a day Active montelukast (SINGULAIR) 10 mg tabletIndicatio ns:Maintenance Therapy for Asthma Take 1 tablet (10 mg total) by mouth nightly 03/13/20 21 Active cholecalciferol (Vitamin D3) 400 unit capsuleIndicati ons:for supplement Take 1 tablet/capsule (400 Units total) by mouth 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 Schultz for continued refills. 180 tablet 09/14/20 24 Active ipratropium (ATROVENT) 21 mcg (0.03 %) nasal spray Administer 2 sprays into each nostril 2 (two) times a day 11/08/19 25 Active Breztri Aerosphere 160-9-4.8 mcg/actuation inhalerIndicati ons:Chronic obstructive pulmonary disease, unspecified COPD type (HCC) USE 2 INHALATIONS BY MOUTH TWICE DAILY 32.1 g 3 04/17/20 25 Active Breztri Aerosphere 160-9-4.8 mcg/actuation inhalerIndicati ons:Chronic obstructive pulmonary disease, unspecified COPD type (HCC) Inhale 2 puffs 2 (two) times a day Rinse mouth after use 5.9 g 06/03/20 24 025 Discontinued Active Problems Problem Noted Date Diagnosed Date Dysuria 06/01/2024 Assessment & Plan (06/03/2024 12:05 PM CDT): Now resolved, UA negative Assessment & Plan (06/01/2024 11:56 AM CDT): Started in the past 24-48 hours, patient has been afebrile (Tm 99), no leukocytosis hematuria. We will check UA Slow transit constipation 06/01/2024 Assessment & Plan (06/03/2024 12:05 PM CDT): Resolved, patient requests no further cathartics Assessment & Plan (06/01/2024 12:15 PM CDT): Patient requesting a pill rather than liquid. We will give bisacodyl 10 mg p.o. x1, then the following day start bisacodyl 5 mg daily, continue. Colace 2 tabs q.h.s., p.r.n. MiraLax, MOM Dermatitis 05/19/2024 Assessment & Plan (05/19/2024 4:49 PM CDT): There is no apparent rash, papules, vesicles or bullae, or change in skin color. From his historical description this sounds like seborrheic dermatitis. I have ordered hydroxyzine 20 mg q.i.d. for 3 days, clobetasol topical gel to be massaged into the scalp, mustache, eyebrows b.i.d. for 7 days and the patient is so advised. Debility 05/12/2024 Assessment & Plan (05/16/2024 12:01 PM CDT): - in setting of recent illnesses/hospitalizations 2/2 to pancreatitis - insurance denied IPR (P2p completed 05/11 with still denial as they felt he doesn't require physician care needed at IPR level) - now pursuing SNF, has bed available and plan d/c today Diarrhea 05/11/2024 Assessment & Plan (05/17/2024 3:34 PM CDT): He reports this has resolved Assessment & Plan (05/16/2024 12:01 PM CDT): - had significant constipation in s/o pancreatitis and narcotics, now transitioning to diarrhea - stop miralax, senna/colace - improved/resolved with cessation of laxatives 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 Continue p.r.n. oxycodone, change Tylenol to p.r.n.. Patient prefers to follow up with PCP to obtain a surgical referral closer to home. Patient was felt stable for discharge on 06/03/2024 to return home with his family. We will arrange home health PT, OT, nursing services. Assessment & Plan (06/01/2024 12:16 PM CDT): No further low-grade temps, abdominal pain improving, appetite better today. Continue scheduled Tylenol, p.r.n. oxycodone. Admits that he was able to ambulate all the way down to the gym and participate in therapy and walk partial way back. Patient is insisting about discharge soon, feels he will be able to do better at home. Assessment & Plan (05/30/2024 1:26 PM CDT): Pt still with intermittent abd pain, gas. No reflux, no difficulty moving bowels. +LG temp. Pt reports feeling hungry but severely dislikes the food here so PO intake poor. Has been declining scheduled oxycodone, and tylenol. Today reports feeling a little better. Long discussion about the need to move around to help abd feel better, improve bowel function, improve probable atelectasis. Also, the potential underlying cause of pancreatitis needs to be addressed still as an outpatient - gallbladder/CBD dz Assessment & Plan (05/17/2024 3:34 PM CDT): He currently denies any abdominal pain and promises to notify the nursing provider if abdominal pain symptoms recur. We will continue oxycodone 5 mg every 4 hours p.r.n. pain. He is to follow up with his primary care provider post discharge for consideration of referral for outpatient cholecystectomy. Assessment & Plan (05/14/2024 2:41 PM CDT): Admitted 04/17-04/27 to [facility] found to have acute panc w/ peripanc fluid collection and small ascites. MRCP 04/18 w/ acute interstitial panc w/ loculated acute peripanc fluid collection. Also had elevated bili and CT revealed stone at ampulla. S/p ERCP 04/22 w/ spincterotomy w/ 10mm dilation in CBD w/o stricture, s/p BD sweeping. Plan was to perform interval CCK. Returned to [facility] within 24h of discharge on 04/28 due to severe abdominal pain w/o signs of infection. Afebrile, WBC downtrended to 12 at the time. BCx 04/[address] 04/28 showed worsened acute nec panc w/ acute necrotic collection, small pl effusions. Subsequent imaging 04/30 reportedly showed stable acute nec panc w/ peripanc collections, small b/l pl effusions. By transfer, symptoms appear to continue to improve. - s/p zosyn (04/28-05/05), stopped given absence of signs of infected necrosis - tolerating regular diet - Pain controlled with oxycodone PRN, using 1-2 doses/day at this point - no indication for drainage given lack of signs of infection, if symptomatic after collection fully walled off, could consider drainage at that time - Will eventually need outpatient cholecystectomy > pt plans to f/u with PCP > Bo Chang to discuss as wants to get done locally at home ([place]) Anemia 05/04/2024 Assessment & Plan (06/03/2024 12:05 PM CDT): Hemoglobin stable, currently 9.1 Assessment & Plan (05/25/2024 12:50 PM CDT): Hemoglobin with mild decline to 9.4, this is consistent with previous lab draws in the past. No active bleeding noted. Continue to monitor Assessment & Plan (05/10/2024 2:23 PM CDT): Baseline 12-13, down to 9 at OSH w/o signs of bleeding - macrocytic on indices, B12/folate normal Malnutrition 05/04/2024 Assessment & Plan (05/23/2024 11:24 AM CDT): Patient admits his appetite is poor. Agreeable to start Remeron 15 mg q.h.s. encourage p.o. fluid intake. Dietitian following - diet changed to regular, ensure HP with lunch and dinner being provided. Assessment & Plan (05/17/2024 3:32 PM CDT): Dietitian to follow Assessment & Plan (05/10/2024 2:24 PM CDT): Poor PO intake since acute panc diagnosis end of March - c/s > on ensure plus - encourage po Prediabetes 04/15/2023 Assessment & Plan (05/17/2024 3:32 PM CDT): This is listed on his historical problem list. Follow up labs will be ordered. Mixed hyperlipidemia 04/15/2023 Assessment & Plan (05/17/2024 3:30 PM CDT): This is chronic and stable. He will be seen by dietary. He will also receive atorvastatin 20 mg daily. Hypertension 03/31/2023 Assessment & Plan (06/03/2024 12:04 PM CDT): Blood pressure has been lower, Bystolic and Entresto both discontinued. Patient will likely need to restart Bystolic in future to help control palpitations/arrhythmia. Encouraged patient to follow-up with PCP prior to starting Assessment & Plan (06/01/2024 12:14 PM CDT): Blood pressure remains well controlled without intervention. Continue off Entresto, Bystolic. If blood pressure increases would consider restarting Entresto 1st. Assessment & Plan (05/30/2024 1:15 PM CDT): BP remains lower, will remain off Entresto and Bystolic. Encouraged po intake Assessment & Plan (05/25/2024 12:50 PM CDT): Blood pressure has been stable without intervention, Bystolic and Entresto will remain on hold. Assessment & Plan (05/23/2024 11:26 AM CDT): Blood pressure has been lower, likely contributing to worsening renal dysfunction. We will hold Bystolic and Entresto. Follow up labs 05/25 Assessment & Plan (05/19/2024 4:50 PM CDT): This is currently stable. Continue Bystolic 5 mg HS and valsartan b.i.d. per Entresto Assessment & Plan (05/18/2024 12:04 PM CDT): BP stable, continue Entresto, bystolic Assessment & Plan (05/17/2024 3:31 PM CDT): This is chronic and stable. We will monitor vital signs. We will continue Bystolic 5 mg at HS. We will continue valsartan 26 mg p.o. b.i.d.. Assessment & Plan (05/04/2024 9:41 PM CDT): bystolic Anxiety 03/31/2023 Depression 03/31/2023 Assessment & Plan (06/03/2024 12:06 PM CDT): Patient has made significantly improved after discussion about discharge. Patient feels his intake has improved although I encouraged him to continue to take mirtazapine 15 mg q.h.s. patient also has been sleeping better with 25 mg trazodone q.h.s.. Reports that he has tablets at home. Assessment & Plan (05/30/2024 1:32 PM CDT): Pt mood is greatly impacting his rehab stay. He remains very frustrated about his weakness, length of his hospital stay and how long rehab is taking. Perseverates about this as well as dietary choices/restrictions, staff interactions etc. Long discussion with pt and dtr over the phone about taking each day as it comes, let go of past days, previous issues. It seems pain is controlled, appetite ok but hates the food. Will continue current dose of Remeron 15mg nightly. Pt agreeable to trazodone 25mg qhs to attempts to regulate sleep cycle. Pt declines any further intervention for depression. 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 He also notes that his vision is currently identified as 20/500. We will continue the prescribed prednisolone ophthalmic drop 1 drop to the right eye daily and Valtrex 500 mg p.o. b.i.d.. 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 Renal function overall stable. Monitor as an outpatient with PCP Assessment & Plan (06/01/2024 11:58 AM CDT): Renal function has remained stable, current BUN/creatinine 24/1.58 with a GFR of 44. Continue to increase p.o. fluid intake. Assessment & Plan (05/25/2024 12:49 PM CDT): Renal function continues to slowly worsen with decreased p.o. intake. Current BUN/creatinine 23/1.64 with a GFR of 42. Entresto and nebivolol have been on hold, patient agreeable to attempt to increase p.o. fluid intake, does not want IV at this time. If continues to worsen with recheck on 05/27/2024 would recommend IV fluids. Assessment & Plan (05/23/2024 11:25 AM CDT): Typically stage IIIA CKD. BUN/ creatinine mildly elevated 22/1.53 with a GFR of 46. Encourage p.o. fluid intake. We will place Entresto, nebivolol on hold Assessment & Plan (05/17/2024 3:35 PM CDT): Recent labs reviewed and follow up labs were ordered. Assessment & Plan (05/04/2024 9:33 PM CDT): Baseline Cr 1.5-2 - Avoid nephrotoxins - renally dosed meds Disorder of carotid artery 08/22/2018 Coronary arteriosclerosis 08/20/2018 Assessment & Plan (06/03/2024 12:03 PM CDT): Stable, no chest pain. Continue aspirin, atorvastatin, blood pressure management. Assessment & Plan (05/17/2024 3:31 PM CDT): Chronic and stable. Please continue aspirin 81 mg daily and atorvastatin Spinal stenosis of cervical region 03/27/2016 Cervical disc disorder with myelopathy 6 Chronic obstructive pulmonary disease Assessment & Plan (06/03/2024 12:06 PM CDT): Pulmonary status stable, continue Breztri b.i.d. Assessment & Plan (05/18/2024 12:05 PM CDT): Pulmonary status stable. No bronchospasm. Continue inhaled regimen with Breztri BID Assessment & Plan (05/17/2024 3:36 PM CDT): This is currently stable. We will monitor vital signs including oxygen saturation and he will be followed by Respiratory therapy. We will continue Breztri Aerosphere 2 inhalations b.i.d. Assessment & Plan (05/04/2024 9:33 PM CDT): trelegy Heart failure with mid-range ejection fraction ( HFmEF) Assessment & Plan (06/03/2024 12:03 PM CDT): Compensated, no edema. Blood pressure has been lower, Entresto discontinued. We will follow-up with cardiology Assessment & Plan (05/18/2024 12:03 PM CDT): Currently compensated - pt reports a significant improvement in fluid status. Reports baseline wt around 195-200lbs. Continue Entresto. Continue to monitor lytes, renal function and wt Assessment & Plan (05/17/2024 3:31 PM CDT): This is chronic but currently stable. We will continue Bystolic and Entresto. Assessment & Plan (05/16/2024 12:00 PM CDT): OSH course c/b anasarca and pl effusions and on 4L O2, off o2. TTE 05/05 with LVEF 45-50%, G1DD, RV dilated with normal systolic function, mild MR, normal IVC size (RAP 3mmHg), unable to estimate PASP. - S/p IV diuresis - On nebivolol and entresto 24-26mg BID - notes intermittent PND type symptoms; xray 05/12 with now scant effusion on L and exam appears euvolemic. Suspect dyspnea more related to abdominal fullness in s/o pancreatitis/gas contributing to atelectasis (though is improving on xray as well) > encouraged IS; remains with normal sats and HR (low c/f PE particularly since this symptom has been ongoing since admit) - has an outpatient aviculturist (Dr. 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 05/17/2024 Assessment & Plan (05/04/2024 9:41 PM CDT): bystolic Hypertensive disorder 08/24/20182023 Smoker 08/22/2018 05/17/2024 Dyspnea 08/22/2018 05/17/2024 Palpitations 08/20/2018 05/17/2024 Tobacco dependence syndrome 08/20/2018 05/17/2024 Encounters Date Type Department Care Team Description 02/16/2025 1:00 PM CDT Office Visit [facility] Pulmonology [address] [place] [address] [place] [phone] Varun Calderon MD Personal history of nicotine dependence (Primary Dx); Chronic obstructive pulmonary disease, unspecified COPD type (HCC); Shortness of breath from Last 3 Months Immunizations Immunization Administration Dates Next Due Influenza LAIV (Nasal) 06/19/2020 Influenza, Quadrivalent, Hig h Dose, Preservative Free, Intrr 06/26/2022,06/27/2021,06/19/2020 Influenza, Trivalent, Adjuva nted, Intramuscular 07/07/2019 Influenza, Trivalent, High D ose, Split, Preservative Free, Intramuscular 06/22/2018,06/21/2018,06/29/2017,08/31,07/18/2015 Influenza, Trivalent, IM (MDV) 07/04/2013 Influenza, Unspecified 07/16/2020,2019,06/06/2014,07/28 Moderna SARS-CoV-2 Monovalen t Vaccination (12+ YRS) 01/07/2021,11/21/2020 Pneumococcal Conjugate PCV 13 08/31/2016 Pneumococcal Conjugate Pcv20 12/08/2021 Sars-CoV-2, Unspecified 01/17/2021,12/20/2020 Tdap 08/25/2013 Surgical History Surgery Date Site/Laterality Comments EYE SURGERY 10/19/1960 - 10/18/1961 Right Open Globe Repair x2 BACK SURGERY 10/19/1969 - 10/18/1970 lumbar NECK SURGERY 10/19/2015 - 10/18/2016 NASAL SINUS SURGERY 10/19/2018 - 10/18/2019 CATARACT EXTRACTION W/ INTRAOCULAR LENS IMPLANT 10/19/2017 - 10/18/2018 Left CARPAL TUNNEL RELEASE 10/19/2013 - 10/18/2014 Left CARPAL TUNNEL RELEASE 10/19/2011 - 10/18/2012 Right CATARACT EXTRACTION W/ INTRAOCULAR LENS IMPLANT 08/12/2022 Right PKP/Secondary AC/IOL/ Ant Vit POSTERIOR FUSION CERVICAL SPINE 03/31/2023 C7-T2 CHOLECYSTECTOMY 08/19/2024 Medical History Medical History Date Comments COPD (chronic obstructive pu lmonary disease) ([facility]) History of penetrating keratoplasty 08/12/2022 Eye trauma 1960 Fish Hook Herpes Right Eye K Scar rng 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 Segura Low vision, both eyes OD is HM a nd OS: 20/100 --> PH: 20/80 Pseudophakia, both eyes OD: ACIO L oriented @ 90 degrees (approximately) and OS: PCIOL Optic disc pallor, bilateral H/O cornea transplant 08/12/2022 Combo PKP OD + ACIOL implanation + anterior vitrectomy - now follows with Dr. Schultz Optic atrophy, right eye Unclea r etiology but trauma main contributing factor Ocular hypertension, right eye Corneal scar, right eye HSV-rela josé miguel corneal scarring with Hx open globe OD (fishing hook) in 1960 s/p 2 surgical repairs including lensectomy Family History Medical History Relation Name Comments Arthritis Father Family history of arthritis - (Added by TW Conv) Cancer Father Family history of malignant neoplasm - (Added by TW Conv) Heart disease Father Family history of cardiac disorder - (Added by TW Conv) Hypertension Father Family history of hypertension - (Added by TW Conv) Anesthesia problems Neg Hx Glaucoma Neg Hx Macular degeneration Neg Hx Retinal detachment Neg Hx Relation Name Status Comments Father Social History Tobacco Use Types Packs/Day Years Used Date Smoking Tobacco: Former Cigarettes 1 60 1 968 - 2017 Smokeless Tobacco: Never Tobacco Cessation:Counseling Given: Not Answered Alcohol Use Standard Drinks/Week Comments Not Currently 0 (1 standard drink = 0.6 oz pur e alcohol) OASIS D0700: Social Isolation Answer Da te Recorded Frequency of experiencing loneliness or isolatio n Never 04/22/2023 OASIS A1250: Transportation Answer Date Recorded Lack of Transportation (Medical) No 04/22/2023 Lack of Transportation (Non-Medical) No 04/22/2023 Patient Unable or Declines to Respond No 04/22/2023 OASIS B1300: Health Literacy Answer Reji e Recorded Frequency of needing help to read materials from doctor or pharmacy Sometimes 04/22/2023 AUDIT-C Answer Date Recorded Q1: How often do you have a drink containing alc ohol? Monthly or less 03/18/2023 Q2: How many drinks containi ng alcohol do you have on a typical day when you are drinking? 1 or 2 03/18/2023 Q3: How often do you have si x or more drinks on one occasion? Never 03/18/2023 Personal Safety Answer Date Recorded Have you ever been in or are you currently in a harmful physical or emotional relationship or is someone making you feel afraid or unsafe? Denies 05/04/2024 Sex and Gender Information Value Date Recorded Sex Assigned at Not on file Legal Sex Male 1:12 AM [employer] Gender Identity Not on file Sexual Orientation Not on file Obstetrics History Last Filed Vital Signs Vital Sign Reading Time Taken Comments Blood Pressure 146/75 02/16/2025 12:57 PM CDT Pulse 74 02/16/2025 12:57 PM CDT Temperature 36.1 C (97 F) 02/16/2025 12:57 PM CDT Respiratory Rate 18 02/16/2025 12:57 PM CDT Oxygen Saturation 95% 02/16/2025 12:57 PM CDT Inhaled Oxygen Concentration - - Weight 92.1 kg (203 lb) 02/16/2025 12:57 PM CDT Height 188 cm (6' 2) 02/16/2025 12:57 PM CDT Body Mass Index 26.06 02/16/2025 12:57 PM CDT Plan of Treatment Health Maintenance Due Date Last Done Comments Depression Screening 1944 Hepatitis B Screening 1962 Zoster Vaccine (1 of 2) 1963 Abdominal Aortic Aneurysm (A AA) Screen 2009 Well Visit 65+ 2009 Lung Cancer Screening 11/14/2022 11/14/2021 , 11/16/2020, 11/15/2019 DTaP/Tdap/Td Vaccine (2 - Td or Tdap) 08/25/2023 08/25/2013 Covid-19 Vaccine (7 2023-2 5 season) 2024 05/09/2022, 08/13/2021, 01/17/2021, Additional history exists Fall Risk Assessment 05/16/2025 05/16/2024 Influenza Vaccine (#1) 2025 , 06/27/2021, 07/16/2020, Additional history exists Pneumococcal vaccine 65+ Completed 12/08/2021, 08/19 Medical Devices Implanted Type Area Tank Truck Operator Device Identifier Shelf Expiration Date Model / Serial / Lot [employer] Kelman Multiflex Iii 5.5mm 13mm 1 Piece Uv Absorbent Anterior [id number] - [id number] - [id number] Implanted:Qty: 1 on 08/12/2022 by Isaac Villar MD at [facility] [place] Lens Right: Eye [employer] [id number] 05/18/2024 [id number] / [id number] / Mid Rin Transplant Srvcs Implant Cornea Pkp Right Hypothermic V0003 - [id number] Od1 - [id number] Implanted:Qty: 1 on 08/12/2022 by Isaac Villar MD at [facility] [place] Right: Eye 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 V0003 / [id number] OD1 / [id number] [employer]ource Canpac Allograft Frozen Nonpurge Graft 10cc Bone Cancellous [id number] - [id number] Implanted:Qty: 1 on 03/31/2023 by Renny Kong MD at [facility] N/A: Cervical -Thoraci c Spine Allosource 02/02/2028 [id number] / / [id number] Depuy Synthes Spine Mountaineer 3.5mm Inner Spine Occipital Screw Bone Nonsterile Latex Free [id number] - [id number] Implanted:Qty: 1 on 03/31/2023 by Renny Kong MD at [facility] N/A: Cervical -Thoraci c Spine Depuy Synthes Spine [id number] / / Depuy Synthes Spine Screw Spinal Set Posterior Cervical Solid Symphony Titanium [id number] - [id number] Implanted:Qty: 8 on 03/31/2023 by Renny Kong MD at [facility] N/A: Cervical -Thoraci c Spine Depuy Synthes Spine [id number] / / Depuy Synthes Spine Cnctr José 3.5-4mm Symphony Spine Reduction [id number] - [id number] Implanted:Qty: 2 on 03/31/2023 by Renny Kong MD at [facility] N/A: Cervical -Thoraci c Spine Depuy Synthes Spine [id number] / / Depuy Synthes Spine 5.5mm 32mm Ply Spine Pedicle Screw Bone Nonsterile 4mm José [id number] - [id number] Implanted:Qty: 2 on 03/31/2023 by Renny Kong MD at [facility] N/A: Cervical -Thoraci c Spine Depuy Synthes Spine [id number] / / Depuy Synthes Spine 5.5mm 34mm Ply Spine Pedicle Screw Bone Nonsterile 4mm José [id number] - [id number] Implanted:Qty: 2 on 03/31/2023 by Renny Kong MD at [facility] N/A: Cervical -Thoraci c Spine Depuy Synthes Spine [id number] / / Depuy Synthes Spine 4mm 240mm Straight José Spinal Cocr [id number] - [id number] Implanted:Qty: 1 on 03/31/2023 by Renny Kong MD at [facility] N/A: Cervical -Thoraci c Spine Depuy Synthes Spine [id number] / / Procedures Procedure Name Priority Date/Time Associated Diagnosis Comments CT LUNG CANCER SCREENING Schedule Routine, Read Routine (OP Routine) 11/14/2021 9:05 AM MANAGER [employer] Former heavy tobacco smoker from Last 3 Months or Most Recently Relevant to Health Maintenance Results * CT Lung Cancer Screening (11/14/2021 9:05 AM MANAGER HELPDESK) Anatomical Region Laterality Modality Chest N/A Computed Tomogra phy 11/15/2021 8:57 AM MANAGER HELPDESK Impressions 11/15/2021 9:04 AM MANAGER HELPDESK 1. Moderate to severe pulmonary emphysema, stable. 2. Calcified pleural plaques as can be seen with prior asbestos exposure. 3. No suspicious pulmonary nodularity. 4. Coronary artery calcifications. Lung-RADS v1.1 category 1: Negative. Recommendation: Continue annual screening low-dose chest CT in 12 months. THIS IS AN ELECTRONICALLY VERIFIED FINAL REPORT 11/15/2021 9:04 AM - Electronically signed by Rukhsana Pop M.D. TB T: Report ID: [id number] Reading Location: [facility] Narrative 11/15/2021 9:04 AM MANAGER HELPDESK EXAM DESCRIPTION: CT LUNG CANCER SCREENING REASON FOR STUDY: Screening CT of the chest in a former smoker with a 59 pack year smoking history. Additional history: Exposure to excessive dust and cold smoker. History of hypertension and emphysema.. TECHNIQUE: Low dose CT scan of the chest was performed without intravenous contrast using helical scanning technique. The exam extends from the lung apices through the lung bases. Automatic exposure control was used as a dose optimization technique. NOTE: This study was performed for the specific purposes of lung cancer screening and is not an alternative to diagnostic chest CT. RADIATION DOSE: CT dose index volume (CTDIvol) = 1.71 mGy COMPARISON: 11/16/2020 and 11/15/2019 FINDINGS: SMOKING RELATED LUNG DISEASE: There is a background of moderate to severe pulmonary emphysema. This is upper lobe predominant. LUNG NODULES: 4 mm nodular opacity in the juxtapleural left lower lobe on image number 273 is stable from prior examinations likely associated with the pleura as opposed to a pulmonary nodule. No new suspicious pulmonary nodule within either lung. OTHER: There is some bronchial wall thickening. There are calcified pleural plaques which can be seen with asbestos exposure, stable. No pneumonic consolidation. No effusion or pneumothorax. The thyroid gland is stable in appearance. There is no mediastinal or hilar lymphadenopathy. Scattered nodes are stable compared to the previous examinations. The esophagus is unremarkable. The heart is stable in size. There are coronary artery calcifications. There is atherosclerotic calcification of the thoracic aorta, without aneurysm. No axillary adenopathy. The chest wall is unremarkable in appearance. Visualized upper abdomen reveals atherosclerotic vascular calcifications. Degenerative changes in the spine, without acute process. Varun Calderon MD IMG CT PROCEDURES Final Resu lt from Last 3 Months or Most Recently Relevant to Health Maintenance Insurance [employer] [facility] MEDICARE ADVANTAGE [facility] MEDICARE ADVANTAGE [facility] MEDICARE ADVANTAGE [employer] UHC MEDICARE ADVANTAGE Advance Directives For more information, please contact: [phone] Documents on File Type Date Recorded Patient Paint Stripper Expl anation ADVANCE DIRECTIVE 03/31/2023 8:18 AM Power of Director Of Public Safety-Medical * Full Code (Latest Code Status on File) Date Activated Date Inactivated Comments 05/04/2024 8:26 PM 05/16/2024 5:40 PM * Full Code Date Activated Date Inactivated Comments 03/31/2023 5:40 PM 04/03/2023 8:29 PM Care Teams Ug Designer Relationship Specialty Start Date End Date Bo Chang MD [address] [place] [address] PCP - General 02/04/17 Luis A Pang DO [address] [place] [address] Regrinder Operator Cardiology 12/06/19 Rosalinda Chappell OD [address] [place] [address] Primary Eye Care Provider Optometry 06/30/22 Yury Novoa MD [address] [facility] [address] [place] [address] Consulting Physician Nephrology 06/30/22 Varun Calderon MD [address] [facility] [address] [place] [address] Consulting Physician Pulmonary Disease 06/30/22 Jeet Donohue MD [facility]0 [facility] [address] [place] [address] Referring Physician Ophthalmology 06/30/22 Dalton Kevin OD [address] [place] [address] [place] [address] Primary Eye Care Provider Business Systems Consultant 06/30/22 Lesly Schultz MD PhD [address] [facility] DEPT OPHTHALMOLOGY, [address] [place] [address] Consulting Physician Cornea Ophthalmology 07/07/23
--- OUTSIDE RECORDS SUMMARY | 2025-05-02 07:06 | XMS_ITS | Referral Summary ---
Author Organization [facility] Address [address] [place] [address] Care Team Providers Care Employee Relations Assistant Name Role Phone Bo Chang MD Primary Care Provider [phone] Bird Luis A Fariba DO Unavailable Rosalinda Chappell OD Unavailable Yury Novoa MD Unavailable [phone] Varun Calderon MD Unavailable Jeet Donohue MD Unavailable Dalton Kevin OD Unavailable [phone] Lesly Schultz MD PhD Unavailable [phone] Encounters Date Type Department Care Team Description 02/16/2025 1:00 PM CDT Office Visit [facility] Pulmonology [address] [place] [address] [place] [phone] Varun Calderon MD Personal history of nicotine dependence (Primary Dx); Chronic obstructive pulmonary disease, unspecified COPD type (HCC); Shortness of breath from Last 3 Months Allergies No known active allergies Medications aspirin [...] 1 tablet/capsule (400 Units total) by mouth dental office assistant before breakfast Takes 1 tablet in AM [...] (05/14/2024 2:41 PM CDT): Admitted 04/17-04/27 to [facility] found to have acute panc w/ peripanc fluid collection and small ascites. MRCP 04/18 w/ acute interstitial panc w/ loculated acute peripanc fluid collection. Also had elevated bili and CT revealed stone at ampulla. S/p ERCP 04/22 w/ spincterotomy w/ 10mm dilation in CBD w/o stricture, s/p BD sweeping. Plan was to perform interval CCK. Returned to [place] within 24h of discharge on 04/28 due [...] wants to get done locally at home ([place]) Anemia 05/04/2024 Assessment & Plan (06/03/2024 12:05 [...] 5 mg HS and valsartan b.i.d. 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 Nails) he plans to f/u with [...] 08/20/2018 05/17/2024 Tobacco dependence syndrome 08/20/2018 05/17/2024 Immunizations Immunization Administration Dates Next Due Influenza [...] Pcv20 12/08/2021 Sars-CoV-2, Unspecified 01/17/2021,12/20/2020 Tdap 08/25/2013 Social History Tobacco Use Types Packs/Day Years [...] on file Legal Sex Male 1:12 AM DATABASES COMPUTER CONSULTANT Gender Identity Not on file Sexual Orientation [...] Mass Index 26.06 02/16/2025 12:57 PM CDT Functional Status * Is this person blind or does he/she have serious difficulty seeing even when wearing glasses? Answer Date of Assessment Author Yes 04/16/2023 1:43 PM CDT Plan of Treatment Not on file Medical Devices Implanted Type Area Echocardiography Tech Device Identifier Shelf Expiration Date Model / Serial / Lot Jamshid [employer] Kelman Multiflex Iii 5.5mm 13mm 1 Piece Uv Absorbent Anterior [id number] - [id number] - [id number] Implanted:Qty: 1 on 08/12/2022 by Isaac Villar MD at [facility] Lens Right: Eye [employer] [id number] 05/18/2024 [id number] / [id number] / Mid Rin Transplant Srvcs Implant Cornea Pkp Right Hypothermic V0003 - [id number] Od1 - [id number] Implanted:Qty: 1 on 08/12/2022 by Isaac Villar MD at [facility] Right: Eye 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 V0003 / [id number] OD1 / [id number] Allosource Canpac Allograft Frozen Nonpurge Graft 10cc Bone Cancellous [id number] - [id number] Implanted:Qty: 1 on 03/31/2023 by Renny Kong MD at [facility] N/A: Cervical -Thoraci c Spine Allosource 02/02/2028 [id number] / / [id number] Depuy Synthes Spine Mountaineer 3.5mm Inner Spine Occipital Screw Bone Nonsterile Latex Free [id number] - [id number] Implanted:Qty: 1 on 03/31/2023 by Renny Kong MD at [facility] N/A: Cervical -Thoraci c Spine Depuy Synthes Spine [id number] / / Depuy Synthes Spine Screw Spinal Set Posterior Cervical Solid Symphony Titanium [id number] - [id number] Implanted:Qty: 8 on 03/31/2023 by Renny Kong MD at [facility] N/A: Cervical -Thoraci c Spine Depuy Synthes Spine [id number] / / Depuy Synthes Spine Cnctr José 3.5-4mm Symphony Spine Reduction [id number] - [id number] Implanted:Qty: 2 on 03/31/2023 by Renny Kong MD at [facility] N/A: Cervical -Thoraci c Spine Depuy Synthes Spine [id number] / / Depuy Synthes Spine 5.5mm 32mm Ply Spine Pedicle Screw Bone Nonsterile 4mm José [id number] - [id number] Implanted:Qty: 2 on 03/31/2023 by Renny Kong MD at [facility] N/A: Cervical -Thoraci c Spine Depuy Synthes Spine [id number] / / Depuy Synthes Spine 5.5mm 34mm Ply Spine Pedicle Screw Bone Nonsterile 4mm José [id number] - [id number] Implanted:Qty: 2 on 03/31/2023 by Renny Kong MD at [facility] N/A: Cervical -Thoraci c Spine Depuy Synthes Spine [id number] / / Depuy Synthes Spine 4mm 240mm Straight José Spinal Cocr [id number] - [id number] Implanted:Qty: 1 on 03/31/2023 by Renny Kong MD at [facility] N/A: Cervical -Thoraci c Spine Depuy Synthes Spine [id number] / / Procedures Procedure Name Priority Date/Time Associated Diagnosis Comments CT LUNG CANCER SCREENING Schedule Routine, Read Routine (OP Routine) 11/14/2021 9:05 AM DATABASES COMPUTER CONSULTANT Former heavy tobacco smoker from Last 3 Months or Most Recently Relevant to Health Maintenance Results * CT Lung Cancer Screening (11/14/2021 9:05 AM DATABASES COMPUTER CONSULTANT) Anatomical Region Laterality Modality Chest N/A Computed Tomogra phy 11/15/2021 8:57 AM DATABASES COMPUTER CONSULTANT Impressions 11/15/2021 9:04 AM DATABASES COMPUTER CONSULTANT 1. Moderate to severe pulmonary emphysema, stable. [...] Rukhsana Pop M.D. TB T: Report ID: [id number] Reading [facility] Narrative 11/15/2021 9:04 AM DATABASES COMPUTER CONSULTANT EXAM DESCRIPTION: CT LUNG CANCER SCREENING REASON [...] spine, without acute process. Varun Calderon MD IM CT PROCEDURES Final Resu lt from Last 3 Months or Most Recently Relevant to Health Maintenance Insurance [facility] MEDICARE ADVANTAGE [facility] Address: [address] [address] [place] [address] [facility] MEDIC[facility]ANT[facility] Address: [address] [address] [place] [address] [facility] UHC MEDICARE ADVANTAGE [employer] UHC MEDICARE ADVANTAGE Advance Directives For more information, please contact: [phone] Documents on File Type Date Recorded Patient Marshmallow Machine Worker Expl anation ADVANCE DIRECTIVE 03/31/2023 8:18 AM Power of Director Occupational-Medical * Full Code (Latest Code Status on File) Date Activated Date Inactivated Comments 05/04/2024 8:26 PM 05/16/2024 5:40 PM * Full Code Date Activated Date Inactivated Comments 03/31/2023 5:40 PM 04/03/2023 8:29 PM Care Teams Employee Relations Assistant Relationship Specialty Start Date End Date Bo Chang MD [address] [facility] [address] [place] [address] PCP - General 02/04/17 Luis A Pang DO [address] [facility] 162 [facility] 202 [place] [address] Care Nurse Rn Cardiology 12/06/19 Rosalinda Chappell OD [address] [place] [address] Primary Eye Care Provider Optometry 06/30/22 Yury Novoa MD [facility] [place] [address] Consulting Physician Nephrology 06/30/22 Varun Calderon MD [address] [place] [address] [address] [place] [address] Consulting Physician Pulmonary Disease 06/30/22 Jeet Donohue MD [address] [place] [address] [address] [place] [address] Referring Physician Ophthalmology 06/30/22 Dalton Kevin [place] [address] Primary Eye Care Provider Leadership Development Manager 06/30/22 Lesly Schultz MD PhD [address] [facility] OPHTHALMOLOGY, [address] [place] [address] Consulting Physician Cornea Ophthalmology 07/07/23
--- OUTSIDE RECORDS SUMMARY | 2025-05-02 07:06 | XMS_ITS | Encounter Summary ---
Author Organization [facility] Address [address] [place] [address] Phone Care Team Providers Care Enrollment Processor Name Role Phone Bo Chang MD Primary Care Provider [phone] Luis A Pang DO Unavailable [phone] Rosalinda Chappell OD Unavailable [phone] Yury Novoa MD Unavailable [phone] Varun Calderon MD Unavailable [phone] Jeet Donohue MD Unavailable [phone] Dalton Kevin OD Unavailable [phone] Isaac Villar MD Unavailable [phone] Av Howe MD PhD Unavailable [phone] Lesly Schultz MD PhD Unavailable [phone] Encounter Details Date Type Department Care Team (Latest Contact Info) Description 08/26/2018 Orders Only [facility] Scanning, Provider Social History Tobacco Use Types Packs/Day Years Used Date Smoking Tobacco: Never Assessed Sex and Gender Information Value Date Recorded Sex Assigned at Not on file Legal Sex Male 1:12 AM OPERATIONS SECTION MANAGER Gender Identity Not on file Sexual Orientation Not on file documented as of this encounter Plan of Treatment Not on file documented as of this encounter Procedures Procedure Name Priority Date/Time Associated Diagnosis Comments SCAN - RADIOLOGY/IMAGING 08/26/2018 documented in this encounter Results * SCAN - RADIOLOGY/IMAGING (08/26/2018) Anatomical Region Laterality Modality Other us Provider Scanning Final Result documented in this encounter Visit Diagnoses Not on filedocumented in this encounter Care Teams Enrollment Processor Relationship Specialty Start Date End Date Bo Chang MD [address] [place] [address] PCP - General 02/04/17 Luis A Pang DO [address] [place] [address] Hat Brim And Crown Laminating Operator Cardiology 12/06/19 Rosalinda Chappell OD [address] [place] [address] Primary Eye Care Provider Optometry 06/30/22 Yury Novoa MD [address] [facility] [address] [place] [address] Consulting Physician Nephrology 06/30/22 Varun Calderon MD [address] [facility] [address] [place] [address] Consulting Physician Pulmonary Disease 06/30/22 Jeet Donohue MD [address] [facility] [address] [place] [address] Referring Physician Ophthalmology 06/30/22 Dalton Kevin OD [address] [place] [address] Primary Eye Care Provider Metallurgy Teacher 06/30/22 Isaac Villar MD [address] [facility] [facility], [address] [address] Surgeon Cornea Ophthalmology 08/01/22 07/06/23 Av Howe MD PhD [address] [facility] OPHTHALMOLOGY, [address] [place] [phone] Consulting Physician Cornea Ophthalmology 05/13/2306/19 Lesly Schultz MD PhD [address] [facility] OPHTHALMOLOGY, [address] [place] [phone] Consulting Physician Cornea Ophthalmology 07/07/23 documented as of this encounter
--- OUTSIDE RECORDS SUMMARY | 2025-05-02 07:07 | XMS_ITS | Data Portability ---
Author Organization [facility] OFFICE Address [address] [place] [address] Care Team Providers Care Preparatory Technician Name Role Phone FLOWER REYNOSO Primary Care Provider FLOWER REYNOSO Referring Provider [phone] FLOWER REYNOSO Primary Care Provider [phone] Assessment No assessment recorded. Plan of Treatment Reminders Order Date Submit Date Provider Last Modified By Organization Details Last Modified Time Details Appointments None recorded . Lab None recorded . Referral None recorded . Procedures None recorded . Surgeries None recorded . Imaging electroc ardiogra m 2017 018 NIC Not available 8 15:17:09 electroc ardiogra m 2017 018 oalmousalli Not available 8 17:20:54 Medication Orders Fish Oil 1,000 mg (120 mg-180 mg) capsule 2017 018 [facility] #57797, [address], [place], [id number], 8 15:17:10 Crestor 5 mg tablet 2017 018 [facility] #96080, [address], [place], [id number], 8 15:16:13 omeprazo le 20 mg capsule, delayed release 2017 018 [facility] #37102, [address], [place], [phone], 8 15:01:42 Patient TargetsNo targets recorded. Patient Instructions Encounter Date Encounter Id Patient Instructions Last Modified By Organization Details Last Modified Time 08/24/2018 [id number] Exercise advised Low cholesterol diet advised Low sodium diet advised. eric Not available 08/24/2018 17:20:49 Reason for Referral None Reported. Results Created Date Observation Date Name Description Value Unit Range Abnormal Flag Note LastModifiedBy Organization Detail LastModifiedTime 08/24/20 18 08/24/2018 elect rocar diogr am Result sinus rhythm P normal QRS normal ST-T normal conclu [place] normal ECG Not Available Jame Min MD [address], [place], [address], 08/24/2018 17:10:17 08/24/20 18 08/16/2018 XR, chest No observ ation record ed. [email or web address] Not Available 2017 13:43:37 08/24/20 18 08/24/2018 elect rocar diogr am No observ ation record ed. [email or web address] Not Available 2017 10:57:08 08/24/20 18 08/17/2018 US, echoc ardio gram No observ ation record ed. hmesto Not Available 2017 10:11:05 08/24/20 18 08/17/2018 cardi ac stres s test No observ ation record ed. Not Available 02/02 11:10:27 09/13/20 18 09/01/2018 CT, angio gram, coron susan arter ies, w/ contr ast No observ ation record ed. [email or web address] Not Available 02/02 10:37:09 Result Notes Documentation Provider Name and Address Organization Details Recorded Time Cmp, Serum Or Plasma : 08/24/18:SOD 140,K 4.7,CL 109,CO2 24,GLU 103,BUN 29,CR 1.5 . RAFAL Dozier - [facility] 09/10/2018 17:28:44 Xr, Chest : XR, Chest 08/16/18:no Acute cardiopulmonary disease. RAFAL Dozier - [facility] 08/25/2018 13:43:38 Problems Name Problem SNOMED Code Status Onset Date Resolution Date Notes Provider Name and Address Organization Details Recorded Time Palpitation s 25187531 Active 2017 Nilda Grmialdoxuan [facility], [place] - [facility] 8 14:50:22 Coronary arterioscle rosis 53903977 Active 2017 Nilda Grimaldoxuan [facility] [place] - [facility] 8 14:50:34 Ventricular premature beats 46900986 Completed 201708/24/2018 Brenda Collins [facility] [place] [facility] 8 17:00:51 Tobacco dependence syndrome 11221684 Active 2017 Munguia Mesxuan [facility] [facility] 8 14:56:44 Dyspnea 879275816 Active 2017 Jane Tabaresabi [facility] - [facility] 8 12:28:32 Disorder of carotid artery 107498559 Active 2017 Jane Tabaresabi [facility] [place] [facility] 8 12:29:05 Smoker 94777709 Active 2017 Jane Tabaresabi [place], [place] [facility] 8 12:29:17 Hypertensiv e disorder 53363848 Active 2017 Brenda Collins [facility] [facility] 8 17:01:01 Chronic kidney disease 232075839 Active 2017 Fela Lombardosanjuana [facility] [place] - [facility] 8 11:59:06 Dyslipidemi a 157160117 Active 2018 Nilda Grimaldoxuan [facility] [place] [facility] 9 12:29:03 Multifocal premature ventricular complexes 72612616 Active 2018 Nilda Grimaldoxuan [facility] [facility] 9 12:29:19 Angina pectoris 002996174 Active 2018 Munguia Mesxuan [facility] [facility] 9 12:29:36 Sinus bradycardia 64928799 Active 2018 Munguia Dillanxuan [facility] [facility] 9 12:29:51 Problem Notes None recorded. Procedures Surgical History Date Name Laterality Status Provider Name and Address Organization Details Recorded Time Back Surgery completed Brenda Collins [place] - [facility] 08/24/2018 17:00:14 Imaging Results None recorded. Procedure Notes None recorded. Medical Equipment None Reported. Allergies No known drug allergies Medications Name Sig Start Date Stop Date Status Note LastModified by Organization Details LastModified Time losartan 50 mg tablet Take 1 tablet every day by oral route as directed. active Not Available Not Available No t Available amoxicilli n 500 mg capsule 08/24 completed Not Available Not Available Not Available Toprol XL 25 mg tablet,ext ended release Take 1 tablet every day by oral route. 09/14 completed Not Available Not Available Not Available albuterol sulfate 2.5 mg/3 mL (0.083 %) solution for nebulizati on active Not Available Not Available Not Available valacyclov ir 1 gram tablet Take 1 tablet every day by oral route as directed for 90 days. active Not Available Not Available No t Available Zocor 10 mg tablet Take 1 tablet every day by oral route. 08/24 completed Not Available Not Available Not Available alprazolam 0.25 mg tablet active Not Available Not Available Not Available oseltamivi r 75 mg capsule 08/24 completed Not Available Not Available Not Available lisinopril 10 mg tablet Take 1 tablet every day by oral route. 08/24 completed Not Available Not Available Not Available losartan 25 mg tablet Take 1 tablet every day by oral route as directed for 90 days. 09/14 completed Not Available Not Available Not Available omeprazole 20 mg capsule,de layed release Take 1 capsule every day by oral route. 09/14 completed Not Available Not Available Not Available methylpred nisolone 4 mg tablets in a dose pack active Not Available Not Available Not Available cefdinir 300 mg capsule active Not Available Not Available Not Available fluticason e propionate 50 mcg/actuat ion nasal spray,susp ension 08/24 completed Not Available Not Available Not Available finasterid e 5 mg tablet 08/24 completed Not Available Not Available Not Available amoxicilli n 875 mg-potassi um clavulanat e 125 mg tablet 08/24 completed Not Available Not Available Not Available rosuvastat in 5 mg tablet Take 1 tablet every day by oral route. active Not Available Not Available No t Available Aspir-81 qd active pt take it 1 tab once every 24 hours Not Available Not Available Not Available ProAir HFA 90 mcg/actuat ion aerosol inhaler active Not Available Not Available Not Available Chantix Starting Month Box 0.5 mg (11)-1 mg (42) tablets in dose pack 08/24 completed Not Available Not Available Not Available Dymista 137 mcg-50 mcg/spray nasal spray active Not Available Not Available Not Available Anoro Ellipta 62.5 mcg-25 mcg/actuat ion powder for inhalation active Not Available Not Available N ot Available Fish Oil 1,000 mg (120 mg-180 mg) capsule Take 2 capsules every day by oral route. 2017 active Not Available Not Available Not Avai lable Trelegy Ellipta 100 mcg-62.5 mcg-25 mcg powder for inhalation active Not Available Not Available N ot Available Adult Aspirin Regimen 81 mg tablet,del ayed release Take 1 tablet every day by oral route. 08/24 completed Not Available Not Available Not Available Fluzone High-Dose 3961-2427 (PF) 180 mcg/0.5 mL intramuscu lar syringe 08/24 completed Not Available Not Available Not Available Vitals Date Recorded Body weight Body mass index (BMI) Body height Heart rate Oxygen saturation Oxygen saturation in Arterial blood by Pulse oximetry Systolic And Diastolic Provider Name and Address Organization Details Last Updated DateTime 8 33968.3 3 g 24.8 kg/m2 187.96 cm 70 /min 96 % 96 % 120/64 mm[Hg] Brenda Collins [facility] 8 17:10:00 Date Recorded Body height Body mass index (BMI) Body weight Oxygen saturation Oxygen saturation in Arterial blood by Pulse oximetry Heart rate Systolic And Diastolic Provider Name and Address Organization Details Last Updated DateTime 8 187.96 cm 25.3 kg/m2 67558.7 g 97 % 97 % 84 /min 120/70 mm[Hg] CAITLYN Carver [facility] 8 14:56:26 Social History Question Answer Notes LastModified by Organizat ion Details LastModified Time Tobacco Smoking Status Former Smoker 06/24/2018 Brenda paz [facility] 08/24/2018 16:59:38 What Is Your Level Of Caffeine Consumption? Occasional Information not available 08/24/2018 How Much Tobacco Do You Chew? None Information not available 08/24/2018 What Type Of Diet Are You Following? SPECIFIC Information not available 08/24/2018 Marital Status Information not available 08/24/2018 What Was The Date Of Your Most Recent Tobacco Screening? 08/24/2018 Information not available 05/12/2019 How Many Children Do You Have? 1 Information not available 08/24/2018 How Much Tobacco Do You Smoke? No Information not available 08/24/2018 Sex: Unknown Functional Status Question Answer Note LastModified by Organization D etails LastModified Time What is your level of alcohol consumption? None Information not available 08/24/2018 What is your exercise level? None Information not available 08/24/2018 Mental Status None recorded. Family History Relationship Description Onset Age of this Age Resolved Age Notes LastModified by Organization Details LastModified Time Mother Myocardial infarction 85 [email or web address] Not available 08/20 14:52:40 Mother Hypertensive disorder hmesto Not available 2017 14:53:12 Brother Diabetes mellitus [email or web address] Not available 2017 16:59:07 Medical History Condition Response Coronary Artery Disease Y Past Encounters Encounter ID Performer Location Encounter Start Date Encounter Closed Date Diagnosis/Indication Diagnosis SNOMED-CT Code Diagnosis ICD10 Code Diagnosis Note [id number] Jame Min MD [place] [facility] [place] [address] 08/24/2018 15:46:04 08/24/2018 17:30:45 Coronary arteriosclerosis in [place] artery 0842573236 107 I25.10 Angina pectoris 80447959 0 I20.9 Will arrange for cardiac CTA, he has high Pelican Risk score. he would benefit from CT to look for any Coronary Artery Disease Multifocal premature ventricular complexes 50710079 I49.3 Dyslipidemia 651293523 E 78.5 [id number] Jame Min MD [place] [address] [place] [address] 09/14/2018 14:30:50 09/14/2018 15:17:42 Coronary arteriosclerosis in [place] artery 5410055656 107 I25.10 Moderate on CTAmaximal Medical treatment Angina pectoris 76681156 0 I20.9 stable now Multifocal premature ventricular complexes 40544163 I49.3 Dyslipidemia 694134183 E 78.5 Sinus bradycardia 815319 05 R00.1 OK To dc [facility] Health Concerns Section Related Observation LastModified by Organization Detai ls LastModified Time None Recorded Concern Status LastModified by Organization Details LastModified Time None Recorded Advance Directives Directive None Recorded Payers Insurance Date Sequence Insurance Name Policy Number Policy Montemayor Covered Member ID Montemayor Member ID Guarantor Name 08/23/2018 1 [facility] (MEDICARE REPLACEMENT/A DVANTAGE - PPO) [id number] Rc Rodríguez [id number] 12/11/2018 2 [place] [facility] Jacob Rodríguez [id number] 12/11/2018 1 [facility] (MEDICARE REPLACEMENT/A DVANTAGE - HMO) [id number] Rc Carver Marcos [id number] Notes Date Note Type Note Provider Name and Address Organization Details Recorded Time 08/24/2018 text/html CC: chest pain 73 year-old man with history of COPD, and dyslipidemia, presents for cardiac consultation with a chief complaint of chest pain, he was in the hospital with chest pain, and Palpitation, had a negative stress test. Results from this visit, or from the past: Jame Min MD [address] [place], [address], [facility] 08/24/2018 17:30:43 09/14/2018 text/html 09/14/18 CC : 73 year old White Man with coronary artery disease and smoking , is here for cardiac follow up Had ECHO done in 08/17/18 showed mild LV , normal LV systolic function, EF 55% . He had side effect from Zocor with muscle ache and fatigue from Beta Blockers, Had bradycardia, and Metoprolol was stopped. No chest pain. No shortness of breath at rest. Reported dyspnea on exertion. No orthopnea. No PND's . No dizziness. No palpitations. No syncope or near syncope. No leg swelling. No nausea and vomiting. 01/09/11 sodium 140 potassium 5.7 chloride 105, co2 25 glucose 98 BUN 22 creatinine 1.17 03/13/11 sinus rhythm frequent ectopic 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 STRESS TEST: 2/7/11 SE: Positive stress echo. Mild exercise tolerance. peripheral vascular disease noted. CARDIAC CATHETERIZATION: 11/28/10: Non-ischemic cardiomyopathy, with moderate left ventricular dysfunction, likely not related to coronary artery disease, as he has mild disease. Single-vessel coronary artery disease, but with very small right coronary artery, a nondominant vessel, not amenable for treatment because of small size.Results from this visit, or from the past:08/24/18:SOD 140,K 4.7,CL 109,CO2 24,GLU 103,BUN 29,CR 1.5 . EKG 08/24/18 : sinus rhythm P normal QRS normal ST-T normal conclusion normal ECG ECHO 08/17/18:Normal LV systolic function, no focal wall motion abnormality, normal LV size,mild LVH, normal global LV systolic function,EF 55%. XR, Chest 08/16/18:no Acute cardiopulmonary disease. Jame Min MD [address] [place], [address], [facility] - [facility] 09/14/2018 15:17:39
--- NOTE | 2025-05-02 07:42 | ECHO_ITS ---
Patient Info Name: Rc Rodríguez Age: 79 years : 1945 Gender: Male Ht: 74 in Wt: 205 lbs BSA: 2.21 m2 HR: 67 bpm BP: 140 / 77 mmHg Technical Quality: Good Exam Date: 05/02/2025 8:08 AM Patient Status: O Admit Date: 05/02/2025 Exam Type: CA echo dop color flow w con Complete two-dimensional, color flow and Doppler transthoracic echocardiogram is performed with contrast to opacify the left ventricle and to improve the deliniation of the left ventricle endocardial borders. Healthcare Administration Intern: Kamini Solis Attending Provider: Luis A Pang DO Contrast/Agitated Saline Contrast/Ag. Saline: Definity Amount: 2.00 ml Administered By: Kamini Solis Existing IV Access: No IV Access Condition: patent with no signs of infiltration New IV Access: Antecubital Space and Left Summary 1. Definity contrast administered improved wall motion interpretation. 2. Left ventricular chamber dimension is mildly enlarged. 3. Left ventricular systolic function is mildly reduced, estimated at 45-50. 4. The left ventricular diastolic function is grade I diastolic dysfunction. 5. E/e' 8 is minimally elevated. 6. There is moderate aortic valve sclerosis. 7. There is mild mitral valve regurgitation. Left Ventricle E/e' 8 is minimally elevated. Left ventricular chamber dimension is mildly enlarged. Left ventricular systolic function is mildly reduced, estimated at 45-50. The left ventricular diastolic function is grade I diastolic dysfunction. Definity contrast administered improved wall motion interpretation. Right Ventricle Right ventricular chamber dimension is normal. Right ventricular systolic function is normal and with normal TAPSE 1.8 cm. Left Atria Left atrial chamber dimension is normal. Right Atria Right atrial chamber dimension is normal. Aortic Valve The aortic valve is trileaflet. There is moderate aortic valve sclerosis. There is no aortic valve stenosis. There is no aortic valve regurgitation. Pulmonic Valve There is no pulmonic regurgitation. Mitral Valve There is no mitral valve stenosis. There is mild mitral valve regurgitation. Tricuspid Valve There is no tricuspid valve regurgitation. Pericardium/Pleural There is no pericardial effusion. Inferior Vena Cava Normal inferior vena cava with >50% collapse upon inspiration consistent with normal right atrial pressure, 5 mmHg. Aorta The aortic root size at the sinus of Valsalva is normal. Left Ventricular Outflow Tract Name Value Normal LVOT 2D LVOT Diameter 2.0 cm LVOT Doppler LVOT Peak Velocity 99 cm/s LVOT Peak Gradient 4 mmHg LVOT Mean Gradient 2 mmHg LVOT VTI 27 cm LVOT Stroke Volume 85 ml LVOT CO 5.7 l/min LVOT CI 2.6 l/min/m2 Pulmonic Valve Name Value Normal RVOT Doppler RVOT Peak Velocity 53 cm/s RVOT Peak Gradient 1 mmHg PV Doppler PV Peak Velocity 69 cm/s PV Peak Gradient 2 mmHg Mitral Valve Name Value Normal MV Diastolic Function MV E Peak Velocity 59 cm/s MV A Peak Velocity 87 cm/s MV E/A 0.7 MV Decel Time (PW) 274 ms MV Annular TDI MV E/e' (Septal) 8.8 MV E/e' (Lateral) 7.3 MV E/e' (Average) 8.1 Tricuspid Valve Name Value Normal Estimated PAP/RSVP RA Pressure 5 mmHg <=5 Aortic Valve Name Value Normal AV Doppler AV Peak Velocity 168 cm/s AV Peak Gradient 11 mmHg AV Area (Cont Eq Shad) 1.9 cm2 AV DI (Shad) 0.59 AV Regurgitation 2D LVOT Area 3.1 cm2 Ventricles Name Value Normal LV Dimensions 2D/MM IVS Diastolic Thickness (2D) 1.0 cm 0.6-1.0 LVID Diastole (2D) 5.8 cm 4.2-5.8 LVIW Diastolic Thickness (2D) 1.0 cm 0.6-1.0 LVID Systole (2D) 4.5 cm 2.5-4.0 LVOT Diameter 2.0 cm LV Mass (2D Cubed) 244.29 g 88.00-224.00 LV Mass Index (2D Cubed) 110 g/m2 49-115 Relative Wall Thickness (2D) 0.35 <=0.42 LV Fractional Shortening/Ejection Fraction 2D/MM LV Fractional Shortening (2D) 22 % 25-43 LV EF (2D Teichholz) 44 % LV Diastolic Volume (4C MOD) 109 ml LV EF (4C MOD) 56 % LV Diastolic Volume (2C MOD) 107 ml LV EF (2C MOD) 44 % LV Diastolic Volume (BP MOD) 109 ml 62-150 LV Diastolic Volume Index (BP MOD) 49 ml/m2 34-74 LV Systolic Volume (BP MOD) 55 ml 21-61 LV Systolic Volume Index (BP MOD) 25 ml/m2 11-31 LV EF (BP MOD) 49 % 52-72 LV Diastolic Length (4C) 8.0 cm LV Systolic Length (4C) 7.2 cm LV Stroke Volume (4C MOD) 61 ml RV Dimensions 2D/MM TAPSE 1.8 cm >=1.7 Atria Name Value Normal LA Dimensions LA Volume (4C A-L) 32 ml LA Volume (BP A-L) 39 ml RA Dimensions RA Systolic Major [place] Length (4C) 5.3 cm 2.1-2.7 RA Area (4C) 16.2 cm2 <=18.0 Report Signatures
[2025-05-02] MEDS: PERFLUTREN LIPID MICROSPHERES 1.5 ML VIAL DILUTED TO 10 ML TOTAL VOLUME IV PUSH (08:40)
--- NOTE | 2025-05-02 08:57 | IVDEFINITY ---
Prior to administration of IV Definity the patient was educated on the risks and benefits of the imaging enhancing agent including potential adverse side effects. The patient verbalized understanding. Allergies were verified. No exclusion criteria were identified and at least one of the following inclusion criteria were met: 1) physician request, 2) patient technically difficult to image (per the [place] Society of Echocardiography guidelines of two or more segments not discernable within the apical view), or 3) questionable left ventricular function. ?
== END 2025-05-02 07:04 | disposition home or self-care (01) ==
PROVIDERS: PCP Family Medicine; Visit Provider Internal Medicine Cardiovascular Disease
DX: I51.89 Other ill-defined heart diseases (principal); I35.8 Other nonrheumatic aortic valve disorders; I34.0 Nonrheumatic mitral (valve) insufficiency
CPT/HCPCS: C8929; Q9957

== ENCOUNTER 2025-06-05 19:05 | Emergency (ER) | payer MEDICARE, MEDICAID, SELFPAY ==
--- NOTE | ~2025-06-05 | CT_ITS ---
EXAMINATION: CTA brain carotid DATE: 06/05/2025 19:37 CDT INDICATION: Left vision loss. TECHNIQUE: Computed tomographic angiography (CTA) of the head was performed without and with 100 mL O mnipaque-350 intravenous contrast. CTA of the neck was performed with intravenous contrast. The dose- length product was 1174.76 mGy-cm. Maximum intensity projection and volume rendered 3D-reconstruction s were created by the technologist on a separate workstation. COMPARISON: CT brain dated 06/05/2025 and carotid ultrasound dated 05/30/2013. FINDINGS: HEAD CTA: There is dominant right vertebral artery. No abnormality of the basilar artery. There is mi ld intracranial atherosclerosis. No evidence for aneurysm, significant stenosis or occlusion. NECK CTA: There is mild atherosclerosis of the proximal internal carotid arteries bilaterally. No marko dence for carotid dissection or occlusion. The origin of the carotid arteries and vertebral arteries are within normal limits. There is 39% stenosis of the proximal right internal carotid artery relative to normal distal artery lumen diameter (NASCET criteria). There is 27% stenosis of the proximal left internal carotid artery relative to normal distal artery lumen diameter. IMPRESSION: 1: No significant intracranial abnormality. 2: Mild atherosclerosis and narrowing of the internal carotid arteries. Reviewed, dictated and finalized at location A.
--- NOTE | ~2025-06-05 | CT_ITS ---
EXAMINATION: CT brain wo con DATE: 06/05/2025 19:20 INDICATION: Left vision loss. TECHNIQUE: Computed tomography (CT) of the head was performed without intravenous contrast. The dose- length product was 681.00 mGy-cm. Automated exposure control and iterative reconstruction technique w ere employed. COMPARISON: None FINDINGS: Mild generalized atrophy. No ventriculomegaly or midline shift. Basilar cisterns are patent . There is mild mucosal thickening of the maxillary and ethmoid sinuses. Mastoids are pneumatized. No depressed skull fractures. No acute intracranial hemorrhage, infarction, mass or mass effect. There are scattered mild periventricular and subcortical white matter changes, most likely related to small vessel ischemic disease (microangiopathy). IMPRESSION: 1. No acute intracranial abnormality. As per stroke protocol, I called these results to emergency room, discussed with the ER physician at 06/05/2025 19:28 CDT. Reviewed, dictated and finalized at location A. IMPRESSION: 1. No acute intracranial abnormality. As per stroke protocol, I called these results to emergency room, discussed wit h the ER physician at 06/05/2025 19:28 CDT.
--- OUTSIDE RECORDS SUMMARY | 2025-06-05 19:07 | XMS_ITS | Continuity of Care Document ---
Author Organization [facility] Address [address] [place] [address] Phone Care Team Providers Care Chiropractic Physician Name Role Phone Perri OD OD, Harinder Unavailable Unavailabl e Procedures Procedure Date Office/outpatient Visit, Est No Charge Refractive Evaluation 007 Office/outpatient Visit, Est Advance Directives Directive Yes / No Effective Date File Name No Information Encounters Encounter Description Practice Location Reason(s) For Visit Diagnoses Date Provider Providers Copied on Encounter Office/outpat ient Visit, Est [facility], [address], [place], [place], [id number], [place] tel:[phone] [facility] No Information 200 7 [place] OD Harinder. [address], [place], [address], [place]. tel:[phone] Referring Provider: Harinder Rayo OD P, [address] [place], [address] . tel:[phone] [facility], [address], [place], [place], [id number], [place] tel:[phone] [facility] No Information 1200 7 Reginoeny OD Harinder. [address], [place], [address], [place]. tel:[phone] Referring Provider: Harinder Rayo OD P, [address] [facility] [place], [address] . tel:[phone] Office/outpat ient Visit, [facility], [address], [place], [place], [address], [place] tel:[phone] [facility] No Information 0-200 7 Kevin OD [place]. [address], [place], [address], [place]. tel:[phone] Family History Family Member Type Diagnosis Age At Onset No Information Payers Payer name Insurance type Covered constitution party ID Authorallison richards(s) [facility] CI [id number] Social History Type Description Quantity Date Captured [...]
--- OUTSIDE RECORDS SUMMARY | 2025-06-05 19:07 | XMS_ITS | Clinical Summary ---
Author Organization [facility] Address [address] [place] [address] Phone Care Team Providers Care General Counselor Name Role Phone Bo Chang MD Primary Care Provider [phone] Allergies No known active allergies Medications atorvastatin [...] 0, 06/19/2020, 07/07/2019, Additional history exists [place] [address] [address] MEDICARE ADVANTAGE [place] Care Teams General Counselor Relationship Specialty Start Date End Date Bo Chang MD [address] [facility] [[email or web address] [address] [place] [address] PCP - General Internal Medicine 10/23/20
--- OUTSIDE RECORDS SUMMARY | 2025-06-05 19:07 | XMS_ITS | Clinical Summary ---
Author Organization [facility] Address [address] [place] [address] Care Team Providers Care Dean Of Men Name Role Phone Bo Chang MD Primary Care Provider Luis A Pang DO Unavailable Rosalinda Chappell OD Unavailable Yury Novoa MD Unavailable [phone] Varun Calderon MD Unavailable Jeet Donohue MD Unavailable Dalton Kevin OD Unavailable [phone] Lesly Schultz MD PhD Unavailable Allergies No known active allergies Medications aspirin 81 mg enteric coated tabletIndication s:prevention of thrombosis Take 1 tablet (81 mg total) by mouth nightly Active atorvastatin (LIPITOR) 20 mg tabletIndication s:hyperlipidemia Take 1 tablet (20 mg total) by mouth every morning 9 Active calcium carbonate (CALCIUM 600 ORAL)Indications :for supplement Take 600 mg by mouth 2 (two) times a day Active montelukast (SINGULAIR) 10 mg tabletIndication s:Maintenance Therapy for Asthma Take 1 tablet (10 mg total) by mouth nightly 1 Active cholecalciferol (Vitamin D3) 400 unit capsuleIndicatio ns:for supplement Take 1 tablet/capsule (400 Units total) by mouth 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 Schultz for continued refills. 180 tablet 4 Active ipratropium (ATROVENT) 21 mcg (0.03 %) nasal spray Administer 2 sprays into each nostril 2 (two) times a day 5 Active Breztri Aerosphere 160-9-4.8 mcg/actuation inhalerIndicatio ns:Chronic obstructive pulmonary disease, unspecified COPD type (HCC) USE 2 INHALATIONS BY MOUTH TWICE DAILY 32.1 g 3 5 Active Active Problems Problem Noted Date Diagnosed [...] was to perform interval CCK. Returned to [place] within 24h of discharge on 04/28 due [...] wants to get done locally at home ([place]) Anemia 05/04/2024 Assessment & Plan (06/03/2024 12:05 [...] (05/18/2024 12:04 PM CDT): BP stable, continue linda Almodovar Assessment & Plan (05/17/2024 3:31 PM CDT): [...] ongoing since admit) - has an outpatient special equipment technician (Dr. 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 Gender Identity Not on file Sexual [...] or Tdap) 08/25/2023 08/25/2013 Covid-19 Vaccine (7 - 2023-2 5 season) 2024 05/09/2022, 08/13/2021, 01/17/2021, Additional history exists Fall Risk Assessment 05/16/2025 05/16/2024 Influenza Vaccine (#1) 2025 , 06/27/2021, 07/16/2020, Additional history exists Pneumococcal vaccine 65+ Completed 12/08/2021, 08/19 Medical Devices Implanted Type Area Bonding Machine Setter Device Identifier Shelf Expiration Date Model / Serial / Lot [employer] Kelman Multiflex Iii 5.5mm 13mm 1 Piece Uv Absorbent Anterior [id number] - [id number] - [id number] Implanted:Qty: 1 on 08/12/2022 by Isaac Villar MD at [facility] Lens Right: Eye [employer] [id number] 05/18/2024 [id number] / [id number] / Mid Rin Transplant Srvcs Implant Cornea Pkp Right Hypothermic V0003 - [id number] Od1 - [id number] Implanted:Qty: 1 on 08/12/2022 by Isaac Villar MD at [facility] Right: Eye 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 V0003 / [id number] OD1 / [id number] Allosource Canpac Allograft Frozen Nonpurge Graft 10cc Bone Cancellous [id number] - [id number] Implanted:Qty: 1 on 03/31/2023 by Renny Kong MD at [facility] N/A: Cervical -Thoraci c Spine Allosource 02/02/2028 [id number] / / [id number] Depuy Synthes Spine Mountaineer 3.5mm Inner Spine Occipital Screw Bone Nonsterile Latex Free [id number] - [id number] Implanted:Qty: 1 on 03/31/2023 by Renny Kong MD at [facility] N/A: Cervical -Thoraci c Spine Depuy Synthes Spine [id number] / / Depuy Synthes Spine Screw Spinal Set Posterior Cervical Solid Symphony Titanium [id number] - [id number] Implanted:Qty: 8 on 03/31/2023 by Renny Kong MD at [facility] N/A: Cervical -Thoraci c Spine Depuy Synthes Spine [id number] / / Depuy Synthes Spine Cnctr José 3.5-4mm Symphony Spine Reduction [id number] - [id number] Implanted:Qty: 2 on 03/31/2023 by Renny Kong MD at [facility] N/A: Cervical -Thoraci c Spine Depuy Synthes Spine [id number] / / Depuy Synthes Spine 5.5mm 32mm Ply Spine Pedicle Screw Bone Nonsterile 4mm José [id number] - [id number] Implanted:Qty: 2 on 03/31/2023 by Renny Kong MD at [facility] N/A: Cervical -Thoraci c Spine Depuy Synthes Spine [id number] / / Depuy Synthes Spine 5.5mm 34mm Ply Spine Pedicle Screw Bone Nonsterile 4mm José [id number] - [id number] Implanted:Qty: 2 on 03/31/2023 by Renny Kong MD at [facility] N/A: Cervical -Thoraci c Spine Depuy Synthes Spine [id number] / / Depuy Synthes Spine 4mm 240mm Straight José Spinal Cocr [id number] - [id number] Implanted:Qty: 1 on 03/31/2023 by Renny Kong MD at [facility] N/A: Cervical -Thoraci c Spine Depuy Synthes Spine [id number] / / Procedures Procedure Name Priority Date/Time Associated Diagnosis Comments CT LUNG CANCER SCREENING Schedule Routine, Read Routine (OP Routine) 11/14/2021 9:05 AM INDUSTRIAL CAFETERIA MANAGER Former heavy tobacco smoker from Last 3 Months or Most Recently Relevant to Health Maintenance Results * CT Lung Cancer Screening (11/14/2021 9:05 AM INDUSTRIAL CAFETERIA MANAGER) Anatomical Region Laterality Modality Chest N/A Computed Tomogra phy 11/15/2021 8:57 AM INDUSTRIAL CAFETERIA MANAGER Impressions 11/15/2021 9:04 AM INDUSTRIAL CAFETERIA MANAGER 1. Moderate to severe pulmonary emphysema, stable. [...] Rukhsana Pop M.D. TB T: Report ID: [id number] Reading Location: [id number] 11/15/2021 9:04 AM INDUSTRIAL CAFETERIA MANAGER EXAM DESCRIPTION: CT LUNG CANCER SCREENING REASON [...] Recently Relevant to Health Maintenance Insurance ID[facility] MEDICARE ADVANTAGE [facility] MEDICARE ADVANTAGE [facility] MEDICARE ADVANTAGE [employer]PA [employer] MEDICARE ADVANTAGE Advance Directives For more information, please contact: [phone] Documents on File Type Date Recorded Patient Security Patrol Officer Expl anation ADVANCE DIRECTIVE 03/31/2023 8:18 AM Power of Atm Manager-Medical * Full Code (Latest Code Status on File) Date Activated Date Inactivated Comments 05/04/2024 8:26 PM 05/16/2024 5:40 PM * Full Code Date Activated Date Inactivated Comments 03/31/2023 5:40 PM 04/03/2023 8:29 PM Care Teams Dean Of Men Relationship Specialty Start Date End Date Bo Chang MD [address] [place] [address] PCP - General 02/04/17 Luis A Pang DO [address] [place] [address] Secret Code Expert Cardiology 12/06/19 Rosalinda Chappell OD [address] [place] [address] Primary Eye Care Provider Optometry 06/30/22 Yury Novoa MD [address] [facility] [address] [place] [address] Consulting Physician Nephrology 06/30/22 Varun Calderon MD [address] [facility] [address] [place] [address] Consulting Physician Pulmonary Disease 06/30/22 Jeet Donohue MD [address] [facility] [address] [place] [place] [address] Referring Physician Ophthalmology 06/30/22 Dalton Kevin OD [address] [place] [address] [place] [address] Primary Eye Care Provider Upholsterer Outside 06/30/22 Lesly Schultz MD PhD [address] [facility] O[facility]ALMOLOGY, [address] [place] [address] Consulting Physician Cornea Ophthalmology 07/07/23
--- OUTSIDE RECORDS SUMMARY | 2025-06-05 19:07 | XMS_ITS | Encounter Summary ---
Author Organization [facility] Address [address] [place] [address] Phone Care Team Providers Care Threading Machine Tender Name Role Phone Bo Chang MD Primary Care Provider [phone] Luis A Pang DO Unavailable [phone] Rosalinda Chappell OD Unavailable [phone] Yury Novoa MD Unavailable [phone] Varun Calderon MD Unavailable [phone] Jeet Donohue MD Unavailable [phone] Dalton Kevin OD Unavailable [phone] Isaac Villar MD Unavailable [phone] Av Howe MD PhD Unavailable [phone] Lesly Schultz MD PhD Unavailable [phone] Encounter Details Date Type Department Care Team (Latest Contact Info) Description 08/26/2018 Orders Only [facility] Scanning, Provider Social History Tobacco Use Types Packs/Day Years Used Date Smoking Tobacco: Never Assessed Sex and Gender Information Value Date Recorded Sex Assigned at Not on file 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 Gender Identity Not on file Sexual Orientation [...] on filedocumented in this encounter Care Teams Threading Machine Tender Relationship Specialty Start Date End Date Bo Chang MD [address] [place] [address] PCP - General 02/04/17 Luis A Pang DO [address] [place] [address] Electromechanical Equipment Assembler Cardiology 12/06/19 Rosalinda Chappell OD [address] [place] [address] Primary Eye Care Provider Optometry 06/30/22 Yury Novoa MD [address] [facility] [address] [place] [address] Consulting Physician Nephrology 06/30/22 Varun Calderon MD [address] [facility] [address] [place] [address] Consulting Physician Pulmonary Disease 06/30/22 Jeet Donohue MD [address] [facility] [address] [place] [address] Referring Physician Ophthalmology 06/30/22 Dalton Kevin OD [address] [place] [address] Primary Eye Care Provider Screen Print Operator 06/30/22 Isaac Villar MD [address] [facility], [address] [address] Surgeon Cornea Ophthalmology 08/01/22 07/06/23 Av Howe MD PhD [address] [facility], [address] [place] [id number] Consulting Physician Cornea Ophthalmology 05/13/2306/19 Lesly Schultz MD PhD [address] [facility] OPHTHALMOLOGY, [address] [place] [phone] Consulting Physician Cornea Ophthalmology 07/07/23 documented as of this encounter
[2025-06-05 19:20] LABS: Estimated Glomerular Filt Rate 34
[2025-06-05 19:41] VITALS: BP 144/62; PULSE 100; RESP 16; O2SAT 95
--- NOTE | 2025-06-05 19:44 | ED.NEUROSD ---
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 Patient states that about 30 minutes prior to arrival at 6:30 p.m., he had onset of left visual field changes described as left side vision of his left eye he could only see shapes. He was also having blurry vision to the right side of his left eye. He has no vision to his right at baseline. Denies headache, dizziness, lightheadedness, weakness, numbness, tingling. Related Data Home Medications ?Medication ?Instructions ?Recorded ?Confirmed ?Last Taken ?Type aspirin 81 mg tablet,delayed 81 mg PO DAILY 09/13/19 05/23/25 08/15/24 History release (Adult Low Dose Aspirin) budesonide 160 mcg-glycopyr 9 2 inh inhalation BID 07/19/21 05/23/25 08/19/24 07:00 History mcg-formot 4.8 mcg/actuation HFA inhaler (Breztri Aerosphere) prednisolone acetate 1 % eye 1 drp RIGHT EYE QPM 11/02/23 05/23/25 08/19/24 07:00 History drops,suspension calcium carbonate (Calcium 600) 1,200 mg PO BID 05/16/24 05/23/25 08/15/24 History cholecalciferol (vitamin D3) 10 See Rx Instructions .Route .COMPLEX 06/06/24 05/23/25 08/15/24 History mcg (400 unit) capsule mecobalamin (vitamin B12) 1,000 1,000 mcg sublingual DAILY 08/02/24 05/23/25 08/15/24 History mcg disintegrating tablet,sublingual ipratropium bromide 21 mcg (0.03 intranasal 12/22/24 05/23/25 Unknown History %) nasal spray Allergies Allergy/AdvReac Type Severity Reaction Status Date / Time metoprolol Allergy Unknown shortness Verified 04/27/25 10:37 of breath Review of Systems Review of Systems: Gen.: Denies fevers or chills Eyes: Denies eye pain ENT: Denies congestion Respiratory: Denies shortness of breath or cough CV: Denies chest pain or palpitations GI: Denies abdominal pain nausea, emesis or diarrhea denies burning, urgency, frequency or hematuria Musculoskeletal: Denies back pain or muscle pain Neuro: Denies numbness, tingling, weakness or focal weakness Skin: Denies rash Except as documented, all other systems reviewed and negative [facility] Past Medical History Medical History Legally blind Peripheral neuropathy BMI 21.0-21.9, adult Gallstones Acute necrotizing pancreatitis Acute on chronic renal failure Insomnia Parotitis Left shoulder pain Pleuritic pain Stage 1 chronic kidney disease Muscle cramps Essential (primary) hypertension Creatinine elevation COPD exacerbation Bronchitis Anemia Optic disc edema Blindness of right eye Herpes simplex infection of eye Skin pruritus Pain and swelling of left lower leg CKD (chronic kidney disease) Personal history of nicotine dependence PVC's (premature ventricular contractions) Elevated homocysteine Vitamin D deficiency Anxiety Chronic obstructive pulmonary disease BMI 25.0-25.9,adult Cardiac arrhythmia BMI 26.0-26.9,adult Chronic sinusitis Hyperlipidemia Pre-diabetes Benign essential hypertension On senior living drug therapy SOB (shortness of breath) Surgical History Surgical History Hx laparoscopic cholecystectomy 08/19/24 Laparoscopic cholecystectomy with intraoperative cholangiogram Dr. Alvarez S/P cervical spinal fusion History of ERCP Family History Family History Mother Hypertension Family history of malignant neoplasm of breast in first degree relative Acute myocardial infarction Family history of congestive heart failure Social History Social History Smoking packs per day: 1 Smoking cigarettes per day: 20.0 Years smoked: 60 Smoking pack-years: 60.00 Smoking status: Former smoker Tobacco type: cigarettes Second hand tobacco smoke exposure: No Smoking end date: 10/19/17 Additional smoking assessment comments: 06/2018 Alcohol intake: never Drinks per week: 1 Substance use: never Substance use type: does not use Do You Feel Safe in your Home?: Yes Lack of Transportation: YES Lack of Food: Never True Current Housing: I Have Housing Concerned About Future Housing: No Difficulty Paying Gas/Electric Bills: No Difficulty Paying for Meds: No Currently Unemployed: No Education: High School Diploma/GED Difficulty w/ Childcare or Family Care: No Living arrangements: with friend(s) Occupation/Education: retired Gender identity (if verbalized by the patient): Male Spiritual care concerns: No Exam Narrative: APPEARANCE: No acute distress, nontoxic, resting in bed EYES: EOMI HEENT: Normocephalic, atraumatic, OMM RESPIRATORY: No respiratory distress Clear to auscultation bilaterally with no rhonchi wheezing or rales. CARDIOVASCULAR: Regular rate and rhythm without murmurs rubs or gallops. ABDOMINAL: Soft, nontender, nondistended, no rebound or guarding MUSCULOSKELETAl: Moves all extremities. No clubbing, cyanosis or edema. NEURO: Awake and alert. Following commands, speech normal, no focal deficits. NIHSS 1 due to partial hemianopsia SKIN:: Warm, dry. No rashes lesions or abrasions PSYCHIATRIC: Normal affect/mood, Course Vital Signs Vital signs: Vital Signs Pulse Rate 100 06/05/25 19:41 Respiratory Rate 16 06/05/25 19:41 Blood Pressure 144/62 H 06/05/25 19:41 Pulse Oximetry 95 06/05/25 19:41 Temperature 98.1 F 06/05/25 20:24 Pulse Rate 100 06/05/25 19:41 Respiratory Rate 16 06/05/25 19:41 Blood Pressure 144/62 H 06/05/25 19:41 Pulse Oximetry 95 06/05/25 19:41 MDM - Neuro Symptoms/Deficit MDM Narrative Medical decision making narrative: 7-year-old male with prior history of stroke presents to the ED for left visual field loss. Initial NIHSS 1 due to partial hemianopsia in his left eye. Unable to further ascertain this as he is blind in his right eye already. He was taken immediately to CT scan which showed no evidence of stroke at this time. Bedside ultrasound performed, no evidence of retinal detachment, vitreous detachment, lens dislocation. Spoke with Dr. Lockhart, stroke neurology at [facility], agrees with administering TNK if patient understands risks that if this is a primary ophthalmologic problem that it could worsen. Spoke with patient who understands the risks, does request TNKase be given at this time. Patient will be given TNK and will be transferred to the [facility] ED. I spoke with Dr. Mollman in the ED there who will accept the patient there. CRITICAL CARE Indication: Acute stroke, TNKase administration Time type: intermittent I provided a total of 45 minutes of critical care excluding separately billable procedures. This includes time w/ EMS, initial bedside evaluation, reviewing old records, review of testing done while under my care, discussion w/ the family, nurses, executive search consultant and guiding the patient?s care while in the emergency department. Differential Diagnosis Differential diagnosis: Likely other (CVA, retinal detachment, vitreous detachment) Lab Data Attestation: I reviewed the patient's lab results. 06/05/25 19:30 06/05/25 19:30 Labs: Lab Results 06/05/25 06/05/25 06/05/25 Range/Units 19:09 19:18 19:30 WBC 6.3 (4.5-10.0) K/mm3 RBC 3.45 L (4.6-6.20) M/mm3 Hgb 12.4 L (14.0-18.0) g/dL Hct 36.5 L (42.0-52.0) % MCV 105.8 H (80-100) fl MCH 35.9 H (26-34) pg MCHC 34.0 (32-36) g/dl RDW 13.9 (11.5-14.5) % Plt Count 145 L (150-375) k/mm3 MPV 10.8 H (7.4-10.4) fl Immature Gran % (Auto) 0.3 (0-0.5) % Neut % (Auto) 61.5 (45.5-73.1) % Lymph % (Auto) 23.3 (18.3-44.2) % Arthur % (Auto) 8.9 H (2.6-8.5) % Eos % (Auto) 5.4 H (0-4.4) % Baso % (Auto) 0.6 (0.2-1.2) % Lymph # (Auto) 1.47 (0.9-3.2) K/mm3 Arthur # (Auto) 0.6 (0.1-0.6) K/mm3 Eos # (Auto) 0.3 (0-0.3) K/mm3 Baso # (Auto) 0.0 (0.0-0.1) K/mm3 Abs Immat Gran (auto) 0.02 (0.00-0.031) K/mm3 Absolute Neuts (auto) 3.9 (1.3-6.7) K/mm3 Absolute Nucleated RBC 0.000 (0.0-0.012) K/mm3 Band Neutrophils % 0 (0-6) % Nucleated RBC % 0.0 (0.0-0.2) % Platelet Estimate Slightly decreased (Adequate) % Immature Plt Fraction 2.5 (0.9-11.2) % Macrocytosis 1+ (NORMAL) Schistocytes None seen PT 13.0 (11.1-14.7) Seconds INR 1.0 APTT 30.6 (22.3-36.8) Seconds Sodium 136 L (137-145) mmol/L Potassium 4.3 (3.4-5.0) mmol/L Chloride 105 (98-107) mmol/L Carbon Dioxide 21 L (22-30) mmol/L Anion Gap 10 (4-12) mmol/L BUN 34 H (9-20) mg/dL Creatinine 1.90 H 1.64 H (0.8-1.5) mg/dL Estim Creat Clear Calc Not Reportable Not Reportable Estimated GFR 34 L 41 L (59 - ) Glucose 192 H (65-110) mg/dL POC Capillary Glucose 210 H (65-105) mg/dl Calcium 9.6 (8.4-10.2) mg/dL Total Bilirubin 0.2 (0.2-1.3) mg/dL AST 33 (17-59) U/L ALT 26 (6-50) U/L Alkaline Phosphatase 119 (38-126) U/L Troponin I < 0.012 (0.000-0.034) ng/mL Total Protein 6.9 (6.3-8.2) g/dL Albumin 4.3 (3.5-5.1) g/dL Imaging Data Radiologist's impression: Impressions Head CT 06/05/25 19:23 IMPRESSION: 1. No acute intracranial abnormality. As per stroke protocol, I called these results to emergency room, discussed with the ER physician at 06/05/2025 19:28 CDT. Head/Neck CTA 06/05/25 19:37 IMPRESSION: 1: No significant intracranial abnormality. 2: Mild atherosclerosis and narrowing of the internal carotid arteries. Critical Care Time Critical Care Time Total Critical Care Time: 45 Discharge Plan Discharge Clinical Impression: Acute CVA (cerebrovascular accident), Loss of part of visual field Patient Disposition: Acute Care Hospital Condition: Serious Patient Language: South African Prescriptions: No Action mecobalamin (vitamin B12) 1,000 mcg tablet,disintegrating 1,000 mcg sublingual DAILY Rx Instructions: place tablet under tongue and allow to dissolve for at least30 secs before swallowing ipratropium bromide 21 mcg (0.03 %) spray,non-aerosol intranasal aspirin [Adult Low Dose Aspirin] 81 mg tablet,delayed release (DR/EC) 81 mg PO DAILY Breztri Aerosphere 160-9-4.8 mcg/actuation HFA aerosol inhaler 2 inh inhalation BID prednisolone acetate 1 % drops,suspension 1 drp RIGHT EYE QPM calcium carbonate [Calcium 600] 600 mg calcium (1,500 mg) tablet 1,200 mg PO BID cholecalciferol (vitamin D3) 10 mcg (400 unit) capsule See Rx Instructions .ROUTE .COMPLEX Rx Instructions: 1 in the am & 2 capsules po at hs gabapentin 100 mg capsule See Rx Instructions .ROUTE .COMPLEX Qty: 570 5RF Dose Instruction: TAKE 1 CAPSULE BY MOUTH 3 TIMES DAILY Rx Instructions: TAKE 2 CAPSULE BY MOUTH 3 TIMES DAILY valacyclovir 1 gram tablet 500 mg PO BID Qty: 180 0RF Rx Instructions: 500mg BID per pt report. montelukast 10 mg tablet See Rx Instructions .ROUTE .COMPLEX Qty: 100 0RF Dose Instruction: TAKE 1 TABLET BY MOUTH DAILY Rx Instructions: TAKE 1 TABLET BY MOUTH DAILY atorvastatin 20 mg tablet See Rx Instructions .ROUTE .COMPLEX Qty: 100 0RF Dose Instruction: TAKE 1 TABLET BY MOUTH ONCE DAILY Rx Instructions: TAKE 1 TABLET BY MOUTH ONCE DAILY Follow-up/Referrals: Bebeto Messer MD [Primary Care Provider] -
--- OUTSIDE RECORDS SUMMARY | 2025-06-05 19:45 | XMS_ITS | Clinical Summary ---
Author Organization [facility] Address [address] [place] [address] Phone Care Team Providers Care Computer Support Technician Name Role Phone Bo Chang MD Primary Care Provider [phone] Allergies No known active allergies Medications atorvastatin [...] 0, 06/19/2020, 07/07/2019, Additional history exists [place] [address] [place] [address] MEDICARE ADVANTAGE MEDICAID - [place] Care Teams Computer Support Technician Relationship Specialty Start Date End Date Bo Chang MD [address] [facility] [address] [place] [address] PCP - General Internal Medicine 10/23/20
--- OUTSIDE RECORDS SUMMARY | 2025-06-05 19:45 | XMS_ITS | Clinical Summary ---
Author Organization [facility] Address [address] [place] [address] Care Team Providers Care Electrical Lineman Name Role Phone Bo Chang MD Primary Care Provider [phone] Luis A Pang DO Unavailable Rosalinda Chappell OD Unavailable [phone] Yury Novoa MD Unavailable [phone] Varun Calderon MD Unavailable [phone] Jeet Donohue MD Unavailable Dalton Kevin OD Unavailable [phone] Lesly Schultz MD PhD Unavailable Allergies [...] 1 tablet/capsule (400 Units total) by mouth manager athletics before breakfast Takes 1 tablet in AM [...] (05/14/2024 2:41 PM CDT): Admitted 04/17-04/27 to [facility] found to have acute panc w/ peripanc fluid collection and small ascites. MRCP 04/18 w/ acute interstitial panc w/ loculated acute peripanc fluid collection. Also had elevated bili and CT revealed stone at ampulla. S/p ERCP 04/22 w/ spincterotomy w/ 10mm dilation in CBD w/o stricture, s/p BD sweeping. Plan was to perform interval CCK. 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 Gender Identity Not on file Sexual Orientation [...] 12/08/2021, 08/19 Medical Devices Implanted Type Area Craft Demonstrator Device Identifier Shelf Expiration Date Model / Serial / Lot [employer] Kelman Multiflex Iii 5.5mm 13mm 1 Piece Uv Absorbent Anterior Mta4u0.165 - [id number] - [id number] Implanted:Qty: 1 on 08/12/2022 by Isaac Villar MD at [facility] Lens Right: Eye [employer] [id number] 05/18/2024 MTA4U0.165 / [id number] / Mid Rin Transplant Srvcs Implant Cornea Pkp Right Hypothermic V0003 - [id number] Od1 - [id number] Implanted:Qty: 1 on 08/12/2022 by Isaac Villar MD at [facility] Right: Eye 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 V0003 / [id number] OD1 / [id number] Allosource Canpac Allograft Frozen Nonpurge Graft 10cc Bone Cancellous [id number] - [id number] Implanted:Qty: 1 on 03/31/2023 by Renny Kong MD at [facility] N/A: Cervical -Thoraci c Spine Allosource 02/02/2028 [id number] / / [id number] Depuy Synthes Spine Mountaineer 3.5mm Inner Spine Occipital Screw Bone Nonsterile Latex Free [id number] - [id number] Implanted:Qty: 1 on 03/31/2023 by Renny Kong MD at [facility] N/A: Cervical -Thoraci c Spine Depuy Synthes Spine [id number] / / Depuy Synthes Spine Screw Spinal Set Posterior Cervical Solid Symphony Titanium [id number] - [id number] Implanted:Qty: 8 on 03/31/2023 by Renny Kong MD at [facility] N/A: Cervical -Thoraci c Spine Depuy Synthes Spine [id number] / / Depuy Synthes Spine Cnctr José 3.5-4mm Symphony Spine Reduction [id number] - [id number] Implanted:Qty: 2 on 03/31/2023 by Renny Kong MD at [facility] N/A: Cervical -Thoraci c Spine Depuy Synthes Spine [id number] / / Depuy Synthes Spine 5.5mm 32mm Ply Spine Pedicle Screw Bone Nonsterile 4mm José [id number] - [id number] Implanted:Qty: 2 on 03/31/2023 by Renny Kong MD at [facility] N/A: Cervical -Thoraci c Spine Depuy Synthes Spine [id number] / / Depuy Synthes Spine 5.5mm 34mm Ply Spine Pedicle Screw Bone Nonsterile 4mm José [id number] - [id number] Implanted:Qty: 2 on 03/31/2023 by Renny Kong MD at [facility] N/A: Cervical -Thoraci c Spine Depuy Synthes Spine [id number] / / Depuy Synthes Spine 4mm 240mm Straight Joés Spinal Cocr [id number] - [id number] Implanted:Qty: 1 on 03/31/2023 by Renny Kong MD at [facility] N/A: Cervical -Thoraci c Spine Depuy Synthes Spine [id number] / / Procedures Procedure Name Priority Date/Time Associated Diagnosis Comments CT LUNG CANCER SCREENING Schedule Routine, Read Routine (OP Routine) 11/14/2021 9:05 AM 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 Moderate to severe pulmonary emphysema, stable. [...] Rukhsana Pop M.D. TB T: Report ID: [id number] Reading Location: [facility] 11/15/2021 9:04 AM POWERHOUSE ELECTRICIAN APPRENTICE EXAM DESCRIPTION: CT LUNG CANCER SCREENING REASON [...] Recently Relevant to Health Maintenance Insurance IDPA [facility] MEDICARE ADVANTAGE [facility] MEDICARE ADVANTAGE [facility] MEDICARE ADVANTAGE [employer]PA [employer] MEDICARE ADVANTAGE Advance Directives For more information, please contact: [phone] Documents on File Type Date Recorded Patient Cath Lab Manager Expl anation ADVANCE DIRECTIVE 03/31/2023 8:18 AM Power of Television Inspector-Medical * Full Code (Latest Code Status on File) Date Activated Date Inactivated Comments 05/04/2024 8:26 PM 05/16/2024 5:40 PM * Full Code Date Activated Date Inactivated Comments 03/31/2023 5:40 PM 04/03/2023 8:29 PM Care Teams Electrical Lineman Relationship Specialty Start Date End Date Bo Chang MD [address] [place] [address] PCP - General 02/04/17 Luis A Pang DO [address] [place] [address] Marketing Strategist Cardiology 12/06/19 Rosalinda Chappell OD [address] [place] [address] Primary Eye Care Provider Optometry 06/30/22 Yury Novoa MD [address] [facility] [address] [place] [address] Consulting Physician Nephrology 06/30/22 Varun Calderon MD [address] [facility] [address] [place] [address] Consulting Physician Pulmonary Disease 06/30/22 Jeet Donohue MD [address] [facility] [address] [place] [address] Referring Physician Ophthalmology 06/30/22 Dalton Kevin OD [address] [place] [address] [place] [address] Primary Eye Care Provider Merchandise Collector 06/30/22 Lesly Schultz MD PhD [address] [facility], [address] [place] [address] Consulting Physician Cornea Ophthalmology 07/07/23
--- OUTSIDE RECORDS SUMMARY | 2025-06-05 19:45 | XMS_ITS | Continuity of Care Document ---
Author Organization [facility] Address [address] [place] [address] Phone Care Team Providers Care Agronomy Location Manager Name Role Phone Perri OD OD, Harinder Unavailable Unavailabl e Procedures Procedure Date Office/outpatient Visit, Est No Charge Refractive Evaluation 007 Office/outpatient Visit, Est Advance Directives Directive Yes / No Effective Date File Name No Information Encounters Encounter Description Practice Location Reason(s) For Visit Diagnoses Date Provider Providers Copied on Encounter Office/outpat ient Visit, Est [facility], [address], [place], [place], [id number], [place] tel:[phone] [facility] No Information [address] [place] OD Harinder. [address] [place], [place], [address], [place]. tel:[phone] Referring Provider: Harinder Rayo OD P, [address] [place], [address] . tel:[phone] [facility], [address], [place], [place], [id number], [place] tel:[phone] [facility] No Information [address] [place] OD Harinder. [address] [place], [place], [address], [place]. tel:[phone] Referring Provider: Harinder Rayo OD P, [address] [facility] [place], [address] . tel:[phone] Office/outpat ient Visit, [facility] Eye [facility], [address], [place], [place], [address], [place] tel:[phone] [facility] No Information 0-200 7 Kevin OD Dalton. [address], [place], [address], [place]. tel:[phone] Family History Family Member Type Diagnosis Age At Onset No Information Payers Payer name Insurance type Covered green party ID Authorallison richards(s) [facility] CI [id number] Social History Type Description Quantity Date Captured [...]
--- OUTSIDE RECORDS SUMMARY | 2025-06-05 19:45 | XMS_ITS | Encounter Summary ---
Author Organization [facility] Address [address] [place] [address] Phone Care Team Providers Care Drama Critic Name Role Phone Bo Chang MD Primary Care Provider [phone] Luis A Pang DO Unavailable [phone] Rosalinda Chappell OD Unavailable [phone] Yury Novoa MD Unavailable [phone] Varun Calderon MD Unavailable [phone] Jeet Donohue MD Unavailable [phone] Dalton Kevin OD Unavailable [phone] Isaac Villar MD Unavailable [phone] Av Howe MD PhD Unavailable [phone] Lesly Schultz MD PhD Unavailable [phone] Encounter Details Date Type Department Care Team (Latest Contact Info) Description 08/26/2018 Orders Only [facility] Scanning, Provider Social History Tobacco Use Types Packs/Day Years Used Date Smoking Tobacco: Never Assessed Sex and Gender Information Value Date Recorded Sex Assigned at Not on file 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 Gender Identity Not on file Sexual [...] on filedocumented in this encounter Care Teams Drama Critic Relationship Specialty Start Date End Date Bo Chang MD [address] [place] [address] PCP - General 02/04/17 Luis A Pang DO [address] [place] [address] Money Counter Cardiology 12/06/19 Rosalinda Chappell OD [address] [place] [address] Primary Eye Care Provider Optometry 06/30/22 Yury Novoa MD [address] [facility] [address] [place] [address] Consulting Physician Nephrology 06/30/22 Varun Calderon MD [address] [facility] [address] [place] [address] Consulting Physician Pulmonary Disease 06/30/22 Jeet Donohue MD [address] [facility] [address] [place] [address] Referring Physician Ophthalmology 06/30/22 Dalton Kevin OD [address] [place] [address] Primary Eye Care Provider Pressure Control Supervisor 06/30/22 Isaac Villar MD [address] [facility], [address] [address] Surgeon Cornea Ophthalmology 08/01/22 07/06/23 Av Howe MD PhD [address] [facility], [address] [place] [id number] Consulting Physician Cornea Ophthalmology 05/13/2306/19 Lesly Schultz MD PhD [address] [facility], [address] [place] [id number] Consulting Physician Cornea Ophthalmology 07/07/23 documented as of this encounter
[2025-06-05 19:46] LABS: Hematocrit 36.5 % (42.0-52.0); Hemoglobin 12.4 g/dL (14.0-18.0); Immature Granulocyte Percent A 0.3 % (0-0.5); Immature Platelet Fraction Pct 2.5 % (0.9-11.2); Lymphocytes Absolute Auto 1.47 K/mm3 (0.9-3.2); Mean Corpuscular HGB Conc 34.0 g/dl (32-36); Mean Corpuscular Hemoglobin 35.9 pg (26-34); Mean Corpuscular Volume 105.8 fl (80-100); Nucleated Red Blood Cells Absolute Auto 0.000 K/mm3 (0.0-0.012); Nucleated Red Blood Cells Perc 0.0 % (0.0-0.2); Platelet Count Result 145 k/mm3 (150-375); Red Blood Count 3.45 M/mm3 (4.6-6.20); White Blood Count 6.3 K/mm3 (4.5-10.0)
[2025-06-05 19:48] LABS: Alanine Aminotransferase 26 U/L (6-50); Albumin Level 4.3 g/dL (3.5-5.1); Alkaline Phosphatase 119 U/L (38-126); Anion Gap 10 mmol/L (4-12); Aspartate Amino Transferase 33 U/L (17-59); Bilirubin,Total 0.2 mg/dL (0.2-1.3); Blood Urea Nitrogen 34 mg/dL (9-20); Calcium 9.6 mg/dL (8.4-10.2); Carbon Dioxide 21 mmol/L (22-30); Chloride 105 mmol/L (98-107); Estimated Glomerular Filt Rate 41; Glucose 192 mg/dL (65-110); Potassium 4.3 mmol/L (3.4-5.0); Sodium 136 mmol/L (137-145); Total Protein 6.9 g/dL (6.3-8.2)
[2025-06-05 19:52] LABS: INR 1.0; Prothrombin Time 13.0 Seconds (11.1-14.7)
[2025-06-05 19:53] LABS: Partial Thromboplastin Time 30.6 Seconds (22.3-36.8)
[2025-06-05 20:00] LABS: Troponin I < 0.012 ng/mL (0.000-0.034)
[2025-06-05 20:16] LABS: Schistocytes None Seen
[2025-06-05 20:17] LABS: Band Neutrophils Percent 0 % (0-6)
[2025-06-05 20:18] LABS: Macrocytosis 1+ (NORMAL)
[2025-06-05] MEDS: TENECTEPLASE 50 MG/10 ML VIAL 22.8 MG IV PUSH (20:23)
[2025-06-05 20:24] VITALS: TEMP 36.7
== END 2025-06-05 20:48 | disposition short-term general hospital (02) ==
PROVIDERS: Emergency Provider Student in an Organized Health Care Education/Training Program; PCP Family Medicine
DX: I63.9 Cerebral infarction, unspecified (principal); H53.462 Homonymous bilateral field defects, left side; R29.701 NIHSS score 1; J44.9 Chronic obstructive pulmonary disease, unspecified; I12.9 Hypertensive chronic kidney disease with stage 1 through stage 4 chronic kidney disease, or unspecified chronic kidney disease; N18.1 Chronic kidney disease, stage 1; R73.03 Prediabetes; E55.9 Vitamin D deficiency, unspecified; E78.5 Hyperlipidemia, unspecified; J32.9 Chronic sinusitis, unspecified; H54.8 Legal blindness, as defined in USA; G62.9 Polyneuropathy, unspecified; Z98.1 Arthrodesis status; Z87.891 Personal history of nicotine dependence; Z90.49 Acquired absence of other specified parts of digestive tract; Z79.82 Long term (current) use of aspirin; Z79.899 Other long term (current) drug therapy; I65.23 Occlusion and stenosis of bilateral carotid arteries; Z79.1 Long term (current) use of non-steroidal anti-inflammatories (NSAID)
CPT/HCPCS: 36415; 37195; 70450; 70496; 70498; 80053; 82948; 84484; 85025; 85055; 85610; 85730; 99285; J3101; Q9967

== ENCOUNTER 2025-07-02 12:10 | Emergency (ER) | payer MEDICARE, MEDICAID, SELFPAY ==
--- NOTE | ~2025-07-02 | CT_ITS ---
EXAMINATION: CTA abd aorta runoff, 07/02/2025 14:30 CDT HISTORY: L LE paresthesias, skin changes, tender, COMPARISON: No comparisons available. TECHNIQUE: CTA scan with 3-D reconstructions of the lower extremities, abdomen and pelvis was performed with contrast. Isovue 300, 92cc injected IV. One or more of the following dose reduction techniques were used: automated exposure control, adjustment of the mA and/or kV according to patient size, use of iterative reconstruction technique. Unless otherwise stated, incidental findings do not require dedicated follow up imaging FINDINGS: CT abdomen: LUNG BASES: The lung bases are clear. The visualized portions of the heart and pericardium are unremarkable. LIVER: No intrahepatic biliary duct dilatation. SPLEEN: Unremarkable, no splenomegaly. KIDNEYS: Right Kidney: Unremarkable. No calculi. No hydronephrosis. Left Kidney: Unremarkable. No calculi. No hydronephrosis ADRENAL GLANDS: Unremarkable. PANCREAS: Unremarkable. GALLBLADDER/BILIARY: Postcholecystectomy. STOMACH AND ESOPHAGUS: Visualized stomach and esophagus within normal limits. BOWEL/MESENTERY: Moderate fecal content, no colitis or diverticulitis. Appendix not identified. Mesentery normal. No dilated small bowel loops. ADENOPATHY/RETROPERITONEUM: No lymphadenopathy. AORTA/VASCULATURE: Normal caliber aorta. There are atherosclerotic changes of the aorta, no aneurysm or dissection, the major aortic images demonstrate moderate atherosclerotic changes but are grossly patent, bilateral single renal arteries, the IVC is also patent. There are moderate atherosclerotic changes of the left common, external and internal iliac vessels. Moderate atherosclerotic changes of the left common femoral and superficial femoral vessels. Moderate to severe atherosclerotic changes of the popliteal artery. There are severe atherosclerotic changes of the vessels below the left knee with occlusion of the mid to distal anterior tibial artery with re constitution distally, at the level of the left ankle there is minimal flow noted within the posterior tibial, peroneal and anterior tibial vessels Moderate atherosclerotic changes of the right common, external and internal iliac vessels. Moderate atherosclerotic changes of the right common and superficial femoral arteries. Moderate atherosclerotic changes of the popliteal artery with moderate to severe atherosclerotic changes below the right knee. There is occlusion of the mid to distal right peroneal and anterior tibial vessels with flow identified predominantly within the posterior tibial artery the level of the ankle FREE FLUID OR FREE AIR: None. CT pelvis: SOLID ORGANS/REPRODUCTIVE: Unremarkable. BLADDER: Within normal limits. OSSEOUS STRUCTURES: No acute osseous abnormality.No suspicious lesions. OVERLYING SOFT TISSUES: Unremarkable. IMPRESSION: 1. Moderate to severe atherosclerotic changes detailed above most marked below the knees bilaterally. Conventional arteriogram may be of benefit. Reviewed, dictated and finalized at location A.
--- NOTE | ~2025-07-02 | US_ITS ---
EXAMINATION: US venous doppler LE , 07/02/2025 15:18 CDT HISTORY: pain, swelling Comparison: None Technique: Gonsalez-scale and color Doppler images were attempted of the lower saphenofemoral junction, common femoral vein,superficial femoral vein, proximal deep femoral vein, proximal deep femoral vein, popliteal vein and posterior tibial veins. Findings: Deep Venous System:Normal flow, augmentation and compressibility. No echogenic thrombus identified. The contralateral saphenofemoral junction appears unremarkable. Superficial Venous SystemNo superficial thrombophlebitis. Soft tissues: Soft tissues are unremarkable. Impression: Negative for DVT. Reviewed, dictated and finalized at location A. Impression: Negative for DVT.
[2025-07-02 12:22] VITALS: BP 152/80; PULSE 91; RESP 18; TEMP 37.1; O2SAT 97
--- NOTE | 2025-07-02 13:35 | ED.LOWEXIN ---
HPI - Extremity Injury (Lower) General Chief Complaint: Extremity Injury, Lower Stated Complaint: Left leg/ankle pain-fell 06/05, continued pain Time Seen by Provider: 07/02/25 13:08 Source: patient Mode of arrival: ambulatory Limitations: no limitations History of Present Illness HPI Narrative: Patient presents with report of left ankle/leg pain. Patient fell on 06/05 in the process of coming to the ED due to an acute vision issue in his left eye for which there was concern for a CVA and he received TNK and [facility] At baseline he is legally blind in the right eye. Patient continued to endorse pain in this leg while at [facility] and states an xray and CT were performed and reported as negative but he continues to have pain and swelling. He notes the knee had had a fair amount of swelling and ecchymosis but his vision is very poor and he does not know what his leg looks like now. Usually has his toenails cut by someone but was having too much pain/tenderness. No fevers/chills. Reports the pain started at the medial knee but now is at the anterolateral chandler. He experiences numbness and tingling. Not on anticoagulation, taken off 81mg ASA. Pain along the lateral ankle and calf. Is on oxycodone, last dose 0200. Denies DM. Related Data Home Medications ?Medication ?Instructions ?Recorded ?Confirmed ?Last Taken ?Type budesonide 160 mcg-glycopyr 9 2 inh inhalation BID 07/19/21 06/14/25 08/19/24 07:00 History mcg-formot 4.8 mcg/actuation HFA inhaler (Breztri Aerosphere) prednisolone acetate 1 % eye 1 drp RIGHT EYE QPM 11/02/23 06/14/25 08/19/24 07:00 History drops,suspension mecobalamin (vitamin B12) 1,000 1,000 mcg sublingual DAILY 08/02/24 06/14/25 08/15/24 History mcg disintegrating tablet,sublingual ipratropium bromide 21 mcg (0.03 intranasal 12/22/24 06/14/25 Unknown History %) nasal spray calcium 500 mg (as 1 tablet PO BID 06/14/25 06/14/25 Unknown History carbonate)-vitamin D3 15 mcg (600 unit) tablet vit C 250 mg-vit E 90 mg-zinc 40 1 tablet PO BID 06/14/25 06/14/25 Unknown History mg-copper 1 [id number] capsule ([facility] AREDS-2) Allergies Allergy/AdvReac Type Severity Reaction Status Date / Time metoprolol Allergy Unknown shortness Verified 07/02/25 12:12 of breath PMFSH Past Medical History Medical History Legally blind Peripheral neuropathy BMI 21.0-21.9, adult Gallstones Acute necrotizing pancreatitis Acute on chronic renal failure Insomnia Parotitis Left shoulder pain Pleuritic pain Stage 1 chronic kidney disease Muscle cramps Essential (primary) hypertension Creatinine elevation COPD exacerbation Bronchitis Anemia Optic disc edema Blindness of right eye Herpes simplex infection of eye Skin pruritus Pain and swelling of left lower leg CKD (chronic kidney disease) Personal history of nicotine dependence PVC's (premature ventricular contractions) Elevated homocysteine Vitamin D deficiency Anxiety Chronic obstructive pulmonary disease BMI 25.0-25.9,adult Cardiac arrhythmia BMI 26.0-26.9,adult Chronic sinusitis Hyperlipidemia Pre-diabetes 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 Alvarez S/P cervical spinal fusion History of ERCP Family History Family History Mother Hypertension Family history of malignant neoplasm of breast in first degree relative Acute myocardial infarction Family history of congestive heart failure Social History Social History Smoking packs per day: 1 Smoking cigarettes per day: 20.0 Years smoked: 60 Smoking pack-years: 60.00 Smoking status: Former smoker Tobacco type: cigarettes Second hand tobacco smoke exposure: No Smoking end date: 10/19/17 Additional smoking assessment comments: 06/2018 Alcohol intake: never Drinks per week: 1 Substance use: never Substance use type: does not use Do You Feel Safe in your Home?: Yes Lack of Transportation: YES Lack of Food: Never True Current Housing: I Have Housing Concerned About Future Housing: No Difficulty Paying Gas/Electric Bills: No Difficulty Paying for Meds: No Currently Unemployed: No Education: High School Diploma/GED Difficulty w/ Childcare or Family Care: No Living arrangements: with friend(s) Occupation/Education: retired Gender identity (if verbalized by the patient): Male Spiritual care concerns: No Exam Narrative: GENERAL: Well-appearing, well-nourished, and in no acute distress. HEAD: Normocephalic, atraumatic. EYES: Non injected, non icteric. Left pupil 2mm, right pupil 6mm (legally blind in this eye) ENT: Nares clear, no rhinorrhea or epistaxis. Gross auditory acuity intact. NECK: Supple. No meningismus. CHEST: Speaking in full sentences. No respiratory distress. HEART: Regular rate and rhythm. . ABDOMEN: Soft, nondistended. No rigidity or guarding. Not peritoneal EXTREMITIES: Normal range of motion. 2+ Pedal edema in left lower extremity as well as some 1+ distal tibial edema. Left leg warmer than right in areas that are erythematous though not well circumscribed. Difficult to palpate DP pulse but otherwise appears warm and well perfused. SKIN: Warm, dry, no rash. NEURO: No focal deficits. Alert and oriented. Answering questions. Following commands. Normal speech without aphasia or dysarthria. Sensation intact to touch throughout left loewr extremity, hypersensitivity. PSYCH: Normal mood and affect. Course Vital Signs Vital signs: Vital Signs Temperature 98.7 F 07/02/25 12:22 Pulse Rate 91 07/02/25 12:22 Respiratory Rate 18 07/02/25 12:22 Blood Pressure 152/80 H 07/02/25 12:22 Pulse Oximetry 97 07/02/25 12:22 Oxygen Delivery Room Air 07/02/25 12:22 Temperature 98.7 F 07/02/25 12:22 Pulse Rate 84 07/02/25 16:30 Respiratory Rate 17 07/02/25 16:30 Blood Pressure 158/87 H 07/02/25 16:30 Pulse Oximetry 99 07/02/25 16:30 Oxygen Delivery Room Air 07/02/25 12:22 MDM - Extremity Injury (Lower) MDM Narrative Medical decision making narrative: Patient presents with report of left lower extremity pain and swelling. Fell on 06/05 during an acute episode of vision changes in left eye for which he received TNK and was flown to [facility]. There, he states he reported pain and had a negative Xray and CT but continues to have pain. Poor vision at baseline so can not see the area though notes the knee had been ecchymotic. Takes oxy; last dose 0200. In the emergency department he is afebrile with vital signs notable for mild hypertension. No leukocytosis. Macrocytic anemia stable from previous. Creatinine appears to be at his baseline, consistent with CKD. Initially given 2.5mg oxy but when he notes that his home dose is 5, an additional 2.5mg added. Imaging as below. Difficult to palpate a pulse initially and on simple handheld ultrasound however using POCUS (point of care ultrasound), blood flow is easily visualized at the DP, both arterial and venous. It is while I am doing this that the patient does endorse that he did not plan on being seen as a patient, came because he was bringing his to the ED for a different issue and decided to be evaluated. BNP is elevated but not to a degree to suggest acute heart failure based on the reference range of the assay for patient's age. Otherwise, this appears cellulitis and extensive work up has not revealed alternative etiology. Erythematous area outlined with skin pen. Cephelexin Rx and first dose given. ESR elevated. CRP normal. Stable for discharge. Advised follow up and return to ED if not improving. Differential Diagnosis Differential diagnosis: Likely other (cellulitis, DVT; superficial thrombophelbitis, peripheral vascular disease) Lab Data Attestation: I reviewed the patient's lab results. 07/02/25 13:51 07/02/25 13:51 Labs: Lab Results 07/02/25 Range/Units 13:51 WBC 5.1 (4.5-10.0) K/mm3 RBC 3.21 L (4.6-6.20) M/mm3 Hgb 11.7 L (14.0-18.0) g/dL Hct 34.5 L (42.0-52.0) % MCV 107.5 H (80-100) fl MCH 36.4 H (26-34) pg MCHC 33.9 (32-36) g/dl RDW 15.0 H (11.5-14.5) % Plt Count 175 (150-375) k/mm3 MPV 10.4 (7.4-10.4) fl Immature Gran % (Auto) 0.2 (0-0.5) % Neut % (Auto) 63.3 (45.5-73.1) % Lymph % (Auto) 21.5 (18.3-44.2) % Frio % (Auto) 9.7 H (2.6-8.5) % Eos % (Auto) 4.3 (0-4.4) % Baso % (Auto) 1.0 (0.2-1.2) % Lymph # (Auto) 1.09 (0.9-3.2) K/mm3 Frio # (Auto) 0.5 (0.1-0.6) K/mm3 Eos # (Auto) 0.2 (0-0.3) K/mm3 Baso # (Auto) 0.1 (0.0-0.1) K/mm3 Abs Immat Gran (auto) 0.01 (0.00-0.031) K/mm3 Absolute Neuts (auto) 3.2 (1.3-6.7) K/mm3 Absolute Nucleated RBC 0.000 (0.0-0.012) K/mm3 Band Neutrophils % Not Reportable Nucleated RBC % 0.0 (0.0-0.2) % Platelet Estimate Adequate (Adequate) Macrocytosis Occasional (NORMAL) Schistocytes Rare ESR 27 H (0-20) mm/hr PT 13.2 (11.1-14.7) Seconds INR 1.0 APTT 31.9 (22.3-36.8) Seconds Sodium 137 (137-145) mmol/L Potassium 4.3 (3.4-5.0) mmol/L Chloride 108 H (98-107) mmol/L Carbon Dioxide 19 L (22-30) mmol/L Anion Gap 10 (4-12) mmol/L BUN 28 H (9-20) mg/dL Creatinine 1.67 H (0.7-1.3) mg/dL Estim Creat Clear Calc 37 ml/min Estimated GFR 40 L (59 - ) Glucose 106 (65-110) mg/dL Calcium 8.9 (8.4-10.2) mg/dL Magnesium 2.3 (1.6-2.3) mg/dL Total Bilirubin 0.7 (0.2-1.3) mg/dL AST 33 (17-59) U/L ALT 24 (6-50) U/L Alkaline Phosphatase 90 (38-126) U/L Total Creatine Kinase 44 L (55-170) U/L C-Reactive Protein < 0.5 (<1.0) mg/dL NT-Pro-B Natriuret Pep 1590 H (19.9-100) pg/mL Total Protein 7.0 (6.3-8.2) g/dL Albumin 4.2 (3.5-5.1) g/dL Imaging Data Radiologist's impression: IMPRESSION: 1. Moderate to severe atherosclerotic changes detailed above most marked below the knees bilaterally. Conventional arteriogram may be of benefit. Impression: Negative for DVT. Discharge Plan Discharge Clinical Impression: Pain of left lower extremity, Paresthesia of left lower extremity, Anemia, macrocytic, Atherosclerosis of arteries of extremities, Cellulitis of left lower extremity, Elevated erythrocyte sedimentation rate CKD (chronic kidney disease) Qualifiers: Chronic kidney disease stage: stage 4 (severe) Qualified Code(s): N18.4 - Chronic kidney disease, stage 4 (severe) Patient Disposition: Home Condition: Stable Instructions: Antibiotic Form, Chronic Kidney Disease (ED), Cellulitis (ED), Chronic Kidney Disease Diet (DC), Paresthesia (ED), Anemia (ED), Leg Pain (ED) Additional Instructions: No blood clot in your leg. Moderate to severe atherosclerotic changes below the knees bilaterally. Conventional arteriogram may be of benefit. Your PCP can help schedule this. You may also benefit from obtaining an outpatient ARIELA US study and /or referral to a vascular surgeon. Otherwise, this does appear to be a skin infection cellulitis. You received your 1st dose of antibiotic in the emergency department and the rest of the course has been prescribed. Continue taking all of your other medications as prescribed. Patient Language: Tajik Prescriptions: New cephalexin 500 mg tablet 500 mg PO Q6H 5 Days Qty: 19 0RF Rx Instructions: capsules ok alternatively; rec'd first dose in ED 07/02 No Action mecobalamin (vitamin B12) 1,000 mcg tablet,disintegrating 1,000 mcg sublingual DAILY Rx Instructions: place tablet under tongue and allow to dissolve for at least30 secs before swallowing ipratropium bromide 21 mcg (0.03 %) spray,non-aerosol intranasal [facility] AREDS-2 250-90-40-1 mg capsule 1 tablet PO BID calcium carbonate-vitamin D3 500 mg-15 mcg (600 unit) tablet 1 tablet PO BID atorvastatin 20 mg tablet 20 mg PO DAILY Qty: 90 1RF montelukast 10 mg tablet 10 mg PO DAILY Qty: 90 1RF Breztri Aerosphere 160-9-4.8 mcg/actuation HFA aerosol inhaler 2 inh inhalation BID prednisolone acetate 1 % drops,suspension 1 drp RIGHT EYE QPM gabapentin 100 mg capsule See Rx Instructions .ROUTE .COMPLEX Qty: 570 5RF Dose Instruction: TAKE 1 CAPSULE BY MOUTH 3 TIMES DAILY Rx Instructions: TAKE 2 CAPSULE BY MOUTH 3 TIMES DAILY valacyclovir 1 gram tablet 500 mg PO BID Qty: 180 0RF Rx Instructions: 500mg BID per pt report. Follow-up/Referrals: Iris Barrett APRN [Primary Care Provider, Internal Medicine] Time of Disposition: 16:06
[2025-07-02] MEDS: oxyCODONE HCL (*CRX) 2.5 MG TAB IR PO ×2 (13:50→15:24)
[2025-07-02 13:58] LABS: Hematocrit 34.5 % (42.0-52.0); Hemoglobin 11.7 g/dL (14.0-18.0); Immature Granulocyte Percent A 0.2 % (0-0.5); Lymphocytes Absolute Auto 1.09 K/mm3 (0.9-3.2); Mean Corpuscular HGB Conc 33.9 g/dl (32-36); Mean Corpuscular Hemoglobin 36.4 pg (26-34); Mean Corpuscular Volume 107.5 fl (80-100); Nucleated Red Blood Cells Absolute Auto 0.000 K/mm3 (0.0-0.012); Nucleated Red Blood Cells Perc 0.0 % (0.0-0.2); Platelet Count Result 175 k/mm3 (150-375); Red Blood Count 3.21 M/mm3 (4.6-6.20); White Blood Count 5.1 K/mm3 (4.5-10.0)
[2025-07-02 14:09] LABS: INR 1.0; Partial Thromboplastin Time 31.9 Seconds (22.3-36.8); Prothrombin Time 13.2 Seconds (11.1-14.7)
[2025-07-02 14:17] LABS: Alanine Aminotransferase 24 U/L (6-50); Albumin Level 4.2 g/dL (3.5-5.1); Alkaline Phosphatase 90 U/L (38-126); Anion Gap 10 mmol/L (4-12); Aspartate Amino Transferase 33 U/L (17-59); Bilirubin,Total 0.7 mg/dL (0.2-1.3); Blood Urea Nitrogen 28 mg/dL (9-20); Calcium 8.9 mg/dL (8.4-10.2); Carbon Dioxide 19 mmol/L (22-30); Chloride 108 mmol/L (98-107); Creatine Kinase 44 U/L (55-170); Estimated CRCL calculation 37 ml/min; Estimated Glomerular Filt Rate 40; Glucose 106 mg/dL (65-110); Magnesium 2.3 mg/dL (1.6-2.3); Potassium 4.3 mmol/L (3.4-5.0); Sodium 137 mmol/L (137-145); Total Protein 7.0 g/dL (6.3-8.2)
[2025-07-02 14:25] LABS: Macrocytosis Occasional (NORMAL)
[2025-07-02 14:26] LABS: Schistocytes Rare
[2025-07-02 14:48] VITALS: BP 161/70; PULSE 83; RESP 18; O2SAT 97
[2025-07-02 15:47] LABS: CRP < 0.5 mg/dL (<1.0)
[2025-07-02 16:00] LABS: NT Pro B Type Natriuretic Pept 1590 pg/mL (19.9-100)
[2025-07-02] MEDS: CEPHALEXIN 500 MG CAPSULE PO (16:22)
[2025-07-02 16:30] VITALS: BP 158/87; PULSE 84; RESP 17; O2SAT 99
== END 2025-07-02 16:31 | disposition home or self-care (01) ==
PROVIDERS: Emergency Provider Student in an Organized Health Care Education/Training Program; PCP Nurse Practitioner Family
DX: I70.202 Unspecified atherosclerosis of native arteries of extremities, left leg (principal); L03.116 Cellulitis of left lower limb; D64.9 Anemia, unspecified; R70.0 Elevated erythrocyte sedimentation rate; R20.2 Paresthesia of skin; M79.662 Pain in left lower leg; M25.572 Pain in left ankle and joints of left foot; I12.9 Hypertensive chronic kidney disease with stage 1 through stage 4 chronic kidney disease, or unspecified chronic kidney disease; N18.4 Chronic kidney disease, stage 4 (severe); J44.9 Chronic obstructive pulmonary disease, unspecified; E78.5 Hyperlipidemia, unspecified; E55.9 Vitamin D deficiency, unspecified; H54.8 Legal blindness, as defined in USA; G62.9 Polyneuropathy, unspecified; R73.03 Prediabetes; J32.9 Chronic sinusitis, unspecified; F41.9 Anxiety disorder, unspecified; Z98.1 Arthrodesis status; Z90.49 Acquired absence of other specified parts of digestive tract; Z87.891 Personal history of nicotine dependence; Z79.899 Other long term (current) drug therapy; Z79.891 Long term (current) use of opiate analgesic
CPT/HCPCS: 36415; 75635; 80053; 82550; 83735; 83880; 85025; 85610; 85652; 85730; 86140; 93971; 99284; A9270; Q9967

== ENCOUNTER 2025-07-26 15:56 | Inpatient (IN) | payer MEDICARE, MEDICAID, SELFPAY ==
--- NOTE | ~2025-07-26 | CT_ITS ---
EXAMINATION: CT chest abdomen pelvis wo con DATE: 07/26/2025 21:47 INDICATION: Weakness. Pulmonary infiltrates. Acute renal insufficiency. TECHNIQUE: Computed tomography (CT) of the chest, abdomen, and pelvis was performed without intravenous contrast. Automated exposure control and iterative reconstruction technique were employed. The dose-length product was 1253.90 mGy-cm. COMPARISON: CT dated 07/02/2025 FINDINGS: CHEST CT: Moderate emphysema. Bilateral scattered mild calcified pleural plaques. No pneumonia, pulmonary edema, pleural effusion or pneumothorax. Heart size is normal. Atherosclerotic coronary artery calcifications. Aortic valve calcification. No pericardial effusion. Thoracic aorta is normal in caliber. No pathologically enlarged thoracic lymphadenopathy. Mild bilateral gynecomastia. Moderate thoracic spondylosis. ABDOMEN/PELVIS CT: Cholecystectomy clips at the gallbladder fossa. Liver, spleen, pancreas, bilateral adrenal glands and bilateral adrenal glands are normal. There is calcified atherosclerosis of the aorta and many of the other arteries including along the renal arteries and bilateral renal cj. Bowels including the appendix are normal. Bladder is normal. No free intraperitoneal gas or fluid. No pathologically enlarged abdominal or pelvic lymphadenopathy. Moderate lower lumbar spondylosis. IMPRESSION: 1. Moderate emphysema with no acute cardiopulmonary disease. 2. No acute intra-abdominal/pelvic process. Reviewed, dictated and finalized at location A.
--- NOTE | ~2025-07-26 | XR_ITS ---
EXAMINATION: XR chest 2V 07/26/2025 16:29 INDICATION: Weakness TECHNIQUE:Frontal and lateral images of the chest were obtained. COMPARISON: 05/03/2024 FINDINGS: Hardware is noted in the cervical and upper thoracic spine. Heart is mildly enlarged, unchanged. No pneumothorax. No pleural effusion. Small patchy opacities in the mid and lower lungs. Lungs are hyperinflated. There is a 1.5 cm nodular density projecting over the lower lung in the lateral projection. Differential includes pulmonary nodule or round atelectasis/scarring. A chest CT is recommended. Biapical scarring. IMPRESSION: 1. Small opacities in the mid and lower lungs which represents atelectasis/scarring or infiltrates. 2. Lungs are hyperinflated. 3.Differential includes pulmonary nodule or round atelectasis/scarring. A chest CT is recommended. If symptoms persist or worsen, consider a short-term follow-up study or additional imaging for further assessment. Reviewed, dictated and finalized at location Q. IMPRESSION: 1. Small opacities in the mid and lower lungs which represents atelectasis/scar ring or infiltrates. 2. Lungs are hyperinflated. 3.Differential includes pulmonary nodule or round atelectasis/scarring. A chest CT is recommended. If symptoms persist or worsen, consider a short-term follow-up study or additio nal imaging for further assessment.
[2025-07-26 16:05] VITALS: BP 119/71; PULSE 86; RESP 20; O2SAT 99
--- NOTE | 2025-07-26 16:06 | ECG_ITS ---
Test Date: 2025-07-26 16:16:51 Measurements Intervals [place] Rate: 76 P: 62 AL: 184 QRS: 42 QRSD: 103 T: 60 QT: 360 QTc: 405 Interpretive Statements SINUS RHYTHM BASELINE ARTIFACT- I, II, III, AVR, AVL, AVF, V1-V6 NORMAL ECG Compared to ECG 05/04/2024 10:31:57 No significant changes Electronically Signed On 07-26-2025 16:21:27 CDT by Luis A Pang D.O.
[2025-07-26 16:31] LABS: Alanine Aminotransferase 29 U/L (6-50); Albumin Level 4.2 g/dL (3.5-5.1); Alkaline Phosphatase 80 U/L (38-126); Anion Gap 10 mmol/L (4-12); Aspartate Amino Transferase 44 U/L (17-59); Bilirubin,Total 0.5 mg/dL (0.2-1.3); Blood Urea Nitrogen 43 mg/dL (9-20); Calcium 8.8 mg/dL (8.4-10.2); Carbon Dioxide 17 mmol/L (22-30); Chloride 104 mmol/L (98-107); Estimated CRCL calculation 27 ml/min; Estimated Glomerular Filt Rate 28; Glucose 108 mg/dL (65-110); Potassium 4.6 mmol/L (3.4-5.0); Sodium 131 mmol/L (137-145); Total Protein 7.2 g/dL (6.3-8.2)
[2025-07-26 16:37] LABS: Hematocrit 38.7 % (42.0-52.0); Hemoglobin 13.0 g/dL (14.0-18.0); Immature Platelet Fraction Pct 3.3 % (0.9-11.2); Mean Corpuscular HGB Conc 33.6 g/dl (32-36); Mean Corpuscular Hemoglobin 36.4 pg (26-34); Mean Corpuscular Volume 108.4 fl (80-100); Platelet Count Result 109 k/mm3 (150-375); Red Blood Count 3.57 M/mm3 (4.6-6.20); White Blood Count 2.6 K/mm3 (4.5-10.0)
[2025-07-26 17:01] LABS: Band Neutrophils Percent 1 % (0-6); Basophils Absolute Manual 0.00 K/mm3 (0.0-0.1); Basophils Percent Manual 0 % (0-1); Eosinophils Absolute Manual 0.02 K/mm3 (0.02-0.50); Eosinophils Percent Manual 1 % (0-4); Giant Platelets Present; Lymphocytes Absolute Manual 0.46 K/mm3 (1.1-4.5); Lymphocytes Percent Manual 18 % (18-44); Monocytes Absolute Manual 0.49 K/mm3 (0.1-0.90); Monocytes Percent Manual 19 % (3-9); Neutrophils Absolute Manual 1.61 K/mm3 (1.3-6.7); Neutrophils Percent Manual 61 % (46-73); Total Cells Counted 100
[2025-07-26 17:02] LABS: Burr Cells 1+; Macrocytosis 1+ (NORMAL)
[2025-07-26] MEDS: SODIUM CHLORIDE 0.9% IV 1,000 ML 999 ML IV CONT (17:18)
[2025-07-26 17:42] LABS: Add Urine Microscopic? YES; Appearance Urine Clear (Clear); Glucose Urine UA Negative (Negative); Leukocyte Esterase Ur Negative LEU/UL (Negative); Need Manual Microscopic Reviewed; Nitrate Urine Negative (Negative); Non Pathogenic Casts 0-2; Specific Grav Ur 1.020 (1.001-1.035)
[2025-07-26 18:30] LABS: Influenza A QL RT-PCR Negative (Negative); Influenza B QL RT-PCR Negative (Negative); RSV RNA, RT-PCR Negative (Negative); SARS-CoV-2 RNA PCR Negative (Negative)
--- NOTE | 2025-07-26 18:38 | ED.GENADULT ---
HPI - General Adult General Chief complaint: Weakness Stated complaint: weakness Time Seen by Provider: 07/26/25 16:23 History of Present Illness HPI narrative: Patient is an 80-year-old male who presents ER with weakness. Progressive over last few days. Have fall days when his abdomen nondistended. No loss consciousness. He has had poor oral intake with subjective fevers. No cough. No chest pain or chest pressure. No diarrhea or urinary frequency urgency. Patient has difficulty getting around as well because he has partial blindness. Related Data Home Medications ?Medication ?Instructions ?Recorded ?Confirmed ?Last Taken ?Type budesonide 160 mcg-glycopyr 9 2 inh inhalation BID 07/19/21 07/26/25 07/24/25 History mcg-formot 4.8 mcg/actuation HFA inhaler (Breztri Aerosphere) prednisolone acetate 1 % eye 1 drp RIGHT EYE QPM 11/02/23 07/26/25 07/24/25 History drops,suspension mecobalamin (vitamin B12) 1,000 1,000 mcg sublingual DAILY 08/02/24 07/26/25 07/24/25 History mcg disintegrating tablet,sublingual calcium 500 mg (as 1 tablet PO BID 06/14/25 07/26/25 07/24/25 History carbonate)-vitamin D3 15 mcg (600 unit) tablet gabapentin 100 mg capsule 200 mg PO TID 07/19/25 07/26/25 07/24/25 History Allergies Allergy/AdvReac Type Severity Reaction Status Date / Time metoprolol Allergy Unknown shortness Verified 07/19/25 07:19 of breath cephalexin AdvReac Mild Nausea Uncoded 07/26/25 21:10 Review of Systems Review of Systems: All systems reviewed & are unremarkable except as noted in HPI and below Constitutional: Constitutional: Reports no additional constitutional complaints ENT: Reports system reviewed and no additional complaints, except as documented Cardiovascular: Cardiovascular: Reports no additional cardiovascular complaints Respiratory: Respiratory: Reports no additional respiratory complaints Gastrointestinal: Gastrointestinal: Reports no additional gastrointestinal complaints Genitourinary: Genitourinary: Reports no additional male genitourinary complaints [facility] Past Medical History Medical History (Updated 07/26/25 @ 21:49 by Jonnathan Johnson MD) Insomnia Pain and swelling of left lower leg Encounter to establish care Legally blind Peripheral neuropathy BMI 21.0-21.9, adult Gallstones Acute necrotizing pancreatitis Acute on chronic renal failure Parotitis Left shoulder pain Pleuritic pain Stage 1 chronic kidney disease Muscle cramps Essential (primary) hypertension Creatinine elevation COPD exacerbation Bronchitis Anemia Optic disc edema Blindness of right eye Herpes simplex infection of eye Skin pruritus CKD (chronic kidney disease) Personal history of nicotine dependence PVC's (premature ventricular contractions) Elevated homocysteine Vitamin D deficiency Anxiety Chronic obstructive pulmonary disease BMI 25.0-25.9,adult Cardiac arrhythmia BMI 26.0-26.9,adult Chronic sinusitis Hyperlipidemia Pre-diabetes 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 Alvarez S/P cervical spinal fusion History of ERCP Family History Family History (Updated 07/26/25 @ 21:17 by Lesly Patterson RN) Mother Acute myocardial infarction Family history of malignant neoplasm of breast in first degree relative Family history of congestive heart failure Hypertension Sibling Diabetes mellitus Social History Social History (Reviewed 07/19/25 @ 07:20 by Juancarlos Garrett [facility]) Smoking packs per day: 1 Smoking cigarettes per day: 20.0 Years smoked: 60 Smoking pack-years: 60.00 Smoking status: Former smoker Tobacco type: cigarettes Second hand tobacco smoke exposure: No Smoking end date: 10/19/17 Additional smoking assessment comments: 06/2018 Alcohol intake: unknown Drinks per week: 1 Substance use: never Substance use type: does not use Do You Feel Safe in your Home?: Yes Lack of Transportation: No Lack of Food: Never True Current Housing: I Have Housing Concerned About Future Housing: No Difficulty Paying Gas/Electric Bills: No Difficulty Paying for Meds: No Currently Unemployed: No Education: High School Diploma/GED Difficulty w/ Childcare or Family Care: No Living arrangements: with friend(s) Occupation/Education: retired Gender identity (if verbalized by the patient): Male Spiritual care concerns: No Exam Narrative: GENERAL: Chronically ill-appearing, well-nourished, and in no acute distress. HEAD: Normocephalic, atraumatic. ENT: Mucous membranes moist. CHEST: Clear to auscultation. No respiratory distress. HEART: Regular rate and rhythm. Normal peripheral pulses. ABDOMEN: Soft, nontender, nondistended, bruise right lower abdomen that is yellowing. EXTREMITIES: Normal range of motion. No edema. SKIN: Warm, dry, no rash. NEURO: Alert and oriented x3. PSYCH: Normal mood and affect. Course Course Emergency Course: Patient resting comfortably, admit to hospitalist service for LUKAS. Fluids ordered. Seems have mild leukopenia, suspect underlying viral infection. Vital Signs Vital signs: Vital Signs Pulse Rate 86 07/26/25 16:05 Respiratory Rate 20 07/26/25 16:05 Blood Pressure 119/71 07/26/25 16:05 Pulse Oximetry 99 07/26/25 16:05 Oxygen Delivery Room Air 07/26/25 16:05 Pulse Rate 85 07/26/25 20:16 Respiratory Rate 16 07/26/25 20:16 Blood Pressure 119/71 07/26/25 16:05 Pulse Oximetry 97 07/26/25 20:16 Oxygen Delivery Room Air 07/26/25 20:16 Medical Decision Making Vital Signs Vital Signs: Vital Signs Pulse Rate 86 07/26/25 16:05 Respiratory Rate 20 07/26/25 16:05 Blood Pressure 119/71 07/26/25 16:05 Pulse Oximetry 99 07/26/25 16:05 Oxygen Delivery Room Air 07/26/25 16:05 Pulse Rate 85 07/26/25 20:16 Respiratory Rate 16 07/26/25 20:16 Blood Pressure 119/71 07/26/25 16:05 Pulse Oximetry 97 07/26/25 20:16 Oxygen Delivery Room Air 07/26/25 20:16 Lab Data 07/26/25 16:16 07/26/25 16:16 Labs: Lab Results 07/26/25 07/26/25 07/26/25 Range/Units 16:16 17:18 17:49 WBC 2.6 L (4.5-10.0) K/mm3 RBC 3.57 L (4.6-6.20) M/mm3 Hgb 13.0 L (14.0-18.0) g/dL Hct 38.7 L (42.0-52.0) % MCV 108.4 H (80-100) fl MCH 36.4 H (26-34) pg MCHC 33.6 (32-36) g/dl RDW 14.3 (11.5-14.5) % Plt Count 109 L (150-375) k/mm3 MPV 10.7 H (7.4-10.4) fl Immature Gran % (Auto) Not Reportable Neut % (Auto) Not Reportable Lymph % (Auto) Not Reportable Randall % (Auto) Not Reportable Eos % (Auto) Not Reportable Baso % (Auto) Not Reportable Lymph # (Auto) Not Reportable Randall # (Auto) Not Reportable Eos # (Auto) Not Reportable Baso # (Auto) Not Reportable Abs Immat Gran (auto) Not Reportable Absolute Neuts (auto) Not Reportable Absolute Nucleated RBC Not Reportable Total Counted 100 Neutrophils % (Manual) 61 (46-73) % Band Neutrophils % 1 (0-6) % Lymphocytes % (Manual) 18 (18-44) % Monocytes % (Manual) 19 H (3-9) % Eosinophils % (Manual) 1 (0-4) % Basophils % (Manual) 0 (0-1) % Nucleated RBC % Not Reportable Abs Neuts (Manual) 1.61 (1.3-6.7) K/mm3 Abs Lymphs (Manual) 0.46 L (1.1-4.5) K/mm3 Abs Monocytes (Manual) 0.49 (0.1-0.90) K/mm3 Absolute Eos (Manual) 0.02 (0.02-0.50) K/mm3 Abs Basophils (Manual) 0.00 (0.0-0.1) K/mm3 Atypical Lymphocytes Present Platelet Estimate Slightly decreased (Adequate) Large Platelets Present Giant Platelets Present % Immature Plt Fraction 3.3 (0.9-11.2) % Macrocytosis 1+ (NORMAL) [place] Cells 1+ Schistocytes Not Reportable Sodium 131 L (137-145) mmol/L Potassium 4.6 (3.4-5.0) mmol/L Chloride 104 (98-107) mmol/L Carbon Dioxide 17 L (22-30) mmol/L Anion Gap 10 (4-12) mmol/L BUN 43 H D (9-20) mg/dL Creatinine 2.28 H (0.7-1.3) mg/dL Estim Creat Clear Calc 27 ml/min Estimated GFR 28 L (59 - ) Glucose 108 (65-110) mg/dL Calcium 8.8 (8.4-10.2) mg/dL Total Bilirubin 0.5 (0.2-1.3) mg/dL AST 44 (17-59) U/L ALT 29 (6-50) U/L Alkaline Phosphatase 80 (38-126) U/L Total Protein 7.2 (6.3-8.2) g/dL Albumin 4.2 (3.5-5.1) g/dL Urine Color Yellow (Yellow) Urine Appearance Clear (Clear) Urine pH 5.5 (5.0-9.0) Ur Specific [place] 1.020 (1.001-1.035) Urine Protein 1+ H (Negative) mg/dL Urine Glucose (UA) Negative (Negative) mg/dL Urine Ketones Trace H (Negative) mg/dL Ur Blood (Man) Negative (Negative) Urine Nitrate Negative (Negative) Urine Bilirubin Negative (Negative) Urine Urobilinogen 0.2 (<2.0) mg/dL Add Ur Microanalysis Reviewed Leukocyte Esterase Rfl Negative (Negative) REYES/UL Urine RBC 0-2 (0-2) /hpf Urine WBC 0-5 (0-3) /hpf Ur Squamous Epith Cells None seen (Few) /hpf Urine Bacteria None seen /hpf Urine Casts 0-2 Influenza A (RT-PCR) Negative (Negative) Influenza B (RT-PCR) Negative (Negative) RSV (RT-PCR) Negative (Negative) SARS-CoV-2 RNA (RT-PCR) Negative (Negative) Imaging Data Radiologist's impression: ITS Impressions Chest X-Ray 07/26/25 16:36 IMPRESSION: 1. Small opacities in the mid and lower lungs which represents atelectasis/scarring or infiltrates. 2. Lungs are hyperinflated. 3.Differential includes pulmonary nodule or round atelectasis/scarring. A chest CT is recommended. If symptoms persist or worsen, consider a short-term follow-up study or additional imaging for further assessment. ECG Data EKG #1: ECG completion date: 07/26/25 ECG completion time: 16:16 EKG Interpretation: normal rate (76), sinus rhythm, normal QRS, normal QT and NL axis Discharge Plan Discharge Clinical Impression: LUKAS (acute kidney injury) Patient Disposition: Still a Patient Condition: Stable
[2025-07-26] MEDS: SODIUM CHLORIDE 0.9% IV 1,000 ML 125 ML IV CONT (19:26)
[2025-07-26 20:16] VITALS: PULSE 85; RESP 16; O2SAT 97
[2025-07-26 20:41] VITALS: BMI 25.2
[2025-07-26 22:00] VITALS: BP 135/61; PULSE 74; RESP 14; TEMP 37.2; O2SAT 97
[2025-07-27] VITALS (9 sets, daily range): BP systolic 112–159; BP diastolic 54–79; PULSE 61–91; RESP 14–16; TEMP 36.2–38.6; O2SAT 95–99; BMI 25.2
[2025-07-27] MEDS: ACETAMINOPHEN 325 MG TABLET 650 MG PO (00:58)
[2025-07-27] MEDS: HYDROcodone/acetaminophen (*CRX) 5-325 MG TABLET 1 TAB PO ×3 (02:09→22:01)
[2025-07-27 02:39] LABS: Hematocrit 32.5 % (42.0-52.0); Hemoglobin 11.1 g/dL (14.0-18.0); Immature Platelet Fraction Pct 2.3 % (0.9-11.2); Mean Corpuscular HGB Conc 34.2 g/dl (32-36); Mean Corpuscular Hemoglobin 36.5 pg (26-34); Mean Corpuscular Volume 106.9 fl (80-100); Platelet Count Result 85 k/mm3 (150-375); Red Blood Count 3.04 M/mm3 (4.6-6.20)
[2025-07-27 02:49] LABS: Alanine Aminotransferase 26 U/L (6-50); Albumin Level 3.3 g/dL (3.5-5.1); Alkaline Phosphatase 70 U/L (38-126); Anion Gap 9 mmol/L (4-12); Aspartate Amino Transferase 38 U/L (17-59); Bilirubin,Total 0.3 mg/dL (0.2-1.3); Blood Urea Nitrogen 40 mg/dL (9-20); Calcium 7.8 mg/dL (8.4-10.2); Carbon Dioxide 12 mmol/L (22-30); Chloride 110 mmol/L (98-107); Estimated CRCL calculation 33 ml/min; Estimated Glomerular Filt Rate 35; Glucose 92 mg/dL (65-110); Magnesium 2.1 mg/dL (1.6-2.3); Potassium 4.1 mmol/L (3.4-5.0); Sodium 131 mmol/L (137-145); Total Protein 5.8 g/dL (6.3-8.2)
[2025-07-27 03:06] LABS: Procalcitonin 0.3 ng/mL
[2025-07-27 03:08] LABS: White Blood Count 1.9 K/mm3 (4.5-10.0)
[2025-07-27 03:09] LABS: Band Neutrophils Percent 6 % (0-6); Lymphocytes Absolute Manual 0.38 K/mm3 (1.1-4.5); Lymphocytes Percent Manual 20 % (18-44); Monocytes Absolute Manual 0.30 K/mm3 (0.1-0.90); Monocytes Percent Manual 16 % (3-9); Neutrophils Absolute Manual 1.21 K/mm3 (1.3-6.7); Neutrophils Percent Manual 58 % (46-73); Total Cells Counted 100
[2025-07-27 03:10] LABS: Macrocytosis 1+ (NORMAL)
[2025-07-27 03:13] LABS: Burr Cells 1+
[2025-07-27 03:14] LABS: Schistocytes Rare
--- NOTE | 2025-07-27 03:40 | PM.IMHP ---
H&P: HPI History of Present Illness Date/Time: 07/27/25 03:40 Chief Complaint: Weakness Narrative: 80-year-old male with history of anxiety, COPD, prior tobacco smoking, hyperlipidemia, complains of 1 day of watery diarrhea, cough sputum production. He is blind, cannot see what color sputum is. He has finished antibiotics as of week ago for left lower extremity foot cellulitis. That has resolved. Chest CT abdomen pelvis performed does not demonstrate any acute findings with final radiology interpretation is pending, urinalysis not indicative of infection. Quad viral screen negative. Patient reports being dehydrated. He was given 1 L normal saline bolus. Review of Systems Review of Systems: All systems reviewed & are unremarkable except as noted in HPI and below (Subjective) [facility] Past Medical History Medical History (Updated 07/26/25 @ 21:49 by Jonnathan Johnson MD) Insomnia Pain and swelling of left lower leg Encounter to establish care Legally blind Peripheral neuropathy BMI 21.0-21.9, adult Gallstones Acute necrotizing pancreatitis Acute on chronic renal failure Parotitis Left shoulder pain Pleuritic pain Stage 1 chronic kidney disease Muscle cramps Essential (primary) hypertension Creatinine elevation COPD exacerbation Bronchitis Anemia Optic disc edema Blindness of right eye Herpes simplex infection of eye Skin pruritus CKD (chronic kidney disease) Personal history of nicotine dependence PVC's (premature ventricular contractions) Elevated homocysteine Vitamin D deficiency Anxiety Chronic obstructive pulmonary disease BMI 25.0-25.9,adult Cardiac arrhythmia BMI 26.0-26.9,adult Chronic sinusitis Hyperlipidemia Pre-diabetes On halfway drug therapy SOB (shortness of breath) Surgical History Surgical History Hx laparoscopic cholecystectomy 08/19/24 Laparoscopic cholecystectomy with intraoperative cholangiogram Dr. Alvarez S/P cervical spinal fusion History of ERCP Family History Family History (Updated 07/26/25 @ 21:17 by Lesly Patterson RN) Mother Acute myocardial infarction Family history of malignant neoplasm of breast in first degree relative Family history of congestive heart failure Hypertension Sibling Diabetes mellitus Social History Social History Smoking packs per day: 1 Smoking cigarettes per day: 20.0 Years smoked: 60 Smoking pack-years: 60.00 Smoking status: Former smoker Tobacco type: cigarettes Second hand tobacco smoke exposure: No Smoking end date: 10/19/17 Additional smoking assessment comments: 06/2018 Alcohol intake: unknown Drinks per week: 1 Substance use: never Substance use type: does not use Do You Feel Safe in your Home?: Yes Lack of Transportation: No Lack of Food: Never True Current Housing: I Have Housing Concerned About Future Housing: No Difficulty Paying Gas/Electric Bills: No Difficulty Paying for Meds: No Currently Unemployed: No Education: High School Diploma/GED Difficulty w/ Childcare or Family Care: No Living arrangements: with friend(s) Occupation/Education: retired Gender identity (if verbalized by the patient): Male Spiritual care concerns: No Meds Home Medications and Allergies Home Medications ?Medication ?Instructions ?Recorded ?Confirmed ?Type budesonide 160 mcg-glycopyr 9 2 inh inhalation BID 07/19/21 07/26/25 History mcg-formot 4.8 mcg/actuation HFA inhaler (Breztri Aerosphere) prednisolone acetate 1 % eye 1 drp RIGHT EYE QPM 11/02/23 07/26/25 History drops,suspension mecobalamin (vitamin B12) 1,000 1,000 mcg sublingual DAILY 08/02/24 07/26/25 History mcg disintegrating tablet,sublingual valacyclovir 1 gram tablet 500 mg (1/2 x 1 gram) PO BID #180 03/29/25 07/26/25 Rx tabs atorvastatin 20 mg tablet 20 mg PO DAILY #90 tabs 06/14/25 07/26/25 Rx calcium 500 mg (as 1 tablet PO BID 06/14/25 07/26/25 History carbonate)-vitamin D3 15 mcg (600 unit) tablet montelukast 10 mg tablet 10 mg PO DAILY #90 tabs 06/14/25 07/26/25 Rx albuterol sulfate 90 mcg/actuation 2 inh inhalation Q4-6H PRN 07/19/25 07/26/25 Rx aerosol inhaler (Ventolin HFA) shortness of breath or wheezing #8.5 grams gabapentin 100 mg capsule 200 mg PO TID 07/19/25 07/26/25 History mirtazapine 7.5 mg tablet 7.5 mg PO QHS #90 tabs 07/19/25 07/26/25 Rx Allergies Allergy/AdvReac Type Severity Reaction Status Date / Time metoprolol Allergy Unknown shortness Verified 07/19/25 07:19 of breath cephalexin AdvReac Mild Nausea Uncoded 07/26/25 21:10 Vital Signs Vital Signs - 24 hr 07/26/25 16:05 07/26/25 20:16 07/26/25 22:00 Temperature Pulse Rate 86 85 Respiratory Rate 20 16 Blood Pressure 119/71 Pulse Oximetry 99 97 Oxygen Delivery Room Air Room Air Room Air 07/26/25 22:00 07/27/25 00:58 07/27/25 01:57 Temperature 99.0 F 101.5 F H 101.5 F H Pulse Rate 74 Respiratory Rate 14 Blood Pressure 135/61 Pulse Oximetry 97 Oxygen Delivery 07/27/25 02:06 Temperature 100.6 F H Pulse Rate Respiratory Rate Blood Pressure Pulse Oximetry Oxygen Delivery Exam Const: General: comfortable and no acute distress Other: Poor skin turgor HENMT: Mouth: Yes dry mucous membranes Neck: Neck: supple Resp: Effort & Inspection: normal respiratory effort Auscultation: clear to auscultation bilaterally Cardio: Rate: regular rate Rhythm: regular rhythm Heart sounds: no murmurs GI: Inspection: non-distended GI Palp: Yes Soft to palpation and No Tenderness to palpation present (GI) Neuro: Motor exam (neuro): 5/5 motor strength present throughout Extrem: General: no edema H&P: Results Labs Labs: Short CBC 07/26/25 07/27/25 Range/Units 16:16 02:29 WBC 2.6 L 1.9 L* (4.5-10.0) K/mm3 Hgb 13.0 L 11.1 L (14.0-18.0) g/dL Hct 38.7 L 32.5 L (42.0-52.0) % Plt Count 109 L 85 L (150-375) k/mm3 BMP 07/26/25 07/27/25 16:16 02:30 Sodium 131 L 131 L Potassium 4.6 4.1 Chloride 104 110 H Carbon Dioxide 17 L 12 L BUN 43 H D 40 H Creatinine 2.28 H 1.88 H Glucose 108 92 Calcium 8.8 7.8 L Liver Function 07/26/25 07/27/25 Range/Units 16:16 02:30 Total Bilirubin 0.5 0.3 (0.2-1.3) mg/dL AST 44 38 (17-59) U/L ALT 29 26 (6-50) U/L Alkaline Phosphatase 80 70 (38-126) U/L Albumin 4.2 3.3 L (3.5-5.1) g/dL Urine 07/26/25 Range/Units 17:18 Urine Color Yellow (Yellow) Urine Appearance Clear (Clear) Urine pH 5.5 (5.0-9.0) Ur Specific [place] 1.020 (1.001-1.035) Urine Protein 1+ H (Negative) mg/dL Urine Glucose (UA) Negative (Negative) mg/dL Assessment and Plan Assessment and plan (1) LUKAS (acute kidney injury): Code(s): N17.9 - Acute kidney failure, unspecified Status: Acute Plan 80-year-old male with history of anxiety, COPD, prior tobacco smoking, hyperlipidemia, complains of 1 day of watery diarrhea, cough sputum production. He is blind, cannot see what color sputum is. He has finished antibiotics as of week ago for left lower extremity foot cellulitis. That has resolved. Chest CT abdomen pelvis performed does not demonstrate any acute findings with final radiology interpretation is pending, urinalysis not indicative of infection. Quad viral screen negative. Patient reports being dehydrated. He was given 1 L normal saline bolus. ----- Fever, watery diarrhea 3 day prior to admission. Use antibiotics last week. Contact precautions. Start fidaxomicin. Check C diff, stool culture, stool lactoferrin. Blood cultures obtained. Procalcitonin 0.3 LUKAS, clinically dehydrated, fluids. Trend renal function. Also possibly symptoms are due to viral syndrome. Quad viral negative. Check respiratory viral pathogen panel. CT abdomen pelvis chest without acute findings however final radiology interpretation is pending. Patient reports 1 day of mucus production and cough. Start levofloxacin for bronchitis versus pneumonia. Patient wishes to be full code. SCDs. Normal saline. Fall precaution, ambulate with assistance. PT/OT for weakness. Hospitalist [facility] Advance Care Plan I have confirmed that the patient's Advanced Care Plan is present, code status is documented, or surrogate decision maker is listed in patient medical record.: Yes Medication Reconciliation I have utilized all available resources to obtain, update and review the patients current medications (includes all prescriptions, OTC, herbals, cannabis, and nutritional supplements).: Yes
[2025-07-27] MEDS: levoFLOXacin 750 MG/D5W 150 ML 750 MG/150 ML BAG 100 MG IVPB (03:50)
[2025-07-27] MEDS: SODIUM CHLORIDE 0.9% IV 1,000 ML 125 ML IV CONT ×2 (03:50→22:34)
[2025-07-27] MEDS: GABAPENTIN 100 MG CAPSULE 200 MG PO ×3 (05:38→20:47)
[2025-07-27] MEDS: FIDAXOMICIN 200 MG TABLET PO (09:13)
[2025-07-27] MEDS: MONTELUKAST SODIUM 10 MG TABLET PO (09:14)
[2025-07-27] MEDS: ATORVASTATIN 20 MG TABLET PO (09:14)
[2025-07-27 13:19] LABS: Toxigenic C. Diff NEGATIVE (NEGATIVE)
--- NOTE | 2025-07-27 14:35 | P.PNIM_ITS ---
Progress Note: A&P Assessment and Plan (1) LUKAS (acute kidney injury): Code(s): N17.9 - Acute kidney failure, unspecified Status: Acute Plan 80-year-old male with history of anxiety, COPD, prior tobacco smoking, hyperlipidemia, complains of 1 day of watery diarrhea, cough sputum production. He is blind, cannot see what color sputum is. He has finished antibiotics as of week ago for left lower extremity foot cellulitis. That has resolved. Chest CT abdomen pelvis performed does not demonstrate any acute findings with final radiology interpretation is pending, urinalysis not indicative of infection. Quad viral screen negative. Patient reports being dehydrated. He was given 1 L normal saline bolus. ----- Fever, watery diarrhea 3 day prior to admission. Use antibiotics last week. Contact precautions. Start fidaxomicin. Check C diff, stool culture, stool lactoferrin. Blood cultures obtained. Procalcitonin 0.3 LUKAS, clinically dehydrated, fluids. Trend renal function. Also possibly symptoms are due to viral syndrome. Quad viral negative. Check respiratory viral pathogen panel. CT abdomen pelvis chest without acute findings however final radiology interpretation is pending. Patient reports 1 day of mucus production and cough. Start levofloxacin for bronchitis versus pneumonia. Patient wishes to be full code. SCDs. Normal saline. Fall precaution, ambulate with assistance. PT/OT for weakness. c diff negative. will stop fidaxomicin for now trend labs continue levaquin Time Spent With Patient Time with patient: 25 - 35 minutes Subjective Date/time seen: 07/27/25 14:35 Interval history: 80-year-old male with history of anxiety, COPD, prior tobacco smoking, hyperlipidemia, complains of 1 day of watery diarrhea, cough sputum production. He is blind, cannot see what color sputum is. He has finished antibiotics as of week ago for left lower extremity foot cellulitis. That has resolved. Chest CT abdomen pelvis performed does not demonstrate any acute findings with final radiology interpretation is pending, urinalysis not indicative of infection. Quad viral screen negative. Patient reports being dehydrated. He was given 1 L normal saline bolus. Pt is seen and examined. Review of Systems Review of Systems: All systems reviewed & are unremarkable except as noted in HPI and below (Subjective) Exam Const: General: comfortable and no acute distress Other: Poor skin turgor HENMT: Mouth: Yes dry mucous membranes Neck: Neck: supple Resp: Effort & Inspection: normal respiratory effort Auscultation: clear to auscultation bilaterally Cardio: Rate: regular rate Rhythm: regular rhythm Heart sounds: no murmurs GI: Inspection: non-distended Neuro: Motor exam (neuro): 5/5 motor strength present throughout Extrem: General: no edema Objective Data Vital Signs Vital Signs: Vital Signs - 24 hr 07/26/25 16:05 07/26/25 20:16 07/26/25 22:00 Temperature Pulse Rate 86 85 Respiratory Rate 20 16 Blood Pressure 119/71 Pulse Oximetry 99 97 Oxygen Delivery Room Air Room Air Room Air 07/26/25 22:00 07/27/25 00:58 07/27/25 01:57 Temperature 99.0 F 101.5 F H 101.5 F H Pulse Rate 74 Respiratory Rate 14 Blood Pressure 135/61 Pulse Oximetry 97 Oxygen Delivery 07/27/25 02:06 07/27/25 06:00 07/27/25 10:07 Temperature 100.6 F H 98.1 F Pulse Rate 61 Respiratory Rate 14 Blood Pressure 117/60 Pulse Oximetry 96 Oxygen Delivery Room Air 07/27/25 11:17 07/27/25 11:22 07/27/25 11:25 Temperature Pulse Rate 61 79 Respiratory Rate Blood Pressure 135/56 L 115/79 Pulse Oximetry Oxygen Delivery Room Air 07/27/25 11:29 Temperature Pulse Rate 91 Respiratory Rate Blood Pressure 112/54 L Pulse Oximetry Oxygen Delivery Intake/Output Intake/Output: Intake & Output 07/24/25 07/25/25 07/26/25 07/27/25 23:59 23:59 23:59 23:59 Intake Total 1000 1000 Output Total 625 Balance 1000 375 Meds/Results Medications: Active Medications Generic Name Dose Route Start Last Admin Trade Name Freq PRN Reason Stop Dose Admin Acetaminophen 650 mg 07/26/25 18:38 07/27/25 00:58 Acetaminophen 325 Mg Tablet PO 650 mg Q4H PRN Administration Mild Pain (1-3) or Fever Hydrocodone Bitart/Acetaminophen 1 tab 07/26/25 18:38 07/27/25 14:28 Hydrocodone/Acetaminophen (*Crx) 5-325 Mg Tablet PO 1 tab Q4H PRN Administration Pain Rated 4-6 Albuterol 2 puff 07/27/25 03:36 Albuterol Sulfate (*Sp) Aerosol 1 Puff INHALATION Q4HRT PRN Shortness Of Breath Or Wheezing Atorvastatin Calcium 20 mg 07/27/25 09:00 07/27/25 09:14 Atorvastatin 20 Mg Tablet PO 20 mg DAILY SOFYA Administration Fidaxomicin 200 mg 07/27/25 09:00 07/27/25 09:13 Fidaxomicin 200 Mg Tablet PO 08/06/25 08:59 200 mg Q12HR SOFYA Administration Fluticasone/Umeclidinium/Vilanterol 1 puff 07/27/25 08:00 07/27/25 08:34 Fluticasone/Umeclidin/Vilanter 100-62.5-25 Mcg Ellipta INHALATION Not Given DAILYRT SOFYA Gabapentin 200 mg 07/27/25 06:00 07/27/25 14:26 Gabapentin 100 Mg Capsule PO 200 mg Q8HR SOFYA Administration Sodium Chloride 1,000 mls @ 125 mls/hr 07/26/25 18:40 07/27/25 03:50 Normal Saline Iv IV CONT 125 mls/hr .Q8H SOFYA Administration Montelukast Sodium 10 mg 07/27/25 09:00 07/27/25 09:14 Montelukast Sodium 10 Mg Tablet PO 10 mg DAILY SOFYA Administration Prednisolone Acetate 1 drop 07/27/25 21:00 Prednisolone Acetate 1% Ophth 5 Ml RIGHT EYE QHS SOFYA Valacyclovir HCl 500 mg 07/27/25 09:00 07/27/25 09:13 Valacyclovir Hcl 500 Mg Tablet PO 500 mg Q12HR SOFYA Administration Radiology Results: ITS Impressions Chest X-Ray 07/26/25 16:36 IMPRESSION: 1. Small opacities in the mid and lower lungs which represents atelectasis/scarring or infiltrates. 2. Lungs are hyperinflated. 3.Differential includes pulmonary nodule or round atelectasis/scarring. A chest CT is recommended. If symptoms persist or worsen, consider a short-term follow-up study or additional imaging for further assessment. Chest/Abdomen/Pelvis CT 07/27/25 08:52 IMPRESSION: 1. Moderate emphysema with no acute cardiopulmonary disease. 2. No acute intra-abdominal/pelvic process. Labs Labs: Laboratory Results - last 24 hr 07/26/25 07/26/25 07/26/25 16:16 17:18 17:49 WBC 2.6 L RBC 3.57 L Hgb 13.0 L Hct 38.7 L MCV 108.4 H MCH 36.4 H MCHC 33.6 RDW 14.3 Plt Count 109 L MPV 10.7 H Immature Gran % (Auto) Not Reportable Neut % (Auto) Not Reportable Lymph % (Auto) Not Reportable [place] % (Auto) Not Reportable Eos % (Auto) Not Reportable Baso % (Auto) Not Reportable Lymph # (Auto) Not Reportable [place] # (Auto) Not Reportable Eos # (Auto) Not Reportable Baso # (Auto) Not Reportable Abs Immat Gran (auto) Not Reportable Absolute Neuts (auto) Not Reportable Absolute Nucleated RBC Not Reportable Total Counted 100 Neutrophils % (Manual) 61 Band Neutrophils % 1 Lymphocytes % (Manual) 18 Monocytes % (Manual) 19 H Eosinophils % (Manual) 1 Basophils % (Manual) 0 Nucleated RBC % Not Reportable Abs Neuts (Manual) 1.61 Abs Lymphs (Manual) 0.46 L Abs Monocytes (Manual) 0.49 Absolute Eos (Manual) 0.02 Abs Basophils (Manual) 0.00 Atypical Lymphocytes Present Platelet Estimate Slightly decreased Large Platelets Present Giant Platelets Present % Immature Plt Fraction 3.3 Macrocytosis 1+ [place] Cells 1+ Schistocytes Not Reportable Sodium 131 L Potassium 4.6 Chloride 104 Carbon Dioxide 17 L Anion Gap 10 BUN 43 H D Creatinine 2.28 H Estim Creat Clear Calc 27 Estimated GFR 28 L Glucose 108 Calcium 8.8 Phosphorus Magnesium Total Bilirubin 0.5 AST 44 ALT 29 Alkaline Phosphatase 80 Total Protein 7.2 Albumin 4.2 Procalcitonin Urine Color Yellow Urine Appearance Clear Urine pH 5.5 Ur Specific [place] 1.020 Urine Protein 1+ H Urine Glucose (UA) Negative Urine Ketones Trace H Ur Blood (Man) Negative Urine Nitrate Negative Urine Bilirubin Negative Urine Urobilinogen 0.2 Add Ur Microanalysis Reviewed Leukocyte Esterase Rfl Negative Urine RBC 0-2 Urine WBC 0-5 Ur Squamous Epith Cells None seen Urine Bacteria None seen Urine Casts 0-2 Nasal RSV Type A (PCR) Nasal RSV Type B (PCR) Chlamy pneumoniae PCR Adenovirus DNA Human Bocavirus (ADRIANE) C. difficile (PCR) Coronavirus Type OC43 Coronavirus Type HKU1 Coronavirus Type 229E Coronavirus Type NL63 Human Metapneumovir PCR Influenza A (RT-PCR) Negative Influenza A (PCR) Influenza A (H1) RNA Influenza A (H3) PCR Influenza B (RT-PCR) Negative M. pneumoniae DNA Parainfluenza PCR Parainfluenza 2 (PCR) Parainfluenza 3 RNA (PCR) Parainfluenza 4 (PCR) RSV (RT-PCR) Negative Rhino/Enterovirus (ADRIANE) SARS-CoV-2 RNA (RT-PCR) Negative Influenza Type B (PCR) Misc Test Comment 07/27/25 07/27/25 07/27/25 02:29 02:30 02:34 WBC 1.9 L* RBC 3.04 L Hgb 11.1 L Hct 32.5 L MCV 106.9 H MCH 36.5 H MCHC 34.2 RDW 14.1 Plt Count 85 L MPV 10.1 Immature Gran % (Auto) Not Reportable Neut % (Auto) Not Reportable Lymph % (Auto) Not Reportable [place] % (Auto) Not Reportable Eos % (Auto) Not Reportable Baso % (Auto) Not Reportable Lymph # (Auto) Not Reportable [place] # (Auto) Not Reportable Eos # (Auto) Not Reportable Baso # (Auto) Not Reportable Abs Immat Gran (auto) Not Reportable Absolute Neuts (auto) Not Reportable Absolute Nucleated RBC Not Reportable Total Counted 100 Neutrophils % (Manual) 58 Band Neutrophils % 6 Lymphocytes % (Manual) 20 Monocytes % (Manual) 16 H Eosinophils % (Manual) Basophils % (Manual) Nucleated RBC % Not Reportable Abs Neuts (Manual) 1.21 L Abs Lymphs (Manual) 0.38 L Abs Monocytes (Manual) 0.30 Absolute Eos (Manual) Abs Basophils (Manual) Atypical Lymphocytes Platelet Estimate Decreased Large Platelets Giant Platelets % Immature Plt Fraction 2.3 Macrocytosis 1+ [place] Cells 1+ Schistocytes Rare Sodium 131 L Potassium 4.1 Chloride 110 H Carbon Dioxide 12 L Anion Gap 9 BUN 40 H Creatinine 1.88 H Estim Creat Clear Calc 33 Estimated GFR 35 L Glucose 92 Calcium 7.8 L Phosphorus 3.3 Magnesium 2.1 Total Bilirubin 0.3 AST 38 ALT 26 Alkaline Phosphatase 70 Total Protein 5.8 L Albumin 3.3 L Procalcitonin 0.3 Urine Color Urine Appearance Urine pH Ur Specific [place] Urine Protein Urine Glucose (UA) Urine Ketones Ur Blood (Man) Urine Nitrate Urine Bilirubin Urine Urobilinogen Add Ur Microanalysis Leukocyte Esterase Rfl Urine RBC Urine WBC Ur Squamous Epith Cells Urine Bacteria Urine Casts Nasal RSV Type A (PCR) Cancelled Nasal RSV Type B (PCR) Cancelled Chlamy pneumoniae PCR Cancelled Adenovirus DNA Cancelled Human Bocavirus (ADRIANE) Cancelled C. difficile (PCR) Coronavirus Type OC43 Cancelled Coronavirus Type HKU1 Cancelled Coronavirus Type 229E Cancelled Coronavirus Type NL63 Cancelled Human Metapneumovir PCR Cancelled Influenza A (RT-PCR) Influenza A (PCR) Cancelled Influenza A (H1) RNA Cancelled Influenza A (H3) PCR Cancelled Influenza B (RT-PCR) M. pneumoniae DNA Cancelled Parainfluenza PCR Cancelled Parainfluenza 2 (PCR) Cancelled Parainfluenza 3 RNA (PCR) Cancelled Parainfluenza 4 (PCR) Cancelled RSV (RT-PCR) Rhino/Enterovirus (ADRIANE) Cancelled SARS-CoV-2 RNA (RT-PCR) Cancelled Influenza Type B (PCR) Cancelled Misc Test Comment Cancelled 07/27/25 11:28 WBC RBC Hgb Hct MCV MCH MCHC RDW Plt Count MPV Immature Gran % (Auto) Neut % (Auto) Lymph % (Auto) [place] % (Auto) Eos % (Auto) Baso % (Auto) Lymph # (Auto) [place] # (Auto) Eos # (Auto) Baso # (Auto) Abs Immat Gran (auto) Absolute Neuts (auto) Absolute Nucleated RBC Total Counted Neutrophils % (Manual) Band Neutrophils % Lymphocytes % (Manual) Monocytes % (Manual) Eosinophils % (Manual) Basophils % (Manual) Nucleated RBC % Abs Neuts (Manual) Abs Lymphs (Manual) Abs Monocytes (Manual) Absolute Eos (Manual) Abs Basophils (Manual) Atypical Lymphocytes Platelet Estimate Large Platelets Giant Platelets % Immature Plt Fraction Macrocytosis [place] Cells Schistocytes Sodium Potassium Chloride Carbon Dioxide Anion Gap BUN Creatinine Estim Creat Clear Calc Estimated GFR Glucose Calcium Phosphorus Magnesium Total Bilirubin AST ALT Alkaline Phosphatase Total Protein Albumin Procalcitonin Urine Color Urine Appearance Urine pH Ur Specific [place] Urine Protein Urine Glucose (UA) Urine Ketones Ur Blood (Man) Urine Nitrate Urine Bilirubin Urine Urobilinogen Add Ur Microanalysis Leukocyte Esterase Rfl Urine RBC Urine WBC Ur Squamous Epith Cells Urine Bacteria Urine Casts Nasal RSV Type A (PCR) Nasal RSV Type B (PCR) Chlamy pneumoniae PCR Adenovirus DNA Human Bocavirus (ADRIANE) C. difficile (PCR) Negative Coronavirus Type OC43 Coronavirus Type HKU1 Coronavirus Type 229E Coronavirus Type NL63 Human Metapneumovir PCR Influenza A (RT-PCR) Influenza A (PCR) Influenza A (H1) RNA Influenza A (H3) PCR Influenza B (RT-PCR) M. pneumoniae DNA Parainfluenza PCR Parainfluenza 2 (PCR) Parainfluenza 3 RNA (PCR) Parainfluenza 4 (PCR) RSV (RT-PCR) Rhino/Enterovirus (ADRIANE) SARS-CoV-2 RNA (RT-PCR) Influenza Type B (PCR) Misc Test Comment
[2025-07-27] MEDS: prednisoLONE ACETATE 1% OPHTH 5 ML 1 DROP RIGHT EYE (20:47)
[2025-07-28] MEDS: GABAPENTIN 100 MG CAPSULE 200 MG PO ×3 (05:58→21:27)
[2025-07-28 06:00] VITALS: BP 145/62; PULSE 65; RESP 16; TEMP 36.3; O2SAT 95
[2025-07-28 06:05] LABS: Hematocrit 34.6 % (42.0-52.0); Hemoglobin 11.6 g/dL (14.0-18.0); Immature Platelet Fraction Pct 3.2 % (0.9-11.2); Mean Corpuscular HGB Conc 33.5 g/dl (32-36); Mean Corpuscular Hemoglobin 36.4 pg (26-34); Mean Corpuscular Volume 108.5 fl (80-100); Platelet Count Result 76 k/mm3 (150-375); Red Blood Count 3.19 M/mm3 (4.6-6.20)
[2025-07-28 06:24] LABS: White Blood Count 1.4 K/mm3 (4.5-10.0)
--- NOTE | 2025-07-28 06:29 | PC.NURSE ---
call from lab with critical lab value WBC 1.4, notified Dr. Carvalho, requested a diff be added to CBC. Lab notified
[2025-07-28 06:32] LABS: Anion Gap 7 mmol/L (4-12); Blood Urea Nitrogen 39 mg/dL (9-20); Calcium 8.1 mg/dL (8.4-10.2); Carbon Dioxide 15 mmol/L (22-30); Chloride 112 mmol/L (98-107); Estimated CRCL calculation 37 ml/min; Estimated Glomerular Filt Rate 40; Glucose 89 mg/dL (65-110); Potassium 4.3 mmol/L (3.4-5.0); Sodium 134 mmol/L (137-145)
[2025-07-28 08:50] VITALS: O2SAT 94
--- NOTE | 2025-07-28 09:10 | PM.IMPN ---
Progress Note: A&P Assessment and Plan (1) LUKAS (acute kidney injury): Code(s): N17.9 - Acute kidney failure, unspecified Status: Acute Plan 80-year-old male with history of anxiety, COPD, prior tobacco smoking, hyperlipidemia, complains of 1 day of watery diarrhea, cough sputum production. He is blind, cannot see what color sputum is. He has finished antibiotics as of week ago for left lower extremity foot cellulitis. That has resolved. Chest CT abdomen pelvis performed does not demonstrate any acute findings with final radiology interpretation is pending, urinalysis not indicative of infection. Quad viral screen negative. Patient reports being dehydrated. He was given 1 L normal saline bolus. ----- Fever, watery diarrhea 3 day prior to admission. Use antibiotics last week. Contact precautions. Start fidaxomicin. Check C diff, stool culture, stool lactoferrin. Blood cultures obtained. Procalcitonin 0.3 LUKAS, clinically dehydrated, fluids. Trend renal function. Also possibly symptoms are due to viral syndrome. Quad viral negative. Check respiratory viral pathogen panel. CT abdomen pelvis chest without acute findings however final radiology interpretation is pending. Patient reports 1 day of mucus production and cough. Start levofloxacin for bronchitis versus pneumonia. Patient wishes to be full code. SCDs. Normal saline. Fall precaution, ambulate with assistance. PT/OT for weakness. c diff negative. will stop fidaxomicin for now trend labs continue Levaquin 07/28 working with PT/OT continue with IV antibiotics for now, will downgrade tomorrow family will bring inhalers from home no wheezing on exam, duoneb as needed Time Spent With Patient Time with patient: 25 - 35 minutes Subjective Date/time seen: 07/28/25 09:10 Interval history: 80-year-old male with history of anxiety, COPD, prior tobacco smoking, hyperlipidemia, complains of 1 day of watery diarrhea, cough sputum production. He is blind, cannot see what color sputum is. He has finished antibiotics as of week ago for left lower extremity foot cellulitis. That has resolved. Chest CT abdomen pelvis performed does not demonstrate any acute findings with final radiology interpretation is pending, urinalysis not indicative of infection. Quad viral screen negative. Patient reports being dehydrated. He was given 1 L normal saline bolus. Pt is seen and examined. He is resting in bed, states feeling better but still get very sob and weak with any activity. remains on room air, drinks and eat well. Review of Systems Review of Systems: All systems reviewed & are unremarkable except as noted in HPI and below (Subjective) Exam Const: General: comfortable and no acute distress Other: Poor skin turgor HENMT: Mouth: Yes dry mucous membranes Neck: Neck: supple Resp: Effort & Inspection: normal respiratory effort Auscultation: clear to auscultation bilaterally Cardio: Rate: regular rate Rhythm: regular rhythm Heart sounds: no murmurs GI: Inspection: non-distended Neuro: Motor exam (neuro): 5/5 motor strength present throughout Extrem: General: no edema Objective Data Vital Signs Vital Signs: Vital Signs - 24 hr 07/27/25 10:07 07/27/25 11:17 07/27/25 11:22 Temperature Pulse Rate 61 Respiratory Rate Blood Pressure 135/56 L Pulse Oximetry Oxygen Delivery Room Air Room Air 07/27/25 11:25 07/27/25 11:29 07/27/25 14:00 Temperature 97.1 F L Pulse Rate 79 91 62 Respiratory Rate 16 Blood Pressure 115/79 112/54 L 114/55 L Pulse Oximetry 99 Oxygen Delivery 07/27/25 20:47 07/27/25 21:47 07/28/25 06:00 Temperature 97.4 F L 97.3 F L Pulse Rate 71 65 Respiratory Rate 16 16 Blood Pressure 159/62 H 145/62 H Pulse Oximetry 95 95 Oxygen Delivery Room Air 07/28/25 08:50 Temperature Pulse Rate Respiratory Rate Blood Pressure Pulse Oximetry 94 Oxygen Delivery Room Air Intake/Output Intake/Output: Intake & Output 07/25/25 07/26/25 07/27/25 07/28/25 23:59 23:59 23:59 23:59 Intake Total 1000 2222 1000 Output Total 625 550 Balance 1000 1597 450 Meds/Results Medications: Active Medications Generic Name Dose Route Start Last Admin Trade Name Freq PRN Reason Stop Dose Admin Acetaminophen 650 mg 07/26/25 18:38 07/27/25 00:58 Acetaminophen 325 Mg Tablet PO 650 mg Q4H PRN Administration Mild Pain (1-3) or Fever Hydrocodone Bitart/Acetaminophen 1 tab 07/26/25 18:38 07/27/25 22:01 Hydrocodone/Acetaminophen (*Crx) 5-325 Mg Tablet PO 1 tab Q4H PRN Administration Pain Rated 4-6 Albuterol 2 puff 07/27/25 03:36 Albuterol Sulfate (*Sp) Aerosol 1 Puff INHALATION Q4HRT PRN Shortness Of Breath Or Wheezing Atorvastatin Calcium 20 mg 07/27/25 09:00 07/27/25 09:14 Atorvastatin 20 Mg Tablet PO 20 mg DAILY SOFYA Administration Fluticasone/Umeclidinium/Vilanterol 1 puff 07/27/25 08:00 07/28/25 08:49 Fluticasone/Umeclidin/Vilanter 100-62.5-25 Mcg Ellipta INHALATION Not Given DAILYRT [facility] Gabapentin 200 mg 07/27/25 06:00 07/28/25 05:58 Gabapentin 100 Mg Capsule PO 200 mg Q8HR SOFYA Administration Levofloxacin 750 mg 07/28/25 21:00 Levofloxacin 750 Mg Tablet PO 07/30/25 21:01 Q48H SOFYA Montelukast Sodium 10 mg 07/27/25 09:00 07/27/25 09:14 Montelukast Sodium 10 Mg Tablet PO 10 mg DAILY SOFYA Administration Prednisolone Acetate 1 drop 07/27/25 21:00 07/27/25 20:47 Prednisolone Acetate 1% Ophth 5 Ml RIGHT EYE 1 drop QHS SOFYA Administration Valacyclovir HCl 500 mg 07/27/25 09:00 07/27/25 20:47 Valacyclovir Hcl 500 Mg Tablet PO 500 mg Q12HR SOFYA Administration Radiology Results: ITS Impressions Chest X-Ray 07/26/25 16:36 IMPRESSION: 1. Small opacities in the mid and lower lungs which represents atelectasis/scarring or infiltrates. 2. Lungs are hyperinflated. 3.Differential includes pulmonary nodule or round atelectasis/scarring. A chest CT is recommended. If symptoms persist or worsen, consider a short-term follow-up study or additional imaging for further assessment. Chest/Abdomen/Pelvis CT 07/27/25 08:52 IMPRESSION: 1. Moderate emphysema with no acute cardiopulmonary disease. 2. No acute intra-abdominal/pelvic process. Labs Labs: Laboratory Results - last 24 hr 07/27/25 07/28/25 11:28 05:42 WBC 1.4 L* RBC 3.19 L Hgb 11.6 L Hct 34.6 L MCV 108.5 H MCH 36.4 H MCHC 33.5 RDW 14.1 Plt Count 76 L MPV 11.1 H % Immature Plt Fraction 3.2 Sodium 134 L Potassium 4.3 Chloride 112 H Carbon Dioxide 15 L Anion Gap 7 BUN 39 H Creatinine 1.67 H Estim Creat Clear Calc 37 Estimated GFR 40 L Glucose 89 Calcium 8.1 L C. difficile (PCR) Negative
[2025-07-28] MEDS: MONTELUKAST SODIUM 10 MG TABLET PO (09:19)
[2025-07-28] MEDS: ATORVASTATIN 20 MG TABLET PO (09:19)
[2025-07-28 14:00] VITALS: BP 120/58; PULSE 76; RESP 18; TEMP 36.4; O2SAT 97
[2025-07-28] MEDS: CALCIUM/VITAMIN D 500 MG/5 MCG (200 I.U.) TABLET PO (17:41)
--- NOTE | 2025-07-28 17:52 | PHAR ---
BETHI AEROSPHERE (budesonide/glycopyrrolate/fomoterol fumearate) 160mcg/9 mcg/4.8 mcg per inhalation Directions: 2 inhalations twice daily home med
[2025-07-28] MEDS: prednisoLONE ACETATE 1% OPHTH 5 ML 1 DROP RIGHT EYE (20:57)
[2025-07-28 22:00] VITALS: BP 132/84; PULSE 65; RESP 18; TEMP 36.7; O2SAT 96
[2025-07-28] MEDS: BREZTRI INHALATION (22:15)
[2025-07-28] MEDS: [UNRECOGNIZED DRUG - OTHER] INHALATION (22:15)
[2025-07-28] MEDS: HYDROcodone/acetaminophen (*CRX) 5-325 MG TABLET 1 TAB PO (22:22)
[2025-07-29] MEDS: GABAPENTIN 100 MG CAPSULE 200 MG PO ×3 (05:04→21:03)
[2025-07-29 06:00] VITALS: BP 108/61; PULSE 59; RESP 18; TEMP 36.5; O2SAT 95
[2025-07-29 06:07] LABS: Hematocrit 33.5 % (42.0-52.0); Hemoglobin 11.4 g/dL (14.0-18.0); Immature Platelet Fraction Pct 3.1 % (0.9-11.2); Mean Corpuscular HGB Conc 34.0 g/dl (32-36); Mean Corpuscular Hemoglobin 36.3 pg (26-34); Mean Corpuscular Volume 106.7 fl (80-100); Platelet Count Result 78 k/mm3 (150-375); Red Blood Count 3.14 M/mm3 (4.6-6.20)
[2025-07-29 06:11] LABS: White Blood Count 1.8 K/mm3 (4.5-10.0)
[2025-07-29 06:29] LABS: Anion Gap 6 mmol/L (4-12); Blood Urea Nitrogen 33 mg/dL (9-20); Calcium 8.4 mg/dL (8.4-10.2); Carbon Dioxide 17 mmol/L (22-30); Chloride 112 mmol/L (98-107); Estimated CRCL calculation 37 ml/min; Estimated Glomerular Filt Rate 41; Glucose 97 mg/dL (65-110); Potassium 4.5 mmol/L (3.4-5.0); Sodium 135 mmol/L (137-145)
[2025-07-29] MEDS: ATORVASTATIN 20 MG TABLET PO (08:10)
[2025-07-29] MEDS: CALCIUM/VITAMIN D 500 MG/5 MCG (200 I.U.) TABLET PO ×2 (08:10→16:53)
[2025-07-29] MEDS: MONTELUKAST SODIUM 10 MG TABLET PO (08:10)
[2025-07-29] MEDS: CYANOCOBALAMIN 1,000 MCG TABLET 1000 MCG PO (08:10)
[2025-07-29] MEDS: [UNRECOGNIZED DRUG - OTHER] INHALATION ×2 (08:44→20:36)
[2025-07-29] MEDS: BREZTRI INHALATION ×2 (08:44→20:36)
[2025-07-29 08:46] VITALS: O2SAT 96
[2025-07-29 14:00] VITALS: BP 134/68; PULSE 72; RESP 18; TEMP 37.4; O2SAT 97
--- NOTE | 2025-07-29 15:00 | P.PNIM_ITS ---
Progress Note: A&P Assessment and Plan (1) LUKAS (acute kidney injury): Code(s): N17.9 - Acute kidney failure, unspecified Status: Acute Plan 80-year-old male with history of anxiety, COPD, prior tobacco smoking, hyperlipidemia, complains of 1 day of watery diarrhea, cough sputum production. He is blind, cannot see what color sputum is. He has finished antibiotics as of week ago for left lower extremity foot cellulitis. That has resolved. Chest CT abdomen pelvis performed does not demonstrate any acute findings with final radiology interpretation is pending, urinalysis not indicative of infection. Quad viral screen negative. Patient reports being dehydrated. He was given 1 L normal saline bolus. ----- Fever, watery diarrhea 3 day prior to admission. Use antibiotics last week. Contact precautions. Start fidaxomicin. Check C diff, stool culture, stool lactoferrin. Blood cultures obtained. Procalcitonin 0.3 LUKAS, clinically dehydrated, fluids. Trend renal function. Also possibly symptoms are due to viral syndrome. Quad viral negative. Check respiratory viral pathogen panel. CT abdomen pelvis chest without acute findings however final radiology interpretation is pending. Patient reports 1 day of mucus production and cough. Start levofloxacin for bronchitis versus pneumonia. Patient wishes to be full code. SCDs. Normal saline. Fall precaution, ambulate with assistance. PT/OT for weakness. c diff negative. will stop fidaxomicin for now trend labs continue Levaquin 07/28 working with PT/OT continue with IV antibiotics for now, will downgrade tomorrow family will bring inhalers from home no wheezing on exam, duoneb as needed 07/29- will stop IV fluids continue IV antibiotics Time Spent With Patient Time: noted leukopenia could be due to infection monitor closely consider consult oncology if needed Time with patient: 25 - 35 minutes Subjective Date/time seen: 07/29/25 15:00 Interval history: 80-year-old male with history of anxiety, COPD, prior tobacco smoking, hyperlipidemia, complains of 1 day of watery diarrhea, cough sputum production. He is blind, cannot see what color sputum is. He has finished antibiotics as of week ago for left lower extremity foot cellulitis. That has resolved. Chest CT abdomen pelvis performed does not demonstrate any acute findings with final radiology interpretation is pending, urinalysis not indicative of infection. Quad viral screen negative. Patient reports being dehydrated. He was given 1 L normal saline bolus. Pt is seen and examined. He is resting in bed, states feeling better but still get very sob and weak with any activity. remains on room air, drinks and eat well. 07/29 doing well, eating and drinking ok. care coordination following for placement. Review of Systems Review of Systems: All systems reviewed & are unremarkable except as noted in HPI and below (Subjective) Exam Const: General: comfortable and no acute distress Other: Poor skin turgor HENMT: Mouth: Yes dry mucous membranes Neck: Neck: supple Resp: Effort & Inspection: normal respiratory effort Auscultation: clear to auscultation bilaterally Cardio: Rate: regular rate Rhythm: regular rhythm Heart sounds: no murmurs GI: Inspection: non-distended Neuro: Motor exam (neuro): 5/5 motor strength present throughout Extrem: General: no edema Objective Data Vital Signs Vital Signs: Vital Signs - 24 hr 07/28/25 21:07 07/28/25 22:00 07/29/25 06:00 Temperature 98.1 F 97.7 F Pulse Rate 65 59 L Respiratory Rate 18 18 Blood Pressure 132/84 108/61 Pulse Oximetry 96 95 Oxygen Delivery Room Air 07/29/25 08:00 07/29/25 08:46 Temperature Pulse Rate Respiratory Rate Blood Pressure Pulse Oximetry 96 Oxygen Delivery Room Air Room Air Intake/Output Intake/Output: Intake & Output 1007/27/25 07/28/25 07/29/25 23:59 23:59 23:59 23:59 Intake Total 1000 2223 2320 560 Output Total 532 6340 Balance 1000 1597 -380 560 Meds/Results Medications: Active Medications Generic Name Dose Route Start Last Admin Trade Name Freq PRN Reason Stop Dose Admin Acetaminophen 650 mg 07/26/25 18:38 07/27/25 00:58 Acetaminophen 325 Mg Tablet PO 650 mg Q4H PRN Administration Mild Pain (1-3) or Fever Hydrocodone Bitart/Acetaminophen 1 tab 07/26/25 18:38 07/28/25 22:22 Hydrocodone/Acetaminophen (*Crx) 5-325 Mg Tablet PO 1 tab Q4H PRN Administration Pain Rated 4-6 Albuterol 2 puff 07/27/25 03:36 Albuterol Sulfate (*Sp) Aerosol 1 Puff INHALATION Q4HRT PRN Shortness Of Breath Or Wheezing Atorvastatin Calcium 20 mg 07/27/25 09:00 07/29/25 08:10 Atorvastatin 20 Mg Tablet PO 20 mg DAILY SOFYA Administration Calcium Carbonate 500 mg 07/28/25 17:00 07/29/25 08:10 Calcium/Vitamin D 500 Mg/5 Mcg (200 I.U.) Tablet PO 500 mg BID SOFYA Administration Cyanocobalamin 1,000 mcg 07/28/25 12:25 07/29/25 08:10 Cyanocobalamin 1,000 Mcg Tablet PO 1,000 mcg DAILY SOFYA Administration Gabapentin 200 mg 07/27/25 06:00 07/29/25 14:34 Gabapentin 100 Mg Capsule PO 200 mg Q8HR SOFYA Administration Levofloxacin 750 mg 07/28/25 21:00 07/28/25 20:57 Levofloxacin 750 Mg Tablet PO 07/30/25 21:01 750 mg Q48H SOFYA Administration Montelukast Sodium 10 mg 07/27/25 09:00 07/29/25 08:10 Montelukast Sodium 10 Mg Tablet PO 10 mg DAILY SOFYA Administration Home Med Melly ( 2 each 07/28/25 20:00 07/29/25 08:44 Budesonide/ INHALATION 08/27/25 19:59 2 each Glycopyrrolate/ Q12HRT SOFYA Administration Formoterol Fumarate 160 Mcg-9 Mcg-4.8 Mcg...) Prednisolone Acetate 1 drop 07/27/25 21:00 07/28/25 20:57 Prednisolone Acetate 1% Ophth 5 Ml RIGHT EYE 1 drop QHS SOFYA Administration Valacyclovir HCl 500 mg 07/27/25 09:00 07/29/25 08:10 Valacyclovir Hcl 500 Mg Tablet PO 500 mg Q12HR SOFYA Administration Radiology Results: ITS Impressions Chest X-Ray 07/26/25 16:36 IMPRESSION: 1. Small opacities in the mid and lower lungs which represents atelectasis/scarring or infiltrates. 2. Lungs are hyperinflated. 3.Differential includes pulmonary nodule or round atelectasis/scarring. A chest CT is recommended. If symptoms persist or worsen, consider a short-term follow-up study or additional imaging for further assessment. Chest/Abdomen/Pelvis CT 07/27/25 08:52 IMPRESSION: 1. Moderate emphysema with no acute cardiopulmonary disease. 2. No acute intra-abdominal/pelvic process. Labs Labs: Laboratory Results - last 24 hr 07/27/25 07/29/25 02:34 05:50 WBC 1.8 L* RBC 3.14 L Hgb 11.4 L Hct 33.5 L MCV 106.7 H MCH 36.3 H MCHC 34.0 RDW 14.1 Plt Count 78 L MPV 10.7 H % Immature Plt Fraction 3.1 Sodium 135 L Potassium 4.5 Chloride 112 H Carbon Dioxide 17 L Anion Gap 6 BUN 33 H Creatinine 1.64 H Estim Creat Clear Calc 37 Estimated GFR 41 L Glucose 97 Calcium 8.4 Chlamy pneumoniae PCR Not detected Adenovirus (PCR) Not detected B. pertussis DNA (PCR) Not detected B.parapertussis DNA PCR Not detected Coronavirus OC43 (PCR) Not detected Coronavirus HKU1 (PCR) Not detected Coronavirus 229E (PCR) Not detected Coronavirus NL63 (PCR) Not detected Human Metapneumovir PCR Not detected Influenza A (H1) PCR Not detected Influ A (H1/09) PCR Not detected Influenza A (H3) PCR Not detected Influenza Type A (PCR) Not detected Influenza Type B (PCR) Not detected M. pneumoniae (PCR) Not detected Parainfluenza 1 (PCR) Not detected Parainfluenza 2 (PCR) Not detected Parainfluenza 3 (PCR) Not detected Parainfluenza 4 (PCR) Not detected RSV (PCR) Not detected Entero/Rhino (PCR) Not detected SARS-CoV-2 (PCR) Not detected
[2025-07-29 20:36] VITALS: O2SAT 96
[2025-07-29 20:56] VITALS: BP 140/67; PULSE 71; RESP 14; TEMP 36.5; O2SAT 97
[2025-07-29] MEDS: prednisoLONE ACETATE 1% OPHTH 5 ML 1 DROP RIGHT EYE (21:03)
[2025-07-30 06:00] VITALS: BP 131/72; PULSE 61; RESP 14; TEMP 36.3; O2SAT 100
[2025-07-30 06:11] LABS: Hematocrit 33.2 % (42.0-52.0); Hemoglobin 11.3 g/dL (14.0-18.0); Immature Platelet Fraction Pct 3.4 % (0.9-11.2); Mean Corpuscular HGB Conc 34.0 g/dl (32-36); Mean Corpuscular Hemoglobin 36.3 pg (26-34); Mean Corpuscular Volume 106.8 fl (80-100); Platelet Count Result 76 k/mm3 (150-375); Red Blood Count 3.11 M/mm3 (4.6-6.20); White Blood Count 2.4 K/mm3 (4.5-10.0)
[2025-07-30 06:23] LABS: Anion Gap 8 mmol/L (4-12); Blood Urea Nitrogen 35 mg/dL (9-20); Calcium 8.7 mg/dL (8.4-10.2); Carbon Dioxide 16 mmol/L (22-30); Chloride 111 mmol/L (98-107); Estimated CRCL calculation 37 ml/min; Estimated Glomerular Filt Rate 41; Glucose 107 mg/dL (65-110); Potassium 4.3 mmol/L (3.4-5.0); Sodium 135 mmol/L (137-145)
[2025-07-30] MEDS: GABAPENTIN 100 MG CAPSULE 200 MG PO ×3 (06:25→20:25)
[2025-07-30 08:17] VITALS: O2SAT 97
[2025-07-30] MEDS: [UNRECOGNIZED DRUG - OTHER] INHALATION ×2 (08:17→20:48)
[2025-07-30] MEDS: BREZTRI INHALATION ×2 (08:17→20:48)
[2025-07-30] MEDS: CYANOCOBALAMIN 1,000 MCG TABLET 1000 MCG PO (08:41)
[2025-07-30] MEDS: MONTELUKAST SODIUM 10 MG TABLET PO (08:41)
[2025-07-30] MEDS: CALCIUM/VITAMIN D 500 MG/5 MCG (200 I.U.) TABLET PO ×2 (08:41→16:20)
[2025-07-30] MEDS: ATORVASTATIN 20 MG TABLET PO (08:41)
--- NOTE | 2025-07-30 13:56 | P.PNIM_ITS ---
Progress Note: A&P Assessment and Plan (1) LUKAS (acute kidney injury): Code(s): N17.9 - Acute kidney failure, unspecified Status: Acute Plan 80-year-old male with history of anxiety, COPD, prior tobacco smoking, hyperlipidemia, complains of 1 day of watery diarrhea, cough sputum production. He is blind, cannot see what color sputum is. He has finished antibiotics as of week ago for left lower extremity foot cellulitis. That has resolved. Chest CT abdomen pelvis performed does not demonstrate any acute findings with final radiology interpretation is pending, urinalysis not indicative of infection. Quad viral screen negative. Patient reports being dehydrated. He was given 1 L normal saline bolus. ----- Fever, watery diarrhea 3 day prior to admission. Use antibiotics last week. Contact precautions. Start fidaxomicin. Check C diff, stool culture, stool lactoferrin. Blood cultures obtained. Procalcitonin 0.3 LUKAS, clinically dehydrated, fluids. Trend renal function. Also possibly symptoms are due to viral syndrome. Quad viral negative. Check respiratory viral pathogen panel. CT abdomen pelvis chest without acute findings however final radiology interpretation is pending. Patient reports 1 day of mucus production and cough. Start levofloxacin for bronchitis versus pneumonia. Patient wishes to be full code. SCDs. Normal saline. Fall precaution, ambulate with assistance. PT/OT for weakness. c diff negative. will stop fidaxomicin for now trend labs continue Levaquin 07/28 working with PT/OT continue with IV antibiotics for now, will downgrade tomorrow family will bring inhalers from home no wheezing on exam, duoneb as needed 07/29- will stop IV fluids his cr is stable- it looks like he is about 1.40-1.64 as a baseline now continue IV antibiotics we discussed consulting oncology for low wbc/infection/further workup and he didnot want to do it but agreeable today. Will add consult to hem/oncology Time Spent With Patient Time with patient: 25 - 35 minutes Subjective Date/time seen: 07/30/25 13:56 Interval history: 80-year-old male with history of anxiety, COPD, prior tobacco smoking, hyperlipidemia, complains of 1 day of watery diarrhea, cough sputum production. He is blind, cannot see what color sputum is. He has finished antibiotics as of week ago for left lower extremity foot cellulitis. That has resolved. Chest CT abdomen pelvis performed does not demonstrate any acute findings with final radiology interpretation is pending, urinalysis not indicative of infection. Quad viral screen negative. Patient reports being dehydrated. He was given 1 L normal saline bolus. Pt is seen and examined. He is resting in bed, states feeling better but still get very sob and weak with any activity. remains on room air, drinks and eat well. 07/29 doing well, eating and drinking ok. care coordination following for placement. 07/30- will consult hem/onc for low wbc. pt is doing better today. anticipate discharge to [place] tomorrow afternoon. Review of Systems Review of Systems: All systems reviewed & are unremarkable except as noted in HPI and below (Subjective) Exam Const: General: comfortable and no acute distress Other: Poor skin turgor HENMT: Mouth: Yes dry mucous membranes Neck: Neck: supple Resp: Effort & Inspection: normal respiratory effort Auscultation: clear to auscultation bilaterally Cardio: Rate: regular rate Rhythm: regular rhythm Heart sounds: no murmurs GI: Inspection: non-distended Neuro: Motor exam (neuro): 5/5 motor strength present throughout Extrem: General: no edema Objective Data Vital Signs Vital Signs: Vital Signs - 24 hr 07/29/25 14:00 07/29/25 20:36 07/29/25 20:56 Temperature 99.3 F 97.7 F Pulse Rate 72 71 Respiratory Rate 18 14 Blood Pressure 134/68 140/67 Pulse Oximetry 97 96 97 Oxygen Delivery Room Air 07/29/25 21:25 07/30/25 06:00 07/30/25 08:00 Temperature 97.3 F L Pulse Rate 61 Respiratory Rate 14 Blood Pressure 131/72 Pulse Oximetry 100 Oxygen Delivery Room Air Room Air 07/30/25 08:17 Temperature Pulse Rate Respiratory Rate Blood Pressure Pulse Oximetry 97 Oxygen Delivery Room Air Intake/Output Intake/Output: Intake & Output 07/27/25 07/28/25 07/29/25 07/30/25 23:59 23:59 23:59 23:59 Intake Total 2222 2320 1600 50 Output Total 625 2700 Balance 1597 -380 1600 50 Meds/Results Medications: Active Medications Generic Name Dose Route Start Last Admin Trade Name Freq PRN Reason Stop Dose Admin Acetaminophen 650 mg 07/26/25 18:38 07/27/25 00:58 Acetaminophen 325 Mg Tablet PO 650 mg Q4H PRN Administration Mild Pain (1-3) or Fever Hydrocodone Bitart/Acetaminophen 1 tab 07/26/25 18:38 07/28/25 22:22 Hydrocodone/Acetaminophen (*Crx) 5-325 Mg Tablet PO 1 tab Q4H PRN Administration Pain Rated 4-6 Albuterol 2 puff 07/27/25 03:36 Albuterol Sulfate (*Sp) Aerosol 1 Puff INHALATION Q4HRT PRN Shortness Of Breath Or Wheezing Atorvastatin Calcium 20 mg 07/27/25 09:00 07/30/25 08:41 Atorvastatin 20 Mg Tablet PO 20 mg DAILY SOFYA Administration Calcium Carbonate 500 mg 07/28/25 17:00 07/30/25 08:41 Calcium/Vitamin D 500 Mg/5 Mcg (200 I.U.) Tablet PO 500 mg BID SOFYA Administration Cyanocobalamin 1,000 mcg 07/28/25 12:25 07/30/25 08:41 Cyanocobalamin 1,000 Mcg Tablet PO 1,000 mcg DAILY SOFYA Administration Gabapentin 200 mg 07/27/25 06:00 07/30/25 06:25 Gabapentin 100 Mg Capsule PO 200 mg Q8HR SOFYA Administration Levofloxacin 750 mg 07/28/25 21:00 07/28/25 20:57 Levofloxacin 750 Mg Tablet PO 07/30/25 21:01 750 mg Q48H SOFYA Administration Montelukast Sodium 10 mg 10/09/25 09:00 07/30/25 08:41 Montelukast Sodium 10 Mg Tablet PO 10 mg DAILY SOFYA Administration Home Med Melly ( 2 each 07/28/25 20:00 07/30/25 08:17 Budesonide/ INHALATION 08/27/25 19:59 2 each Glycopyrrolate/ Q12HRT SOFYA Administration Formoterol Fumarate 160 Mcg-9 Mcg-4.8 Mcg...) Prednisolone Acetate 1 drop 07/27/25 21:00 07/29/25 21:03 Prednisolone Acetate 1% Ophth 5 Ml RIGHT EYE 1 drop QHS SOFYA Administration Valacyclovir HCl 500 mg 07/27/25 09:00 07/30/25 08:41 Valacyclovir Hcl 500 Mg Tablet PO 500 mg Q12HR SOFYA Administration Radiology Results: ITS Impressions Chest X-Ray 07/26/25 16:36 IMPRESSION: 1. Small opacities in the mid and lower lungs which represents atelectasis/scarring or infiltrates. 2. Lungs are hyperinflated. 3.Differential includes pulmonary nodule or round atelectasis/scarring. A chest CT is recommended. If symptoms persist or worsen, consider a short-term follow-up study or additional imaging for further assessment. Chest/Abdomen/Pelvis CT 07/27/25 08:52 IMPRESSION: 1. Moderate emphysema with no acute cardiopulmonary disease. 2. No acute intra-abdominal/pelvic process. Labs Labs: Laboratory Results - last 24 hr 07/30/25 05:39 WBC 2.4 L RBC 3.11 L Hgb 11.3 L Hct 33.2 L MCV 106.8 H MCH 36.3 H MCHC 34.0 RDW 14.2 Plt Count 76 L MPV 11.4 H % Immature Plt Fraction 3.4 Sodium 135 L Potassium 4.3 Chloride 111 H Carbon Dioxide 16 L Anion Gap 8 BUN 35 H Creatinine 1.64 H Estim Creat Clear Calc 37 Estimated GFR 41 L Glucose 107 Calcium 8.7
[2025-07-30 14:00] VITALS: BP 120/68; PULSE 80; RESP 20; TEMP 36.8; O2SAT 98
[2025-07-30] MEDS: prednisoLONE ACETATE 1% OPHTH 5 ML 1 DROP RIGHT EYE (20:25)
[2025-07-30] MEDS: HYDROcodone/acetaminophen (*CRX) 5-325 MG TABLET 1 TAB PO (20:27)
[2025-07-30 20:50] VITALS: PULSE 70; RESP 16; O2SAT 95
[2025-07-30 22:00] VITALS: BP 126/63; PULSE 73; RESP 14; TEMP 36.4; O2SAT 97
[2025-07-31] VITALS (7 sets, daily range): BP systolic 127–128; BP diastolic 64–75; PULSE 62–73; RESP 14–20; TEMP 35.7–36.8; O2SAT 96–99
[2025-07-31] MEDS: GABAPENTIN 100 MG CAPSULE 200 MG PO ×3 (05:16→21:03)
[2025-07-31 06:42] LABS: Hematocrit 32.4 % (42.0-52.0); Hemoglobin 11.0 g/dL (14.0-18.0); Immature Platelet Fraction Pct 4.5 % (0.9-11.2); Mean Corpuscular HGB Conc 34.0 g/dl (32-36); Mean Corpuscular Hemoglobin 35.8 pg (26-34); Mean Corpuscular Volume 105.5 fl (80-100); Platelet Count Result 78 k/mm3 (150-375); Red Blood Count 3.07 M/mm3 (4.6-6.20); White Blood Count 3.0 K/mm3 (4.5-10.0)
[2025-07-31 07:31] LABS: Anion Gap 6 mmol/L (4-12); Blood Urea Nitrogen 36 mg/dL (9-20); Calcium 8.7 mg/dL (8.4-10.2); Carbon Dioxide 19 mmol/L (22-30); Chloride 110 mmol/L (98-107); Estimated CRCL calculation 43 ml/min; Estimated Glomerular Filt Rate 49; Glucose 104 mg/dL (65-110); Potassium 4.1 mmol/L (3.4-5.0); Sodium 135 mmol/L (137-145)
[2025-07-31] MEDS: [UNRECOGNIZED DRUG - OTHER] INHALATION ×2 (07:38→19:52)
[2025-07-31] MEDS: BREZTRI INHALATION ×2 (07:38→19:52)
[2025-07-31] MEDS: ALBUTEROL SULFATE (*SP) AEROSOL 1 PUFF 2 PUFF INHALATION (09:21)
[2025-07-31] MEDS: ATORVASTATIN 20 MG TABLET PO (09:25)
[2025-07-31] MEDS: MONTELUKAST SODIUM 10 MG TABLET PO (09:25)
[2025-07-31] MEDS: CALCIUM/VITAMIN D 500 MG/5 MCG (200 I.U.) TABLET PO ×2 (09:26→17:53)
[2025-07-31] MEDS: CYANOCOBALAMIN 1,000 MCG TABLET 1000 MCG PO (09:26)
--- NOTE | 2025-07-31 09:49 | PCNFU ---
Nutrition Follow-Up Complete: Inadequate oral intake related to loss of appetite as evidenced by weight loss -2.5%/1 week Goal:Intakes >75% Pt meeting goal, continue with current goal Pt current nutrition is Heart healthy, Ensure BID. Nutrition recommendation: continue with current plan of care Last recorded weight is 89 kg. Bowel Motility: +BM 07/30 Labs Reviewed: Hgb:11, HCT:32.4, NA:135, GFR:49, BUN:36, Cr:1.4 Meds Noted: Skin: WNL Additional Notes: Pt continues on a heart healthy diet, intake 75-100% of meals, Ensure in place BID. Encourage good intake, agree with orders. Possible discharge today Monitoring intakes, weights, labs, supplement tolerance, plan of care Follow up in 5 days
--- NOTE | 2025-07-31 10:43 | PC.NURSE ---
On 07/31/25, the student, [Hope Nixon], provided care and completed [facility] documentation on this patient. I have reviewed the student's documentation and agree with the findings.
[2025-07-31] MEDS: prednisoLONE ACETATE 1% OPHTH 5 ML 1 DROP RIGHT EYE (21:04)
[2025-07-31] MEDS: HYDROcodone/acetaminophen (*CRX) 5-325 MG TABLET 1 TAB PO (21:05)
[2025-08-01 04:40] VITALS: BP 108/49; PULSE 65; RESP 14; TEMP 36.6; O2SAT 93
[2025-08-01] MEDS: GABAPENTIN 100 MG CAPSULE 200 MG PO (05:00)
[2025-08-01 06:08] LABS: Hematocrit 32.3 % (42.0-52.0); Hemoglobin 11.2 g/dL (14.0-18.0); Immature Platelet Fraction Pct 4.8 % (0.9-11.2); Mean Corpuscular HGB Conc 34.7 g/dl (32-36); Mean Corpuscular Hemoglobin 36.7 pg (26-34); Mean Corpuscular Volume 105.9 fl (80-100); Platelet Count Result 105 k/mm3 (150-375); Red Blood Count 3.05 M/mm3 (4.6-6.20); White Blood Count 3.8 K/mm3 (4.5-10.0)
[2025-08-01] MEDS: MONTELUKAST SODIUM 10 MG TABLET PO (08:38)
[2025-08-01] MEDS: CYANOCOBALAMIN 1,000 MCG TABLET 1000 MCG PO (08:38)
[2025-08-01] MEDS: CALCIUM/VITAMIN D 500 MG/5 MCG (200 I.U.) TABLET PO (08:39)
[2025-08-01] MEDS: ATORVASTATIN 20 MG TABLET PO (08:39)
[2025-08-01] MEDS: [UNRECOGNIZED DRUG - OTHER] INHALATION (10:30)
[2025-08-01] MEDS: BREZTRI INHALATION (10:30)
[2025-08-01 10:49] VITALS: PULSE 90; RESP 14
--- NOTE | 2025-08-01 11:35 | P.DS_ITS ---
DS: Admitting Diagnosis Discharge Date 08/01 Admitting Diagnosis pneumonia DS: Discharge Diagnosis Discharge Diagnosis (1) LUKAS (acute kidney injury): Code(s): N17.9 - Acute kidney failure, unspecified Status: Acute DS: Summary Hospital Course Hospital Course: 80-year-old male with history of anxiety, COPD, prior tobacco smoking, hyperlipidemia, complains of 1 day of watery diarrhea, cough sputum production. He is blind, cannot see what color sputum is. He has finished antibiotics as of week ago for left lower extremity foot cellulitis. That has resolved. Chest CT abdomen pelvis performed does not demonstrate any acute findings with final rad iology interpretation is pending, urinalysis not indicative of infection. Quad viral screen negative. Patient reports being dehydrated. He was given 1 L normal saline bolus. ----- Fever, watery diarrhea 3 day prior to admission. Use antibiotics last week. Contact precautions. Start fidaxomicin. Check C diff, stool culture, stool lactoferrin. Blood cultures obtained. Procalcitonin 0.3 LUKAS, clinically dehydrated, fluids. Trend renal function. Improved. Also possibly symptoms are due to viral syndrome. Quad viral negative. Check respiratory viral pathogen panel. CT abdomen pelvis chest without acute findings however final radiology interpretation is pending. Patient reports 1 day of mucus production and cough. Start levofloxacin for bronchitis versus pneumonia. c diff negative. fidaxomicin stopped. diarrhea stools decreased and had only 1 stool today. continue Levaquin 07/28 working with PT/OT continue with IV antibiotics for now, will downgrade tomorrow family will bring inhalers from home no wheezing on exam, duoneb as needed 07/29- will stop IV fluids his cr is stable- it looks like he is about 1.40-1.64 as a baseline now continue antibiotics- COMPLETED THE COURSE we discussed consulting oncology for low wbc/infection/further workup and he did not want to do it but agreeable today. Will add consult to hem/oncology. 07/30- care coordination working on auth for swing bed. 07/31 completed antibiosis. no wheezing, working with pt/ot 08/01 Plan to discharge to [place] for swing bed. WBC trending up. ok for discharge for now as was not able to see hem atology/oncology while in the hospital. Can f/u as an outpt. Status at Discharge Functional status at discharge: uses cane/walker Overall status at discharge: patient is progressing back to baseline Time Spent with Patient Time attestation: Total time spent providing and/or coordinating discharge services: Time spent: Greater than 30 minutes Exam Narrative: calm, alert Const: General: comfortable and no acute distress Other: Poor skin turgor HENMT: Mouth: Yes dry mucous membranes Neck: Neck: supple Resp: Effort & Inspection: normal respiratory effort Auscultation: clear to auscultation bilaterally Cardio: Rate: regular rate Rhythm: regular rhythm Heart sounds: no murmurs GI: Inspection: non-distended Neuro: Motor exam (neuro): 5/5 motor strength present throughout Extrem: General: no edema DS: Data Data Completed and Pending Completed studies during hospitalization: chest xray Labs on day of discharge: Labs from last 24 hours 08/01/25 05:43 WBC 3.8 L RBC 3.05 L Hgb 11.2 L Hct 32.3 L MCV 105.9 H MCH 36.7 H MCHC 34.7 RDW 13.9 Plt Count 105 L MPV 11.0 H % Immature Plt Fraction 4.8 Preliminary micro results at discharge 07/27/25 02:30 Blood Culture - Preliminary Blood 07/27/25 02:29 Blood Culture - Preliminary Blood Discharge Plan Discharge Attending physician on discharge: Hank Garcia Consulting providers: Fransico Burgos Discharging Clinician: Madelyn Marcano Patient Disposition: Hospital Swing Bed Activity: february shower Diet: heart healthy Discharge Instructions: You were admitted for pneumonia. Completed antibiotics. While here, your WBC were low (which could be due to infection or could be something else). WE consulted hematology/oncology but they were not able to see you while in the hospital. Numbers are trending up now. So ok to be discharge for a swing bed. Blood work can be repeated and if it continues to be an issues- you will f/u with hematology/oncology as an outpatient. I will provide a phone number and address for you. Please f/u with whoever order you Valacyclovir to clarify how long you need to take that medication. Patient Instructions: Antibiotic Form Patient Language: [place] Stand Alone Forms: General Discharge Information Follow-up/Referrals: Fransico Burgos MD [Physician, Hematology] - 2 Weeks Iris Barrett APRN [Primary Care Provider, Internal Medicine] - 1 Week Discharge Medications: Continued mecobalamin (vitamin B12) 1,000 mcg tablet,disintegrating 1,000 mcg sublingual DAILY Rx Instructions: place tablet under tongue and allow to dissolve for at least30 secs before swallowing calcium carbonate-vitamin D3 500 mg-15 mcg (600 unit) tablet 1 tablet PO BID atorvastatin 20 mg tablet 20 mg PO DAILY Qty: 90 1RF montelukast 10 mg tablet 10 mg PO DAILY Qty: 90 1RF gabapentin 100 mg capsule 200 mg PO TID albuterol sulfate [Ventolin HFA] 90 mcg/actuation HFA aerosol inhaler 2 inh inhalation Q4-6H PRN (Reason: shortness of breath or wheezing) Qty: 8.5 0RF mirtazapine 7.5 mg tablet 7.5 mg PO QHS Qty: 90 0RF Breztri Aerosphere 160-9-4.8 mcg/actuation HFA aerosol inhaler 2 inh inhalation BID prednisolone acetate 1 % drops,suspension 1 drp RIGHT EYE QPM valacyclovir 1 gram tablet 500 mg PO BID Qty: 180 0RF Rx Instructions: 500mg BID per pt report. Date of admission: 07/27/25 08:43 Primary Care Provider: Iris Barrett Admitting Provider: Daphney Rubio Attending physician on admission: Daphney Rubio Condition: Stable Hospitalist MIPS Heart Failure (Exclusion) Patient has history of Heart Transplant or Left Ventricular Assistive Device?: No IF YES, STOP HERE Heart Failure (Qualifier) Patient has current or prior documentation of LVEF less than or equal to 40%, or mod/servere depressed LVSF?: No IF NO, STOP HERE
[2025-08-01] MEDS: INFLUENZA VACCINE HIGH DOSE (>64) 180 MCG/0.5 ML SYRINGE IM (13:55)
[2025-08-01 18:08] LABS: Lactoferrin, Fecal, Quant. <1.00 ug/mL(g) (0.00-7.24)
--- NOTE | 2025-08-02 01:38 | PC.NURSE ---
received call from lab on 07/27/2025 @ 03:07am, critical lab WBC 1.9. Provider Dr. Carvalho notified.
--- NOTE | 2025-08-05 07:43 | P.PNIM_ITS ---
Progress Note: A&P Assessment and Plan (1) LUKAS (acute kidney injury): Code(s): N17.9 - Acute kidney failure, unspecified Status: Acute Plan 80-year-old male with history of anxiety, COPD, prior tobacco smoking, hyperlipidemia, complains of 1 day of watery diarrhea, cough sputum production. He is blind, cannot see what color sputum is. He has finished antibiotics as of week ago for left lower extremity foot cellulitis. That has resolved. Chest CT abdomen pelvis performed does not demonstrate any acute findings with final radiology interpretation is pending, urinalysis not indicative of infection. Quad viral screen negative. Patient reports being dehydrated. He was given 1 L normal saline bolus. ----- Fever, watery diarrhea 3 day prior to admission. Use antibiotics last week. Contact precautions. Start fidaxomicin. Check C diff, stool culture, stool lactoferrin. Blood cultures obtained. Procalcitonin 0.3 LUKAS, clinically dehydrated, fluids. Trend renal function. Also possibly symptoms are due to viral syndrome. Quad viral negative. Check respiratory viral pathogen panel. CT abdomen pelvis chest without acute findings however final radiology interpretation is pending. Patient reports 1 day of mucus production and cough. Start levofloxacin for bronchitis versus pneumonia. Patient wishes to be full code. SCDs. Normal saline. Fall precaution, ambulate with assistance. PT/OT for weakness. c diff negative. will stop fidaxomicin for now trend labs continue Levaquin 07/28 working with PT/OT continue with IV antibiotics for now, will downgrade tomorrow family will bring inhalers from home no wheezing on exam, duoneb as needed 07/29- will stop IV fluids his cr is stable- it looks like he is about 1.40-1.64 as a baseline now continue IV antibiotics we discussed consulting oncology for low wbc/infection/further workup and he didnot want to do it but agreeable today. Will add consult to hem/oncology 07/30 continue antibitocs monitor vs, resp status- remains on ra hem/onc consult pending 07/31 hem.onc consulted but didnot see pt yet will refer as an outpt wbc improving now, continue to monitor diarrhea resolved kidney function improving Time Spent With Patient Time with patient: 25 - 35 minutes Subjective Date/time seen: 07/31/25 07:43 Interval history: 80-year-old male with history of anxiety, COPD, prior tobacco smoking, hyperlipidemia, complains of 1 day of watery diarrhea, cough sputum production. He is blind, cannot see what color sputum is. He has finished antibiotics as of week ago for left lower extremity foot cellulitis. That has resolved. Chest CT abdomen pelvis performed does not demonstrate any acute findings with final radiology interpretation is pending, urinalysis not indicative of infection. Quad viral screen negative. Patient reports being dehydrated. He was given 1 L normal saline bolus. Pt is seen and examined. He is resting in bed, states feeling better but still get very sob and weak with any activity. remains on room air, drinks and eat well. 07/29 doing well, eating and drinking ok. care coordination following for placement. 07/30- will consult hem/onc for low wbc. pt is doing better today. anticipate discharge to [place] tomorrow afternoon. 07/31 no acute events overnight. care coordination follwoing for placement. no chest pain, no sob. Review of Systems Review of Systems: All systems reviewed & are unremarkable except as noted in HPI and below (Subjective) Exam Narrative: calm, alert, pleasant Const: General: comfortable and no acute distress Other: Poor skin turgor Neck: Neck: supple Resp: Effort & Inspection: normal respiratory effort Auscultation: clear to auscultation bilaterally Cardio: Rate: regular rate Rhythm: regular rhythm Heart sounds: no murmurs GI: Inspection: non-distended Neuro: Motor exam (neuro): 5/5 motor strength present throughout Extrem: General: no edema Objective Data Meds/Results Radiology Results: ITS Impressions Chest X-Ray 07/26/25 16:36 IMPRESSION: 1. Small opacities in the mid and lower lungs which represents atelectasis/scarring or infiltrates. 2. Lungs are hyperinflated. 3.Differential includes pulmonary nodule or round atelectasis/scarring. A chest CT is recommended. If symptoms persist or worsen, consider a short-term follow-up study or a dditional imaging for further assessment. Chest/Abdomen/Pelvis CT 07/27/25 08:52 IMPRESSION: 1. Moderate emphysema with no acute cardiopulmonary disease. 2. No acute intra-abdominal/pelvic process.
== END 2025-08-01 14:55 | disposition swing bed (61) | DRG 682 ==
LOC: ANHED 16:41 → ANH3MEDSUR 19:45
PROVIDERS: Emergency Medicine; General Practice; Admitting Provider Family Medicine; Emergency Provider Emergency Medicine; PCP Nurse Practitioner Family; Visit Provider Nurse Practitioner
DX: N17.9 Acute kidney failure, unspecified (principal); J18.9 Pneumonia, unspecified organism; J44.0 Chronic obstructive pulmonary disease with (acute) lower respiratory infection; J44.9 Chronic obstructive pulmonary disease, unspecified; J40 Bronchitis, not specified as acute or chronic; H54.8 Legal blindness, as defined in USA; E78.5 Hyperlipidemia, unspecified; E55.9 Vitamin D deficiency, unspecified; E86.0 Dehydration; F41.9 Anxiety disorder, unspecified; R73.03 Prediabetes; I12.9 Hypertensive chronic kidney disease with stage 1 through stage 4 chronic kidney disease, or unspecified chronic kidney disease; N18.1 Chronic kidney disease, stage 1; G47.00 Insomnia, unspecified; D63.1 Anemia in chronic kidney disease; G62.9 Polyneuropathy, unspecified; D72.819 Decreased white blood cell count, unspecified; Z20.822 Contact with and (suspected) exposure to COVID-19; Z23 Encounter for immunization; Z87.891 Personal history of nicotine dependence; Z90.49 Acquired absence of other specified parts of digestive tract; Z98.1 Arthrodesis status; Z86.19 Personal history of other infectious and parasitic diseases; Z79.51 Long term (current) use of inhaled steroids
CPT/HCPCS: 36415; 71046; 71250; 74176; 80048; 80053; 81001; 83631; 83735; 84100; 84145; 85025; 85027; 85055; 87040; 87045; 87046; 87427; 87493; 87637; 90471; 90662; 93005; 94640; 96360; 97110; 97116; 97162; 97166; 97530; 97535; 99285; A9270; G0008; G0378; J1956; J7030

== ENCOUNTER 2025-08-01 14:52 | Inpatient (IN) | payer MEDICARE, MEDICAID, SELFPAY ==
--- OUTSIDE RECORDS SUMMARY | 2007-10-18 04:25 | XMS_ITS | Continuity of Care Document ---
Author Organization [facility] Address [address] [facility] [address] [place] [address] Phone Care Team Providers Care Professional Employer Consultant Name Role Phone Perri OD OD, Harinder Unavailable Unavailabl e Procedures Procedure Date Office/outpatient Visit, Est No Charge Refractive Evaluation 007 Office/outpatient Visit, Est Advance Directives Directive Yes / No Effective Date File Name No Information Encounters Encounter Description Practice Location Reason(s) For Visit Diagnoses Date Provider Providers Copied on Encounter Office/outpat ient Visit, Est [facility], [address], [place], [place], [id number], [place] tel:[phone] [facility] No Information 200 7 [place] OD Harinder. [address] [place], [place], [id number], [place]. tel:[phone] Referring Provider: Harinder Rayo OD P, [address] [place], [address] . tel:[phone] [facility], [address], [place], [place], [id number], [place] tel:[phone] [facility] No Information 1200 7 Reginoeny OD Harinder. [address] [place], [place], [id number], [place]. tel:[phone] Referring Provider: Harinder Rayo OD P, [address] [facility] [place], [address] . tel:[phone] Office/outpat ient Visit, [facility], [address], [place], [place], [id number], [place] tel:[phone] [facility] No Information 0-200 7 Kevin OD [place]. [address], [place], [address], [place]. tel:[phone] Family History Family Member Type Diagnosis Age At Onset No Information Payers Payer name Insurance type Covered libertarian ID Authorallison richards(s) [facility] CI [id number] Social History Type Description Quantity Date Captured Comments Sex Male Smoking Status No Information Chief Complaint And Reason For Visit No Information Reason For Referral Reason For Referral No Information History Of Present Illness Encounter Date Complaint History Of Prese nt Illness No Information Functional Status Date Functional Assessmen t No Information Instructions Date Instruction Additional Infor mation No Information Assessments Type Assessment Date No Information Patient Care Teams Name Effective Dates (start - stop) Status Members No Information
[2025-08-01 15:25] VITALS: BMI 25.2
--- NOTE | 2025-08-01 15:49 | PC.NURSE ---
Patient enters building on stretcher escorted to room 207 by 3 EMS staff. Patient able to get off stretcher himself and guided to bed with minimal difficulty and weakness. 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 AOx4 Able to make needs known. Call light in reach, educated to room and nurse call light. Patient able to demonstrate proper buttons for his needs.
[2025-08-01 16:00] VITALS: BP 135/75; PULSE 72; RESP 18; TEMP 37.3; O2SAT 98
--- OUTSIDE RECORDS SUMMARY | 2025-08-01 16:46 | XMS_ITS | Clinical Summary ---
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 Phone Bo Chang MD Primary Care Provider [phone] Allergies No known active allergies Medications atorvastatin [...] 08/22/2018 Coronary arteriosclerosis 08/20/2018 Palpitations 08/20/2018 Tobacco use disorder 08/20/2018 Spinal stenosis of cervical region 03/27/2016 [...] PCV20 or PCV21) 08/31/2017 08/31/2016 COVID-19 Vaccine (2024-2 6 season) 2025 01/17/2021, 01/07/2021, 12/20/2020, Additional history exists Influenza Vaccine (#1) 2025 0, 06/19/2020, 07/07/2019, Additional history exists [place] [address] [address] [place] [address] MEDICARE ADVANTAGE MEDICAID - [place] Care Teams 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
--- OUTSIDE RECORDS SUMMARY | 2025-08-01 16:47 | XMS_ITS | Encounter Summary ---
Author Organization [facility] Address [address] [place] [address] Phone Care Team Providers Care Habitat Biologist Name Role Phone Bo Chang MD Primary Care Provider [phone] Luis A Pang DO Unavailable [phone] Rosalinda Chappell OD Unavailable [phone] Yury Novoa MD Unavailable [phone] Varun Calderon MD Unavailable [phone] Jeet Donohue MD Unavailable [phone] Dalton Kevin OD Unavailable [phone] Isaac Villar MD Unavailable [phone] Av Howe MD PhD Unavailable [phone] Lesly Schultz MD PhD Unavailable Lashell Hathaway OD Unavailable [phone] Bebeto Messer MD Unavailable [phone] Bebeto Messer MD Primary Care Provider [phone] Encounter Details Date Type Department Care Team (Latest Contact Info) Description 08/26/2018 Orders Only [facility] Scanning, Provider Social History Tobacco Use Types Packs/Day Years Used Date Smoking Tobacco: Never Assessed Sex and Gender Information Value Date Recorded Sex Assigned at Not on file 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 Gender Identity Not on file Sexual Orientation [...] on filedocumented in this encounter Care Teams Habitat Biologist Relationship Specialty Start Date End Date Bo Chang MD PCP - General 02/04/17 06/18/25 Bebeto Messer MD [address] [place], [place] [id number] PCP - General Family Practice 07/12/25 Luis A Pang DO [address] [facility] [address] [place] [address] Lock Expert Cardiology 12/06/19 Rosalinda Chappell OD [address] [place] [address] Primary Eye Care Provider Optometry 06/30/22 06/11/25 Yury Novoa MD [address] [place] [address] Consulting Physician Nephrology 06/30/22 Varun Calderon MD [address] [facility] [address] [place] [address] Consulting Physician Pulmonary Disease 06/30/22 Jeet Donohue MD [address] [facility] [place] [address] Referring Physician Ophthalmology 06/30/22 06/11/25 Dalton Kevin, OD [address] [place] [address] Primary Eye Care Provider Life Sciences Instructor 06/30/22 06/11/25 Isaac Villar MD [address] [place] [address] Surgeon Cornea Ophthalmology 08/01/22 07/06/23 Av Howe MD PhD [address] [facility] DEPT OPHTHALMOLOGY, [address] [place] [address] Consulting Physician Cornea Ophthalmology 05/13/2306/19 Lesly Schultz MD PhD [address] [facility] DEPT OPHTHALMOLOGY, [address] [place] [address] Consulting Physician Cornea Ophthalmology 07/07/23 Lashell Hathaway, OD [address] [place] [address] Optometry 06/12/25 Bebeto Messer MD [address] [place] [address] Referring Physician Family Practice 06/19/25 Iris Barrett 06/19/25 documented as of this encounter
--- OUTSIDE RECORDS SUMMARY | 2025-08-01 16:47 | XMS_ITS | Encounter Summary ---
Author Organization [facility] Address [address] [facility] [place] [address] Care Team Providers Care Jewel Diameter Gauger Name Role Phone Bebeto Messer MD Primary Care Provider [phone] Encounter Details Date Type Department Care Team (Late st Contact Info) Description 06/06/2025 Ophth Exam [facility] - Ophthalmology [address] [place] [address] Jhon Horn MD [address] [facility] [place] [address] Social History Tobacco Use Types Packs/Day Years Used Date Smoking Tobacco: Former Cigarettes Q uit: 2018 Smokeless Tobacco: Former Alcohol Use Standard Drinks/Week Comments Not Currently 2 (1 standard drink = 0.6 oz pur e alcohol) AUDIT-C Answer Date Recorded Q1: How often do you have a drink containing alc ohol? Monthly or less 06/06/2025 Q2: How many drinks containi ng alcohol do you have on a typical day when you are drinking? 1 or 2 06/06/2025 Q3: How often do you have si x or more drinks on one occasion? Less than monthly 06/06/2025 Overall Financial Resource Strain (CARDIA) Answe r Date Recorded How hard is it for you to pa y for the very basics like food, housing, medical care, and heating? Not hard at all 06/06/2025 PHQ-2 Answer Date Recorded Patient Health Questionnaire-2 Score 0 06/07/2025 [facility] Occupat ional Health - Occupational Stress Questionnaire Answer Date Recorded Do you feel stress - tense, restless, nervous, or anxious, or unable to sleep at night because your mind is troubled all the time - these days? Not at all 06/06/2025 Hunger Vital Sign Answer Date Recorded Within the past 12 months, y ou worried that your food would run out before you got the money to buy more. Never true 06/06/20 25 Within the past 12 months, t he food you bought just didn't last and you didn't have money to get more. Never true 06/06/2025 PRAPARE - Transportation Answer Date Re corded In the past 12 months, has l ack of transportation kept you from medical appointments or from getting medications? No 05/19 In the past 12 months, has l ack of transportation kept you from meetings, work, or from getting things needed for daily living? No 06/06/2025 Housing Stability Vital Sign Answer Reji e Recorded In the last 12 months, was t here a time when you were not able to pay the mortgage or rent on time? No 06/06/2025 In the past 12 months, how m any times have you moved where you were living? 0 06/06/2025 At any time in the past 12 m [facility], were you homeless or living in a half-way (including now)? No 06/06/2025 Sex and Gender Information Value Date Recorded Sex Assigned at Not on file Legal Sex Male 9:01 AM CDT Gender Identity Not on file Sexual Orientation Not on file documented as of this encounter Functional Status * Functional and Cognitive Status Question Answer Date of Assessment Author Is person deaf or have shakeel us hearing difficulty? No 06/06/2025 4:01 AM TRACYT Victoria Donaldson RN Is person blind or have seri ous difficulty seeing? Yes 06/06/2025 4:01 AM TRACYT Victoria Donaldson RN Does person have serious difficulty walking/climbing stairs? Yes 06/06/2025 4:01 AM TRACYT Victoria Donaldson RN Does person have difficulty dressing/bathing? No 06/06/2025 4:01 AM TRACYT Victoria Donaldson RN Does person have difficulty doing errands alone? Yes 06/06/2025 4:01 AM TRACYT Victoria Donaldson RN Does person have difficulty concentrating/remembering/making decisions? No 06/06/2025 4:01 AM Victoria Mitchell RN * AUDIT-C Score Answer Date of Assessment Author 2 06/06/2025 2:48 AM Victoria Mitchell RN * Question Answer Date of Assessment Author Q1: How often do you have a drink containing alcohol? Monthly or less 06/06/2025 2:48 AM Victoria Mitchell RN Q2: How many drinks containing alcohol do you have on a typical day when you are drinking? 1 or 2 06/06/2025 2:48 AM Victoria Mitchell RN Q3: How often do you have six or more drinks on one occasion? Less than monthly 06/06/2025 2:48 AM Victoria Mitchell RN * Is person deaf or have serious hearing difficulty? Answer Date of Assessment Author No 06/06/2025 4:01 AM Victoria Mitchell RN * Is person blind or have serious difficulty seeing? Answer Date of Assessment Author Yes 06/06/2025 4:01 AM Victoria Mitchell RN * Does person have serious difficulty walking/climbing stairs? Answer Date of Assessment Author Yes 06/06/2025 4:01 AM Victoria Mitchell RN * Does person have difficulty dressing/bathing? Answer Date of Assessment Author No 06/06/2025 4:01 AM Victoria Mitchell RN * Does person have difficulty doing errands alone? Answer Date of Assessment Author Yes 06/06/2025 4:01 AM Victoria Mitchell RN * Over the past 2 weeks, how often have you been bothered by any of the following problems? Question Answer Date of Assessment Author Little interest or pleasure in doing things Not at all 06/07/2025 7:41 PM Sharon Contreras RN Feeling down, depressed, or hopeless Not at all 06/07/2025 7:41 PM Sharon Contreras RN Patient Health Questionnaire-2 Score 0 06/07/2025 7:41 PM Sharon Contreras RN documented as of this encounter Mental Status * Does person have difficulty concentrating/remembering/making decisions? Answer Entry Date Author No 06/06/2025 4:01 AM Victoria Mitchell RN documented in this encounter Plan of Treatment Not on file documented as of this encounter Visit Diagnoses Not on filedocumented in this encounter Care Teams Jewel Diameter Gauger Relationship Specialty Start Date End Date Bebeto Messer MD [address] [place] [address] PCP - General Family Medicine 06/06/25 documented as of this encounter
--- OUTSIDE RECORDS SUMMARY | 2025-08-01 16:47 | XMS_ITS | Clinical Summary ---
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 Examination today with interval worsening of visual acuity and color vision when compared to 02/2024. Dilated examination without optic nerve edema or briones red spot. OCT and Espinoza visual field are relatively stable from one year prior. MRI brain wo, MRI orbits with contrast, and CTA of the head and neck did not reveal acute pathology. Nutritional laboratory evaluation was normal. ESR/CRP were normal and giant cell arteritis review of symptoms was negative. Etiology for acute worsening vision is unclear. One possible etiology is retinal artery occlusion. As the insult was one week prior, it is possible that macular edema has resolved but retinal thinning has not yet occurred. We will obtain outside imaging for review. We will plan for 3 month follow-up with repeat testing to evaluate for stability of exam and for retinal changes on OCT. Strict return precautions were discussed. Assessment & Plan (05/05/2024 12:45 PM CDT): [...] (05/14/2024 2:41 PM CDT): Admitted 04/17-04/27 to [facility] found to have acute panc w/ peripanc fluid collection and small ascites. MRCP 04/18 w/ acute interstitial panc w/ loculated acute peripanc fluid collection. Also had elevated bili and CT revealed stone at ampulla. S/p ERCP 04/22 w/ spincterotomy w/ 10mm dilation in CBD w/o stricture, s/p BD sweeping. Plan was to perform interval CCK. 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) he plans to f/u with [...] Encounters Date Type Department Care Team Description 07/05/2025 Telephone [facility] Ophthalmology [address] [place] [address] Lindsey Segura MD Medical Records Request 06/26/2025 Telephone [facility] Ophthalmology [address] [place] [address] Outpatient Health [address] [place] [phone] Lindsey Segura MD 06/26/2025 Telephone [facility] Op[facility]mology [address] [place] [address] Outpatient Health [address] [place] [phone] Jacob Solis MD 06/25/2025 Telephone [facility] Op[facility]mology [address] [place] [phone] Jacob Solis MD 06/20/2025 Telephone [facility] Op[facility] [address] [place] [address] Outpatient Health [address] [place] [phone] Lindsey Segura MD 06/19/2025 Telephone [facility] Op[facility] [address] [place] [phone] Jacob Solis MD 06/12/2025 2:45 PM CDT Office Visit [facility] Medicine Ophthalmology [address] [place] [phone] Lindsey Segura MD Vision loss, left eye (Primary Dx); Transient visual loss of left eye; Optic atrophy, both eyes 06/12/2025 1:40 PM CDT Imaging Exam [facility] Ophthalmology [address] [place] [phone] NAION (non-arteritic anterior ischemic optic neuropathy), left eye; Encounter for observation for other suspected diseases and conditions ruled out 06/12/2025 1:20 PM CDT Imaging Exam [facility] Ophthalmology [address] [place] [phone] NAION (non-arteritic anterior ischemic optic neuropathy), left eye 06/09/2025 Orders Only [facility] Medicine Ophthalmology [address] [place] [phone] Lindsey Segura MD NAION (non-arteritic anterior ischemic optic neuropathy), left eye (Primary Dx); Encounter for observation for other suspected diseases and conditions ruled out from Last 3 Months Immunizations Immunization Administration [...] on file 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 Gender Identity Not on file Sexual Orientation [...] Depression Screening 1945 Hepatitis B Screening 1962 Well Visit 65+ 2009 Zoster Vaccine (1 of 2) 09/14/2012 07/20/2012 DTaP/Tdap/Td Vaccine (2 - Td or Tdap) 08/25/2023 08/25/2013 Fall Risk Assessment 05/16/2025 05/16/2024 Covid-19 Vaccine (8 - 2024-2 6 season) 2025 09/15/2023, 05/09/2022, 08/13/2021, Additional history exists Influenza Vaccine (#1) 2025 , 06/27/2021, 07/16/2020, Additional history exists Pneumococcal vaccine 65+ Completed 12/08/2021, 08/19 Abdominal Aortic Aneurysm (A AA) Screen Completed 06/06/2025 Medical Devices Implanted Type Area Director Strategic Planning Device Identifier Shelf Expiration Date Model / Serial / Lot [employer] Kelman Multiflex Iii 5.5mm 13mm 1 Piece Uv Absorbent Anterior [id number] - [id number] - [id number] Implanted:Qty: 1 on 08/12/2022 by Isaac Villar MD at [facility] Lens Right: Eye [employer] [id number] 05/18/2024 [id number] / [id number] / Mid Rin Transplant Srvcs Implant Cornea Pkp Right Hypothermic V0003 - [id number] - [id number] Implanted:Qty: 1 on 08/12/2022 by Isaac Villar MD at [facility] Right: Eye 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 N/A: Cervical -Thoraci c Spine Allosource 02/02/2028 [id number] / / [id number] Yottaa Spine Mountaineer 3.5mm Inner Spine Occipital Screw Bone Nonsterile Latex Free [id number] - [id number] Implanted:Qty: 1 on 03/31/2023 by Renny Kong MD at [facility] N/A: Cervical -Thoraci c Spine Depuy Synthes Spine [id number] / / Depuy Synthes Spine Screw Spinal Set Posterior Cervical Solid Symphony Titanium [id number] - [id number] Implanted:Qty: 8 on 03/31/2023 by Renny Kong MD at [facility] N/A: Cervical -Thoraci c Spine Depuy Synthes Spine [id number] / / Depuy Synthes Spine Cnctr José 3.5-4mm Symphony Spine Reduction [id number] - [id number] Implanted:Qty: 2 on 03/31/2023 by Renny Kong MD at [facility] N/A: Cervical -Thoraci c Spine Depuy Synthes Spine [id number] / / Depuy Synthes Spine 5.5mm 32mm Ply Spine Pedicle Screw Bone Nonsterile 4mm José [id number] - [id number] Implanted:Qty: 2 on 03/31/2023 by Renny Kong MD at [facility] N/A: Cervical -Thoraci c Spine Depuy Synthes Spine [id number] / / Depuy Synthes Spine 5.5mm 34mm Ply Spine Pedicle Screw Bone Nonsterile 4mm José [id number] - [id number] Implanted:Qty: 2 on 03/31/2023 by Renny Kong MD at [facility] N/A: Cervical -Thoraci c Spine Depuy Synthes Spine [id number] / / Depuy Synthes Spine 4mm 240mm Straight José Spinal Cocr [id number] - [id number] Implanted:Qty: 1 on 03/31/2023 by Renny Kong MD at [facility] N/A: Cervical -Thoraci c Spine Depuy Synthes Spine [id number] / / Procedures Procedure Name Priority Date/Time Associated Diagnosis Comments ESPINOZA VISUAL FIELD - OS - LEFT EYE Routine 06/12/2025 1:06 PM CDT NAION (non-arteritic anterior ischemic optic neuropathy), left eye OCT, OPTIC NERVE - OU - BOTH EYES Routine 06/12/2025 1:06 PM CDT NAION (non-arteritic anterior ischemic optic neuropathy), left eye OCT, RETINA - OU - BOTH EYES Routine 06/12/2025 1:06 PM CDT NAION (non-arteritic anterior ischemic optic neuropathy), left eye Encounter for observation for other suspected diseases and conditions ruled out from Last 3 Months Results * Espinoza Visual Field - OS - Left Eye (06/12/2025 1:06 PM CDT) Pattern Deviation OS Size V CONTINUUM Mean Deviation OS Size V CONTINUUM Anatomical Region Laterality Modality Head Other Narrative 2025 7:56 AM CDT Fixation was good. Mean Deviation was Size V. Pattern Deviation was Size V. Notes OS only: Inferior > generalized misses with size 5 stimulus. FT 27 dB which is relatively stable compared to prior us Lindsey Segura MD OPH VISUAL FIELD Final Re sult * OCT, Optic Nerve - OU - Both Eyes (06/12/2025 1:06 PM CDT) RNFL OS 54 micrometers CONTINUUM RNFL OD 50 micrometers CONTINUUM Anatomical Region Laterality Modality Head Other Narrative 2025 7:56 AM CDT Right Eye Reliability was borderline. Average RNFL thickness 50 micrometers. Left Eye Reliability was borderline. Average RNFL thickness 54 micrometers. Notes Retinal nerve fiber layer thinning in both eyes with slight interval worsening compared to 02/2024 us Lindsey Segura MD OPHTH TOMOGRAPHY Final Resu lt * OCT, Retina - OU - Both Eyes (06/12/2025 1:06 PM CDT) Central Macular Thickness OS 269 mircometers CONTINUUM Central Macular Thickness OD 241 micrometers CONTINUUM Anatomical Region Laterality Modality Head Other Narrative 2025 7:57 AM CDT Right Eye Quality was borderline. Scan locations included subfoveal. Macular thickness was 241 micrometers. Left Eye Quality was borderline. Scan locations included subfoveal. Macular thickness was 269 mircometers. Notes Ganglion cell layer (GCL) thinning both eyes (OU) stable from 02/2024. OD: 60 OS: 48 Borderline quality. Drusen/RPE changes, both eyes. No retinal edema or atrophy of the left eye. us Lindsey Segura MD OPHTH TOMOGRAPHY Final Resu lt from Last 3 Months Insurance [employer] [facility] MEDICARE ADVANTAGE [facility] Address: [address] [address] [place] [address] [employer] [facility] [place] [address] [facility] ADVANTAGE IDPA [facility] MEDICARE ADVANTAGE [facility] Address: [address] [address] [place] [address] Advance Directives For more information, please contact: [phone] Documents on File Type Date Recorded Patient Grooming Assistant Expl anation ADVANCE DIRECTIVE 03/31/2023 8:18 AM Power of Briquetting Machine Operator-Medical * Full Code (Latest Code Status on File) Date Activated Date Inactivated Comments 05/04/2024 8:26 PM 05/16/2024 5:40 PM * Full Code Date Activated Date Inactivated Comments 03/31/2023 5:40 PM 04/03/2023 8:29 PM Care Teams Associate Oracle Retail Relationship Specialty Start Date End Date Bebeto Messer MD [address] [place] [address] PCP - General Family Practice 07/12/25 Luis A Pang DO [address] [place] [address] Human Factors Specialist Cardiology 12/06/19 Yury Novoa MD [address] [place] [address] Consulting Physician Nephrology 06/30/22 Varun Calderon MD [address] [place] [address] Consulting Physician Pulmonary Disease 06/30/22 Lesly Schultz MD PhD [address] [facility] DEPT OPHTHALMOLOGY, [address] [place] [address] Consulting Physician Cornea Ophthalmology 07/07/23 Lashell Hathaway, OD [address] [place] [address] Optometry 06/12/25 Bebeto Messer MD [address] [place] [address] Referring Physician Family Practice 06/19/25 Iris Barrett 06/19/25
--- OUTSIDE RECORDS SUMMARY | 2025-08-01 16:47 | XMS_ITS | Clinical Summary ---
Author Organization [facility] [employer] Address [address] [place] [address] Care Team Providers Care Trim Mounter Name Role Phone Bebeto Messer MD Primary Care Provider [phone] Source Comments [facility] [employer],non-owned Affiliates and Associated Physician Practices is amultiple site organization consisting of ambulatory clinics and hospital sitesin [place], [place], [place] and [place]. This disclosure is being madepursuant to the Care Everywhere program and may not contain all information available regarding this patient. Last updated 18.[facility] [employer] Allergies No known active allergies Medications * Be aware that medications may not be up to date on this document. Alwaysverify current medications with the patient. valACYclovir (Valtrex) 500 MG tablet Take 1 (one) tablet by mouth 2 times daily 09/14/2024 Active prednisoLONE acetate (Pred Forte) 1 % ophthalmic suspension Instill 1 (one) drop into right eye once daily 06/03/2024 Active gabapentin (Neurontin) 100 MG capsule Take 1 (one) capsule by mouth 3 times daily 08/02/2024 Active rosuvastatin (Crestor) 5 MG tablet Take 1 (one) tablet by mouth once daily Active budeson-glycopy rrol-formoterol (Breztri Aerosphere) 160-9-4.8 MCG/ACT inhaler Inhale 2 (two) puffs by mouth 2 times daily 04/17/2025 Active Active Problems Problem Noted Date Diagnosed Date Stroke 06/06/2025 Vision loss 06/05/2025 Encounter for monitoring thrombolytic therapy Acute pain of left knee 06/05/2025 CKD (chronic kidney disease) 06/05/2025 Ground-level fall 06/05/2025 Injury 06/05/2025 Overview (06/06/2025): Recent fall 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 Other seasonal allergic rhinitis COPD (chronic obstructive pulmonary disease) Encounters Date Type Department Care Team Description 06/06/2025 Ophth Exam [facility] - Ophthalmology [address] [place] [address] Sebastián Richards MD 06/06/2025 Ophth Exam [facility] - Ophthalmology [address] [place] [address] Jhon Horn MD 06/05/2025 9:06 PM CDT - 06/08/2025 5:04 PM CDT Hospital Encounter [facility] 5N ACUTE [address] [place] [address] Shari Martinez MD Esechie, Aimalohi, MD Hayat, Ghazala S, MD Neurology Discharge Disposition: Home or Self Care 06/05/2025 Travel from Last 3 Months Family History Relation Name Status Comments Mother Breast Cancer Social History Tobacco Use Types Packs/Day Years Used Date Smoking Tobacco: Former Cigarettes Q uit: 2018 Smokeless Tobacco: Former Tobacco Cessation:Counseling Given: No Alcohol Use Standard Drinks/Week Comments Not Currently [...] Recorded Patient Health Questionnaire-2 Score 0 06/07/2025 [facility] of Occupat ional Health - Occupational Stress [...] any time in the past 12 m [facility], were you homeless or living in a chcf (including now)? No 06/06/2025 Sex and Gender Information Value Date Recorded Sex Assigned at Not on file Legal Sex Male 9:01 AM CDT Gender Identity Not on file Sexual Orientation Not on file Last Filed Vital Signs Vital Sign Reading Time Taken Comments Blood Pressure 120/65 06/08/2025 4:08 PM CDT Pulse 75 06/08/2025 4:08 PM CDT Temperature 36.4 C (97.6 F) 06/08/2025 4:08 PM CDT Respiratory Rate 18 06/08/2025 4:08 PM CDT Oxygen Saturation 96% 06/08/2025 4:08 PM CDT Inhaled Oxygen Concentration - - Weight 93 kg (205 lb) 06/06/2025 4:00 AM CDT Height 188 cm (6' 2.02) 06/06/2025 4:00 AM CDT Body Mass Index 26.31 06/06/2025 4:00 AM CDT Plan of Treatment Health Maintenance Due Date Last Done Comments DTAP/TDAP/TD VACCINES (1 - Tdap) 1964 PNEUMOCOCCAL VACCINE 50+ (1 of 2 - PCV) 1963 ZOSTER VACCINE (1 of 2) 1994 Respiratory Syncytial Virus (RSV) Vaccine Pt: or over 60 yrs (1 - 1-dose 75+ series) 2019 MEDICARE AWV CALENDAR YEAR 2024 COVID-19 VACCINE ( - season) 2025 09/15/2023, 05/09/2022, 08/13/2021, Additional history exists INFLUENZA VACCINE (#1) 2025 , 06/19/2020, 07/07/2019, Additional history exists DEPRESSION SCREENING Completed 06/05/2025 HEPATITIS B VACCINE Aged Out No longe r eligible based on patient's age to complete this topic HIB VACCINE Aged Out No longer eligi ble based on patient's age to complete this topic HPV VACCINE Aged Out No longer eligi ble based on patient's age to complete this topic MENINGOCOCCAL (Group B) VACCINE SHARED DECISION-MAKING Aged Out No longer eligible based on patient's age to complete this topic MENINGOCOCCAL GROUPS A/C/Y/W VACCINE Aged Out No longer eligible based on patient's age to complete this topic Procedures Procedure Name Priority Date/Time Associated Diagnosis Comments MRI ORBITS OR FACE WWO CONTRAST PENDING DISCHARGE 06/08/2025 3:12 PM CDT Vision loss Optic neuropathy GLUCOSE - POINT OF CARE Routine 06/08/2025 11:46 AM CDT GLUCOSE - POINT OF CARE Routine 06/08/2025 7:49 AM CDT MAGNESIUM BLOOD Routine 06/08/2025 3:19 AM CDT RENAL FUNCTION PANEL Routine 06/08/2025 3:19 AM CDT CBC W/O DIFFERENTIAL Routine 06/08/2025 3:19 AM CDT GLUCOSE - POINT OF CARE Routine 06/07/2025 9:48 PM CDT GLUCOSE - POINT OF CARE Routine 06/07/2025 3:55 PM CDT GLUCOSE - POINT OF CARE Routine 06/07/2025 11:54 AM CDT GLUCOSE - POINT OF CARE Routine 06/07/2025 8:12 AM CDT CBC W/O DIFFERENTIAL Routine 06/07/2025 4:06 AM CDT BASIC METABOLIC PANEL (CALCIUM TOTAL) Routine 06/07/2025 4:[address] HEAD WO CONTRAST Routine 06/06/2025 8 :38 PM CDT Vision loss GLUCOSE - POINT OF CARE Routine 06/06/2025 5:04 PM CDT ZINC BLOOD Routine 06/06/2025 3:02 PM CDT COPPER BLOOD Routine 06/06/2025 3:02 PM CDT HEAVY METALS BLOOD QNT 4 PNL (,CD,HG,PB) Routine 06/06/2025 3:02 PM CDT FOLATE Routine 06/06/2025 3:02 PM CDT VITAMIN B1 Routine 06/06/2025 3:02 PM CDT MRI BRAIN WO CONTRAST STAT 06/06/2025 12:40 PM CDT Vision loss GLUCOSE - POINT OF CARE Routine 06/06/2025 11:04 AM CDT CARDIAC EKG ORDER 06/06/2025 11:03 AM CDT TSH REFLEX FREE T4 Routine 06/06/2025 10:46 AM CDT VITAMIN B12 Routine 06/06/2025 10:46 AM CDT C-REACTIVE PROTEIN Routine 06/06/2025 10:46 AM CDT ERYTHROCYTE SEDIMENTATION RATE Routine 06/06/2025 10:46 AM CDT ECHO COMPLETE W CONTRAST W BUBBLE STUDY Routine 06/06/2025 10:20 AM CDT Vision loss GLUCOSE - POINT OF CARE Routine 06/06/2025 8:00 AM CDT URINALYSIS REFLEX TO MICROSCOPIC NO CULTURE Routine 06/06/2025 6:47 AM CDT TROPONIN-I HIGH SENSITIVE REFLEX 1HOUR Timed 06/06/2025 3:01 AM CDT HEMOGLOBIN A1C Add on 06/06/2025 3:[address] CHEST ABDOMEN PELVIS WO CONT STAT 06/06/2025 2:23 AM CDT Encounter for monitoring thrombolytic therapy CT FACIAL BONES WO CONTRAST STAT 06/06/2025 2:23 AM CDT Encounter for monitoring thrombolytic therapy CT KNEE LEFT WO CONTRAST STAT 06/06/2025 2:23 AM CDT Acute pain of left knee LIPID PROFILE STAT 06/06/2025 1:09 AM CDT TROPONIN-I HIGH SENSITIVE BASELINE + 1HR STAT 06/06/2025 1:09 AM CDT CBC W/O DIFFERENTIAL STAT 06/06/2025 1:09 AM CDT BASIC METABOLIC PANEL (CALCIUM TOTAL) STAT 06/06/2025 1:09 AM CDT XR WRIST LEFT 3VW OR MORE STAT 06/05/2025 10:03 PM CDT Vision loss Encounter for monitoring thrombolytic therapy Acute pain of left knee XR KNEE LEFT 3VW STAT 06/05/2025 10:03 PM CDT Vision loss Encounter for monitoring thrombolytic therapy EKG 12-LEAD STAT 06/05/2025 9:39 PM CDT Vision loss CT CERVICAL SPINE WO CONTRAST STAT 06/05/2025 9:37 PM CDT Vision loss Encounter for monitoring thrombolytic therapy CT ANGIO BRAIN NECK STROKE STAT 06/05/2025 9:36 PM CDT Vision loss CT BRAIN STROKE STAT 06/05/2025 9:35 PM CDT Vision loss ISTAT CREATININE Routine 06/05/2025 9:22 PM CDT TROPONIN-I HIGH SENSITIVE STAT 06/05/2025 9:22 PM CDT PTT STAT 06/05/2025 9:22 PM CDT PT-INR STAT 06/05/2025 9:22 PM CDT COMPREHENSIVE METABOLIC PANEL STAT 06/05/2025 9:22 PM CDT CBC W AUTO DIFFERENTIAL STAT 06/05/2025 9:22 PM CDT INR WHOLE BLOOD - POINT OF CARE (IP) STROKE Routine 06/05/2025 9:19 PM CDT from Last 3 Months Results * MRI Orbits or Face Wwo Contrast (06/08/2025 3:12 PM CDT) Anatomical Region Laterality Modality Head Magnetic Resonan ce 06/08/2025 3:31 PM CDT Impressions 06/08/2025 3:44 PM CDT IMPRESSION: Possible mild atrophic appearance of the right optic nerve compared to the left. Subtle FLAIR hyperintensity involving the posterior retrobulbar segment of the left optic nerve compared to the right could be artifactual versus sequela of ischemic or inflammatory optic neuropathy. No evidence of associated enhancement noted. No evidence of mass lesions noted. > Interpreting Provider: Shavon Elmore MD on 06/08/2025 3:44 PM Narrative 06/08/2025 3:44 PM CDT PROCEDURE: MRI ORBITS OR FACE WWO CONTRAST, DATE/TIME OF EXAM: 06/08/2025 3:12 PM, LOCATION [facility] INDICATION: H54.7: Vision loss H46.9: Optic neuropathy ADDITIONAL CLINICAL INFORMATION: Ordering Provider Reason For Exam: Optic neuropathy Technologist Note: Additional: COMPARISON: MRI brain 06/06/2025 TECHNIQUE: MRI of the orbits was performed without and with contrast according to standard protocol. CONTRAST: GADOTERATE MEGLUMINE 0.5 MMOL/ML IV SSM SO:18 mL FINDINGS: No orbital mass is visualized. The orbital fat is within normal limits, without fat stranding. The globes appear normal in size, contour, and signal intensity. Bilateral lens replacements. There is mild atrophic appearance of the right optic nerve compared to the left. Subtle FLAIR hyperintensity along the posterior retrobulbar segment of the left optic nerve compared to the right (image 16, series 8). Bilateral optic nerves, optic chiasm, and the visualized proximal optic tracts are otherwise normal in signal and caliber, without abnormal enhancement. Prominent vasculature noted along the bilateral optic nerves. No suprasellar mass is present. Cavernous sinuses and Meckel's caves appears normal. The extraocular muscles are normal in caliber. The lacrimal glands are unremarkable. The preseptal, periorbital soft tissues appear normal. Retrobulbar fat appears normal. The paranasal sinuses are essentially clear. No acute findings in the partially visualized brain. Please refer to recent MRI for detailed evaluation of the brain.. Procedure Note Shavon Elmore MD - 06/08/2025 PROCEDURE: MRI ORBITS OR FACE WWO CONTRAST, DATE/TIME OF EXAM:06/08/2025 3:12 PM, LOCATION [facility] INDICATION: H54.7: Vision loss H46.9: Optic neuropathy ADDITIONAL CLINICAL INFORMATION: Ordering Provider Reason For Exam: Optic neuropathy Technologist Note: Additional: COMPARISON: MRI brain 06/06/2025 TECHNIQUE: MRI of the orbits was performed without and with contrast according to standard protocol. CONTRAST: GADOTERATE MEGLUMINE 0.5 MMOL/ML IV SSM SO:18 mL FINDINGS: No orbital mass is visualized. The orbital fat is within normal limits, without fat stranding. The globes appear normal in size, contour, and signal intensity.Bilateral lens replacements. There is mild atrophic appearance of the right optic nerve compared to the left. Subtle FLAIR hyperintensity along theposterior retrobulbar segment of the left optic nerve compared to the right (image 16, series 8). Bilateral optic nerves, optic chiasm, and the visualized proximal optic tracts are otherwise normal in signal and caliber,without abnormal enhancement. Prominent vasculature noted along the bilateraloptic nerves. No suprasellar mass is present. Cavernous sinuses and Meckel's caves appears normal. The extraocular muscles are normal in caliber. The lacrimal glands are unremarkable. The preseptal, periorbital soft tissues appear normal. Retrobulbar fat appears normal. The paranasal sinuses are essentially clear. No acute findings in the partially visualized brain. Please refer torecent MRI for detailed evaluation of the brain.. IMPRESSION: Possible mild atrophic appearance of the right optic nerve compared tothe left. Subtle FLAIR hyperintensity involving the posterior retrobulbar segmentof the left optic nerve compared to the right could be artifactual versus sequela of ischemic or inflammatory optic neuropathy. No evidence of associated enhancement noted. No evidence of mass lesions noted. > Interpreting Provider: Shavon Elmore MD on 06/08/2025 3:44 PM Malinda Addison MD MR ORDERABLES Final Result * (ABNORMAL) GLUCOSE - POINT OF CARE (06/08/2025 11:46 AM CDT) Only the most recent of9 resultswithin the time period is included. Glucose WB/POC 127(H) 70 - 99 mg/dL 06/08/2025 11:47 AM CDT [facility] Specimen Type Arterial/C apillary 06/08/2025 11:47 AM CDT [facility] Blood BLOOD SPECIMEN / Unknown 06/08/2025 11:46 AM CDT 06/08/2025 11:47 AM CDT us Malinda Addison MD LAB - POINT OF CARE ORDERABLE S Final Result [facility] [address] [place] [address], [facility] [phone] * (ABNORMAL) CBC W/O DIFFERENTIAL (06/08/2025 3:19 AM CDT) Only the most recent of3 resultswithin the time period is included. WBC 6.3 4.0 - 10.7 x10E9/L 06/08/2025 3:49 AM [facility] RBC Count 2.79(L) 4.30 - 5.80 x10E12/L 06/08/2025 3:49 AM [facility] Hemoglobin 10.0(L) 13.3 - 17.5 g/dL 06/08/2025 3:49 AM [facility] Hematocrit 28.7(L) 38.7 - 51.1 % 06/08/2025 3:49 AM [facility] MCV 102.9(H) 80.0 - 98.0 fL 06/08/2025 3:49 AM [facility] MCH 35.8(H) 26.7 - 33.6 pg 06/08/2025 3:49 AM [facility] MCHC 34.8 31.7 - 36.3 g/dL 06/08/2025 3:49 AM [facility] RDW-CV 13.6 11.3 - 14.8 % 06/08/2025 3:49 AM [facility] Platelet Count 113(L) 150 - 420 x10E9/L 06/08/2025 3:49 AM [facility] MPV 10.5 7.8 - 11.4 fL 06/08/2025 3:49 AM [facility] Blood BLOOD SPECIMEN / Unknown Lab Venipuncture / Unknown 06/08/2025 3:19 AM CDT 06/08/2025 3:43 AM CDT us Shari Martinez MD LAB - HEMATOLOGY ORDERABLES Fi nal Result [facility] [address] [place] [address], [facility] [phone] * (ABNORMAL) RENAL FUNCTION PANEL (06/08/2025 3:19 AM [facility]) BUN 31(H) 7 - 26 mg/dL 06/08/2025 4:17 AM [facility] Creatinine 1.89(H) 0.71 - 1.16 mg/dL 06/08/2025 4:17 AM [facility] Sodium 137 136 - 145 mmol/L 06/08/2025 4:17 AM [facility] Potassium 4.1 3.5 - 4.5 mmol/L 06/08/2025 4:17 AM [facility] Chloride 112(H) 98 - 107 mmol/L 06/08/2025 4:17 AM [facility] CO2 20(L) 22 - 29 mmol/L 06/08/2025 4:17 AM [facility] Glucose 116(H) 70 - 99 mg/dL 06/08/2025 4:17 AM [facility] Albumin 3.5 3.4 - 5.0 g/dL 06/08/2025 4:17 AM [facility] Calcium 8.7 8.4 - 10.2 mg/dL 06/08/2025 4:17 AM [facility] Phosphorus 3.7 2.8 - 5.1 mg/dL 06/08/2025 4:17 AM [facility] Anion Gap 5(L) 6 - 16 06/08/2025 4:17 AM [facility] BUN/Creatinine Ratio 16 7 - 23 06/08/2025 4:17 AM [facility] Osmolality Calculated 292 275 - 295 mOsm/kg 06/08/2025 4:17 AM [facility] eGFR by CKD-EPI 35(L) >=90 mL/min/1.7 3 m2 06/08/2025 4:17 AM [facility] Comment:Estimated Glomerular Filtration Rate (eGFR) calculated using the CKD-EPI Creatinine Equation (2020), per the National Kidney Foundation and [place] [employer]ph[employer] recommendations. Blood BLOOD SPECIMEN / Unknown Lab Venipuncture / Unknown 06/08/2025 3:19 AM CDT 06/08/2025 3:48 AM CDT Malinda Addison MD LAB - CHEMISTRY ORDERABLES Fi nal Result [address] [address], [facility] [phone] * MAGNESIUM BLOOD (06/08/2025 3:19 AM CDT) Magnesium 2.0 1.6 - 2.6 mg/dL 06/08/2025 4:17 AM CDT [facility] Blood BLOOD SPECIMEN / Unknown Lab Venipuncture / Unknown 06/08/2025 3:19 AM CDT 06/08/2025 3:48 AM CDT Malinda Addison MD LAB - CHEMISTRY ORDERABLES Fi nal Result Performing Organization Address [facility]/ZIP Co de Phone Number [address] [address], [facility] [phone] * (ABNORMAL) BASIC METABOLIC PANEL (CALCIUM TOTAL) (06/07/2025 4:06 AM CDT) Only the most recent of2 resultswithin the time period is included. BUN 29(H) 7 - 26 mg/dL 06/07/2025 4:57 AM CDT [facility] Creatinine 1.96(H) 0.71 - 1.16 mg/dL 06/07/2025 4:57 AM T [facility] Sodium 137 136 - 145 mmol/L 06/07/2025 4:57 AM T [facility] Potassium 4.4 3.5 - 4.5 mmol/L 06/07/2025 4:57 AM T [facility] Chloride 112(H) 98 - 107 mmol/L 06/07/2025 4:57 AM T [facility] CO2 19(L) 22 - 29 mmol/L 06/07/2025 4:57 AM CDT [facility] Glucose 118(H) 70 - 99 mg/dL 06/07/2025 4:57 AM T [facility] Calcium 8.8 8.4 - 10.2 mg/dL 06/07/2025 4:57 AM [facility] Anion Gap 6 6 - 16 06/07/2025 4:57 AM T [facility] BUN/Creatinine Ratio 15 7 - 23 06/07/2025 4:57 AM T [facility] Osmolality Calculated 291 275 - 295 mOsm/kg 06/07/2025 4:57 AM T [facility] eGFR by CKD-EPI 34(L) >=90 mL/min/1.7 3 m2 06/07/2025 4:57 AM [facility] Comment:Estimated Glomerular Filtration Rate (eGFR) calculated using the CKD-EPI Creatinine Equation (2020), per the National Kidney Foundation and [place] [employer] Neph[employer] recommendations. Blood BLOOD SPECIMEN / Unknown Lab Venipuncture / Unknown 06/07/2025 4:06 AM CDT 06/07/2025 4:24 AM CDT us Shari Martinez MD LAB - CHEMISTRY ORDERABLES Fin al Result [facility] [address] [place] [address], [facility] [phone] * CT HEAD WO CONTRAST (06/06/2025 8:38 PM CDT) Anatomical Region Laterality Modality Head Computed Tomogra phy 06/06/2025 9:08 PM CDT Impressions 06/06/2025 9:11 PM CDT IMPRESSION: 1. No acute intracranial process. 2. Chronic small vessel ischemic disease of the brain with cerebral volume loss. 3. Redemonstration of subcutaneous hemorrhage/fat stranding in the frontal regions extending into the periorbital areas and and face. > Interpreting Provider: Bryce Trinidad MD on 06/06/2025 9:11 PM Narrative 06/06/2025 9:11 PM CDT PROCEDURE: CT HEAD WO CONTRAST, DATE/TIME OF EXAM: 06/06/2025 8:38 PM, LOCATION [facility] INDICATION: H54.7: Vision loss ADDITIONAL CLINICAL INFORMATION: Ordering Provider Reason For Exam: post-TNK 24h follow up Technologist Note: Additional: TECHNIQUE: CT of the head was performed without contrast according to standard protocol. CONTRAST: COMPARISON: 06/05/2019. FINDINGS: No acute intracranial hemorrhage or intra- or extra-axial fluid collections are identified. There is moderate cerebral volume loss with associated ex vacuo ventricular dilatation. The basal cisterns are patent. No mass effect or midline shift is seen. The bashir-white matter differentiation is normal. Periventricular white matter hypoattenuation is a nonspecific finding that may be indicative of chronic small vessel ischemic disease. There is atherosclerotic calcification of the carotid siphons. The visualized portions of the orbits, paranasal sinuses, and mastoids appear normal. No acute calvarial fracture is identified. Redemonstration of subcutaneous hemorrhage/fat stranding in the frontal regions extending into the periorbital areas and and face. Procedure Note Bryce Trinidad MD - 06/06/2025 PROCEDURE: CT HEAD WO CONTRAST, DATE/TIME OF EXAM: 06/06/2025 8:38 PM, LOCATION [facility] INDICATION: H54.7: Vision loss ADDITIONAL CLINICAL INFORMATION: Ordering Provider Reason For Exam: post-TNK 24h follow up Technologist Note: Additional: TECHNIQUE: CT of the head was performed without contrast according to standard protocol. CONTRAST: COMPARISON: 06/05/2019. FINDINGS: No acute intracranial hemorrhage or intra- or extra-axial fluidcollections are identified. There is moderate cerebral volume loss with associatedex vacuo ventricular dilatation. The basal cisterns are patent. No masseffect or midline shift is seen. The bashir-white matter differentiation isnormal. Periventricular white matter hypoattenuation is a nonspecific findingthat may be indicative of chronic small vessel ischemic disease. There is atherosclerotic calcification of the carotid siphons. The visualized portions of the orbits, paranasal sinuses, and mastoids appear normal. No acute calvarial fracture is identified. Redemonstration ofsubcutaneous hemorrhage/fat stranding in the frontal regions extending into the periorbital areas and and face. IMPRESSION: 1. No acute intracranial process. 2. Chronic small vessel ischemic disease of the brain with cerebralvolume loss. 3. Redemonstration of subcutaneous hemorrhage/fat stranding in thefrontal regions extending into the periorbital areas and and face. > Interpreting Provider: Bryce Trinidad MD on 06/06/2025 9:11 PM Shari Martinez MD CT ORDERABLES Final Result * HEAVY METALS BLOOD QNT 4 PNL (,CD,HG,PB) (06/06/2025 3:02 PM CDT) Lead <2.0 <=3.4 ug/dL 06/08/2025 7:34 AM CDT [employer] ([facility]) Comment: INTERPRETIVE INFORMATION: Lead, Whole Blood (Venous) Reference intervals are based on the CDC's Blood Lead Reference Value (BLRV). Thresholds and time intervals for retesting, medical evaluation, and response vary by state and regulatory body. Contact your State Department of Health and/or applicable regulatory agency for specific guidance on medical management recommendations. Elevated results may be due to skin- or collection-related contamination, including the use of tubes that are not certified to be trace element-free. If an elevated result is suspected to be due to contamination, confirmation with a second specimen collected in a certified trace element-free tube is recommended. Methodology: Inductively Coupled Plasma-Mass Spectrometry (ICP-MS). This test was developed and its performance characteristics determined by [employer]. It has not been cleared or approved by the U.S. Food and Drug Administration. This test was performed in a CLIA-certified laboratory and is intended for clinical purposes. Arsenic, Whole Blood <10.0 <=12.0 ug/L 06/08/2025 7:34 AM CDT [email or web address] ([facility]) Comment: INTERPRETIVE INFORMATION: Arsenic, Whole Blood Potentially toxic ranges for blood arsenic: Greater than or equal to 600 ug/L. Blood arsenic is for the detection of recent exposure poisoning only. Blood arsenic levels in healthy subjects vary considerably with exposure to arsenic in the diet and the environment. A 24-hour urine arsenic is useful for the detection of chronic exposure. Elevated results may be due to skin- or collection-related contamination, including the use of tubes that are not certified to be trace element-free. If an elevated result is suspected to be due to contamination, confirmation with a second specimen collected in a certified trace element-free tube is recommended. Methodology: Inductively Coupled Plasma-Mass Spectrometry (ICP-MS). This test was developed and its performance characteristics determined by [employer]. It has not been cleared or approved by the U.S. Food and Drug Administration. This test was performed in a CLIA-certified laboratory and is intended for clinical purposes. Cadmium <1.0 <=5.0 ug/L 06/08/2025 7:34 AM CDT [facility] [employer] ([facility]) Comment: INTERPRETATION INFORMATION: Cadmium, Whole Blood Blood cadmium levels can be used to monitor acute toxicity and, in combination with cadmium urine and B-2 microglobulin, is the preferred method for monitoring occupational exposure. Symptoms associated with cadmium toxicity vary based upon route of exposure and may include tubular proteinuria, fever, headache, dyspnea, chest pain, conjunctivitis, rhinitis, sore throat, and cough. Ingestion of cadmium in high concentration may cause vomiting, diarrhea, salivation, cramps, and abdominal pain. Elevated results may be due to skin- or collection-related contamination, including the use of tubes that are not certified to be trace element-free. If an elevated result is suspected to be due to contamination, confirmation with a second specimen collected in a certified trace element-free tube is recommended. Methodology: Inductively Coupled Plasma-Mass Spectrometry (ICP-MS). This test was developed and its performance characteristics determined by [employer]. It has not been cleared or approved by the [place] Food and Drug Administration. This test was performed in a CLIA certified laboratory and is intended for clinical purposes. Mercury <2.5 <=10.0 ug/L 06/08/2025 7:34 AM CDT [facility] [employer] ([facility]) Comment: INTERPRETIVE INFORMATION: Mercury, Whole Blood Blood mercury levels predominantly reflect recent exposure and are most useful in the diagnosis of acute poisoning as blood mercury concentrations rise sharply and fall quickly over several days after ingestion. Blood concentrations in unexposed individuals rarely exceed 20 ug/L. The provided reference interval relates to inorganic mercury concentrations. Dietary and nonoccupational exposure to organic mercury forms may contribute to an elevated total mercury result. Clinical presentation after toxic exposure to organic mercury may include dysarthria, ataxia, and constricted vision ayon with mercury blood concentrations from 20 to 50 ug/L. Elevated results may be due to skin- or collection-related contamination, including the use of tubes that are not certified to be trace element-free. If an elevated result is suspected to be due to contamination, confirmation with a second specimen collected in a certified trace element-free tube is recommended. Methodology: Inductively Coupled Plasma-Mass Spectrometry (ICP-MS). This test was developed and its performance characteristics determined by [email or web address]. It has not been cleared or approved by the [place] Food and Drug Administration. This test was performed in a CLIA certified laboratory and is intended for clinical purposes. Performed By: [facility] [email or web address] [place] [address] Senior Payroll Administrator: Filiberto Pena MD, PhD CLIA Number: [id number] Blood BLOOD SPECIMEN / Unknown Venipuncture / Unknown 06/06/2025 3:02 PM CDT 06/06/2025 3:06 PM CDT Jorge Lockhart MD LAB - CHEMISTRY ORDERABLES F inal Result Performing Organization Address [facility]/State/[facility] Co de Phone Number [facility]) [address] [place] [address] * ZINC BLOOD (06/06/2025 3:02 PM CDT) [facility] Zinc 79.8 60.0 - 120.0 ug/dL 06/08/2025 10:58 PM CDT [facility] ([facility]) Comment: INTERPRETIVE INFORMATION: Zinc, Serum or Plasma Elevated results may be due to skin or collection-related contamination, including the use of a noncertified metal-free collection/transport tube. If contamination concerns exist due to elevated levels of serum/plasma zinc, confirmation with a second specimen collected in a certified metal-free tube is recommended. Circulating zinc concentrations are dependent on albumin status and are depressed with malnutrition. Zinc may also be lowered with infection, inflammation, stress, oral contraceptives, and . Zinc may be elevated with zinc supplementation or fasting. Elevated zinc concentrations may interfere with copper absorption. This test was developed and its performance characteristics determined by [email or web address]. It has not been cleared or approved by the US Food and Drug Administration. This test was performed in a CLIA certified laboratory and is intended for clinical purposes. Performed By: [facility] [email or web address] [place] [address] Senior Payroll Administrator: Filiberto Pena MD, PhD CLIA Number: [id number] Blood BLOOD SPECIMEN / Unknown Venipuncture / Unknown 06/06/2025 3:02 PM CDT 06/06/2025 3:23 PM CDT Jorge Lockhart MD LAB - CHEMISTRY ORDERABLES F inal Result Performing Organization Address City/[facility]/ZIP Co de Phone Number [facility] [employer] [facility]) [address] [place] [address] * VITAMIN B1 (06/06/2025 3:02 PM CDT) Vitamin B1 Whole Blood 140 70 - 180 nmol/L 06/10/2025 7:51 PM CDT [facility] [employer] ([facility]) Comment: INTERPRETIVE INFORMATION: Vitamin B1, Whole Blood This assay measures the concentration of thiamine diphosphate (TDP), the primary active form of vitamin B1. Approximately 90 percent of vitamin B1 present in whole blood is TDP. Thiamine and thiamine monophosphate, which comprise the remaining 10 percent, are not measured. This test was developed and its performance characteristics determined by [employer]. It has not been cleared or approved by the US Food and Drug Administration. This test was performed in a CLIA certified laboratory and is intended for clinical purposes. Performed By: [employer] [address] [place] [address] Senior Payroll Administrator: Filiberto Pena MD, PhD CLIA Number: [id number] Blood BLOOD SPECIMEN / Unknown Venipuncture / Unknown 06/06/2025 3:02 PM CDT 06/06/2025 3:06 PM CDT Jorge Lockhart MD LAB - CHEMISTRY ORDERABLES F inal Result Performing Organization Address City/[facility]/ZIP Co de Phone Number [facility] [employer] [facility]) [address] [place] [address] * COPPER BLOOD (06/06/2025 3:02 PM CDT) Copper 102.3 70.0 - 140.0 ug/dL 06/08/2025 10:58 PM CDT [facility] [employer] ([facility]) Comment: INTERPRETIVE INFORMATION: Copper, Serum or Plasma Elevated results may be due to skin or collection-related contamination, including the use of a noncertified metal-free collection/transport tube. If contamination concerns exist due to elevated levels of serum/plasma copper, confirmation with a second specimen collected in a certified metal-free tube is recommended. Serum copper may be elevated with infection, inflammation, stress, and copper supplementation. In females, elevated copper may also be caused by oral contraceptives and (concentrations may be elevated up to 3 times normal during the third trimester). This test was developed and its performance characteristics determined by [employer]. It has not been cleared or approved by the US Food and Drug Administration. This test was performed in a CLIA certified laboratory and is intended for clinical purposes. Performed By: [email or web address] [address] [place] [address] Senior Payroll Administrator: Filiberto Pena MD, PhD CLIA Number: [id number] Blood BLOOD SPECIMEN / Unknown Venipuncture / Unknown 06/06/2025 3:02 PM CDT 06/06/2025 3:06 PM CDT Jorge Lockhart MD LAB - CHEMISTRY ORDERABLES F inal Result Performing Organization Address City/[facility]/ZIP Co de Phone Number [facility] ([facility]) [address] [place] [address] * FOLATE (06/06/2025 3:02 PM CDT) [facility] Folate 14.3 7.0 - 31.4 ng/mL 06/06/2025 4:18 PM CDT [facility] Blood BLOOD SPECIMEN / Unknown Venipuncture / Unknown 06/06/2025 3:02 PM CDT 06/06/2025 3:06 PM CDT Jorge Lockhart MD LAB - CHEMISTRY ORDERABLES F inal Result [facility] [address] [place] [address], [facility] [phone] * MRI BRAIN WO CONTRAST (06/06/2025 12:40 PM CDT) Anatomical Region Laterality Modality Head Magnetic Resonan ce 06/06/2025 12:4 3 PM CDT Impressions 06/06/2025 12:52 PM CDT IMPRESSION: 1. No acute intracranial process. Specifically, no acute infarct or acute intracranial hemorrhage. Given the patient's symptoms, a dedicated MRI of the orbits without and with contrast may be considered to further evaluate. 2. Presumed chronic small vessel ischemic disease of the brain with cerebral volume loss. 3. Redemonstration of extensive frontal scalp hematoma extending into the periorbital regions and the cheeks bilaterally. > Interpreting Provider: Bryce Trinidad MD on 06/06/2025 12:52 PM Narrative 06/06/2025 12:52 PM CDT PROCEDURE: MRI BRAIN WO CONTRAST, DATE/TIME OF EXAM: 06/06/2025 12:40 PM, LOCATION [facility] INDICATION: H54.7: Vision loss ADDITIONAL CLINICAL INFORMATION: Ordering Provider Reason For Exam: Left eye monocular vision loss Technologist Note: Additional: TECHNIQUE: MRI of the brain was performed without intravenous contrast according to standard protocol. CONTRAST: COMPARISON: Noncontrast head CT dated 06/05/2025. FINDINGS: The study is degraded by motion artifacts which can obscure abnormalities. No evidence of acute cerebral infarction is seen. No evidence of acute or chronic hemorrhage is identified. There is moderate cerebral volume loss with associated ex vacuo ventricular dilatation. No mass effect or midline shift is seen. Mild periventricular white matter FLAIR hyperintensities are nonspecific, but can be seen in the setting of chronic small vessel ischemic disease. The corpus callosum and sella appear normal. The posterior fossa, brainstem, and craniocervical junction appear normal. Other than mild paranasal sinus disease, the visualized portions of the orbits, paranasal sinuses, and mastoids appear normal. Normal flow voids are demonstrated in the carotid arteries and basilar artery. The calvarium and visualized cervical spine appear normal. Redemonstration of extensive frontal scalp hematoma extending into the periorbital regions and the cheeks bilaterally. Procedure Note Bryce Trinidad MD - 06/06/2025 PROCEDURE: MRI BRAIN WO CONTRAST, DATE/TIME OF EXAM: 06/06/2025 12:40PM, LOCATION [facility] INDICATION: H54.7: Vision loss ADDITIONAL CLINICAL INFORMATION: Ordering Provider Reason For Exam: Left eye monocular vision loss Technologist Note: Additional: TECHNIQUE: MRI of the brain was performed without intravenous contrast according to standard protocol. CONTRAST: COMPARISON: Noncontrast head CT dated 06/05/2025. FINDINGS: The study is degraded by motion artifacts which can obscureabnormalities. No evidence of acute cerebral infarction is seen. No evidence of acuteor chronic hemorrhage is identified. There is moderate cerebral volume loss with associated ex vacuo ventricular dilatation. No mass effect ormidline shift is seen. Mild periventricular white matter FLAIR hyperintensitiesare nonspecific, but can be seen in the setting of chronic small vessel ischemic disease. The corpus callosum and sella appear normal. The posterior fossa, brainstem, and craniocervical junction appear normal. Other than mild paranasal sinus disease, the visualized portions of the orbits, paranasal sinuses, and mastoids appear normal. Normal flow voids are demonstrated in the carotid arteries and basilar artery. Thecalvarium and visualized cervical spine appear normal. Redemonstration of extensive frontal scalp hematoma extending into the periorbital regions and the cheeks bilaterally. IMPRESSION: 1. No acute intracranial process. Specifically, no acute infarct oracute intracranial hemorrhage. Given the patient's symptoms, a dedicated MRIof the orbits without and with contrast may be considered to furtherevaluate. 2. Presumed chronic small vessel ischemic disease of the brain with cerebral volume loss. 3. Redemonstration of extensive frontal scalp hematoma extending intothe periorbital regions and the cheeks bilaterally. > Interpreting Provider: Bryce Trinidad MD on 06/06/2025 12:52 PM us Shari Martinez MD MR ORDERABLES Final Result * CARDIAC EKG ORDER (06/06/2025 11:03 AM CDT) Narrative 06/06/2025 11:03 AM CDT Ordered by an unspecified provider. us Scanned Document CARDIAC SERVICES ORDERABLES Fin al Result * TSH REFLEX FREE T4 (06/06/2025 10:46 AM CDT) TSH 1.213 0.350 - 4.940 uIU/mL 06/06/2025 12:27 PM CDT [facility] Blood BLOOD SPECIMEN / Unknown Venipuncture / Unknown 06/06/2025 10:46 AM CDT 06/06/2025 11:12 AM CDT Jorge Lockhart MD LAB - CHEMISTRY ORDERABLES F inal Result Performing Organization Address City/[facility]/ZIP Co de Phone Number [address] [address], [place] [phone] * C-REACTIVE PROTEIN (06/06/2025 10:46 AM CDT) C-Reactive Protein <0.5 <=0.5 mg/dL 06/06/2025 11:46 AM CDT [facility] Blood BLOOD SPECIMEN / Unknown Venipuncture / Unknown 06/06/2025 10:46 AM CDT 06/06/2025 11:12 AM CDT Jorge Lockhart MD LAB - CHEMISTRY ORDERABLES F inal Result Performing Organization Address [facility]/ZIP Co de Phone Number [address] [address], [place] [phone] * ERYTHROCYTE SEDIMENTATION RATE (06/06/2025 10:46 AM CDT) Erythrocyte Sedimentation Rate Westergren 10 0 - 20 MM/HR 06/06/2025 11:29 AM CDT [facility] Blood BLOOD SPECIMEN / Unknown Venipuncture / Unknown 06/06/2025 10:46 AM CDT 06/06/2025 11:12 AM CDT Jorge Lockhart MD LAB - HEMATOLOGY ORDERABLES Final Result Performing Organization Address City/[facility]/ZIP Co de Phone Number [address] [address], [place] [phone] * (ABNORMAL) VITAMIN B12 (06/06/2025 10:46 AM CDT) Vitamin B12 >2,000(H) 213 - 816 pg/mL 06/06/2025 12:27 PM CDT [facility] Blood BLOOD SPECIMEN / Unknown Venipuncture / Unknown 06/06/2025 10:46 AM CDT 06/06/2025 11:12 AM CDT us Jorge Lockhart MD LAB - CHEMISTRY ORDERABLES F inal Result [facility] [address] [place] [id number], [facility] [phone] * ECHO COMPLETE W CONTRAST W BUBBLE STUDY (06/06/2025 10:20 AM CDT) LV EDV A2C 76.3 ml SSM CV FU JI PACS LV EDV A4C 55.1 ml SSM CV FU JI PACS LV ESV A2C 39.2 ml SSM CV FU JI PACS LV ESV A4C 26 ml SSM CV FU JI PACS IVSd 2D 1.15 cm SSM CV FUJ I PACS LVIDd 4.27 cm SSM CV FUJ I PACS LVIDs 3.17 cm SSM CV FUJ I PACS LVOT diam 2 cm SSM CV FUJ I PACS LVOT VTI 21.6 cm SSM CV FUJ I PACS LVOT pk shad 91.4 cm/s SSM CV F UJI PACS LVOT pk grad 3 mmHg SSM CV FUJI PACS LVPWd 1.25 cm SSM CV FUJ I PACS MV lat a' shad 11.3 cm/s SSM CV FUJI PACS MV E' lateral shad 10.3 cm/s SS M CV FUJI PACS LV A2C EF 48.624 % SSM CV FUJ I PACS LV A4C EF 52.813 % SSM CV FUJ I PACS LV biplane EF 51.796 % SSM CV FUJI PACS LA size 3.1 cm SSM CV FUJ I PACS RA DIASTOLIC MAJOR AXIS LENGTH (4C) 5.92 cm SSM CV FUJI PACS RA area 23.3 cm SSM CV FUJI PACS AV mn grad 6 mmHg SSM CV FU JI PACS AV VTI 31.5 cm SSM CV FUJ I PACS AV pk shad 168 cm/s SSM CV FUJ I PACS AV pk grad 11 mmHg SSM CV FU JI PACS AV area cont VTI 2.154 cm SSM CV FUJI PACS AV area pk shad 1.709 cm SSM CV FUJI PACS ST junction 1.96 cm SSM CV F UJI PACS Sinus of Valsalva 3.34 cm SS M CV FUJI PACS Ascending aorta 2.9 cm SSM CV FUJI PACS IVC Diam Expiration 1.17 cm SSM CV FUJI PACS MV A pk shad 87.4 cm/s SSM CV F UJI PACS MV E pk shad 59.1 cm/s SSM CV F UJI PACS MV mn grad 2 mmHg SSM CV FU JI PACS MV VTI 21.8 cm SSM CV FUJ I PACS PV pk shad 138 cm/s SSM CV FUJ I PACS RVIDd 3.24 cm SSM CV FUJ I PACS RV-garcia basal diam 3.74 cm SSM CV FUJI PACS RV-garcia mid diam 2.32 cm SSM CV FUJI PACS TAPSE 2.58 cm SSM CV FUJ I PACS AV area index 0.973 cm /m SSM CV FUJI PACS Dimensionless Index 0.686 unitless SSM CV FUJI PACS Myocardial strain charge 2 unitless SSM CV FUJI PACS Anatomical Region Laterality Modality Ultrasound 06/06/2025 9:38 AM CDT Narrative 06/06/2025 10:29 AM CDT Summary * The left ventricle is not well visualized, but appears grossly normal in size, with low normal systolic function and an estimated ejection fraction of 53 % by biplane method of disks. Left ventricular wall motion is unable to be assessed secondary to poor endocardial definition. * The left ventricular mass is normal with concentric remodeling. * Right ventricle is not well visualized, but appears grossly normal in size with normal systolic function. * Agitated saline contrast study at rest and with Valsalva is negative for a shunt. * No hemodynamically significant valve disease. Patient Info Name: Rc Rodríguez Age: 79 years : 1945 Gender: Male Ht: 74 in Wt: 205 lb BSA: 2.21 m2 HR: 87 bpm BP: 126 / 58 mmHg Exam Date: 06/06/2025 9:38 AM Patient Status: I/P Study Site: [facility] Primary Location: [facility] Info Technical Quality: Technically Difficult Exam Type: ECHO COMPLETE W CONTRAST W BUBBLE STUDY Indications H54.7 - Vision loss Procedure(s) * A complete 2D, color Doppler, spectral Doppler and M-Mode transthoracic echocardiogram was performed with an Ultrasound Enhancing Agent (UEA) and a Bubble Study. Contrast/Agitated Saline Contrast / Saline: Definity Amount: --- ml Reaction to Contrast: no Contrast / Saline: Agitated Saline Amount: --- ml Reaction to Contrast: no Reason for Technically Difficult Study: lung interference Staff Referring Physician: Shari Martinez Ordering Provider: Shari Martinez Attending Physician: Shari Martinez Clinical Dental Technician: Ludy Thacker Left Ventricle The left ventricle is not well visualized, but appears grossly normal in size. Left ventricular systolic function is low normal with an estimated ejection fraction of 53 % by biplane method of disks. The left ventricular mass is normal with concentric remodeling. Left ventricular segmental wall motion is unable to be assessed secondary to poor endocardial definition. The left ventricular diastolic function is indeterminate. Right Ventricle The right ventricle is not well visualized, but appears grossly normal in size. Right ventricular systolic function is normal. Left Atrium The left atrium is normal in size. Right Atrium The right atrium is mildly dilated. Atrial Septum Interatrial septum not well visualized by 2D and color Doppler imaging. Agitated saline contrast study at rest and with Valsalva is negative for a shunt. Aortic Valve The aortic valve is not well visualized. There is no aortic valve stenosis. There is no aortic valve regurgitation. Pulmonic Valve The pulmonic valve is grossly normal. There is no pulmonic valve stenosis. There is no pulmonic regurgitation. Mitral Valve The mitral valve is not well visualized. There is no mitral valve stenosis. There is no significant mitral valve regurgitation. Tricuspid Valve The tricuspid valve is not well visualized. There is no significant tricuspid valve regurgitation. Unable to assess pulmonary pressures due to a lack of tricuspid and pulmonic regurgitation. Inferior Vena Cava The inferior vena cava is normal in size (< 2.1 cm). There is > 50% collapse of the IVC upon inspiration with an estimated right atrial pressure of 3 mmHg. Pericardium/Pleural There is no pericardial effusion. Aorta The aortic root at the sinus of Valsalva is normal in size. The ascending aorta is normal in size. Measurements Left Ventricular Outflow Tract Name Value Normal LVOT 2D LVOT Diameter 2.0 cm LVOT Area 3.1 cm2 LVOT Doppler LVOT Peak Velocity 0.9 m/s LVOT Peak Gradient 3 mmHg LVOT Mean Velocity 67.40 cm/s LVOT Mean Gradient 2 mmHg LVOT VTI 21.6 cm LVOT VTI/AV VTI Ratio 0.7 LVOT Stroke Volume 68 ml LVOT Stroke Volume Index 31 ml/m2 35-58 Pulmonic Valve Name Value Normal PV Doppler PV Peak Velocity 1.4 m/s PV Peak Gradient 8 mmHg PV Accel Time 111.00 ms Mitral Valve Name Value Normal MV Doppler MV Peak Gradient 3 mmHg MV Mean Gradient 2 mmHg MV DI (VTI) 1.01 MV PHT 34 ms MV Area (PHT) 6.47 cm2 4.00-5.00 MV Area (Cont Eq VTI) 3.11 cm2 MV Diastolic Function MV E Peak Velocity 0.6 m/sec MV A Peak Velocity 0.9 m/sec MV E/A 0.7 MV Decel Time (PW) 117 ms MV Annular TDI MV Septal e' Velocity 6 cm/s >=8 MV Septal a' Velocity 12 cm/s MV E/e' (Septal) 10 <=8 MV A/a' (Septal) 7 MV Lateral e' Velocity 10 cm/s >=10 MV Lateral a' Velocity 11 cm/s MV E/e' (Lateral) 6 <=8 MV A/a' (Lateral) 8 MV e' Average 8 cm/s MV E/e' (Average) 8 Tricuspid Valve Name Value Normal Estimated PAP/RSVP RA Pressure 3 mmHg <=5 TV Annular TDI TV Lateral Samantha s' Velocity 21 cm/s 10-19 Aorta Name Value Normal Ascending Aorta Sinus of Valsalva Diameter 3.3 cm 2.8-4.0 Sinus of Valsalva Index 1.5 cm/m2 1.3-2.1 Ao Sinotub Junction Diameter 2.0 cm 2.6-3.2 Asc Ao Diameter 2.9 cm 2.2-3.8 Asc Ao Diameter Index 1.3 cm/m2 1.1-1.9 Venous Name Value Normal IVC/SVC IVC Diameter 1.2 cm <=2.1 Aortic Valve Name Value Normal AV 2D/MM AV Cusp Sep (MM) 1.2 cm AV Doppler AV Peak Velocity 1.68 m/s AV Peak Gradient 11 mmHg AV Mean Gradient 6 mmHg AV VTI 32 cm AV Area (Cont Eq VTI) 2.15 cm2 >=2.00 AV Area (Cont Eq Shad) 1.71 cm2 AV DI (VTI) 0.69 AV DI (Shad) 0.54 AV Regurgitation 2D LVOT Area 3.14 cm2 Ventricles Name Value Normal LV Dimensions 2D/MM IVS Diastolic Thickness (2D) 1.2 cm 0.6-1.0 LVID Diastole (2D) 4.3 cm 4.2-5.8 LVPW Diastolic Thickness (2D) 1.3 cm 0.6-1.0 IVS Systolic Thickness (2D) 0.9 cm LVID Systole (2D) 3.2 cm 2.5-4.0 LVPW Systolic Thickness (2D) 1.7 cm LV Mass (2D Cubed) 183 g 88-224 LV Mass Index (2D Cubed) 83 g/m2 49-115 Relative Wall Thickness (2D) 0.59 <=0.42 LV Fractional Shortening/Ejection Fraction 2D/MM LV Fractional Shortening (2D) 26 % 25-43 LV EF (2D Teicholz) 51 % 52-72 LV Diastolic Volume (4C MOD) 55 ml LV EF (4C MOD) 53 % LV Diastolic Volume (2C MOD) 76 ml LV EF (2C MOD) 49 % LV Diastolic Volume (BP MOD) 67 ml 62-150 LV Diastolic Volume Index (BP MOD) 30 ml/m2 34-74 LV Systolic Volume (BP MOD) 32 ml 21-61 LV Systolic Volume Index (BP MOD) 15 ml/m2 11-31 LV EF (BP MOD) 52 % 52-72 LV Diastolic Length (4C) 8.0 cm LV Systolic Length (4C) 6.6 cm LV Stroke Volume (4C MOD) 29 ml LV CO (BP MOD) 3.0 l/min LV CI (BP MOD) 1.4 l/min/m2 RV Dimensions 2D/MM RVID Diastole (2D) 3.2 cm 2.5-3.5 RV Basal Diastolic Dimension 3.7 cm 2.5-4.1 RV Mid-Cavity Diastolic Dimension 2.3 cm 1.9-3.5 RV Diastolic Length (4C) 8.0 cm 5.9-8.3 RV Diastolic Area (4C) 18 cm2 10-24 TAPSE 2.6 cm >=1.7 Atria Name Value Normal LA Dimensions LA Dimension (2D) 3.1 cm 3.0-4.1 LA Dimen Index (2D) 1.4 cm/m2 RA Dimensions RA Diastolic [place] Length (4C) 5.9 cm RA Area (4C) 23 cm2 <=18 RA Area (4C) Index 11 cm2/m2 RA ESV (4C MOD) 77 ml 18-32 RA ESV Index (4C MOD) 35 ml/m2 16-34 Report Signatures Finalized by Antonio Whyte on 06/06/2025 10:29 AM Procedure Note Antonio Whyte MD - 06/06/2025 Summary * The left ventricle is not well visualized, but appears grossly normalin size, with low normal systolic function and an estimated ejection fractionof 53 % by biplane method of disks. Left ventricular wall motion is unable lo assessed secondary to poor endocardial definition. * The left ventricular mass is normal with concentric remodeling. * Right ventricle is not well visualized, but appears grossly normal insize with normal systolic function. * Agitated saline contrast study at rest and with Valsalva is negativefor a shunt. * No hemodynamically significant valve disease. Patient Info Name: Rc Rodríguez Age: 79 years : 1945 Gender: Male Ht: 74 in Wt: 205 lb BSA: 2.21 m2 HR: 87 bpm BP: 126 / 58 mmHg Exam Date: 06/06/2025 9:38 AM Patient Status: I/P Study Site: [facility] Primary Location: [facility] EStudy Info Technical Quality: Technically Difficult Exam Type: ECHO COMPLETE W CONTRAST W BUBBLE STUDY Indications H54.7 - Vision loss Procedure(s) * A complete 2D, color Doppler, spectral Doppler and M-Modetransthoracic echocardiogram was performed with an Ultrasound Enhancing Agent (UEA) ailin Bubble Study. Contrast/Agitated Saline Contrast / Saline: Definity Amount: --- ml Reaction to Contrast: no Contrast / Saline: Agitated Saline Amount: --- ml Reaction to Contrast: no Reason for Technically Difficult Study: lung interference Staff Referring Physician: Shari Martinez Ordering Provider: Shari Martinez Attending Physician: Shari Martinez Clinical Dental Technician: Ludy Thacker Left Ventricle The left ventricle is not well visualized, but appears grossly normalin size. Left ventricular systolic function is low normal with an estimated ejection fraction of 53 % by biplane method of disks. The leftventricular mass is normal with concentric remodeling. Left ventricular segmentalwall motion is unable to be assessed secondary to poor endocardial definition.The left ventricular diastolic function is indeterminate. Right Ventricle The right ventricle is not well visualized, but appears grossly normalin size. Right ventricular systolic function is normal. Left Atrium The left atrium is normal in size. Right Atrium The right atrium is mildly dilated. Atrial Septum Interatrial septum not well visualized by 2D and color Dopplerimaging. Agitated saline contrast study at rest and with Valsalva is negative fora shunt. Aortic Valve The aortic valve is not well visualized. There is no aortic valvestenosis. There is no aortic valve regurgitation. Pulmonic Valve The pulmonic valve is grossly normal. There is no pulmonic valvestenosis. There is no pulmonic regurgitation. Mitral Valve The mitral valve is not well visualized. There is no mitral valvestenosis. There is no significant mitral valve regurgitation. Tricuspid Valve The tricuspid valve is not well visualized. There is no significant tricuspid valve regurgitation. Unable to assess pulmonary pressures due toa lack of tricuspid and pulmonic regurgitation. Inferior Vena Cava The inferior vena cava is normal in size (< 2.1 cm). There is > 50%collapse of the IVC upon inspiration with an estimated right atrial pressure of 3mmHg. Pericardium/Pleural There is no pericardial effusion. Aorta The aortic root at the sinus of Valsalva is normal in size. Theascending aorta is normal in size. Measurements Left Ventricular Outflow Tract Name Value Normal LVOT 2D LVOT Diameter 2.0 cm LVOT Area 3.1 cm2 LVOT Doppler LVOT Peak Velocity 0.9 m/s LVOT Peak Gradient 3 mmHg LVOT Mean Velocity 67.40 cm/s LVOT Mean Gradient 2 mmHg LVOT VTI 21.6 cm LVOT VTI/AV VTI Ratio 0.7 LVOT Stroke Volume 68 ml LVOT Stroke Volume Index 31 ml/m2 35-58 Pulmonic Valve Name Value Normal PV Doppler PV Peak Velocity 1.4 m/s PV Peak Gradient 8 mmHg PV Accel Time 111.00 ms Mitral Valve Name Value Normal MV Doppler MV Peak Gradient 3 mmHg MV Mean Gradient 2 mmHg MV DI (VTI) 1.01 MV PHT 34 ms MV Area (PHT) 6.47 cm2 4.00-5.00 MV Area (Cont Eq VTI) 3.11 cm2 MV Diastolic Function MV E Peak Velocity 0.6 m/sec MV A Peak Velocity 0.9 m/sec MV E/A 0.7 MV Decel Time (PW) 117 ms MV Annular TDI MV Septal e' Velocity 6 cm/s >=8 MV Septal a' Velocity 12 cm/s MV E/e' (Septal) 10 <=8 MV A/a' (Septal) 7 MV Lateral e' Velocity 10 cm/s >=10 MV Lateral a' Velocity 11 cm/s MV E/e' (Lateral) 6 <=8 MV A/a' (Lateral) 8 MV e' Average 8 cm/s MV E/e' (Average) 8 Tricuspid Valve Name Value Normal Estimated PAP/RSVP RA Pressure 3 mmHg <=5 TV Annular TDI TV Lateral Samantha s' Velocity 21 cm/s 10-19 Aorta Name Value Normal Ascending Aorta Sinus of Valsalva Diameter 3.3 cm 2.8-4.0 Sinus of Valsalva Index 1.5 cm/m2 1.3-2.1 Ao [place] Diameter 2.0 cm 2.6-3.2 Asc Ao Diameter 2.9 cm 2.2-3.8 Asc Ao Diameter Index 1.3 cm/m2 1.1-1.9 Venous Name Value Normal IVC/SVC IVC Diameter 1.2 cm <=2.1 Aortic Valve Name Value Normal AV 2D/MM AV Cusp Sep (MM) 1.2 cm AV Doppler AV Peak Velocity 1.68 m/s AV Peak Gradient 11 mmHg AV Mean Gradient 6 mmHg AV VTI 32 cm AV Area (Cont Eq VTI) 2.15 cm2 >=2.00 AV Area (Cont Eq Shad) 1.71 cm2 AV DI (VTI) 0.69 AV DI (Shad) 0.54 AV Regurgitation 2D LVOT Area 3.14 cm2 Ventricles Name Value Normal LV Dimensions 2D/MM IVS Diastolic Thickness (2D) 1.2 cm 0.6-1.0 LVID Diastole (2D) 4.3 cm 4.2-5.8 LVPW Diastolic Thickness (2D) 1.3 cm 0.6-1.0 IVS Systolic Thickness (2D) 0.9 cm LVID Systole (2D) 3.2 cm 2.5-4.0 LVPW Systolic Thickness (2D) 1.7 cm LV Mass (2D Cubed) 183 g 88-224 LV Mass Index (2D Cubed) 83 g/m2 49-115 Relative Wall Thickness (2D) 0.59 <=0.42 LV Fractional Shortening/Ejection Fraction 2D/MM LV Fractional Shortening (2D) 26 % 25-43 LV EF (2D Teicholz) 51 % 52-72 LV Diastolic Volume (4C MOD) 55 ml LV EF (4C MOD) 53 % LV Diastolic Volume (2C MOD) 76 ml LV EF (2C MOD) 49 % LV Diastolic Volume (BP MOD) 67 ml 62-150 LV Diastolic Volume Index (BP MOD) 30 ml/m2 34-74 LV Systolic Volume (BP MOD) 32 ml 21-61 LV Systolic Volume Index (BP MOD) 15 ml/m2 11-31 LV EF (BP MOD) 52 % 52-72 LV Diastolic Length (4C) 8.0 cm LV Systolic Length (4C) 6.6 cm LV Stroke Volume (4C MOD) 29 ml LV CO (BP MOD) 3.0 l/min LV CI (BP MOD) 1.4 l/min/m2 RV Dimensions 2D/MM RVID Diastole (2D) 3.2 cm 2.5-3.5 RV Basal Diastolic Dimension 3.7 cm 2.5-4.1 RV Mid-Cavity Diastolic Dimension 2.3 cm 1.9-3.5 RV Diastolic Length (4C) 8.0 cm 5.9-8.3 RV Diastolic Area (4C) 18 cm2 10-24 TAPSE 2.6 cm >=1.7 Atria Name Value Normal LA Dimensions LA Dimension (2D) 3.1 cm 3.0-4.1 LA Dimen Index (2D) 1.4 cm/m2 RA Dimensions RA Diastolic [place] Length (4C) 5.9 cm RA Area (4C) 23 cm2 <=18 RA Area (4C) Index 11 cm2/m2 RA ESV (4C MOD) 77 ml 18-32 RA ESV Index (4C MOD) 35 ml/m2 16-34 Report Signatures Finalized by Antonio Whyte on 06/06/2025 10:29 AM us Shari Martinez MD [facility] Final Result * (ABNORMAL) URINALYSIS REFLEX TO MICROSCOPIC NO CULTURE (06/06/2025 6:47 AM CDT) Color UA Colorless(A) Yellow, Straw 06/06/2025 7:07 AM [facility] Clarity UA Clear Clear 06/06/2025 7:07 AM [facility] Glucose UA Normal Normal 06/06/2025 7:07 AM [facility] Bilirubin UA Negative Negative 06/06/2025 7:07 AM [facility] Ketone UA Negative Negative 06/06/2025 7:07 AM [facility] Specific [place] UA 1.035(H) 1.005 - 1.030 06/06/2025 7:07 AM [facility] Blood UA Negative Negative 06/06/2025 7:07 AM [facility] pH UA 7.0 5.0 - 8.0 06/06/2025 7:07 AM [facility] Protein UA Negative Negative 06/06/2025 7:07 AM [facility] Urobilinogen UA Normal Normal mg/dL 06/06/2025 7:07 AM [facility] Nitrite UA Negative Negative 06/06/2025 7:07 AM [facility] Leukocyte Esterase UA Negative Negative 06/06/2025 7:07 AM [facility] Urine Microscopy Urine microscopy not indicated 06/06/2025 7:07 AM CDT [facility] Urine URINE SPECIMEN OBTAINED BY CLEAN CATCH PROCEDURE / Unknown Collection / Unknown 06/06/2025 6:47 AM CDT 06/06/2025 6:52 AM CDT Narrative [facility] - 06/06/2025 7:07 AM CDT Jorge Lockhart MD LAB - URINALYSIS ORDERABLES Final Result Performing Organization Address City/[facility]/ZIP Co de Phone Number [address] [address], [facility] [phone] * TROPONIN-I HIGH SENSITIVE REFLEX 1HOUR (06/06/2025 3:01 AM CDT) Troponin I High Sensitive 8 <=35 ng/L 06/06/2025 4:02 AM CDT [facility] Delta Troponin I HS 06/06/2025 4:02 AM CDT [facility] Comment:Delta value intentio nydia not calculated. Baseline to 1 hour specimen collection interval exceeded. Blood BLOOD SPECIMEN / Unknown Clinic Draw / Unknown 06/06/2025 3:01 AM CDT 06/06/2025 3:11 AM CDT Shari Martinez MD LAB - CHEMISTRY ORDERABLES Fin al Result Performing Organization Address [facility]/ZIP Co de Phone Number [address] [address], [place] [phone] * (ABNORMAL) HEMOGLOBIN A1C (06/06/2025 3:01 AM CDT) Hemoglobin A1c 5.9(H) <=5.6 % 06/06/2025 9:48 AM CDT [facility] Estimated Average Glucose 123 mg/dL 06/06/2025 9:48 AM CDT [facility] Comment: HbA1c Interpretation: Normal : < 5.7% Pre-diabetes: 5.7-6.4% Diabetes: Equal to or greater than 6.5% Test results diagnostic of diabetes should be repeated for confirmation. Treatment target values recommended by ADA and other clinical organizations should be used to evaluate metabolic control in patients. Reference: [place] [employer], Standards of Care in Diabetes -2020 In patients 70 years and older consider HbA1c target range of 7.0-7.5% (Reference: Guy Wild et al. JAMDA. 2012) The [place] assay for the measurement of HbA1c is a National Glycohemoglobin Standardization Program (NGSP) certified method. Blood BLOOD SPECIMEN / Unknown Clinic Draw / Unknown 06/06/2025 3:01 AM CDT 06/06/2025 3:09 AM CDT us Shari Martinez MD LAB - CHEMISTRY ORDERABLES Fin al Result [address] [address], [facility] [phone] * CT Knee Left Wo Contrast (06/06/2025 2:23 AM CDT) Anatomical Region Laterality Modality Lower Extremity Computed Tomogra phy 06/06/2025 5:31 AM CDT Impressions 06/06/2025 8:17 AM CDT IMPRESSION: 1.No acute fracture or dislocation. 2.Subcutaneous hemorrhage medially. > Dictated by Johnny Kilgore MD > Dictated by Cupola Tapper I, Francesco Cordova MD have personally reviewed and interpreted this examination/study. > Interpreting Provider: Francesco Cordova MD on 06/06/2025 8:17 AM Narrative 06/06/2025 8:17 AM CDT PROCEDURE: CT KNEE LEFT WO CONTRAST, DATE/TIME OF EXAM: 06/06/2025 2:25 AM, LOCATION [facility] INDICATION: M25.562: Acute pain of left knee ADDITIONAL CLINICAL INFORMATION: Ordering Provider Reason For Exam: r/o tibial plateau Technologist Note: Additional: COMPARISON: None. TECHNIQUE: Axial CT images of the left knee. Coronal and sagittal reformatted images were submitted. FINDINGS: Bones: The bones are normal. Soft tissues: The muscles and tendons are normal in appearance. Vascular calcifications indicative of peripheral arterial disease. Chondrocalcinosis. There is soft tissue edema. There is high attenuation material in the medial subcutaneous tissues compatible with hemorrhage. Procedure Note Francesco Cordova MD - 06/06/2025 PROCEDURE: CT KNEE LEFT WO CONTRAST, DATE/TIME OF EXAM: 06/06/2025 2:25 AM, LOCATION [facility] INDICATION: M25.562: Acute pain of left knee ADDITIONAL CLINICAL INFORMATION: Ordering Provider Reason For Exam: r/o tibial plateau Technologist Note: Additional: COMPARISON: None. TECHNIQUE: Axial CT images of the left knee. Coronal and sagittal reformatted images were submitted. FINDINGS: Bones: The bones are normal. Soft tissues: The muscles and tendons are normal in appearance. Vascular calcifications indicative of peripheral arterial disease. Chondrocalcinosis. There is soft tissue edema. There is high attenuation material in the medial subcutaneous tissues compatible with hemorrhage. IMPRESSION: 1.No acute fracture or dislocation. 2.Subcutaneous hemorrhage medially. > Dictated by Johnny Kilgore MD > Dictated by Cupola Tapper I, Francesco Cordova MD have personally reviewed and interpreted this examination/study. 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 2.No evidence of bleeding as clinically queried. 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 4.Atherosclerotic calcification of the coronary arteries, aorta and branches. > Dictated by Johnny Kilgore MD > Dictated by Cupola Tapper I, Ely Schwartz MD have personally reviewed and interpreted this examination/study. > Interpreting Provider: Ely Schwartz MD on 06/06/2025 9:45 AM Narrative 06/06/2025 9:45 AM CDT PROCEDURE: CT CHEST ABDOMEN PELVIS WO CONT, DATE/TIME OF EXAM: 06/06/2025 2:25 AM, LOCATION [facility] INDICATION: Z51.81: Encounter for monitoring thrombolytic therapy Z79.02: Encounter for monitoring thrombolytic therapy ADDITIONAL CLINICAL INFORMATION: Ordering Provider Reason For Exam: bleed Technologist Note: Additional: COMPARISON: None. TECHNIQUE: CT of the chest, abdomen, and pelvis was performed without contrast according to standard protocol. Findings: Evaluation of visceral and vascular structures is degraded due to lack of intravenous contrast administration. Chest: Lower Neck and Axillae: Normal. Lungs: Centrilobular and paraseptal emphysema is present. Mild bilateral dependent atelectasis. No suspicious pulmonary nodules are identified. No pleural fluid or pneumothorax is present. Calcified bilateral calcified pleural plaques. Heart and Pericardium: The cardiac chambers are normal in size. No pericardial fluid or thickening is present. The coronary arteries are atherosclerotic. Mediastinum and Hilary: No mediastinal mass is present. Mildly prominent subcentimeter mediastinal lymph nodes are seen; however, there are no enlarged lymph nodes are present. Thoracic Vasculature: The aorta and its branch vessels are atherosclerotic. Abdomen/pelvis: Liver: Diffuse hypoattenuation of the liver parenchyma. No focal lesions identified. Calcified hepatic granuloma versus postprocedural changes within the left hemiliver. Gallbladder and Bile Ducts: The gallbladder is absent. Spleen: Hypoattenuation of the splenic parenchyma. Pancreas: Normal. Adrenals: Normal. Kidneys: Normal. Gastrointestinal: The stomach and visualized loops of large and small bowel are unremarkable. Normal appendix. Mesentery/Peritoneum/Retroperitoneum: Mild mid abdomen mesenteric fat stranding which could represent mesenteric panniculitis. Bladder: Normal. Reproductive Organs: The prostate is normal. Abdominal Vasculature: Extensive atherosclerotic calcification of the aorta and its branch vessels. Bones: Bone windows demonstrate no suspicious lytic or blastic lesions. The visible osseous structures are intact. Partially ACDF hardware and posterior cervicothoracic fusion hardware. Soft tissues: Atrophy of the paraspinal muscles noted in the lower lumbar and sacral area. Procedure Note Ely Schwartz MD - 06/06/2025 PROCEDURE: CT CHEST ABDOMEN PELVIS WO CONT, DATE/TIME OF EXAM:06/06/2025 2:25 AM, LOCATION [facility] INDICATION: Z51.81: Encounter for monitoring thrombolytic therapy Z79.02: Encounter for monitoring thrombolytic therapy ADDITIONAL CLINICAL INFORMATION: Ordering Provider Reason For Exam: bleed Technologist Note: Additional: COMPARISON: None. TECHNIQUE: CT of the chest, abdomen, and pelvis was performed without contrast according to standard protocol. Findings: Evaluation of visceral and vascular structures is degraded due to lackof intravenous contrast administration. Chest: Lower Neck and Axillae: Normal. Lungs: Centrilobular and paraseptal emphysema is present. Mild bilateraldependent atelectasis. No suspicious pulmonary nodules are identified. No pleural fluid or pneumothorax is present. Calcified bilateral calcified pleural plaques. Heart and Pericardium: The cardiac chambers are normal in size. No pericardial fluid orthickening is present. The coronary arteries are atherosclerotic. Mediastinum and Hilary: No mediastinal mass is present. Mildly prominent subcentimetermediastinal lymph nodes are seen; however, there are no enlarged lymph nodes are present. Thoracic Vasculature: The aorta and its branch vessels are atherosclerotic. Abdomen/pelvis: Liver: Diffuse hypoattenuation of the liver parenchyma. No focal lesions identified. Calcified hepatic granuloma versus postprocedural changes within the left hemiliver. Gallbladder and Bile Ducts: The gallbladder is absent. Spleen: Hypoattenuation of the splenic parenchyma. Pancreas: Normal. Adrenals: Normal. Kidneys: Normal. Gastrointestinal: The stomach and visualized loops of large and small bowel areunremarkable. Normal appendix. Mesentery/Peritoneum/Retroperitoneum: Mild mid abdomen mesenteric fat stranding which could representmesenteric panniculitis. Bladder: Normal. Reproductive Organs: The prostate is normal. Abdominal Vasculature: Extensive atherosclerotic calcification of the aorta and its branch vessels. Bones: Bone windows demonstrate no suspicious lytic or blastic lesions. The visible osseous structures are intact. Partially ACDF hardware and posterior cervicothoracic fusion hardware. Soft tissues: Atrophy of the paraspinal muscles noted in the lower lumbar and sacral area. Impression: 1.Mild mid abdomen mesenteric fat stranding which could represent mesenteric panniculitis. 2.No evidence of bleeding as clinically queried. 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 4.Atherosclerotic calcification of the coronary arteries, aorta and branches. > Dictated by Johnny Kilgore MD > Dictated by Cupola Tapper I, Ely Schwartz MD have personally reviewed and interpreted this examination/study. > Interpreting Provider: Ely Schwartz MD on 59:45 AM us Shari Martinez MD CT ORDERABLES Final Result * CT Facial Bones Wo Contrast (06/06/2025 2:23 AM CDT) Anatomical Region Laterality Modality Head Computed Tomogra phy 06/06/2025 3:24 AM CDT Impressions 06/06/2025 10:44 AM CDT IMPRESSION: 1. Significant interval increase in size of a large subcutaneous hematoma in the frontal scalp extending bilaterally into the preseptal periorbital regions, the cheeks and the nose bridge. 2. Multiple minimally displaced nasal bone fractures with overlying soft tissue hematoma. Report was dictated by Joe Nunez MD, ([facility] resident). > Dictated by Cupola Tapper I, Bryce Trinidad MD have personally reviewed and interpreted this examination/study. > Interpreting Provider: Bryce Trinidad MD on 06/06/2025 10:44 AM Narrative 06/06/2025 10:44 AM CDT PROCEDURE: CT FACIAL BONES WO CONTRAST, DATE/TIME OF EXAM: 06/06/2025 2:25 AM, LOCATION [facility] INDICATION: Z51.81: Encounter for monitoring thrombolytic therapy Z79.02: Encounter for monitoring thrombolytic therapy ADDITIONAL CLINICAL INFORMATION: Ordering Provider Reason For Exam: bleeding EXAMINATION: Computed tomography (CT) of the maxillofacial bones, orbits, and paranasal sinuses without contrast TECHNIQUE: CT of the maxillofacial bones, orbits, and paranasal sinuses was performed without intravenous contrast according to standard protocol. Beam hardening artifact partially obscures evaluation of the mouth and adjacent structures. Contrast: None COMPARISON: Noncontrast head CT dated 06/05/2025. FINDINGS: Significant interval increase in size of a large subcutaneous hematoma in the frontal scalp extending bilaterally into the preseptal periorbital regions, the cheeks and the nose bridge. Accounting for the presence of residual intravenous contrast, no definite evidence of intracranial hemorrhage in the visible portions of the intracranial contents. There is a mildly displaced nasal bone fracture and possibly of the perpendicular plate of the nose. Other than bilateral cataract extractions, the orbits including the globes, optic nerves, retrobulbar fat and extraocular muscles appear otherwise normal. There is mild paranasal sinus disease. Postsurgical changes of bilateral maxillary uncinectomies and partial ethmoidectomies. The hard palate, visible portions of the mandible, and temporomandibular joints appear normal. The mastoid air cells are clear. Partially imaged posterior spinal and anterior spinal instrumentation. Moderate degenerative cervical spine disease better appreciated on CT cervical spine from 06/05/2025. Procedure Note Bryce Trinidad MD - 06/06/2025 PROCEDURE: CT FACIAL BONES WO CONTRAST, DATE/TIME OF EXAM: :25 AM, LOCATION [facility] INDICATION: Z51.81: Encounter for monitoring thrombolytic therapy Z79.02: Encounter for monitoring thrombolytic therapy ADDITIONAL CLINICAL INFORMATION: Ordering Provider Reason For Exam: bleeding EXAMINATION: Computed tomography (CT) of the maxillofacial bones,orbits, and paranasal sinuses without contrast TECHNIQUE: CT of the maxillofacial bones, orbits, and paranasal sinuseswas performed without intravenous contrast according to standard protocol.Beam hardening artifact partially obscures evaluation of the mouth andadjacent structures. Contrast: None COMPARISON: Noncontrast head CT dated 06/05/2025. FINDINGS: Significant interval increase in size of a large subcutaneous hematomain the frontal scalp extending bilaterally into the preseptal periorbital regions, the cheeks and the nose bridge. Accounting for the presence of residual intravenous contrast, nodefinite evidence of intracranial hemorrhage in the visible portions of the intracranial contents. There is a mildly displaced nasal bone fracture and possibly of the perpendicular plate of the nose. Other than bilateral cataract extractions, the orbits including theglobes, optic nerves, retrobulbar fat and extraocular muscles appear otherwise normal. There is mild paranasal sinus disease. Postsurgical changes of bilateral maxillary uncinectomies and partial ethmoidectomies. The hard palate, visible portions of the mandible, and temporomandibular joints appear normal. The mastoid air cells are clear. Partially imaged posterior spinal and anterior spinal instrumentation. Moderate degenerative cervical spine disease better appreciated on CT cervical spine from 06/05/2025. IMPRESSION: 1. Significant interval increase in size of a large subcutaneoushematoma in the frontal scalp extending bilaterally into the preseptalperiorbital regions, the cheeks and the nose bridge. 2. Multiple minimally displaced nasal bone fractures with overlying soft tissue hematoma. Report was dictated by Joe Nunez MD, ([facility] resident). > Dictated by Cupola Tapper I, Bryce Trinidad MD have personally reviewed and interpreted this examination/study. > Interpreting Provider: Bryce Trinidad MD on 06/06/2025 10:44 AM Shari Martinez MD CT ORDERABLES Final Result * TROPONIN-I HIGH SENSITIVE BASELINE + 1HR (06/06/2025 1:09 AM CDT) Troponin I High Sensitive 7 <=35 ng/L 06/06/2025 1:49 AM [facility] Blood BLOOD SPECIMEN / Unknown Venipuncture / Unknown 06/06/2025 1:09 AM CDT 06/06/2025 1:15 AM CDT Shari Martinez MD LAB - CHEMISTRY ORDERABLES Fin al Result [facility] [address] [place] [id number], [facility] [phone] * LIPID PROFILE (06/06/2025 1:09 AM CDT) Cholesterol Total 103 <200 mg/dL 06/06/2025 1:45 AM [facility] HDL 43 >40 mg/dL 06/06/2025 1:45 AM [facility] Comment: ATP III Classification of HDL Cholesterol: <40 mg/dL: Considered a major risk factor. >60 mg/dL: Considered a negative risk factor. LDL Calculated 49 <100 mg/dL 06/06/2025 1:45 AM [facility] Comment: ATP III Classification of LDL Cholesterol: <100 mg/dL: Optimal 100 - 129 mg/dL: Near Optimal/Above Optimal 130 - 159 mg/dL: Borderline High 160 - 189 mg/dL: High >190 mg/dL: Very High LDL is calculated using the Friedewald equation. Triglycerides 57 <150 mg/dL 06/06/2025 1:45 AM CDT [facility] Comment: ATP III Classification of Triglycerides: <150 mg/dL: Normal 150 - 199 mg/dL: Borderline High 200 - 400 mg/dL: High >500 mg/dL: Very High Blood BLOOD SPECIMEN / Unknown Venipuncture / Unknown 06/06/2025 1:09 AM CDT 06/06/2025 1:15 AM CDT us Shari Martinez MD LAB - CHEMISTRY ORDERABLES Fin al Result [facility] [address] [place] [address], [facility] [phone] * XR Wrist Left 3Vw or More (06/05/2025 10:03 PM CDT) Anatomical Region Laterality Modality Wrist / Hand Digital Radiogra phy 06/06/2025 8:19 AM CDT Narrative 06/06/2025 8:58 AM CDT PROCEDURE: XR WRIST LEFT 3VW OR MORE, DATE/TIME OF EXAM: 06/05/2025 10:03 PM, LOCATION [facility] INDICATION: H54.7: Vision loss Z51.81: Encounter for monitoring thrombolytic therapy Z79.02: Encounter for monitoring thrombolytic therapy M25.562: Acute pain of left knee ADDITIONAL CLINICAL INFORMATION: Ordering Provider Reason For Exam: fall COMPARISON: None. FINDINGS/IMPRESSION: The osseous structures are intact and well aligned without acute fracture or dislocation. Widening of the scapholunate space measuring 4 mm, suggestive of ligamentous injury. The joint spaces are preserved. Bone density and texture are normal. No soft tissue swelling is present. Report dictated by Esha Lyles, (administrative resident). > Dictated by Cupola Tapper I, Naman Dumas MD have personally reviewed and interpreted this examination/study. > Interpreting Provider: Naman Dumas MD on 06/06/2025 8:58 AM Procedure Note Naman Dumas MD - 06/06/2025 PROCEDURE: XR WRIST LEFT 3VW OR MORE, DATE/TIME OF EXAM: 8/18/672403:03 PM, LOCATION [facility] INDICATION: H54.7: Vision loss Z51.81: Encounter for monitoring thrombolytic therapy Z79.02: Encounter for monitoring thrombolytic therapy M25.562: Acute pain of left knee ADDITIONAL CLINICAL INFORMATION: Ordering Provider Reason For Exam: fall COMPARISON: None. FINDINGS/IMPRESSION: The osseous structures are intact and well aligned without acutefracture or dislocation. Widening of the scapholunate space measuring 4 mm, suggestive of ligamentous injury. The joint spaces are preserved. Bone density and texture are normal. No soft tissue swelling is present. Report dictated by Esha Lyles (administrative resident). > Dictated by Cupola Tapper I, Naman Dumas MD have personally reviewed and interpreted this examination/study. > Interpreting Provider: Naman Dumas MD on 06/06/2025 8:58 AM Shari Martinez MD DIAGNOSTIC IMAGING ORDERABLES Final Result * XR Knee Left 3Vw (06/05/2025 10:03 PM CDT) Anatomical Region Laterality Modality Lower Extremity Digital Radiogra phy 06/06/2025 8:05 AM CDT Impressions 06/06/2025 8:59 AM CDT IMPRESSION: 1.No acute fracture or dislocation identified. 2.Mild to moderate osteoarthritic changes of the knee. Report dictated by Esha Lyles (administrative resident). > Dictated by Cupola Tapper Anand, Naman Dumas MD have personally reviewed and interpreted this examination/study. > Interpreting Provider: Naman Dumas MD on 06/06/2025 8:59 AM Narrative 06/06/2025 8:59 AM CDT PROCEDURE: XR KNEE LEFT 3VW, DATE/TIME OF EXAM: 06/05/2025 10:03 PM, LOCATION [facility] INDICATION: H54.7: Vision loss Z51.81: Encounter for monitoring thrombolytic therapy Z79.02: Encounter for monitoring thrombolytic therapy ADDITIONAL CLINICAL INFORMATION: Ordering Provider Reason For Exam: fall COMPARISON: None. FINDINGS: The osseous structures are intact and well aligned without acute fracture or dislocation. The knee joint space is preserved. There is chondrocalcinosis with subchondral sclerosis. A small suprapatellar joint effusion is seen. The bones are mildly diffusely demineralized. Atherosclerotic changes of the limb vessels seen Procedure Note Naman Dumas MD - 06/06/2025 PROCEDURE: XR KNEE LEFT 3VW, DATE/TIME OF EXAM: 06/05/2025 10:03 PM, LOCATION [facility] INDICATION: H54.7: Vision loss Z51.81: Encounter for monitoring thrombolytic therapy Z79.02: Encounter for monitoring thrombolytic therapy ADDITIONAL CLINICAL INFORMATION: Ordering Provider Reason For Exam: fall COMPARISON: None. FINDINGS: The osseous structures are intact and well aligned without acutefracture or dislocation. The knee joint space is preserved. There is chondrocalcinosis with subchondral sclerosis. A small suprapatellarjoint effusion is seen. The bones are mildly diffusely demineralized. Atherosclerotic changes of the limb vessels seen IMPRESSION: 1.No acute fracture or dislocation identified. 2.Mild to moderate osteoarthritic changes of the knee. Report dictated by Esha Lyles, (administrative resident). > Dictated by Cupola Tapper I, Naman Dumas MD have personally reviewed and interpreted this examination/study. > Interpreting Provider: Naman Dumas MD on 06/06/2025 8:59 AM Shari Martinez MD DIAGNOSTIC IMAGING ORDERABLES Final Result * EKG 12-LEAD (06/05/2025 9:39 PM CDT) Ventricular Rate 86 BPM [facility] MUSE Atrial Rate 86 BPM [facility] MUSE P-R Interval 206 ms [facility] MUSE QRS Duration ms 102 ms [facility] MUSE Q-T Interval ms 396 ms [facility] MUSE QTC Calculation (Bezet) 473 ms [facility] MUSE Calculated P [place] 73 degrees SL MUSE Calculated R [place] 65 degrees [facility] MUSE Calculated T [place] 60 degrees [facility] MUSE Interpretation EKG SINUS RHYTHM WITH OCCASIONAL PREMATURE VENTRICULAR COMPLEXES OTHERWISE NORMAL ECG NO PREVIOUS ECGS AVAILABLE Confirmed by MD RJ, ARJUN ([id number]) on 06/07/2025 2:04:12 PM [facility] MUSE 06/05/2025 9:39 PM CDT 06/07/2025 2:04 PM CDT us Wili Najera MD ECG ORDERABLES Edited Resul t - Final [facility] MUSE * CT Cervical Spine Wo Contrast (06/05/2025 9:37 PM CDT) Anatomical Region Laterality Modality Spine Computed Tomogra phy 06/05/2025 10:0 2 PM CDT Impressions 06/05/2025 10:43 PM CDT IMPRESSION: 1.No evidence of acute fracture in the cervical spine. 2.C2-T2 and C3-C6 posterior and anterior instrumentation hardware is intact and stable. Report was dictated by Joe Nunez MD, (VIR resident). > Dictated by Cupola Tapper I, Nicolas Haynes MD have personally reviewed and interpreted this examination/study. > Interpreting Provider: Nicolas Haynes MD on 06/05/2025 10:43 PM Narrative 06/05/2025 10:43 PM CDT PROCEDURE: CT CERVICAL SPINE WO CONTRAST, DATE/TIME OF EXAM: 06/05/2025 9:37 PM, LOCATION [facility] INDICATION: H54.7: Vision loss Z51.81: Encounter for monitoring thrombolytic therapy Z79.02: Encounter for monitoring thrombolytic therapy ADDITIONAL CLINICAL INFORMATION: Ordering Provider Reason For Exam: Fall EXAMINATION: Computed tomography (CT) of the cervical spine without contrast TECHNIQUE: CT of the cervical spine was reformatted from the CT angiographic brain neck. CT dose reduction technique was used, including Automated Exposure Control. Beam hardening and quantum mottling partially degrades evaluation cervical spine. COMPARISON: No prior study is available for comparison at the time of this dictation. FINDINGS: Subcentimeter hypodense nodules in the thyroid gland are indeterminate. Partially included apical emphysema and vascular calcifications of the carotid arteries. There is circumferential thickening of the upper esophagus. Correlate clinically with esophagitis. There is posterior spinal instrumentation from C2 to T2 with 2 vertical rods and multiple screws. In addition there is anterior cervical discectomy hardware with instrumented fusion of C3-C6. The hardware is intact. The alignment is normal. The prevertebral soft tissue is normal in thickness. The bones are moderately osteopenic. Vertebral bodies are normal in height without evidence of acute fracture. Other than moderate middle atlantoaxial joint osteoarthritis, the craniocervical junction appears normal. The intervertebral discs appear normal. The central canal is patent and decompressed secondary postsurgical changes. There are varying degrees of mild to moderate multiple facet osteoarthritis. There are varying degrees of mild to moderate multilevel uncovertebral joint osteoarthritis No neural foraminal stenosis is seen. Procedure Note Nicolas Haynes MD - 06/05/2025 PROCEDURE: CT CERVICAL SPINE WO CONTRAST, DATE/TIME OF EXAM: 06/05/2025 9:37 PM, LOCATION [facility] INDICATION: H54.7: Vision loss Z51.81: Encounter for monitoring thrombolytic therapy Z79.02: Encounter for monitoring thrombolytic therapy ADDITIONAL CLINICAL INFORMATION: Ordering Provider Reason For Exam: Fall EXAMINATION: Computed tomography (CT) of the cervical spine without contrast TECHNIQUE: CT of the cervical spine was reformatted from the CT angiographic brain neck. CT dose reduction technique was used, including Automated Exposure Control. Beam hardening and quantum mottlingpartially degrades evaluation cervical spine. COMPARISON: No prior study is available for comparison at the time ofthis dictation. FINDINGS: Subcentimeter hypodense nodules in the thyroid gland are indeterminate. Partially included apical emphysema and vascular calcifications of the carotid arteries. There is circumferential thickening of the upper esophagus. Correlate clinically with esophagitis. There is posterior spinal instrumentation from C2 to T2 with 2 vertical rods and multiple screws. In addition there is anterior cervicaldiscectomy hardware with instrumented fusion of C3-C6. The hardware is intact. The alignment is normal. The prevertebral soft tissue is normal in thickness. The bones are moderately osteopenic. Vertebral bodies arenormal in height without evidence of acute fracture. Other than moderate middle atlantoaxial joint osteoarthritis, the craniocervical junction appears normal. The intervertebral discs appear normal. The central canal ispatent and decompressed secondary postsurgical changes. There are varyingdegrees of mild to moderate multiple facet osteoarthritis. There are varying degrees of mild to moderate multilevel uncovertebral jointosteoarthritis No neural foraminal stenosis is seen. IMPRESSION: 1.No evidence of acute fracture in the cervical spine. 2.C2-T2 and C3-C6 posterior and anterior instrumentation hardware isintact and stable. Report was dictated by Joe Nunez MD, (VIR resident). > Dictated by Cupola Tapper I, Nicolas Haynes MD have personally reviewed and interpretedthis examination/study. > Interpreting Provider: Nicolas Haynes MD on 06/05/2025 10:43 PM Shari Martinez MD CT ORDERABLES Final Result * CT ANGIO BRAIN NECK STROKE (06/05/2025 9:36 PM CDT) Anatomical Region Laterality Modality Head Computed Tomogra phy 06/05/2025 9:50 PM CDT Impressions 06/05/2025 11:24 PM CDT IMPRESSION: 1.No large arterial occlusions or significant stenoses identified in the head or neck. Report was dictated by Joe Nunez MD, (VIR resident). > Dictated by Cupola Tapper Anand, Nicolas Haynes MD have personally reviewed and interpreted this examination/study. > Interpreting Provider: Nicolas Haynes MD on 06/05/2025 11:24 PM Narrative 06/05/2025 11:24 PM CDT PROCEDURE: CT ANGIO BRAIN NECK STROKE, DATE/TIME OF EXAM: 06/05/2025 9:37 PM, LOCATION [facility] INDICATION: H54.7: Vision loss ADDITIONAL CLINICAL INFORMATION: Ordering Provider Reason For Exam: Visual loss Technologist Note: None. Additional: None. EXAMINATION: 1. Computed tomographic (CT) angiography of the head with contrast 2. CT angiography of the neck with contrast TECHNIQUE: CT angiography of the head and neck was obtained after the uneventful administration of intravenous contrast. Three dimensional postprocessing was performed by the technologist and sent to the workstation for review. CONTRAST: IOPAMIDOL 76 % IV SOLN:80 mL COMPARISON: No prior study is available for comparison at the time of this dictation. FINDINGS: Non-angiographic findings: Please refer to CT head brain stroke protocol from 06/05/2025 and 9:15 PM for further non-angiographic details. There is moderate paraseptal and centrilobular emphysema in the included images. Multiple subcentimeter hypoenhancing cysts in the thyroid glands. Recommend nonurgent thyroid ultrasound for further evaluation. Severe multilevel degenerative disc and joint disease is noted in the cervical spine. Beam hardening artifacts partially obscured evaluation of the neck soft tissues and adjacent structures. Angiographic findings: Neck: There is atherosclerotic disease of the aortic arch. The configuration of the brachiocephalic vessels is typical. There is scattered atherosclerotic calcification of the innominate and subclavian arteries. There is atherosclerotic disease in the right carotid bifurcation and origin of the right internal carotid artery with less than 50 percent focal stenosis. Other than atherosclerotic calcifications in the distal right internal carotid artery, the right common and internal carotid arteries otherwise appear patent. There is atherosclerotic disease in the left carotid bifurcation and origin of the left internal carotid artery with less than 50 percent focal stenosis. Other than atherosclerotic calcifications in the distal left internal carotid artery, the left common and internal carotid arteries otherwise appear patent. Calcified and soft plaques are noted. Other than mild focal stenosis at their origins due to atherosclerotic disease, the cervical vertebral arteries are patent. Head: The distal internal carotid arteries are patent. The anterior cerebral arteries are patent. The middle cerebral arteries are patent. The posterior cerebral arteries are patent with origin of both posterior cerebral arteries. The distal vertebral arteries are patent. Anterior-inferior cerebellar artery arising off of the left V4 segment of the vertebral artery. The basilar artery is patent. No aneurysms, spot sign, or signs of a high flow vascular malformation are identified. Procedure Note Nicolas Haynes MD - 06/05/2025 PROCEDURE: CT ANGIO BRAIN NECK STROKE, DATE/TIME OF EXAM: :37 PM, LOCATION [facility] INDICATION: H54.7: Vision loss ADDITIONAL CLINICAL INFORMATION: Ordering Provider Reason For Exam: Visual loss Technologist Note: None. Additional: None. EXAMINATION: 1. Computed tomographic (CT) angiography of the head with contrast 2. CT angiography of the neck with contrast TECHNIQUE: CT angiography of the head and neck was obtained after the uneventful administration of intravenous contrast. Three dimensional postprocessing was performed by the technologist and sent to the workstation for review. CONTRAST: IOPAMIDOL 76 % IV SOLN:80 mL COMPARISON: No prior study is available for comparison at the time ofthis dictation. FINDINGS: Non-angiographic findings: Please refer to CT head brain stroke protocol from 06/05/2025 and 9:15 PM for further non-angiographic details. There is moderate paraseptal and centrilobular emphysema in the included images. Multiple subcentimeter hypoenhancing cysts in the thyroidglands. Recommend nonurgent thyroid ultrasound for further evaluation. Severe multilevel degenerative disc and joint disease is noted in the cervical spine. Beam hardening artifacts partially obscured evaluation of theneck soft tissues and adjacent structures. Angiographic findings: Neck: There is atherosclerotic disease of the aortic arch. The configurationof the brachiocephalic vessels is typical. There is scatteredatherosclerotic calcification of the innominate and subclavian arteries. There is atherosclerotic disease in the right carotid bifurcation and origin ofthe right internal carotid artery with less than 50 percent focal stenosis. Other than atherosclerotic calcifications in the distal right internal carotid artery, the right common and internal carotid arteries otherwise appear patent. There is atherosclerotic disease in the left carotid bifurcation and origin of the left internal carotid artery with lessthan 50 percent focal stenosis. Other than atherosclerotic calcifications inthe distal left internal carotid artery, the left common and internalcarotid arteries otherwise appear patent. Calcified and soft plaques are noted. Other than mild focal stenosis at their origins due to atherosclerotic disease, the cervical vertebral arteries are patent. Head: The distal internal carotid arteries are patent. The anterior cerebral arteries are patent. The middle cerebral arteries are patent. The posterior cerebral arteries are patent with origin of bothposterior cerebral arteries. The distal vertebral arteries are patent. Anterior-inferior cerebellar artery arising off of the left V4 segmentof the vertebral artery. The basilar artery is patent. No aneurysms, spot sign, or signs of a high flow vascular malformation are identified. IMPRESSION: 1.No large arterial occlusions or significant stenoses identified in the head or neck. Report was dictated by Joe Nunez MD, (VIR resident). > Dictated by Cupola Tapper I, Nicolas Haynes MD have personally reviewed and interpretedthis examination/study. > Interpreting Provider: Nicolas Haynes MD on 06/05/2025 11:24 PM Wili Najera MD CT ORDERABLES Final Result * CT BRAIN - Stroke (06/05/2025 9:35 PM CDT) Anatomical Region Laterality Modality Head Computed Tomogra phy 06/05/2025 9:21 PM CDT Impressions 06/05/2025 9:40 PM CDT IMPRESSION: 1.No acute intracranial hemorrhage. 2.Please note that CT is insensitive to nonhemorrhagic strokes and MRI of the brain should be considered, if there is clinical concern for acute cerebral infarction. 3.Prominent soft tissue swelling/hematoma, and along the forehead, extending along the nasal bridge, and along the frontal scalp. There are mildly displaced underlying nasal bone fractures. Results of this exam were communicated with closed loop confirmation to Dr. Hebert by Dr. Haynes on 06/05/2025 at 9:21 PM, with read back comprehension and verification > Interpreting Provider: Nicolas Haynes MD on 06/05/2025 9:40 PM Narrative 06/05/2025 9:40 PM CDT PROCEDURE: CT BRAIN STROKE, DATE/TIME OF EXAM: 06/05/2025 9:35 PM, LOCATION [facility] INDICATION: H54.7: Vision loss EXAMINATION: Computed tomography (CT) of the head without contrast ADDITIONAL CLINICAL INFORMATION: Ordering Provider Reason For Exam: Vision loss. Technologist Note: None. Additional: None TECHNIQUE: CT of the head was performed without contrast according to standard protocol. CT dose reduction technique was used, including Automated Exposure Control. COMPARISON: No prior study is available for comparison at the time of this dictation. FINDINGS: Accounting for the presence of intravascular contrast which reduces the sensitivity to detect subtle intracranial hemorrhage, no distinct acute intra- or extra-axial fluid collections are identified. There is mild to moderate cerebral volume loss with associated ex vacuo ventricular dilatation. The basilar cisterns are patent. No mass effect or midline shift is seen. The bashir-white matter differentiation is normal. Periventricular white matter hypoattenuation is indicative of chronic small vessel ischemic disease. There is vascular calcification of the carotid siphons. No acute calvarial fracture is identified. Other than bilateral cataract extractions, the orbits appear normal. There is mild paranasal sinus disease. The mastoid air cells are clear. Prominent soft tissue swelling/hematoma along the nasal bridge and the forehead, with extension along the frontal scalp. There are mildly displaced bilateral nasal bone fractures. Partially imaged postsurgical changes in the upper cervical spine.. Procedure Note Nicolas Haynes MD - 06/05/2025 PROCEDURE: CT BRAIN STROKE, DATE/TIME OF EXAM: 06/05/2025 9:35 PM, LOCATION [facility] INDICATION: H54.7: Vision loss EXAMINATION: Computed tomography (CT) of the head without contrast ADDITIONAL CLINICAL INFORMATION: Ordering Provider Reason For Exam: Vision loss. Technologist Note: None. Additional: None TECHNIQUE: CT of the head was performed without contrast according to standard protocol. CT dose reduction technique was used, including Automated Exposure Control. COMPARISON: No prior study is available for comparison at the time ofthis dictation. FINDINGS: Accounting for the presence of intravascular contrast which reduces the sensitivity to detect subtle intracranial hemorrhage, no distinct acute intra- or extra-axial fluid collections are identified. There is mild to moderate cerebral volume loss with associated ex vacuo ventricular dilatation. The basilar cisterns are patent. No mass effect or midline shift is seen. The bashir-white matter differentiation is normal. Periventricular white matter hypoattenuation is indicative of chronicsmall vessel ischemic disease. There is vascular calcification of the carotid siphons. No acute calvarial fracture is identified. Other than bilateral cataract extractions, the orbits appear normal. There is mild paranasal sinus disease. The mastoid air cells are clear. Prominent soft tissue swelling/hematoma along the nasal bridge and the forehead, withextension along the frontal scalp. There are mildly displaced bilateral nasal bone fractures. Partially imaged postsurgical changes in the upper cervical spine.. IMPRESSION: 1.No acute intracranial hemorrhage. 2.Please note that CT is insensitive to nonhemorrhagic strokes and MRIof the brain should be considered, if there is clinical concern for acute cerebral infarction. 3.Prominent soft tissue swelling/hematoma, and along the forehead, extending along the nasal bridge, and along the frontal scalp. There are mildly displaced underlying nasal bone fractures. Results of this exam were communicated with closed loop confirmation toDr. Hebert by Dr. Haynes on 06/05/2025 at 9:21 PM, with read back comprehension and verification > Interpreting Provider: Nicolas Haynes MD on 06/05/2025 9:40 PM us Wili Najera MD CT ORDERABLES Final Result * TROPONIN-I HIGH SENSITIVE (06/05/2025 9:22 PM CDT) Troponin I High Sensitive 4 <=35 ng/L 06/05/2025 10:07 PM CDT [facility] Blood BLOOD SPECIMEN / Unknown Venipuncture / Unknown 06/05/2025 9:22 PM CDT 06/05/2025 9:25 PM CDT Wili Najera MD LAB - CHEMISTRY ORDERABLES F inal Result Performing Organization Address [facility]/ZIP Co de Phone Number [address] [address], [facility] [phone] * (ABNORMAL) ISTAT CREATININE (06/05/2025 9:22 PM CDT) Creatinine POCT 1.90(H) 0.60 - 1.30 mg/dL 06/05/2025 9:36 PM CDT [facility] eGFR by CKD-EPI 35(L) >90 mL/min/1.7 3 m2 06/05/2025 9:36 PM CDT [facility] Blood BLOOD SPECIMEN / Unknown 06/05/2025 9:22 PM CDT 06/05/2025 9:36 PM CDT Shari Martinez MD LAB - POINT OF CARE ORDERABLES Final Result Performing Organization Address [facility] Co de Phone Number [address] [address], [place] [phone] * PTT (06/05/2025 9:22 PM CDT) APTT 25.6 23.0 - 38.4 Seconds 06/05/2025 10:02 PM CDT [facility] Comment:Suggested therapeuti c range for full dose I.V. unfractionated heparin therapy for venous thromboembolism is 71 to 109 seconds. Blood BLOOD SPECIMEN / Unknown Venipuncture / Unknown 06/05/2025 9:22 PM CDT 06/05/2025 9:25 PM CDT Wili Najera MD LAB - COAGULATION ORDERABLES Final Result Performing Organization Address City/[facility]/ZIP Co de Phone Number [address] [place] [address], [facility] [phone] * (ABNORMAL) PT-INR (06/05/2025 9:22 PM CDT) [facility] PT 11.9(L) 12.1 - 14.8 Seconds 06/05/2025 10:02 PM CDT [facility] INR 0.9 See Comment 06/05/2025 10:02 PM [facility] Comment:The suggested therap eutic range for standard coumadin (warfarin) therapy is an INR of 2.0-3.0. For high-risk patients (Mechanical Mitral Valve Prosthesis, etc.), the suggested prophylactic therapeutic range is an INR of 2.5-3.5. Blood BLOOD SPECIMEN / Unknown Venipuncture / Unknown 06/05/2025 9:22 PM CDT 06/05/2025 9:25 PM CDT Wili Najera MD LAB - COAGULATION ORDERABLES Final Result [address] [address], [facility] [phone] * (ABNORMAL) CBC W AUTO DIFFERENTIAL (06/05/2025 9:22 PM CDT) [facility] WBC 6.6 4.0 - 10.7 x10E9/L 06/05/2025 9:39 PM [facility] RBC Count 3.34(L) 4.30 - 5.80 x10E12/L 06/05/2025 9:39 PM [facility] Hemoglobin 12.0(L) 13.3 - 17.5 g/dL 06/05/2025 9:39 PM [facility] Hematocrit 33.9(L) 38.7 - 51.1 % 06/05/2025 9:39 PM [facility] MCV 101.5(H) 80.0 - 98.0 fL 06/05/2025 9:39 PM [facility] MCH 35.9(H) 26.7 - 33.6 pg 06/05/2025 9:39 PM [facility] MCHC 35.4 31.7 - 36.3 g/dL 06/05/2025 9:39 PM [facility] RDW-CV 13.5 11.3 - 14.8 % 06/05/2025 9:39 PM [facility] Platelet Count 136(L) 150 - 420 x10E9/L 06/05/2025 9:39 PM [facility] MPV 10.9 7.8 - 11.4 fL 06/05/2025 9:39 PM [facility] Neutrophil % 63.1 41.0 - 74.0 % 06/05/2025 9:39 PM [facility] Lymphocyte % 20.3 17.0 - 47.0 % 06/05/2025 9:39 PM [facility] Monocyte % 10.2 3.0 - 11.0 % 06/05/2025 9:39 PM [facility] Eosinophil % 5.3 0.0 - 7.0 % 06/05/2025 9:39 PM [facility] Basophil % 0.6 0.0 - 1.6 % 06/05/2025 9:39 PM [facility] Immature Granulocytes % 0.5 0.0 - 1.0 % 06/05/2025 9:39 PM [facility] Neutrophil Absolute 4.14 1.60 - 7.50 x10E9/L 06/05/2025 9:39 PM [facility] Lymphocyte Absolute 1.33 1.00 - 4.40 x10E9/L 06/05/2025 9:39 PM [facility] Monocyte Absolute 0.67 0.15 - 1.00 x10E9/L 06/05/2025 9:39 PM [facility] Eosinophil Absolute 0.35 0.00 - 0.60 x10E9/L 06/05/2025 9:39 PM [facility] Basophil Absolute 0.04 0.00 - 0.13 x10E9/L 06/05/2025 9:39 PM [facility] Blood BLOOD SPECIMEN / Unknown Venipuncture / Unknown 06/05/2025 9:22 PM CDT 06/05/2025 9:25 PM CDT us Wili Najera MD LAB - HEMATOLOGY ORDERABLES Final Result [facility] [address] [place] [address], [facility] [phone] * (ABNORMAL) COMPREHENSIVE METABOLIC PANEL (06/05/2025 9:22 PM CDT) BUN 31(H) 7 - 26 mg/dL 06/05/2025 10:04 PM [facility] Creatinine 1.68(H) 0.71 - 1.16 mg/dL 06/05/2025 10:04 PM [facility] Sodium 137 136 - 145 mmol/L 06/05/2025 10:04 PM [facility] Potassium 4.2 3.5 - 4.5 mmol/L 06/05/2025 10:04 PM [facility] Chloride 109(H) 98 - 107 mmol/L 06/05/2025 10:04 PM [facility] CO2 20(L) 22 - 29 mmol/L 06/05/2025 10:04 PM [facility] Glucose 138(H) 70 - 99 mg/dL 06/05/2025 10:04 PM [facility] Calcium 9.3 8.4 - 10.2 mg/dL 06/05/2025 10:04 PM [facility] Protein Total 6.4 6.0 - 8.3 g/dL 06/05/2025 10:04 PM [facility] Albumin 4.2 3.4 - 5.0 g/dL 06/05/2025 10:04 PM [facility] Bilirubin Total 0.2 0.2 - 1.2 mg/dL 06/05/2025 10:04 PM [facility] Alkaline Phosphatase 127 40 - 150 U/L 06/05/2025 10:04 PM [facility] ALT 20 5 - 55 U/L 06/05/2025 10:04 PM [facility] AST 19 5 - 34 U/L 06/05/2025 10:04 PM [facility] Anion Gap 8 6 - 16 06/05/2025 10:04 PM [facility] BUN/Creatinine Ratio 18 7 - 23 06/05/2025 10:04 PM [facility] Osmolality Calculated 293 275 - 295 mOsm/kg 06/05/2025 10:04 PM [facility] Albumin/Globulin Ratio 1.9 1.1 - 2.3 06/05/2025 10:04 PM [facility] eGFR by CKD-EPI 41(L) >=90 mL/min/1.7 3 m2 06/05/2025 10:04 PM [facility] Comment:Estimated Glomerular Filtration Rate (eGFR) calculated using the CKD-EPI Creatinine Equation (2020), per the National Kidney Foundation and [place] [employer]ph[employer] recommendations. Blood BLOOD SPECIMEN / Unknown Venipuncture / Unknown 06/05/2025 9:22 PM CDT 06/05/2025 9:25 PM CDT us Wili Najera MD LAB - CHEMISTRY ORDERABLES F inal Result [address] [address], [place] [phone] * INR WHOLE BLOOD - POINT OF CARE (IP) STROKE (06/05/2025 9:19 PM CDT) INR 1.0 0.9 - 1.2 06/05/2025 9:36 PM T [facility] Device [id number] 06/05/2025 9:36 PM CDT [facility] Intelligence Analyst ID [id number] 06/05/2025 9:36 PM T [facility] Blood BLOOD SPECIMEN / Unknown 06/05/2025 9:19 PM CDT 06/05/2025 9:36 PM CDT us Provider Unknown LAB - POINT OF CARE ORDERABLES Final Result [address] [address], [place] [phone] from Last 3 Months Insurance [facility] MANAGED MEDICARE [facility] [place] [address] MEDICAID - [place] Advance Directives * Full Code (Latest Code Status on File) Date Activated Date Inactivated Comments 06/05/2025 10:58 PM 06/08/2025 6:09 PM Care Teams Trim Mounter Relationship Specialty Start Date End Date Bebeto Messer MD [address] [place] [address] PCP - General Family Medicine 06/06/25
--- OUTSIDE RECORDS SUMMARY | 2025-08-01 16:47 | XMS_ITS | Data Portability ---
Author Organization [facility] OFFICE Address [address] [place] [address] Care Team Providers Care Respiratory Care Instructor Name Role Phone FLOWER REYNOSO Primary Care Provider FLOWER REYNOSO Referring Provider FLOWER REYNOSO Primary Care Provider Assessment No assessment recorded. Plan of Treatment [...] (120 mg-180 mg) capsule 2017 018 [id number], [address], [place], [phone], 8 15:17:10 Crestor 5 mg tablet 2017 018 [id number], [address], [place], [phone], 8 15:16:13 omeprazo le 20 mg capsule, delayed release 2017 018 [id number], [address], [place], [phone], 8 15:01:42 Patient TargetsNo targets recorded. Patient Instructions Encounter Date Encounter Id Patient Instructions Last Modified By Organization Details Last Modified Time 08/24/2018 [id number] Exercise advised Low cholesterol diet advised Low sodium diet advised. eric Not available 08/24/2018 17:20:49 Reason for Referral None Reported. Results Created Date Observation Date Name Description Value Unit Range Abnormal Flag Note LastModifiedBy Organization Detail LastModifiedTime 08/24/20 18 08/24/2018 elect rocar diogr am Result sinus rhythm P normal QRS normal ST-T normal conclu [place] normal ECG Not Available Jame Min MD [address], [place], [address], 08/24/2018 17:10:17 08/24/20 18 08/16/2018 XR, chest [...] s test No observ ation record ed. [email or web address] Not Available 02/02 11:10:27 09/13/20 18 09/01/2018 CT, angio gram, coron susan arter ies, w/ contr ast No observ ation record ed. [email or web address] Not Available 02/02 10:37:09 Result Notes Documentation [...] Address Organization Details Recorded Time Palpitation s 39618636 Active 2017 Nilda Grimaldoxuan [facility], [place] - [facility] 8 14:50:22 Coronary arterioscle rosis 14191670 Active 2017 Nilda Grimaldoxuan [facility] [place] - [facility] 8 14:50:34 Ventricular premature beats 35031540 Completed 201708/24/2018 Brenda Collins [facility] [place] [facility] 8 17:00:51 Tobacco dependence syndrome 04235300 Active 2017 Munguia Mesxuan [facility] [place] [facility] 8 14:56:44 Dyspnea 180504337 Active 2017 Jane Tabaresabi [facility] [facility] 8 12:28:32 Disorder of carotid artery 179978920 Active 2017 Jane Tabaresabi [facility] [place] [facility] 8 12:29:05 Smoker 76932165 Active 2017 Jane Tabaresabi [place], [place] - [facility] 8 12:29:17 Hypertensiv e disorder 25368116 Active 2017 Brenda Collins [facility] [place] [facility] 8 17:01:01 Chronic kidney disease 429779660 Active 2017 Fela Lombardosanjuana [facility] [place] [facility] 8 11:59:06 Dyslipidemi a 358786261 Active 2018 Nilda Grimaldoxuan [facility] [facility] 9 12:29:03 Multifocal premature ventricular complexes 50975188 Active 2018 Nilda Grimaldoxuan [facility] [facility] 9 12:29:19 Angina pectoris 981568152 Active 2018 Munguia Mesxuan [facility] [place] [facility] 9 12:29:36 Sinus bradycardia 40851478 Active 2018 Munguia Dillanxuan [facility] [place] [facility] 9 12:29:51 Problem Notes None recorded. Procedures Surgical History Date Name Laterality Status Provider Name and Address Organization Details Recorded Time Back Surgery completed Brenda Collins [place] - [facility] 08/24/2018 17:00:14 Imaging [...] Available Not Available Not Available Fluzone High-Dose 0685-6172 (PF) 180 mcg/0.5 mL intramuscu lar syringe 08/24 completed Not Available Not Available Not Available Vitals Date Recorded Body weight Body mass index (BMI) Body height Heart rate Oxygen saturation Oxygen saturation in Arterial blood by Pulse oximetry Systolic And Diastolic Provider Name and Address Organization Details Last Updated DateTime 8 23460.3 3 g 24.8 kg/m2 187.96 cm 70 /min 96 % 96 % 120/64 mm[Hg] Brenda Collins [facility] 8 17:10:00 Date Recorded Body height Body mass index (BMI) Body weight Oxygen saturation Oxygen saturation in Arterial blood by Pulse oximetry Heart rate Systolic And Diastolic Provider Name and Address Organization Details Last Updated DateTime 8 187.96 cm 25.3 kg/m2 87624.7 g 97 % 97 % 84 /min 120/70 mm[Hg] CAITLYN Carver [facility] 8 14:56:26 Social History Question Answer Notes LastModified by Organizat ion Details LastModified Time Tobacco Smoking Status Former Smoker 06/24/2018 Brenda paz [facility] 08/24/2018 16:59:38 What Is Your Level Of [...] Diagnosis SNOMED-CT Code Diagnosis ICD10 Code Diagnosis IMO Codes Diagnosis Note 22568 Jame Min MD [address] [place] [address] 08/24/2018 15:46:04 08/24/2018 17:30:45 Coronary arteriosclerosis in [place] artery 6321005448 107 I25.10 Angina pectoris 40701066 0 I20.9 Will arrange for cardiac CTA, he has high [place] Risk score. he would benefit from CT to look for any Coronary Artery Disease Multifocal premature ventricular complexes 70116112 I49.3 Dyslipidemia 099380190 E 78.5 89088 Jame Min MD Robert OFFICE [facility] [place] [address] 09/14/2018 14:30:50 09/14/2018 15:17:42 Coronary arteriosclerosis in [place] artery 4413685879 107 I25.10 Moderate on CTAmaximal Medical treatment Angina pectoris 26644384 0 I20.9 stable now Multifocal premature ventricular complexes 69518266 I49.3 Dyslipidemia 605125708 E 78.5 Sinus bradycardia 038010 05 R00.1 OK To [facility] Health Concerns Section Related Observation LastModified by Organization Detai ls LastModified Time None Recorded Concern Status LastModified by Organization Details LastModified Time None Recorded Advance Directives Directive None Recorded Payers Insurance Date Sequence Insurance Name Policy Number Policy Montemayor Covered Member ID Montemayor Member ID Guarantor Name 08/23/2018 1 [facility] (MEDICARE REPLACEMENT/A DVANTAGE - PPO) [id number] Rc Carver Rodríguez [id number] 12/11/2018 2 [place] [facility] Jacob Rodríguez [id number] 12/11/2018 1 [facility] (MEDICARE REPLACEMENT/A DVANTAGE - HMO) [id number] Rc Wen Marcos [id number] Notes Date Note Type Note Provider Name [...] or from the past: Jame Min MD [address] [place], [address], [facility] - [facility] 08/24/2018 17:30:43 09/14/2018 [...] 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 STRESS TEST: 11/25/10 SE: Positive stress echo. Mild exercise tolerance. [...] 08/16/18:no Acute cardiopulmonary disease. Jame Min MD [address] [place], [address], [facility] - [facility] 09/14/2018 15:17:39
--- OUTSIDE RECORDS SUMMARY | 2025-08-01 16:47 | XMS_ITS | Encounter Summary ---
Author Organization [facility] Health Address [address] [place] [address] Care Team Providers Care Line Driver Name Role Phone Bebeto Messer MD Primary Care Provider [phone] Encounter Details Date Type Department Care Team (Late st Contact Info) Description 06/06/2025 Ophth Exam [facility] - Ophthalmology [address] [place] [address] Sebastián Richards MD [address] [place] [address] Social History Tobacco Use Types Packs/Day Years [...] Recorded Patient Health Questionnaire-2 Score 0 06/07/2025 [facility] - Occupational Stress Questionnaire Answer Date Recorded [...] any time in the past 12 m [facility], were you homeless or living in a long term (including now)? No 06/06/2025 Sex and Gender [...] have difficulty dressing/bathing? No 06/06/2025 4:01 AM Victoria Mitchell RN Does person have difficulty doing errands alone? Yes 06/06/2025 4:01 AM Victoria Mitchell RN Does person have difficulty concentrating/remembering/making decisions? [...] on filedocumented in this encounter Care Teams Line Driver Relationship Specialty Start Date End Date Bebeto Messer MD [address] [place] [address] PCP - General Family Medicine 06/06/25 documented as of this encounter
[2025-08-01] MEDS: GABAPENTIN 100 MG CAPSULE 200 MG PO (17:27)
[2025-08-01] MEDS: HYDROcodone/acetaminophen (*CRX) 10-325 MG TABLET 1 TAB PO (20:39)
[2025-08-01] MEDS: prednisoLONE ACETATE 1% OPHTH 5 ML 1 DROP RIGHT EYE (20:39)
[2025-08-01] MEDS: MIRTAZAPINE 7.5 MG TABLET PO (20:39)
[2025-08-01] MEDS: MELATONIN 5 MG TABLET PO (20:39)
[2025-08-01 23:44] VITALS: BP 134/58; PULSE 65; RESP 16; TEMP 36.3; O2SAT 97
--- OUTSIDE RECORDS SUMMARY | 2025-08-02 07:31 | XMS_ITS | Clinical Summary ---
Author Organization [facility] Address [address] [place] [address] Care Team Providers Care Cherry Dipper Name Role Phone Bebeto Messer MD Primary Care Provider [phone] Source Comments [facility],non-owned Affiliates and Associated Physician Practices is amultiple site organization consisting of ambulatory clinics and hospital sitesin [place], [place], [place] and [place]. This disclosure is being madepursuant to the Care Everywhere program and may not contain all information available regarding this patient. Last updated 18.[facility] Allergies No known active allergies Medications * [...] Exam [facility] [address] [place] [address] Sebastián Richards MD 06/06/2025 Ophth Exam [facility] [address] [place] [address] Jhon Horn MD 06/05/2025 9:06 PM CDT - 06/08/2025 5:04 PM CDT Hospital Encounter [facility] 5N ACUTE [address] [place] [address] Shari Martinez MD Esechie, Aimalohi, MD Hayat, [...] Recorded Patient Health Questionnaire-2 Score 0 06/07/2025 [facility] Occupat ional Health - Occupational Stress [...] any time in the past 12 m [facility], were you homeless or living in a m[facility] (including now)? No 06/06/2025 Sex and Gender [...] DATE/TIME OF EXAM: 06/08/2025 3:12 PM, LOCATION 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 [...] - 99 mg/dL 06/08/2025 11:47 AM CDT [facility] Specimen Type Arterial/C apillary 06/08/2025 11:47 AM CDT [facility] Blood BLOOD SPECIMEN / Unknown 06/08/2025 11:46 AM CDT 06/08/2025 11:47 AM CDT us Malinda Addison MD LAB - POINT OF CARE ORDERABLE S Final Result [facility] LAB[facility]ORY [facility] [address] [place] [address], [facility] [phone] * (ABNORMAL) CBC W/O DIFFERENTIAL (06/08/2025 3:19 AM CDT) Only the most recent of3 resultswithin the time period is included. WBC 6.3 4.0 - 10.7 x10E9/L 06/08/2025 3:49 AM [facility] RBC Count 2.79(L) 4.30 - 5.80 x10E12/L 06/08/2025 3:49 AM [facility] Hemoglobin 10.0(L) 13.3 - 17.5 g/dL 06/08/2025 3:49 AM [facility] Hematocrit 28.7(L) 38.7 - 51.1 % 06/08/2025 3:49 AM [facility] MCV 102.9(H) 80.0 - 98.0 fL 06/08/2025 3:49 AM [facility] MCH 35.8(H) 26.7 - 33.6 pg 06/08/2025 3:49 AM [facility] MCHC 34.8 31.7 - 36.3 g/dL 06/08/2025 3:49 AM [facility] RDW-CV 13.6 11.3 - 14.8 % 06/08/2025 3:49 AM [facility] Platelet Count 113(L) 150 - 420 x10E9/L 06/08/2025 3:49 AM [facility] MPV 10.5 7.8 - 11.4 fL 06/08/2025 3:49 AM [facility] Blood BLOOD SPECIMEN / Unknown Lab Venipuncture / Unknown 06/08/2025 3:19 AM CDT 06/08/2025 3:43 AM CDT us Shari Martinez MD LAB - HEMATOLOGY ORDERABLES Fi nal Result [facility] [address] [place] [address], [facility] [phone] * (ABNORMAL) RENAL FUNCTION PANEL (06/08/2025 3:19 AM [facility]) BUN 31(H) 7 - 26 mg/dL 06/08/2025 4:17 AM [facility] Creatinine 1.89(H) 0.71 - 1.16 mg/dL 06/08/2025 4:17 AM [facility] Sodium 137 136 - 145 mmol/L 06/08/2025 4:17 AM [facility] Potassium 4.1 3.5 - 4.5 mmol/L 06/08/2025 4:17 AM [facility] Chloride 112(H) 98 - 107 mmol/L 06/08/2025 4:17 AM [facility] CO2 20(L) 22 - 29 mmol/L 06/08/2025 4:17 AM [facility] Glucose 116(H) 70 - 99 mg/dL 06/08/2025 4:17 AM [facility] Albumin 3.5 3.4 - 5.0 g/dL 06/08/2025 4:17 AM [facility] Calcium 8.7 8.4 - 10.2 mg/dL 06/08/2025 4:17 AM [facility] Phosphorus 3.7 2.8 - 5.1 mg/dL 06/08/2025 4:17 AM [facility] Anion Gap 5(L) 6 - 16 06/08/2025 4:17 AM [facility] BUN/Creatinine Ratio 16 7 - 23 06/08/2025 4:17 AM [facility] Osmolality Calculated 292 275 - 295 mOsm/kg 06/08/2025 4:17 AM [facility] eGFR by CKD-EPI 35(L) >=90 mL/min/1.7 3 m2 06/08/2025 4:17 AM [facility] Comment:Estimated Glomerular Filtration Rate (eGFR) calculated using the CKD-EPI Creatinine Equation (2020), per the National Kidney Foundation and [place] [employer] Neph[employer] recommendations. Blood BLOOD SPECIMEN / Unknown Lab Venipuncture / Unknown 06/08/2025 3:19 AM CDT 06/08/2025 3:48 AM CDT Malinda Addison MD LAB - CHEMISTRY ORDERABLES Fi nal Result [address] [address], [facility] [phone] * MAGNESIUM BLOOD (06/08/2025 3:19 AM CDT) Magnesium 2.0 1.6 - 2.6 mg/dL 06/08/2025 4:17 AM CDT [facility] Blood BLOOD SPECIMEN / Unknown Lab Venipuncture / Unknown 06/08/2025 3:19 AM CDT 06/08/2025 3:48 AM CDT Malinda Addison MD LAB - CHEMISTRY ORDERABLES Fi nal Result Performing Organization Address [facility]/ZIP Co de Phone Number [address] [address], [facility] [phone] * (ABNORMAL) BASIC METABOLIC PANEL (CALCIUM TOTAL) (06/07/2025 4:06 AM CDT) Only the most recent of2 resultswithin the time period is included. BUN 29(H) 7 - 26 mg/dL 06/07/2025 4:57 AM CDT [facility] Creatinine 1.96(H) 0.71 - 1.16 mg/dL 06/07/2025 4:57 AM T [facility] LABORATORY [facility] Sodium 137 136 - 145 mmol/L 06/07/2025 4:57 AM T [facility]ORY [facility] Potassium 4.4 3.5 - 4.5 mmol/L 06/07/2025 4:57 AM T [facility] LABORATORY [facility] Chloride 112(H) 98 - 107 mmol/L 06/07/2025 4:57 AM T [facility] CO2 19(L) 22 - 29 mmol/L 06/07/2025 4:57 AM CDT [facility] Glucose 118(H) 70 - 99 mg/dL 06/07/2025 4:57 AM T [facility] Calcium 8.8 8.4 - 10.2 mg/dL 06/07/2025 4:57 AM [facility] Anion Gap 6 6 - 16 06/07/2025 4:57 AM T [facility] BUN/Creatinine Ratio 15 7 - 23 06/07/2025 4:57 AM T [facility] Osmolality Calculated 291 275 - 295 mOsm/kg 06/07/2025 4:57 AM T [facility] eGFR by CKD-EPI 34(L) >=90 mL/min/1.7 3 m2 06/07/2025 4:57 AM [facility] Comment:Estimated Glomerular Filtration Rate (eGFR) calculated using the CKD-EPI Creatinine Equation (2020), per the National Kidney Foundation and [place] [employer] Nephrology recommendations. Blood BLOOD SPECIMEN / Unknown Lab Venipuncture / Unknown 06/07/2025 4:06 AM CDT 06/07/2025 4:24 AM CDT us Shari Martinez MD LAB - CHEMISTRY ORDERABLES Fin al Result [facility] [address] [place] [address], [facility] [phone] * CT HEAD WO CONTRAST (06/06/2025 8:38 [...] DATE/TIME OF EXAM: 06/06/2025 8:38 PM, LOCATION [facility] INDICATION: H54.7: Vision loss ADDITIONAL CLINICAL INFORMATION: [...] DATE/TIME OF EXAM: 06/06/2025 8:38 PM, LOCATION [facility] INDICATION: H54.7: Vision loss ADDITIONAL CLINICAL INFORMATION: [...] <2.0 <=3.4 ug/dL 06/08/2025 7:34 AM CDT [employer] ([facility]) Comment: INTERPRETIVE INFORMATION: Lead, Whole Blood (Venous) [...] developed and its performance characteristics determined by [employer] It has not been cleared or approved by the U.S. Food and Drug Administration. This test was performed in a CLIA-certified laboratory and is intended for clinical purposes. Arsenic, Whole Blood <10.0 <=12.0 ug/L 06/08/2025 7:34 AM CDT [employer] ([facility]) Comment: INTERPRETIVE INFORMATION: Arsenic, Whole Blood Potentially [...] developed and its performance characteristics determined by [employer] It has not been cleared or approved by the U.S. Food and Drug Administration. This test was performed in a CLIA-certified laboratory and is intended for clinical purposes. Cadmium <1.0 <=5.0 ug/L 06/08/2025 7:34 AM CDT [facility] ([facility]) Comment: INTERPRETATION INFORMATION: Cadmium, Whole Blood Blood [...] developed and its performance characteristics determined by [employer] It has not been cleared or approved by the US Food and Drug Administration. This test was performed in a CLIA certified laboratory and is intended for clinical purposes. Mercury <2.5 <=10.0 ug/L 06/08/2025 7:34 AM CDT [facility] ([facility]) Comment: INTERPRETIVE INFORMATION: Mercury, Whole Blood Blood [...] developed and its performance characteristics determined by [employer] It has not been cleared or approved by the US Food and Drug Administration. This test was performed in a CLIA certified laboratory and is intended for clinical purposes. Performed By: [facility] [email or web address] [address] [place] [address] Technologist Infectious Disease: Filiberto Pena MD, PhD CLIA Number: [id number] Blood BLOOD SPECIMEN / Unknown Venipuncture / Unknown 06/06/2025 3:02 PM CDT 06/06/2025 3:06 PM CDT Jorge Lockhart MD LAB - CHEMISTRY ORDERABLES F inal Result Performing Organization Address [facility]/State/[facility] Co de Phone Number [facility]) [address] [place] [address] * ZINC BLOOD (06/06/2025 3:02 PM CDT) [facility] Zinc 79.8 60.0 - 120.0 ug/dL 06/08/2025 10:58 PM CDT [facility] ([facility]) Comment: INTERPRETIVE INFORMATION: Zinc, Serum or Plasma [...] developed and its performance characteristics determined by [employer]. It has not been cleared or approved by the US Food and Drug Administration. This test was performed in a CLIA certified laboratory and is intended for clinical purposes. Performed By: [facility] [email or web address] [address] [place] [address] Technologist Infectious Disease: Filiberto Pena MD, PhD CLIA Number: [id number] Blood BLOOD SPECIMEN / Unknown Venipuncture / Unknown 06/06/2025 3:02 PM CDT 06/06/2025 3:23 PM CDT Jorge Lockhart MD LAB - CHEMISTRY ORDERABLES F inal Result Performing Organization Address City/[facility]/ZIP Co de Phone Number [facility] [employer] [facility]) [address] [place] [address] * VITAMIN B1 (06/06/2025 3:02 PM CDT) Vitamin B1 Whole Blood 140 70 - 180 nmol/L 06/10/2025 7:51 PM CDT [facility] ([facility]) Comment: INTERPRETIVE INFORMATION: Vitamin B1, Whole Blood This assay measures the concentration of thiamine diphosphate (TDP), the primary active form of vitamin B1. Approximately 90 percent of vitamin B1 present in whole blood is TDP. Thiamine and thiamine monophosphate, which comprise the remaining 10 percent, are not measured. This test was developed and its performance characteristics determined by [employer] It has not been cleared or approved by the US Food and Drug Administration. This test was performed in a CLIA certified laboratory and is intended for clinical purposes. Performed By: [employer] [address] [place] [address] Technologist Infectious Disease: Filiberto Pena MD, PhD CLIA Number: [id number] Blood BLOOD SPECIMEN / Unknown Venipuncture / Unknown 06/06/2025 3:02 PM CDT 06/06/2025 3:06 PM CDT Jorge Lockhart MD LAB - CHEMISTRY ORDERABLES F inal Result Performing Organization Address City/[facility]/ZIP Co de Phone Number [facility] [employer] [facility]) [address] [place] [address] * COPPER BLOOD (06/06/2025 3:02 PM CDT) Copper 102.3 70.0 - 140.0 ug/dL 06/08/2025 10:58 PM CDT [facility] [employer] ([facility]) Comment: INTERPRETIVE INFORMATION: Copper, Serum or Plasma [...] developed and its performance characteristics determined by [employer] It has not been cleared or approved by the US Food and Drug Administration. This test was performed in a CLIA certified laboratory and is intended for clinical purposes. Performed By: [employer] [address] [place] [address] Technologist Infectious Disease: Filiberto Pena MD, PhD CLIA Number: [id number] Blood BLOOD SPECIMEN / Unknown Venipuncture / Unknown 06/06/2025 3:02 PM CDT 06/06/2025 3:06 PM CDT Jorge Lockhart MD LAB - CHEMISTRY ORDERABLES F inal Result Performing Organization Address City/[facility]/ZIP Co de Phone Number [facility] ([facility]) [address] [place] [address] * FOLATE (06/06/2025 3:02 PM CDT) [facility] Folate 14.3 7.0 - 31.4 ng/mL 06/06/2025 4:18 PM CDT [facility] Blood BLOOD SPECIMEN / Unknown Venipuncture / Unknown 06/06/2025 3:02 PM CDT 06/06/2025 3:06 PM CDT Jorge Lockhart MD LAB - CHEMISTRY ORDERABLES F inal Result [facility] [address] [place] [address], [facility] [phone] * MRI BRAIN WO CONTRAST (06/06/2025 12:40 [...] DATE/TIME OF EXAM: 06/06/2025 12:40 PM, LOCATION [facility] INDICATION: H54.7: Vision loss ADDITIONAL CLINICAL INFORMATION: [...] CONTRAST, DATE/TIME OF EXAM: 06/06/2025 12:40PM, LOCATION [facility] INDICATION: H54.7: Vision loss ADDITIONAL CLINICAL INFORMATION: [...] ORDERABLES F inal Result Performing Organization Address City/[facility]/ZIP Co de Phone Number [address] [address], [place] [phone] * C-REACTIVE PROTEIN (06/06/2025 10:46 AM CDT) C-Reactive Protein <0.5 <=0.5 mg/dL 06/06/2025 11:46 AM CDT [facility] Blood BLOOD SPECIMEN / Unknown Venipuncture / Unknown 06/06/2025 10:46 AM CDT 06/06/2025 11:12 AM CDT Jorge Lockhart MD LAB - CHEMISTRY ORDERABLES F inal Result Performing Organization Address [facility]/ZIP Co de Phone Number [address] [address], [place] [phone] * ERYTHROCYTE SEDIMENTATION RATE (06/06/2025 10:46 AM CDT) Erythrocyte Sedimentation Rate Westergren 10 0 - 20 MM/HR 06/06/2025 11:29 AM CDT [facility] Blood BLOOD SPECIMEN / Unknown Venipuncture / Unknown 06/06/2025 10:46 AM CDT 06/06/2025 11:12 AM CDT Jorge Lockhart MD LAB - HEMATOLOGY ORDERABLES Final Result Performing Organization Address City/[facility]/ZIP Co de Phone Number [address] [address], [place] [phone] * (ABNORMAL) VITAMIN B12 (06/06/2025 10:46 AM CDT) Vitamin B12 >2,000(H) 213 - 816 pg/mL 06/06/2025 12:27 PM CDT [facility] Blood BLOOD SPECIMEN / Unknown Venipuncture / Unknown 06/06/2025 10:46 AM CDT 06/06/2025 11:12 AM CDT us Jorge Lockhart MD LAB - CHEMISTRY ORDERABLES F inal Result [facility] [address] [place] [address], [facility] [phone] * ECHO COMPLETE W CONTRAST W BUBBLE [...] 9:38 AM Patient Status: I/P Study Site: [facility] Primary Location: [facility] Info Technical Quality: Technically Difficult [...] Provider: Shari Martinez Attending Physician: Shari Martinez Digital Ad Trafficker: Ludy Thacker Left Ventricle The left ventricle [...] 1.4 cm/m2 RA Dimensions RA Diastolic Major [place] Length (4C) 5.9 cm RA Area (4C) [...] 9:38 AM Patient Status: I/P Study Site: [facility] Primary Location: [facility] EStudy Info Technical Quality: Technically Difficult [...] Provider: Shari Martinez Attending Physician: Shari Martinez Digital Ad Trafficker: Ludy Thacker Left Ventricle The left ventricle [...] 1.4 cm/m2 RA Dimensions RA Diastolic Major [place] Length (4C) 5.9 cm RA Area (4C) [...] UA Colorless(A) Yellow, Straw 06/06/2025 7:07 AM [facility] Clarity UA Clear Clear 06/06/2025 7:07 AM [facility] Glucose UA Normal Normal 06/06/2025 7:07 AM [facility] Bilirubin UA Negative Negative 06/06/2025 7:07 AM [facility] Ketone UA Negative Negative 06/06/2025 7:07 AM [facility] Specific B[place]all UA 1.035(H) 1.005 - 1.030 06/06/2025 7:07 AM [facility] Blood UA Negative Negative 06/06/2025 7:07 AM [facility] pH UA 7.0 5.0 - 8.0 06/06/2025 7:07 AM [facility] Protein UA Negative Negative 06/06/2025 7:07 AM [facility] Urobilinogen UA Normal Normal mg/dL 06/06/2025 7:07 AM [facility] Nitrite UA Negative Negative 06/06/2025 7:07 AM [facility] Leukocyte Esterase UA Negative Negative 06/06/2025 7:07 AM [facility] Urine Microscopy Urine microscopy not indicated 06/06/2025 7:07 AM CDT [facility] Urine URINE SPECIMEN OBTAINED BY CLEAN CATCH PROCEDURE / Unknown Collection / Unknown 06/06/2025 6:47 AM CDT 06/06/2025 6:52 AM CDT Narrative [facility] - 06/06/2025 7:07 AM CDT Jorge Lockhart MD LAB - URINALYSIS ORDERABLES Final Result Performing Organization Address City/[facility]/ZIP Co de Phone Number [address] [address], [facility] [phone] * TROPONIN-I HIGH SENSITIVE REFLEX 1HOUR (06/06/2025 3:01 AM CDT) Troponin I High Sensitive 8 <=35 ng/L 06/06/2025 4:02 AM CDT [facility] Delta Troponin I HS 06/06/2025 4:02 AM CDT [facility] Comment:Delta value intentio nydia not calculated. Baseline to 1 hour specimen collection interval exceeded. Blood BLOOD SPECIMEN / Unknown Clinic Draw / Unknown 06/06/2025 3:01 AM CDT 06/06/2025 3:11 AM CDT Shari Martinez MD LAB - CHEMISTRY ORDERABLES Fin al Result Performing Organization Address [facility]/ZIP Co de Phone Number [address] [address], [place] [phone] * (ABNORMAL) HEMOGLOBIN A1C (06/06/2025 3:01 AM CDT) Hemoglobin A1c 5.9(H) <=5.6 % 06/06/2025 9:48 AM CDT [facility] Estimated Average Glucose 123 mg/dL 06/06/2025 9:48 AM CDT [facility] Comment: HbA1c Interpretation: Normal : < 5.7% Pre-diabetes: 5.7-6.4% Diabetes: Equal to or greater than 6.5% Test results diagnostic of diabetes should be repeated for confirmation. Treatment target values recommended by ADA and other clinical organizations should be used to evaluate metabolic control in patients. Reference: [place] [employer], Standards of Care in Diabetes [...] LAB - CHEMISTRY ORDERABLES Fin al Result [address] [address], [facility] [phone] * CT Knee Left Wo Contrast (06/06/2025 2:23 AM CDT) Anatomical Region Laterality Modality Lower Extremity Computed Tomogra phy 06/06/2025 5:31 AM CDT Impressions 06/06/2025 8:17 AM CDT IMPRESSION: 1.No acute fracture or dislocation. 2.Subcutaneous hemorrhage medially. > Dictated by Johnny Kilgore MD > Dictated by Chief Of Field Operations I, Francesco Cordova MD have personally reviewed and interpreted this examination/study. > Interpreting Provider: Francesco Codrova MD on 06/06/2025 8:17 AM Narrative 06/06/2025 8:17 AM CDT PROCEDURE: CT KNEE LEFT WO CONTRAST, DATE/TIME OF EXAM: 06/06/2025 2:25 AM, LOCATION [facility] INDICATION: M25.562: Acute pain of left knee [...] DATE/TIME OF EXAM: 06/06/2025 2:25 AM, LOCATION [facility] INDICATION: M25.562: Acute pain of left knee [...] by Johnny Kilgore MD > Dictated by Chief Of Field Operations I, Francesco Cordova MD have personally reviewed [...] by Johnny Kilgore MD > Dictated by Chief Of Field Operations I, Ely Schwartz MD have personally reviewed and interpreted this examination/study. > Interpreting Provider: Ely Schwartz MD on 06/06/2025 9:45 AM Narrative 06/06/2025 9:45 AM CDT PROCEDURE: CT CHEST ABDOMEN PELVIS WO CONT, DATE/TIME OF EXAM: 06/06/2025 2:25 AM, LOCATION [facility] INDICATION: Z51.81: Encounter for monitoring thrombolytic therapy [...] CONT, DATE/TIME OF EXAM:06/06/2025 2:25 AM, LOCATION [facility] INDICATION: Z51.81: Encounter for monitoring thrombolytic therapy [...] by Johnny Kilgore MD > Dictated by Chief Of Field Operations I, Ely Schwartz MD have personally reviewed [...] Nunez MD, ([facility] resident). > Dictated by Chief Of Field Operations I, Bryce Trinidad MD have personally reviewed and interpreted this examination/study. > Interpreting Provider: Bryce Trinidad MD on 06/06/2025 10:44 AM Narrative 06/06/2025 10:44 AM CDT PROCEDURE: CT FACIAL BONES WO CONTRAST, DATE/TIME OF EXAM: 06/06/2025 2:25 AM, LOCATION [facility] INDICATION: Z51.81: Encounter for monitoring thrombolytic therapy [...] CONTRAST, DATE/TIME OF EXAM: :25 AM, LOCATION [facility] INDICATION: Z51.81: Encounter for monitoring thrombolytic therapy [...] Nunez MD, ([facility] resident). > Dictated by Chief Of Field Operations I, Bryce Trinidad MD have personally reviewed and interpreted this examination/study. > Interpreting Provider: Bryce Trinidad MD on 06/06/2025 10:44 AM Shari Martinez MD CT ORDERABLES Final Result * TROPONIN-I HIGH SENSITIVE BASELINE + 1HR (06/06/2025 1:09 AM CDT) Troponin I High Sensitive 7 <=35 ng/L 06/06/2025 1:49 AM [facility] Blood BLOOD SPECIMEN / Unknown Venipuncture / Unknown 06/06/2025 1:09 AM CDT 06/06/2025 1:15 AM CDT Shari Martinez MD LAB - CHEMISTRY ORDERABLES Fin al Result [facility] [address] [place] [address], [facility] [phone] * LIPID PROFILE (06/06/2025 1:09 AM CDT) Cholesterol Total 103 <200 mg/dL 06/06/2025 1:45 AM [facility] HDL 43 >40 mg/dL 06/06/2025 1:45 AM [facility] Comment: ATP III Classification of HDL Cholesterol: <40 mg/dL: Considered a major risk factor. >60 mg/dL: Considered a negative risk factor. LDL Calculated 49 <100 mg/dL 06/06/2025 1:45 AM [facility] Comment: ATP III Classification of LDL Cholesterol: <100 mg/dL: Optimal 100 - 129 mg/dL: Near Optimal/Above Optimal 130 - 159 mg/dL: Borderline High 160 - 189 mg/dL: High >190 mg/dL: Very High LDL is calculated using the Friedewald equation. Triglycerides 57 <150 mg/dL 06/06/2025 1:45 AM CDT [facility] Comment: ATP III Classification of Triglycerides: <150 mg/dL: Normal 150 - 199 mg/dL: Borderline High 200 - 400 mg/dL: High >500 mg/dL: Very High Blood BLOOD SPECIMEN / Unknown Venipuncture / Unknown 06/06/2025 1:09 AM CDT 06/06/2025 1:15 AM CDT us Shari Martinez MD LAB - CHEMISTRY ORDERABLES Fin al Result [facility] [address] [place] [address], [facility] [phone] * XR Wrist Left 3Vw or More (06/05/2025 10:03 PM CDT) Anatomical Region Laterality Modality Wrist / Hand Digital Radiogra phy 06/06/2025 8:19 AM CDT Narrative 06/06/2025 8:58 AM CDT PROCEDURE: XR WRIST LEFT 3VW OR MORE, DATE/TIME OF EXAM: 06/05/2025 10:03 PM, [facility] [facility] INDICATION: H54.7: Vision loss Z51.81: Encounter for [...] is present. Report dictated by Esha Lyles, (vice president tax). > Dictated by Chief Of Field Operations I, Naman Dumas MD have personally reviewed and interpreted this examination/study. > Interpreting Provider: Naman Dumas MD on 06/06/2025 8:58 AM Procedure Note Naman Dumas MD - 06/06/2025 PROCEDURE: XR WRIST LEFT 3VW OR MORE, DATE/TIME OF EXAM: 8/18/558075:03 PM, LOCATION [facility] INDICATION: H54.7: Vision loss Z51.81: Encounter for [...] is present. Report dictated by Esha Lyles (vice president tax). > Dictated by Chief Of Field Operations I, Naman Dumas MD have personally reviewed [...] the knee. Report dictated by Esha Lyles (vice president tax). > Dictated by Chief Of Field Operations Anand, Naamn Dumas MD have personally reviewed and interpreted this examination/study. > Interpreting Provider: Naman Dumas MD on 06/06/2025 8:59 AM Narrative 06/06/2025 8:59 AM CDT PROCEDURE: XR KNEE LEFT 3VW, DATE/TIME OF EXAM: 06/05/2025 10:03 PM, LOCATION [facility] INDICATION: H54.7: Vision loss Z51.81: Encounter for [...] DATE/TIME OF EXAM: 06/05/2025 10:03 PM, LOCATION [facility] INDICATION: H54.7: Vision loss Z51.81: Encounter for [...] the knee. Report dictated by Esha Lyles, (vice president tax). > Dictated by Chief Of Field Operations I, Naman Dumas MD have personally reviewed and interpreted this examination/study. > Interpreting Provider: Naman Dumas MD on 06/06/2025 8:59 AM Shari Martinez MD DIAGNOSTIC IMAGING ORDERABLES Final Result * EKG 12-LEAD (06/05/2025 9:39 PM CDT) Ventricular Rate 86 BPM [facility] MUSE Atrial Rate 86 BPM [facility] MUSE P-R Interval 206 ms [facility] MUSE QRS Duration ms 102 ms [facility] MUSE Q-T Interval ms 396 ms [facility] MUSE QTC Calculation (Bezet) 473 ms [facility] MUSE Calculated P [place] 73 degrees SL MUSE Calculated R [place] 65 degrees [facility] MUSE Calculated T [place] 60 degrees [facility] MUSE Interpretation EKG SINUS RHYTHM WITH OCCASIONAL PREMATURE VENTRICULAR COMPLEXES OTHERWISE NORMAL ECG NO PREVIOUS ECGS AVAILABLE Confirmed by MD RJ, ARJUN ([id number]) on 06/07/2025 2:04:12 PM [facility] MUSE 06/05/2025 9:39 PM CDT 06/07/2025 2:04 [...] Nunez MD, (VIR resident). > Dictated by Chief Of Field Operations I, Nicolas Haynes MD have personally reviewed and interpreted this examination/study. > Interpreting Provider: Nicolas Haynes MD on 06/05/2025 10:43 PM Narrative 06/05/2025 10:43 PM CDT PROCEDURE: CT CERVICAL SPINE WO CONTRAST, DATE/TIME OF EXAM: 06/05/2025 9:37 PM, LOCATION [facility] INDICATION: H54.7: Vision loss Z51.81: Encounter for [...] DATE/TIME OF EXAM: 06/05/2025 9:37 PM, LOCATION [facility] INDICATION: H54.7: Vision loss Z51.81: Encounter for [...] Nunez MD, (VIR resident). > Dictated by Chief Of Field Operations I, Nicolas Haynes MD have personally reviewed [...] Nunez MD, (VIR resident). > Dictated by Chief Of Field Operations Anand, Nicolas Haynes MD have personally reviewed and interpreted this examination/study. > Interpreting Provider: Nicolas Haynes MD on 06/05/2025 11:24 PM Narrative 06/05/2025 11:24 PM CDT PROCEDURE: CT ANGIO BRAIN NECK STROKE, DATE/TIME OF EXAM: 06/05/2025 9:37 PM, LOCATION [facility] INDICATION: H54.7: Vision loss ADDITIONAL CLINICAL INFORMATION: [...] STROKE, DATE/TIME OF EXAM: :37 PM, LOCATION [facility] INDICATION: H54.7: Vision loss ADDITIONAL CLINICAL INFORMATION: [...] Nunez MD, (VIR resident). > Dictated by Chief Of Field Operations I, Nicolas Haynes MD have personally reviewed [...] DATE/TIME OF EXAM: 06/05/2025 9:35 PM, LOCATION [facility] INDICATION: H54.7: Vision loss EXAMINATION: Computed tomography [...] DATE/TIME OF EXAM: 06/05/2025 9:35 PM, LOCATION [facility] INDICATION: H54.7: Vision loss EXAMINATION: Computed tomography [...] ORDERABLES F inal Result Performing Organization Address [facility]/ZIP Co de Phone Number [address] [address], [facility] [phone] * (ABNORMAL) ISTAT CREATININE (06/05/2025 9:22 PM CDT) Creatinine POCT 1.90(H) 0.60 - 1.30 mg/dL 06/05/2025 9:36 PM CDT [facility] eGFR by CKD-EPI 35(L) >90 mL/min/1.7 3 m2 06/05/2025 9:36 PM CDT [facility] Blood BLOOD SPECIMEN / Unknown 06/05/2025 9:22 PM CDT 06/05/2025 9:36 PM CDT Shari Martinez MD LAB - POINT OF CARE ORDERABLES Final Result Performing Organization Address [facility] Co de Phone Number [address] [address], [place] [phone] * PTT (06/05/2025 9:22 PM CDT) APTT 25.6 23.0 - 38.4 Seconds 06/05/2025 10:02 PM CDT [facility] Comment:Suggested therapeuti c range for full dose I.V. unfractionated heparin therapy for venous thromboembolism is 71 to 109 seconds. Blood BLOOD SPECIMEN / Unknown Venipuncture / Unknown 06/05/2025 9:22 PM CDT 06/05/2025 9:25 PM CDT Wili Najera MD LAB - COAGULATION ORDERABLES Final Result Performing Organization Address City/[facility]/ZIP Co de Phone Number [address] [place] [address], [facility] [phone] * (ABNORMAL) PT-INR (06/05/2025 9:22 PM CDT) [facility] PT 11.9(L) 12.1 - 14.8 Seconds 06/05/2025 10:02 PM CDT [facility] INR 0.9 See Comment 06/05/2025 10:02 PM [facility] Comment:The suggested therap eutic range for standard coumadin (warfarin) therapy is an INR of 2.0-3.0. For high-risk patients (Mechanical Mitral Valve Prosthesis, etc.), the suggested prophylactic therapeutic range is an INR of 2.5-3.5. Blood BLOOD SPECIMEN / Unknown Venipuncture / Unknown 06/05/2025 9:22 PM CDT 06/05/2025 9:25 PM CDT Wili Najera MD LAB - COAGULATION ORDERABLES Final Result [address] [address], [facility] [phone] * (ABNORMAL) CBC W AUTO DIFFERENTIAL (06/05/2025 9:22 PM CDT) [facility] WBC 6.6 4.0 - 10.7 x10E9/L 06/05/2025 9:39 PM [facility] RBC Count 3.34(L) 4.30 - 5.80 x10E12/L 06/05/2025 9:39 PM [facility] Hemoglobin 12.0(L) 13.3 - 17.5 g/dL 06/05/2025 9:39 PM [facility] Hematocrit 33.9(L) 38.7 - 51.1 % 06/05/2025 9:39 PM [facility] MCV 101.5(H) 80.0 - 98.0 fL 06/05/2025 9:39 PM [facility] MCH 35.9(H) 26.7 - 33.6 pg 06/05/2025 9:39 PM [facility] MCHC 35.4 31.7 - 36.3 g/dL 06/05/2025 9:39 PM [facility] RDW-CV 13.5 11.3 - 14.8 % 06/05/2025 9:39 PM [facility] Platelet Count 136(L) 150 - 420 x10E9/L 06/05/2025 9:39 PM [facility] MPV 10.9 7.8 - 11.4 fL 06/05/2025 9:39 PM [facility] Neutrophil % 63.1 41.0 - 74.0 % 06/05/2025 9:39 PM [facility] Lymphocyte % 20.3 17.0 - 47.0 % 06/05/2025 9:39 PM [facility] Monocyte % 10.2 3.0 - 11.0 % 06/05/2025 9:39 PM [facility] Eosinophil % 5.3 0.0 - 7.0 % 06/05/2025 9:39 PM [facility] Basophil % 0.6 0.0 - 1.6 % 06/05/2025 9:39 PM [facility] Immature Granulocytes % 0.5 0.0 - 1.0 % 06/05/2025 9:39 PM [facility] Neutrophil Absolute 4.14 1.60 - 7.50 x10E9/L 06/05/2025 9:39 PM [facility] Lymphocyte Absolute 1.33 1.00 - 4.40 x10E9/L 06/05/2025 9:39 PM [facility] Monocyte Absolute 0.67 0.15 - 1.00 x10E9/L 06/05/2025 9:39 PM [facility] Eosinophil Absolute 0.35 0.00 - 0.60 x10E9/L 06/05/2025 9:39 PM [facility] Basophil Absolute 0.04 0.00 - 0.13 x10E9/L 06/05/2025 9:39 PM [facility] Blood BLOOD SPECIMEN / Unknown Venipuncture / Unknown 06/05/2025 9:22 PM CDT 06/05/2025 9:25 PM CDT us Wili Najera MD LAB - HEMATOLOGY ORDERABLES Final Result [facility] [address] [place] [address], [facility] [phone] * (ABNORMAL) COMPREHENSIVE METABOLIC PANEL (06/05/2025 9:22 PM CDT) BUN 31(H) 7 - 26 mg/dL 06/05/2025 10:04 PM [facility] Creatinine 1.68(H) 0.71 - 1.16 mg/dL 06/05/2025 10:04 PM [facility] Sodium 137 136 - 145 mmol/L 06/05/2025 10:04 PM [facility] Potassium 4.2 3.5 - 4.5 mmol/L 06/05/2025 10:04 PM [facility] Chloride 109(H) 98 - 107 mmol/L 06/05/2025 10:04 PM [facility] CO2 20(L) 22 - 29 mmol/L 06/05/2025 10:04 PM [facility] Glucose 138(H) 70 - 99 mg/dL 06/05/2025 10:04 PM [facility] Calcium 9.3 8.4 - 10.2 mg/dL 06/05/2025 10:04 PM [facility] Protein Total 6.4 6.0 - 8.3 g/dL 06/05/2025 10:04 PM [facility] Albumin 4.2 3.4 - 5.0 g/dL 06/05/2025 10:04 PM [facility] Bilirubin Total 0.2 0.2 - 1.2 mg/dL 06/05/2025 10:04 PM [facility] Alkaline Phosphatase 127 40 - 150 U/L 06/05/2025 10:04 PM [facility] ALT 20 5 - 55 U/L 06/05/2025 10:04 PM [facility] AST 19 5 - 34 U/L 06/05/2025 10:04 PM [facility] Anion Gap 8 6 - 16 06/05/2025 10:04 PM [facility] BUN/Creatinine Ratio 18 7 - 23 06/05/2025 10:04 PM [facility] Osmolality Calculated 293 275 - 295 mOsm/kg 06/05/2025 10:04 PM [facility] Albumin/Globulin Ratio 1.9 1.1 - 2.3 06/05/2025 10:04 PM [facility] eGFR by CKD-EPI 41(L) >=90 mL/min/1.7 3 m2 06/05/2025 10:04 PM [facility] Comment:Estimated Glomerular Filtration Rate (eGFR) calculated using the CKD-EPI Creatinine Equation (2020), per the National Kidney Foundation and [place] [employer] Neph[employer] recommendations. Blood BLOOD SPECIMEN / Unknown Venipuncture / Unknown 06/05/2025 9:22 PM CDT 06/05/2025 9:25 PM CDT us Wili Najera MD LAB - CHEMISTRY ORDERABLES F inal Result [address] [address], [place] [phone] * INR WHOLE BLOOD - POINT OF CARE (IP) STROKE (06/05/2025 9:19 PM CDT) INR 1.0 0.9 - 1.2 06/05/2025 9:36 PM T [facility] Device [id number] 06/05/2025 9:36 PM CDT [facility] Clinical Resource Director ID [id number] 06/05/2025 9:36 PM T [facility] Blood BLOOD SPECIMEN / Unknown 06/05/2025 9:19 PM CDT 06/05/2025 9:36 PM CDT us Provider Unknown LAB - POINT OF CARE ORDERABLES Final Result [address] [address], [place] [phone] from Last 3 Months Insurance [facility]IC[facility] [place] Advance Directives * Full Code (Latest Code Status on File) Date Activated Date Inactivated Comments 06/05/2025 10:58 PM 06/08/2025 6:09 PM Care Teams Cherry Dipper Relationship Specialty Start Date End Date Bebeto Messer MD [address] [place] [address] PCP - General Family Medicine 06/06/25
--- OUTSIDE RECORDS SUMMARY | 2025-08-02 07:31 | XMS_ITS | Clinical Summary ---
Author Organization [facility] Address [address] [place] [address] Care Team Providers Care Wildlife Conservationist Name Role Phone Luis A Pang DO Unavailable [phone] Yury Novoa MD Unavailable [phone] Varun Calderon MD Unavailable [phone] Lesly Schultz MD PhD Unavailable Lashell Hathaway OD Unavailable [phone] Bebeto Messer MD Unavailable [phone] Bebeto Messer MD Primary Care Provider [phone] Allergies No known active allergies Medications aspirin [...] 1 tablet/capsule (400 Units total) by mouth coordinator of genetic services before breakfast Takes 1 tablet in AM [...] (05/14/2024 2:41 PM CDT): Admitted 04/17-04/27 to [facility] found to have acute panc w/ peripanc fluid collection and small ascites. MRCP 04/18 w/ acute interstitial panc w/ loculated acute peripanc fluid collection. Also had elevated bili and CT revealed stone at ampulla. S/p ERCP 04/22 w/ spincterotomy w/ 10mm dilation in CBD w/o stricture, s/p BD sweeping. Plan was to perform interval CCK. Returned to [place] within 24h of discharge on 04/28 due [...] wants to get done locally at home ([place]) Anemia 05/04/2024 Assessment & Plan (06/03/2024 12:05 [...] ongoing since admit) - has an outpatient coal cutter (Dr. Nails) he plans to f/u with [...] Team Description 07/05/2025 Telephone [facility] [address] [place] [phone] Lindsey Segura MD Medical Records Request 06/26/2025 Telephone [facility] [address] [place] [address] Outpatient Health [address] [place] [phone] Lindsey Segura MD 06/26/2025 Telephone [facility] [address] [place] [address] Outpatient Health [address] [place] [phone] Jacob Solis MD 06/25/2025 Telephone [facility] [address] [place] [phone] Jacob Solis MD 06/20/2025 Telephone [facility] [address] [place] [address] Outpatient Health [address] [place] [phone] Lindsey Segura MD 06/19/2025 Telephone [facility] [address] [place] [phone] Jacob Solis MD 06/12/2025 2:45 PM CDT Office Visit [facility] Ophthalmology [address] [place] [phone] Lindsey Segura MD Vision loss, left eye (Primary Dx); Transient visual loss of left eye; Optic atrophy, both eyes 06/12/2025 1:40 PM CDT Imaging Exam [facility] [address] [place] [phone] NAION (non-arteritic anterior ischemic optic neuropathy), left eye; Encounter for observation for other suspected diseases and conditions ruled out 06/12/2025 1:20 PM CDT Imaging Exam [facility] Op[facility]mology [address] [place] [phone] NAION (non-arteritic anterior ischemic optic neuropathy), left eye 06/09/2025 Orders Only [facility] Ophthalmology [address] [place] [phone] Lindsey Segura MD NAION (non-arteritic anterior ischemic [...] on file 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 Gender Identity Not on file Sexual Orientation [...] Completed 06/06/2025 Medical Devices Implanted Type Area Collet Driller Device Identifier Shelf Expiration Date Model / Serial / Lot [employer] Kelman Multiflex Iii 5.5mm 13mm 1 Piece Uv Absorbent Anterior [id number] - [id number] - [id number] Implanted:Qty: 1 on 08/12/2022 by Isaac Villar MD at [facility] Lens Right: Eye [employer] [id number] 05/18/2024 [id number] / [id number] / [employer] Srv[employer] Implant Cornea Pkp Right Hypothermic V0003 - [id number] - [id number] Implanted:Qty: 1 on 08/12/2022 by Isaac Villar MD at [facility] Right: Eye 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 V0003 / [id number] OD1 / [id number] [employer] Canpac Allograft Frozen Nonpurge Graft 10cc Bone Cancellous [id number] - [id number] Implanted:Qty: 1 on 03/31/2023 by Renny Kong MD at [facility] N/A: Cervical -Thoraci c Spine All[employer]ource 02/02/2028 [id number] / / [id number] Kutenda Spine Mountaineer 3.5mm Inner Spine Occipital Screw Bone Nonsterile Latex Free [id number] - [id number] Implanted:Qty: 1 on 03/31/2023 by Renny Kong MD at [facility] N/A: Cervical -Thoraci c Spine Depuy Synthes Spine [id number] / / Depuy Synthes Spine Screw Spinal Set Posterior Cervical Solid Symphony Titanium [id number] - [id number] Implanted:Qty: 8 on 03/31/2023 by Renny Kong MD at [facility] N/A: Cervical -Thoraci c Spine Depuy Synthes Spine [id number] / / Depuy Synthes Spine Cnctr José 3.5-4mm Symphony Spine Reduction [id number] - [id number] Implanted:Qty: 2 on 03/31/2023 by Renny Kong MD at [facility] N/A: Cervical -Thoraci c Spine Depuy Synthes Spine [id number] / / Depuy Synthes Spine 5.5mm 32mm Ply Spine Pedicle Screw Bone Nonsterile 4mm José [id number] - [id number] Implanted:Qty: 2 on 03/31/2023 by Renny Kong MD at [facility] N/A: Cervical -Thoraci c Spine Depuy Synthes Spine [id number] / / Depuy Synthes Spine 5.5mm 34mm Ply Spine Pedicle Screw Bone Nonsterile 4mm José [id number] - [id number] Implanted:Qty: 2 on 03/31/2023 by Renny Kong MD at [facility] N/A: Cervical -Thoraci c Spine Depuy Synthes Spine [id number] / / Depuy Synthes Spine 4mm 240mm Straight José Spinal Cocr [id number] - [id number] Implanted:Qty: 1 on 03/31/2023 by Renny Kong MD at [facility] N/A: Cervical -Thoraci c Spine Depuy Synthes Spine [id number] / / Procedures Procedure Name Priority Date/Time [...] Resu lt from Last 3 Months Insurance [facility] MEDICARE ADVANTAGE [facility] MEDICARE ADVANTAGE 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-Medical * Full Code (Latest Code Status on File) Date Activated Date Inactivated Comments 05/04/2024 8:26 PM 05/16/2024 5:40 PM * Full Code Date Activated Date Inactivated Comments 03/31/2023 5:40 PM 04/03/2023 8:29 PM Care Teams Wildlife Conservationist Relationship Specialty Start Date End Date Bebeto Messer MD [address] [place] [address] PCP - General Family Practice 07/12/25 Luis A Pang DO [address] [place] [address] Extractor Machine Operator Cardiology 12/06/19 Yury Novoa MD [address] [place] [address] Consulting Physician Nephrology 06/30/22 Varun Calderon MD [address] [facility] [address] [place] [address] Consulting Physician Pulmonary Disease 06/30/22 Lesly Schultz MD PhD [address] [facility] DEPT OPHTHALMOLOGY, [address] [place] [address] Consulting Physician Cornea Ophthalmology 07/07/23 Lashell Hathaway, OD [address] [place] [address] Optometry 06/12/25 Bebeto Messer MD [address] [place] [address] Referring Physician Family Practice 06/19/25 Iris Barrett 06/19/25
--- OUTSIDE RECORDS SUMMARY | 2025-08-02 07:31 | XMS_ITS | Clinical Summary ---
Author Organization [facility] Address [address] [place] [address] Phone Care Team Providers Care Folder Gluer Operator Name Role Phone Bo Chang MD Primary Care Provider [phone] Allergies No known active allergies Medications atorvastatin [...] 0, 06/19/2020, 07/07/2019, Additional history exists [place] [address] [address] [place] [address] MEDICARE ADVANTAGE MEDICAID - [place] Care Teams Folder Gluer Operator Relationship Specialty Start Date End Date Bo Chang MD [address] [facility] [address] [place] [address] PCP - General Internal Medicine 10/23/20
--- OUTSIDE RECORDS SUMMARY | 2025-08-02 07:31 | XMS_ITS | Encounter Summary ---
Author Organization [facility] Address [address] [place] [address] Care Team Providers Care Television Mechanic Name Role Phone Bebeto Messer MD Primary Care Provider [phone] Encounter Details Date Type Department Care Team (Late st Contact Info) Description 06/06/2025 Ophth Exam [facility] - Ophthalmology [address] [place] [address] Jhon Horn MD [address] [facility] [place] [address] Social History Tobacco Use Types [...] Recorded Patient Health Questionnaire-2 Score 0 06/07/2025 [facility] Occupat ional Health - Occupational Stress [...] any time in the past 12 m [facility], were you homeless or living in a alf (including now)? No 06/06/2025 Sex and Gender [...] on filedocumented in this encounter Care Teams Television Mechanic Relationship Specialty Start Date End Date Bebeto Messer MD [address] [place] [address] PCP - General Family Medicine 06/06/25 documented as of this encounter
--- OUTSIDE RECORDS SUMMARY | 2025-08-02 07:31 | XMS_ITS | Encounter Summary ---
Author Organization [facility] Address [address] [facility] [place] [address] Care Team Providers Care Steam Frame Operator Name Role Phone Bebeto Messer MD Primary Care Provider [phone] Encounter Details Date Type Department Care Team (Late st Contact Info) Description 06/06/2025 Ophth Exam [facility] - Ophthalmology [address] [place] [address] Sebastián Richards MD [address] [place] [address] Social History Tobacco Use Types Packs/Day Years [...] Recorded Patient Health Questionnaire-2 Score 0 06/07/2025 [facility] - Occupational Stress Questionnaire Answer Date Recorded [...] any time in the past 12 m [facility], were you homeless or living in a long-term (including now)? No 06/06/2025 Sex and Gender [...] on filedocumented in this encounter Care Teams Steam Frame Operator Relationship Specialty Start Date End Date Bebeto Messer MD [address] [place] [address] PCP - General Family Medicine 06/06/25 documented as of this encounter
--- OUTSIDE RECORDS SUMMARY | 2025-08-02 07:32 | XMS_ITS | Encounter Summary ---
Author Organization [facility] Address [address] [place] [address] Phone Care Team Providers Care Rack Puller Name Role Phone Bo Chang MD Primary Care Provider [phone] Luis A Pang DO Unavailable [phone] Rosalinda Chappell OD Unavailable [phone] Yury Novoa MD Unavailable [phone] Varun Calderon MD Unavailable [phone] Jeet Donohue MD Unavailable [phone] Dalton Kevin OD Unavailable [phone] Isaac Villar MD Unavailable [phone] Av Howe MD PhD Unavailable [phone] Lesly Schultz MD PhD Unavailable Lashell Hathaway OD Unavailable [phone] Bebeto Messer MD Unavailable [phone] Bebeto Messer MD Primary Care Provider [phone] Encounter Details Date Type Department Care Team (Latest Contact Info) Description 08/26/2018 Orders Only [facility] Scanning, Provider Social History Tobacco Use Types Packs/Day Years Used Date Smoking Tobacco: Never Assessed Sex and Gender Information Value Date Recorded Sex Assigned at Not on file 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 Gender Identity Not on file Sexual Orientation [...] on filedocumented in this encounter Care Teams Rack Puller Relationship Specialty Start Date End Date Bo Chang MD PCP - General 02/04/17 06/18/25 Bebeto Messer MD [address] [place], [place] [id number] PCP - General Family Practice 07/12/25 Luis A Pang DO [address] [facility] [address] [place] [address] Plumbing Instructor Cardiology 12/06/19 Rosalinda Chappell OD [address] [place] [address] Primary Eye Care Provider Optometry 06/30/22 06/11/25 Yury Novoa MD [address] [place] [address] Consulting Physician Nephrology 06/30/22 Varun Calderon MD [address] [facility] [address] [place] [address] Consulting Physician Pulmonary Disease 06/30/22 Jeet Donohue MD [address] [facility] [place] [address] Referring Physician Ophthalmology 06/30/22 06/11/25 Dalton Kevin, OD [address] [place] [address] Primary Eye Care Provider Drawing Hand 06/30/22 06/11/25 Isaac Villar MD [address] [place] [address] Surgeon Cornea Ophthalmology 08/01/22 07/06/23 Av Howe MD PhD [address] [facility] [place] [place] [facility]PHTHAL[facility]OLOGY, [address] [place] [address] Consulting Physician Cornea Ophthalmology 05/13/2306/19 Lesly Schultz MD PhD [address] [facility] [place] [place] [facility] OPHTHALMOLOGY, [address] [place] [address] Consulting Physician Cornea Ophthalmology 07/07/23 Lashell Hathaway, OD [address] [place] [address] Optometry 06/12/25 Bebeto Messer MD [address] [place] [address] Referring Physician Family Practice 06/19/25 Iirs Barrett 06/19/25 documented as of this encounter
[2025-08-02 08:00] VITALS: BP 132/62; PULSE 64; RESP 16; TEMP 36.6; O2SAT 96
--- NOTE | 2025-08-02 08:27 | P.HP_ITS ---
H&P: HPI History of Present Illness Date/Time: 08/02/25 08:27 Chief Complaint: rehab admission Narrative: Patient is a 80 year old male with PMH of anxiety, COPD, PAD, history of TIA's, legally blind, neuropathy, CKD, HLD and HTN. Patient was admitted to [facility] from 07/27/2025 to 08/01/2025 and treated for diarrhea and pneumonia. Patient presented with complaints of diarrhea x 1 day. Patient was given fidaxomicin while c-diff was pending. C-diff was negative and fidaxomicin was stopped. Patient had a Chest x-ray which showed infiltrates. Patient had a CT chest abdomen and pelvis which did not demonstrate acute findings. Patient was treated with IV Levaquin x 5 days. Patients diarrhea improved. Patient was noted to have leukopenia and at first did not want hem/onc consulted and when he did agree they were unable to see him prior to discharge. He will need to follow up with them after discharge. Patient was feeling weak and it was recommended that he receive inpatient rehab before discharging back home. Patient was discharged from [facility] and admitted to a swing bed at [facility]. Review of Systems Review of Systems: All systems reviewed & are unremarkable except as noted in HPI and below PMFSH Past Medical History Medical History (Updated 08/02/25 @ 23:27 by Fifi Guallpa APRN) Insomnia Pain and swelling of left lower leg Encounter to establish care Legally blind Peripheral neuropathy BMI 21.0-21.9, adult Gallstones Acute necrotizing pancreatitis Acute on chronic renal failure Parotitis Left shoulder pain Pleuritic pain Stage 1 chronic kidney disease Muscle cramps Essential (primary) hypertension Creatinine elevation COPD exacerbation Bronchitis Anemia Optic disc edema Blindness of right eye Herpes simplex infection of eye Skin pruritus CKD (chronic kidney disease) Personal history of nicotine dependence PVC's (premature ventricular contractions) Elevated homocysteine Vitamin D deficiency Anxiety Chronic obstructive pulmonary disease BMI 25.0-25.9,adult Cardiac arrhythmia BMI 26.0-26.9,adult Chronic sinusitis Hyperlipidemia Pre-diabetes On intermediate drug therapy SOB (shortness of breath) Surgical History Surgical History Hx laparoscopic cholecystectomy 08/19/24 Laparoscopic cholecystectomy with intraoperative cholangiogram Dr. Alvarez S/P cervical spinal fusion History of ERCP Family History Family History (Updated 07/26/25 @ 21:17 by Lesly Patterson RN) Mother Acute myocardial infarction Family history of malignant neoplasm of breast in first degree relative Family history of congestive heart failure Hypertension Sibling Diabetes mellitus Social History Social History Smoking packs per day: 1 Smoking cigarettes per day: 20.0 Years smoked: 60 Smoking pack-years: 60.00 Smoking status: Former smoker Tobacco type: cigarettes Second hand tobacco smoke exposure: No Smoking end date: 07/18/17 Additional smoking assessment comments: 06/2018 Alcohol intake: never Drinks per week: 0 Substance use: never Substance use type: does not use Other substance usage details: drinks a beer occasionally if out to dinner Do You Feel Safe in your Home?: Yes Lack of Transportation: No Lack of Food: Never True Current Housing: I Have Housing Concerned About Future Housing: No Difficulty Paying Gas/Electric Bills: No Difficulty Paying for Meds: No Currently Unemployed: No Education: High School Diploma/GED Difficulty w/ Childcare or Family Care: No Living arrangements: with friend(s) Occupation/Education: retired Gender identity (if verbalized by the patient): Male Spiritual care concerns: No Meds Home Medications and Allergies Home Medications ?Medication ?Instructions ?Recorded ?Confirmed ?Type budesonide 160 mcg-glycopyr 9 2 inh inhalation BID 11/0808/01/25 History mcg-formot 4.8 mcg/actuation HFA inhaler (Breztri Aerosphere) prednisolone acetate 1 % eye 1 drp RIGHT EYE QPM 11/0208/01/25 History drops,suspension mecobalamin (vitamin B12) 1,000 1,000 mcg sublingual D AILY 08/02/24 08/01/25 History mcg disintegrating tablet,sublingual valacyclovir 1 gram tablet 500 mg (1/2 x 1 gram) PO BI D #180 03/29/25 08/01/25 Rx tabs atorvastatin 20 mg tablet 20 mg PO DAILY #90 tabs 05/2008/01/25 Rx calcium 500 mg (as 1 tablet PO BID 06/14/25 History carbonate)-vitamin D3 15 mcg (600 unit) tablet montelukast 10 mg tablet 10 mg PO DAILY #90 tabs 05/2008/01/25 Rx albuterol sulfate 90 mcg/actuation 2 inh inhalation Q4 -6H PRN 07/19/25 08/01/25 Rx aerosol inhaler (Ventolin HFA) shortness of breath or wheezing #8.5 grams gabapentin 100 mg capsule 200 mg PO TID 07/19/2508/01 History mirtazapine 7.5 mg tablet 7.5 mg PO QHS #90 tabs 07/1908/01/25 Rx Allergies Allergy/AdvReac Type Severity Reaction Status Date / Time metoprolol Allergy Unknown shortness Verified 07/19/25 07:19 of breath cephalexin AdvReac Mild Nausea Verified 08/01/25 15:59 Vital Signs Vital Signs - 24 hr 08/01/25 16:00 08/01/25 23:44 Temperature 99.1 F 97.4 F L Pulse Rate 72 65 Respiratory Rate 18 16 Blood Pressure 135/75 134/58 L Pulse Oximetry 98 97 Oxygen Delivery Room Air Room Air Exam Const: General: comfortable and no acute distress HENMT: Face/Nose/Sinus: Normal nares present Mouth: Yes moist mucous membranes Eyes: General: appearance normal, both eyes and all related structures Sclera: sclerae normal Neck: Neck: supple Resp: Effort & Inspection: normal respiratory effort Auscultation: clear to auscultation bilaterally Cardio: Rate: regular rate Rhythm: regular rhythm GI: GI Palp: Yes Soft to palpation Auscultation: normal bowel sounds Skin: Other: dry peeling skin to BLE, no open wounds noted Neuro: Speech: normal speech Motor exam (neuro): 5/5 motor strength present throughout Sensory Exam: normal sensation Extrem: General: normal to inspection Psych: Mental Status: mental status grossly normal Affect: normal affect Assessment and Plan Assessment and plan (1) LUKAS (acute kidney injury): Code(s): N17.9 - Acute kidney failure, unspecified Status: Acute Assessment and Plan: baseline creatinine appears to be around 1.4-1.6 status post IV fluids in the hospital creatinine at baseline avoid additional nephrotoxins monitor renal function (2) Pneumonia: Code(s): J18.9 - Pneumonia, unspecified organism Status: Acute Assessment and Plan: s/p Levaquin x 5 days in the hospital patient on room air PT/OT, admission for rehab (3) Diarrhea: Code(s): R19.7 - Diarrhea, unspecified Status: Acute Assessment and Plan: patient had diarrhea x 1 day prior to admission had history of recent antibiotic use c-diff negative, lactoferrin negative was given Dificid pending c-diff results resolved (4) Leukopenia: Code(s): D72.819 - Decreased white blood cell count, unspecified Status: Acute Assessment and Plan: patient with leukopenia during hospital admission patient did not want further workup by hem/onc at first and later changed his mind hem/onc was then unable to see prior to discharge patient to follow up with hem/onc after discharge from rehab monitor CBC (5) Peripheral neuropathy: Qualifiers: Peripheral neuropathy type: polyneuropathy, unspecified Qualified Code(s): G62.9 - Polyneuropathy, unspecified Code(s): G62.9 - Polyneuropathy, unspecified Status: Acute Assessment and Plan: continue gabapentin (6) Chronic obstructive pulmonary disease: Qualifiers: COPD type: unspecified COPD Qualified Code(s): J44.9 - Chronic obstructive pulmonary disease, unspecified Code(s): J44.9 - Chronic obstructive pulmonary disease, unspecified Status: Acute Assessment and Plan: no signs of exacerbation continue home inhalers continue montelukast (7) History of TIAs: Code(s): Z86.73 - Personal history of transient ischemic attack (TIA), and cerebral infarction without residual deficits Status: Acute Assessment and Plan: no residual deficits continue atorvastatin (8) Peripheral artery disease: Code(s): I73.9 - Peripheral vascular disease, unspecified Status: Acute Assessment and Plan: continue atorvastatin
[2025-08-02] MEDS: CALCIUM/VITAMIN D 250 MG/3.125 MCG (125 I.U.) TABLET 2 TABLET PO ×2 (09:12→16:37)
[2025-08-02] MEDS: ATORVASTATIN 10 MG TABLET 20 MG PO (09:12)
[2025-08-02] MEDS: GABAPENTIN 100 MG CAPSULE 200 MG PO ×3 (09:12→16:37)
[2025-08-02] MEDS: MONTELUKAST SODIUM 10 MG TABLET PO (09:12)
[2025-08-02] MEDS: CYANOCOBALAMIN 1,000 MCG TABLET 1000 MCG PO (09:49)
[2025-08-02] MEDS: [UNRECOGNIZED DRUG - OTHER] 2 EACH INHALATION ×2 (09:50→16:37)
[2025-08-02 16:00] VITALS: BP 134/61; PULSE 76; RESP 16; TEMP 36.6; O2SAT 97
[2025-08-02] MEDS: MELATONIN 5 MG TABLET PO (21:04)
[2025-08-02] MEDS: prednisoLONE ACETATE 1% OPHTH 5 ML 1 DROP RIGHT EYE (21:05)
[2025-08-02] MEDS: MIRTAZAPINE 7.5 MG TABLET PO (21:05)
[2025-08-02 23:52] VITALS: BP 135/61; PULSE 74; RESP 16; TEMP 36.6; O2SAT 93
[2025-08-03 05:41] LABS: Hematocrit 31.7 % (37.0-46.0); Hemoglobin 10.9 g/dL (12.4-15.3); Immature Granulocyte Percent A 0.9 % (0.0-0.0); Lymphocytes Absolute Auto 1.14 K/mm3 (1.10-4.50); Mean Corpuscular HGB Conc 34.4 g/dL (32-36); Mean Corpuscular Hemoglobin 36.9 pg (27.0-31.0); Mean Corpuscular Volume 107.5 fL (78.0-102.0); Nucleated Red Blood Cells Absolute Auto 0.00 K/mm3 (0.00-0.00); Nucleated Red Blood Cells Perc 0.0 % (0-0.0); Platelet Count Result 153 K/mm3 (150-420); Red Blood Count 2.95 M/mm3 (4.70-6.10); White Blood Count 4.3 K/mm3 (4.8-10.8)
[2025-08-03 05:56] LABS: Alanine Aminotransferase 33 U/L (6-50); Albumin Level 3.5 g/dL (3.5-5.1); Alkaline Phosphatase 79 U/L (38-126); Anion Gap 5 mmol/L (4-12); Aspartate Amino Transferase 31 U/L (17-59); Bilirubin,Total 0.4 mg/dL (0.2-1.3); Blood Urea Nitrogen 41 mg/dL (9-20); Calcium 9.3 mg/dL (8.4-10.2); Carbon Dioxide 23 mmol/L (22-30); Chloride 112 mmol/L (98-107); Estimated CRCL calculation 39 ml/min; Estimated Glomerular Filt Rate 43; Glucose 99 mg/dL (65-110); Osmolality Calculated 300 mOsm/kg (285-295); Potassium 4.9 mmol/L (3.4-5.0); Sodium 140 mmol/L (137-145); Total Protein 5.5 g/dL (6.3-8.2)
[2025-08-03 08:00] VITALS: BP 140/67; PULSE 72; RESP 16; TEMP 36.4; O2SAT 94
[2025-08-03] MEDS: MONTELUKAST SODIUM 10 MG TABLET PO (08:28)
[2025-08-03] MEDS: ATORVASTATIN 10 MG TABLET 20 MG PO (08:28)
[2025-08-03] MEDS: CYANOCOBALAMIN 1,000 MCG TABLET 1000 MCG PO (08:29)
[2025-08-03] MEDS: CALCIUM/VITAMIN D 250 MG/3.125 MCG (125 I.U.) TABLET 2 TABLET PO ×2 (08:29→17:04)
[2025-08-03] MEDS: [UNRECOGNIZED DRUG - OTHER] 2 EACH INHALATION ×2 (08:30→17:03)
[2025-08-03] MEDS: GABAPENTIN 100 MG CAPSULE 200 MG PO ×3 (08:38→17:03)
[2025-08-03 16:00] VITALS: BP 115/57; PULSE 71; RESP 16; TEMP 36.3; O2SAT 95
[2025-08-03 20:00] VITALS: PULSE 70; RESP 16; O2SAT 96
[2025-08-03] MEDS: MELATONIN 5 MG TABLET PO (20:20)
[2025-08-03] MEDS: MIRTAZAPINE 7.5 MG TABLET PO (20:20)
[2025-08-03] MEDS: prednisoLONE ACETATE 1% OPHTH 5 ML 1 DROP RIGHT EYE (20:20)
[2025-08-04] VITALS: BP 120/56; PULSE 70; RESP 16; TEMP 36.7; O2SAT 96
[2025-08-04 07:52] VITALS: BP 127/83; PULSE 76; RESP 16; TEMP 36.1; O2SAT 98
[2025-08-04] MEDS: [UNRECOGNIZED DRUG - OTHER] 2 EACH INHALATION ×2 (08:05→17:00)
[2025-08-04] MEDS: GABAPENTIN 100 MG CAPSULE 200 MG PO ×3 (08:06→17:01)
[2025-08-04] MEDS: CALCIUM/VITAMIN D 250 MG/3.125 MCG (125 I.U.) TABLET 2 TABLET PO ×2 (08:06→17:00)
[2025-08-04] MEDS: MONTELUKAST SODIUM 10 MG TABLET PO (08:07)
[2025-08-04] MEDS: ATORVASTATIN 10 MG TABLET 20 MG PO (08:07)
[2025-08-04] MEDS: CYANOCOBALAMIN 1,000 MCG TABLET 1000 MCG PO (08:07)
[2025-08-04 16:00] VITALS: BP 152/60; PULSE 82; RESP 18; TEMP 36.4; O2SAT 95
[2025-08-04 20:00] VITALS: PULSE 81; RESP 16; O2SAT 95
[2025-08-04] MEDS: MIRTAZAPINE 7.5 MG TABLET PO (20:28)
[2025-08-04] MEDS: MELATONIN 5 MG TABLET PO (20:28)
[2025-08-04] MEDS: prednisoLONE ACETATE 1% OPHTH 5 ML 1 DROP RIGHT EYE (20:28)
[2025-08-05] VITALS: BP 118/44; PULSE 81; RESP 16; TEMP 36.6; O2SAT 96
--- NOTE | 2025-08-05 07:29 | PM.IMPN ---
Progress Note: A&P Assessment and Plan (1) LUKAS (acute kidney injury): Code(s): N17.9 - Acute kidney failure, unspecified Status: Acute Assessment and Plan: baseline creatinine appears to be around 1.4-1.6 status post IV fluids in the hospital creatinine at baseline avoid additional nephrotoxins monitor renal function ------ improving (2) Pneumonia: Code(s): J18.9 - Pneumonia, unspecified organism Status: Acute Assessment and Plan: continue antibiotics trend labs monitor resp status patient on room air PT/OT, admission for rehab (3) Diarrhea: Code(s): R19.7 - Diarrhea, unspecified Status: Acute Assessment and Plan: patient had diarrhea x 1 day prior to admission had history of recent antibiotic use c-diff negative, lactoferrin negative was given Dificid pending c-diff results resolved (4) Leukopenia: Code(s): D72.819 - Decreased white blood cell count, unspecified Status: Acute Assessment and Plan: leukopenia patient did not want further workup by hem/onc at first and later changed his mind hem/onc was then unable to see prior to discharge patient to follow up with hem/onc after discharge from rehab conntinue to trend CBC (5) Peripheral neuropathy: Qualifiers: Peripheral neuropathy type: polyneuropathy, unspecified Qualified Code(s): G62.9 - Polyneuropathy, unspecified Code(s): G62.9 - Polyneuropathy, unspecified Status: Acute Assessment and Plan: continue gabapentin (6) Chronic obstructive pulmonary disease: Qualifiers: COPD type: unspecified COPD Qualified Code(s): J44.9 - Chronic obstructive pulmonary disease, unspecified Code(s): J44.9 - Chronic obstructive pulmonary disease, unspecified Status: Acute Assessment and Plan: no signs of exacerbation continue home inhalers continue montelukast (7) History of TIAs: Code(s): Z86.73 - Personal history of transient ischemic attack (TIA), and cerebral infarction without residual deficits Status: Acute Assessment and Plan: no residual deficits continue atorvastatin (8) Peripheral artery disease: Code(s): I73.9 - Peripheral vascular disease, unspecified Status: Acute Assessment and Plan: continue atorvastatin Time Spent With Patient Time with patient: 25 - 35 minutes Subjective Date/time seen: 07/31/25 07:29 Interval history: 80-year-old male with history of anxiety, COPD, prior tobacco smoking, hyperlipidemia, complains of 1 day of watery diarrhea, cough sputum production. He is blind, cannot see what color sputum is. He has finished antibiotics as of week ago for left lower extremity foot cellulitis. That has resolved. Chest CT abdomen pelvis performed does not demonstrate any acute findings with final radiology interpretation is pending, urinalysis not indicative of infection. Quad viral screen negative. Patient reports being dehydrated. He was given 1 L normal saline bolus. ----- Fever, watery diarrhea 3 day prior to admission. Use antibiotics last week. Contact precautions. Start fidaxomicin. Check C diff, stool culture, stool lactoferrin. Blood cultures obtained. Procalcitonin 0.3 LUKAS, clinically dehydrated, fluids. Trend renal function. Also possibly symptoms are due to viral syndrome. Quad viral negative. Check respiratory viral pathogen panel. CT abdomen pelvis chest without acute findings however final radiology interpretation is pending. Patient reports 1 day of mucus production and cough. Start levofloxacin for bronchitis versus pneumonia. Patient wishes to be full code. SCDs. Normal saline. Fall precaution, ambulate with assistance. PT/OT for weakness. c diff negative. will stop fidaxomicin for now trend labs continue Levaquin 07/28 working with PT/OT continue with IV antibiotics for now, will downgrade tomorrow family will bring inhalers from home no wheezing on exam, duoneb as needed 07/29- will stop IV fluids his cr is stable- it looks like he is about 1.40-1.64 as a baseline now continue IV antibiotics we discussed consulting oncology for low wbc/infection/further workup and he didnot want to do it but agreeable today. Will add consult to hem/oncology 07/30 no acute events. reports feeling better, less cough. 07/31 no fevers, working with pt/ot. feeling good this morning. waiting for placement. care coordincation following. Review of Systems Review of Systems: All systems reviewed & are unremarkable except as noted in HPI and below Exam Const: General: comfortable and no acute distress HENMT: Face/Nose/Sinus: Normal nares present Mouth: Yes moist mucous membranes Eyes: General: appearance normal, both eyes and all related structures Sclera: sclerae normal Neck: Neck: supple Resp: Effort & Inspection: normal respiratory effort Auscultation: clear to auscultation bilaterally Cardio: Rate: regular rate Rhythm: regular rhythm GI: Auscultation: normal bowel sounds Skin: Other: dry peeling skin to BLE, no open wounds noted Neuro: Speech: normal speech Motor exam (neuro): 5/5 motor strength present throughout Sensory Exam: normal sensation Extrem: General: normal to inspection Psych: Mental Status: mental status grossly normal Affect: normal affect Objective Data Vital Signs Vital Signs: Vital Signs - 24 hr 08/04/25 07:52 08/04/25 16:00 08/04/25 20:00 Temperature 97.0 F L 97.5 F L Pulse Rate 76 82 81 Respiratory Rate 16 18 16 Blood Pressure 127/83 152/60 H Pulse Oximetry 98 95 95 Oxygen Delivery Room Air Room Air Room Air 08/05/25 00:00 Temperature 97.9 F Pulse Rate 81 Respiratory Rate 16 Blood Pressure 118/44 L Pulse Oximetry 96 Oxygen Delivery Room Air Intake/Output Intake/Output: Intake & Output 08/02/25 08/03/25 08/04/25 08/05/25 23:59 23:59 23:59 23:59 Intake Total 1905 1780 2180 200 Output Total 1050 750 750 Balance 855 1030 1430 200 Meds/Results Medications: Active Medications Generic Name Dose Route Start Last Admin Trade Name Freq PRN Reason Stop Dose Admin Acetaminophen 650 mg 08/01/25 15:48 Acetaminophen 325 Mg Tablet PO Q6H PRN Mild Pain (1-3) or Fever Hydrocodone Bitart/Acetaminophen 1 tab 08/01/25 15:51 08/01/25 20:39 Hydrocodone/Acetaminophen (*Crx) 10-325 Mg Tablet PO 1 tab Q4H PRN Administration Pain Rated 7-10 Albuterol 2 puff 08/01/25 15:46 Albuterol Sulfate (*Sp) Inhaler INHALATION Q4-6H PRN Shortness Of Breath Or Wheezing Atorvastatin Calcium 20 mg 08/02/25 09:00 08/04/25 08:07 Atorvastatin 10 Mg Tablet PO 20 mg DAILY SOFYA Administration Calcium Carbonate 2 tablet 08/01/25 17:30 08/04/25 17:00 Calcium/Vitamin D 250 Mg/3.125 Mcg (125 I.U.) Tablet PO 2 tablet BID SOFYA Administration Cyanocobalamin 1,000 mcg 08/02/25 09:00 08/04/25 08:07 Cyanocobalamin 1,000 Mcg Tablet PO 1,000 mcg QAM SOFYA Administration Gabapentin 200 mg 08/01/25 17:00 08/04/25 17:01 Gabapentin 100 Mg Capsule PO 200 mg TID SOFYA Administration Melatonin 5 mg 08/01/25 21:00 08/04/25 20:28 Melatonin 5 Mg Tablet PO 5 mg HS SOFYA Administration Mirtazapine 7.5 mg 08/01/25 21:00 08/04/25 20:28 Mirtazapine 7.5 Mg Tablet PO 7.5 mg QHS SOFYA Administration Montelukast Sodium 10 mg 08/02/25 09:00 08/04/25 08:07 Montelukast Sodium 10 Mg Tablet PO 10 mg DAILY SOFYA Administration Non-Formulary Medication 2 inhalation 08/02/25 09:00 08/04/25 17:00 Ytxgpeoayq-Pqcjflim-Ivwjygvtgm [Breztri Aerosphere] INHALATION 09/01/25 08:59 2 inhalation BID SOFYA Administration Ondansetron HCl 4 mg 08/01/25 15:48 Ondansetron Hcl Odt 4 Mg Tablet PO Q6H PRN Nausea And Vomiting Prednisolone Acetate 1 drop 08/01/25 21:00 08/04/25 20:28 Prednisolone Acetate 1% Ophth 5 Ml RIGHT EYE 1 drop HS SOFYA Administration Valacyclovir HCl 500 mg 08/01/25 21:00 08/04/25 20:28 Valacyclovir Hcl 500 Mg Tablet PO 500 mg Q12HR SOFYA Administration
[2025-08-05 07:41] VITALS: BP 138/73; PULSE 72; RESP 18; TEMP 36.3; O2SAT 95
[2025-08-05] MEDS: ATORVASTATIN 10 MG TABLET 20 MG PO (08:19)
[2025-08-05] MEDS: CALCIUM/VITAMIN D 250 MG/3.125 MCG (125 I.U.) TABLET 2 TABLET PO ×2 (08:19→16:25)
[2025-08-05] MEDS: [UNRECOGNIZED DRUG - OTHER] 2 EACH INHALATION ×2 (08:19→16:25)
[2025-08-05] MEDS: MONTELUKAST SODIUM 10 MG TABLET PO (08:19)
[2025-08-05] MEDS: CYANOCOBALAMIN 1,000 MCG TABLET 1000 MCG PO (08:19)
[2025-08-05] MEDS: GABAPENTIN 100 MG CAPSULE 200 MG PO ×3 (08:19→16:25)
--- NOTE | 2025-08-05 10:41 | P.PNIM_ITS ---
Progress Note: A&P Assessment and Plan (1) LUKAS (acute kidney injury): Code(s): N17.9 - Acute kidney failure, unspecified Status: Acute Assessment and Plan: baseline creatinine appears to be around 1.4-1.6 status post IV fluids in the hospital creatinine at baseline avoid additional nephrotoxins monitor renal function (2) Pneumonia: Code(s): J18.9 - Pneumonia, unspecified organism Status: Acute Assessment and Plan: s/p Levaquin x 5 days in the hospital patient on room air PT/OT, admission for rehab (3) Diarrhea: Code(s): R19.7 - Diarrhea, unspecified Status: Acute Assessment and Plan: patient had diarrhea x 1 day prior to admission had history of recent antibiotic use c-diff negative, lactoferrin negative was given Dificid pending c-diff results resolved (4) Leukopenia: Code(s): D72.819 - Decreased white blood cell count, unspecified Status: Acute Assessment and Plan: leukopenia patient did not want further workup by hem/onc at first and later changed his mind hem/onc was then unable to see prior to discharge patient to follow up with hem/onc after discharge from rehab conntinue to trend CBC (5) Peripheral neuropathy: Qualifiers: Peripheral neuropathy type: polyneuropathy, unspecified Qualified Code(s): G62.9 - Polyneuropathy, unspecified Code(s): G62.9 - Polyneuropathy, unspecified Status: Acute Assessment and Plan: continue gabapentin (6) Chronic obstructive pulmonary disease: Qualifiers: COPD type: unspecified COPD Qualified Code(s): J44.9 - Chronic obstructive pulmonary disease, unspecified Code(s): J44.9 - Chronic obstructive pulmonary disease, unspecified Status: Acute Assessment and Plan: no signs of exacerbation continue home inhalers continue montelukast (7) History of TIAs: Code(s): Z86.73 - Personal history of transient ischemic attack (TIA), and cerebral infarction without residual deficits Status: Acute Assessment and Plan: no residual deficits continue atorvastatin (8) Peripheral artery disease: Code(s): I73.9 - Peripheral vascular disease, unspecified Status: Acute Assessment and Plan: continue atorvastatin Subjective Date/time seen: 08/05/25 10:41 Interval history: Patient seen for a follow up visit. Patient sitting in a chair, in no acute distress. Patient denies acute pain. Patient participates in rehab. Patient is able to ambulate in the [facility] with staff and a walker. Patient reports he his ready to go home once PT/OT feel he is safe for discahrge. Patient denies acute complaints. Patient reports the pain has resolved in his left foot. Review of Systems Review of Systems: All systems reviewed & are unremarkable except as noted in HPI and below Exam Const: General: comfortable and no acute distress HENMT: Face/Nose/Sinus: Normal nares present Mouth: Yes moist mucous m embranes Eyes: General: appearance normal, both eyes and all related structures Sclera: sclerae normal Neck: Neck: supple Resp: Effort & Inspection: normal respiratory effort Auscultation: clear to auscultation bilaterally Cardio: Rate: regular rate Rhythm: regular rhythm GI: Auscultation: normal bowel sounds Skin: Other: dry peeling skin to BLE, no open wounds noted Neuro: Speech: normal speech Motor exam (neuro): 5/5 motor strength present throughout Sensory Exam: normal sensation Extrem: General: normal to inspection Psych: Mental Status: mental status grossly normal Affect: normal affect Objective Data Vital Signs Vital Signs: Vital Signs - 24 hr 08/04/25 16:00 08/04/25 20:00 08/05/25 00:00 Temperature 97.5 F L 97.9 F Pulse Rate 82 81 81 Respiratory Rate 18 16 16 Blood Pressure 152/60 H 118/44 L Pulse Oximetry 95 95 96 Oxygen Delivery Room Air Room Air Room Air 08/05/25 07:41 Temperature 97.3 F L Pulse Rate 72 Respiratory Rate 18 Blood Pressure 138/73 Pulse Oximetry 95 Oxygen Delivery Room Air Intake/Output Intake/Output: Intake & Output 08/02/25 08/03/25 08/04/25 08/05/25 23:59 23:59 23:59 23:59 Intake Total 1905 1780 2180 440 Output Total 1050 750 750 450 Balance 855 1030 1430 -10 Meds/Results Medications: Active Medications Generic Name Dose Route Start Last Admin Trade Name Freq PRN Reason Stop Dose Admin Acetaminophen 650 mg 08/01/25 15:48 Acetaminophen 325 Mg Tablet PO Q6H PRN Mild Pain (1-3) or Fever Hydrocodone Bitart/Acetaminophen 1 tab 08/01/25 15:51 08/01/25 20:39 Hydrocodone/Acetaminophen (*Crx) 10-325 Mg Tablet PO 1 tab Q4H PRN Administration Pain Rated 7-10 Albuterol 2 puff 08/01/25 15:46 Albuterol Sulfate (*Sp) Inhaler INHALATION Q4-6H PRN Shortness Of Breath Or Wheezing Atorvastatin Calcium 20 mg 08/02/25 09:00 08/05/25 08:19 Atorvastatin 10 Mg Tablet PO 20 mg DAILY SOFYA Administration Calcium Carbonate 2 tablet 08/01/25 17:30 08/05/25 08:19 Calcium/Vitamin D 250 Mg/3.125 Mcg (125 I.U.) Tablet PO 2 tablet BID SOFYA Administration Cyanocobalamin 1,000 mcg 08/02/25 09:00 08/05/25 08:19 Cyanocobalamin 1,000 Mcg Tablet PO 1,000 mcg QAM SOFYA Administration Gabapentin 200 mg 08/01/25 17:00 08/05/25 08:19 Gabapentin 100 Mg Capsule PO 200 mg TID SOFYA Administration Melatonin 5 mg 08/01/25 21:00 08/04/25 20:28 Melatonin 5 Mg Tablet PO 5 mg HS SOFYA Administration Mirtazapine 7.5 mg 08/01/25 21:00 08/04/25 20:28 Mirtazapine 7.5 Mg Tablet PO 7.5 mg QHS SOFYA Administration Montelukast Sodium 10 mg 08/02/25 09:00 08/05/25 08:19 Montelukast Sodium 10 Mg Tablet PO 10 mg DAILY SOFYA Administration Non-Formulary Medication 2 inhalation 08/02/25 09:00 08/05/25 08:19 Iwasuwezky-[id number]-[id number] [Christianoi Aerosphere] INHALATION 09/01/25 08:59 2 inhalation BID SOFYA Administration Ondansetron HCl 4 mg 08/01/25 15:48 Ondansetron Hcl Odt 4 Mg Tablet PO Q6H PRN Nausea And Vomiting Prednisolone Acetate 1 drop 08/01/25 21:00 08/04/25 20:28 Prednisolone Acetate 1% Ophth 5 Ml RIGHT EYE 1 drop HS SOFYA Administration Valacyclovir HCl 500 mg 08/01/25 21:00 08/05/25 08:19 Valacyclovir Hcl 500 Mg Tablet PO 500 mg Q12HR SOFYA Administration
[2025-08-05 16:28] VITALS: BP 144/75; PULSE 83; RESP 18; TEMP 36; O2SAT 96
[2025-08-05] MEDS: prednisoLONE ACETATE 1% OPHTH 5 ML 1 DROP RIGHT EYE (20:23)
[2025-08-05] MEDS: MELATONIN 5 MG TABLET PO (20:23)
[2025-08-05] MEDS: MIRTAZAPINE 7.5 MG TABLET PO (20:23)
[2025-08-05 23:46] VITALS: BP 138/63; PULSE 78; RESP 20; TEMP 36.5; O2SAT 94
[2025-08-06 08:00] VITALS: BP 145/73; PULSE 89; RESP 16; TEMP 36.8; O2SAT 96
[2025-08-06] MEDS: CALCIUM/VITAMIN D 250 MG/3.125 MCG (125 I.U.) TABLET 2 TABLET PO ×2 (08:50→16:28)
[2025-08-06] MEDS: CYANOCOBALAMIN 1,000 MCG TABLET 1000 MCG PO (08:50)
[2025-08-06] MEDS: MONTELUKAST SODIUM 10 MG TABLET PO (08:50)
[2025-08-06] MEDS: ATORVASTATIN 10 MG TABLET 20 MG PO (08:51)
[2025-08-06] MEDS: [UNRECOGNIZED DRUG - OTHER] 2 EACH INHALATION ×2 (08:51→16:29)
[2025-08-06] MEDS: GABAPENTIN 100 MG CAPSULE 200 MG PO ×3 (08:55→16:29)
[2025-08-06 16:00] VITALS: BP 129/58; PULSE 88; RESP 16; TEMP 37.2; O2SAT 98
[2025-08-06] MEDS: MIRTAZAPINE 7.5 MG TABLET PO (20:13)
[2025-08-06] MEDS: prednisoLONE ACETATE 1% OPHTH 5 ML 1 DROP RIGHT EYE (20:13)
[2025-08-06] MEDS: MELATONIN 5 MG TABLET PO (20:13)
[2025-08-07] VITALS: BP 133/55; PULSE 76; RESP 20; TEMP 37.1; O2SAT 94
--- NOTE | 2025-08-07 00:14 | PC.NURSE ---
Pt resting quietly in bed and doesnt voice any c/o discomfort. Side rails up x2 and call harper within reach.
--- NOTE | 2025-08-07 02:36 | PC.NURSE ---
Pt asleep and no signs of discomfort noted.
--- NOTE | 2025-08-07 04:05 | PC.NURSE ---
Pt asleep and no signs of discomfort noted.
--- NOTE | 2025-08-07 06:30 | PC.NURSE ---
Pt asleep and no signs of discomfort noted. Weight is 93.7.
[2025-08-07 08:00] VITALS: BP 166/76; PULSE 86; RESP 20; TEMP 36.1; O2SAT 96
[2025-08-07] MEDS: CALCIUM/VITAMIN D 250 MG/3.125 MCG (125 I.U.) TABLET 2 TABLET PO ×2 (08:19→17:37)
[2025-08-07] MEDS: [UNRECOGNIZED DRUG - OTHER] 2 EACH INHALATION ×2 (08:19→17:36)
[2025-08-07] MEDS: ATORVASTATIN 10 MG TABLET 20 MG PO (08:20)
[2025-08-07] MEDS: CYANOCOBALAMIN 1,000 MCG TABLET 1000 MCG PO (08:20)
[2025-08-07] MEDS: MONTELUKAST SODIUM 10 MG TABLET PO (08:20)
[2025-08-07] MEDS: GABAPENTIN 100 MG CAPSULE 200 MG PO ×3 (09:00→17:37)
[2025-08-07 16:00] VITALS: BP 134/65; PULSE 81; RESP 16; TEMP 36.6; O2SAT 93
[2025-08-07] MEDS: prednisoLONE ACETATE 1% OPHTH 5 ML 1 DROP RIGHT EYE (21:32)
[2025-08-07] MEDS: MIRTAZAPINE 7.5 MG TABLET PO (21:32)
[2025-08-07] MEDS: MELATONIN 5 MG TABLET PO (21:33)
[2025-08-07 23:43] VITALS: BP 129/67; PULSE 74; RESP 18; TEMP 36.7; O2SAT 95
[2025-08-08 08:00] VITALS: BP 163/62; PULSE 62; RESP 18; TEMP 36.1; O2SAT 95
--- NOTE | 2025-08-08 08:04 | P.DS_ITS ---
DS: Admitting Diagnosis Discharge Date 08/08/2025 Admitting Diagnosis LUKAS DS: Discharge Diagnosis Discharge Diagnosis (1) LUKAS (acute kidney injury): Code(s): N17.9 - Acute kidney failure, unspecified Status: Acute Assessment and Plan: baseline creatinine appears to be around 1.4-1.6 status post IV fluids in the hospital creatinine at baseline avoid additional nephrotoxins monitor renal function (2) Pneumonia: Code(s): J18.9 - Pneumonia, unspecified organism Status: Acute Assessment and Plan: s/p Levaquin x 5 days in the hospital patient on room air PT/OT, admission for rehab (3) Diarrhea: Code(s): R19.7 - Diarrhea, unspecified Status: Acute Assessment and Plan: patient had diarrhea x 1 day prior to admission had history of recent antibiotic use c-diff negative, lactoferrin negative was given Dificid pending c-diff results resolved (4) Leukopenia: Qualifiers: Leukopenia type: unspecified Qualified Code(s): D72.819 - Decreased white blood cell count, unspecified Code(s): D72.819 - Decreased white blood cell count, unspecified Status: Acute Assessment and Plan: leukopenia patient did not want further workup by hem/onc at first and later changed his mind hem/onc was then unable to see prior to discharge patient to follow up with hem/onc after discharge from rehab conntinue to trend CBC (5) Peripheral neuropathy: Qualifiers: Peripheral neuropathy type: polyneuropathy, unspecified Qualified Code(s): G62.9 - Polyneuropathy, unspecified Code(s): G62.9 - Polyneuropathy, unspecified Status: Acute Assessment and Plan: continue gabapentin (6) Chronic obstructive pulmonary disease: Qualifiers: COPD type: unspecified COPD Qualified Code(s): J44.9 - Chronic obstructive pulmonary disease, unspecified Code(s): J44.9 - Chronic obstructive pulmonary disease, unspecified Status: Acute Assessment and Plan: no signs of exacerbation continue home inhalers continue montelukast (7) History of TIAs: Code(s): Z86.73 - Personal history of transient ischemic attack (TIA), and cerebral infarction without residual deficits Status: Acute Assessment and Plan: no residual deficits continue atorvastatin (8) Peripheral artery disease: Code(s): I73.9 - Peripheral vascular disease, unspecified Status: Acute Assessment and Plan: continue atorvastatin DS: Summary Hospital Course Reason for hospitalization: LUKAS, rehab Hospital Course: Patient is a 80 year old male with PMH of anxiety, COPD, PAD, history of TIA's, legally blind, neuropathy, CKD, HLD and HTN. Patient was admitted to [facility] from 07/27/2025 to 08/01/2025 and treated for diarrhea and pneumonia. Patient presented with complaints of diarrhea x 1 day. Patient was given fidaxomicin while c-diff was pending. C-diff was negative and fidaxomicin was stopped. Patient had a Chest x-ray which showed infiltrates. Patient had a CT chest abdomen and pelvis which did not demonstrate acute findings. Patient was treated with IV Levaquin x 5 days. Patients diarrhea improved. Patient was noted to have leukopenia and at first did not want hem/onc consulted and when he did agree they were unable to see him prior to discharge. He will need to follow up with them after discharge. Patient was feeling weak and it was recommended that he receive inpatient rehab before discharging back home. Patient was discharged from [facility] and admitted to a swing bed at [facility]. Patient participated in therapies and patient was improving. Patient's labs remained stable and patient had no medical complaints. Patient was ready for discharge and patient will be discharged home with [facility]. Patient to follow up with his PCP within 1-2 weeks of discharge. Patient to call and schedule appointment with Heme/onc after discharge to discuss low white blood cell count. Time Spent with Patient Time attestation: Total time spent providing and/or coordinating discharge services: 35 Minutes Exam Const: General: comfortable and no acute distress HENMT: Face/Nose/Sinus: Normal nares present Mouth: Yes moist mucous membranes Eyes: General: appearance normal, both eyes and all related structures Neck: Neck: supple Resp: Effort & Inspection: normal respiratory effort Auscultation: clear to auscultation bilaterally Cardio: Rate: regular rate Rhythm: regular rhythm GI: GI Palp: Yes Soft to palpation Auscultation: normal bowel sounds Skin: General skin exam: normal color and no rashes or lesions noted Other: dry peeling skin to BLE, no open wounds noted Neuro: Motor exam (neuro): 5/5 motor strength present throughout Sensory Exam: normal sensation Extrem: General: normal to inspection Psych: Mental Status: mental status grossly normal Affect: normal affect Discharge Plan Discharge Attending physician on discharge: Jacinto Gomez Consulting providers: Fifi Guallpa Discharging Clinician: Fifi Guallpa Patient Disposition: Home Activity: as tolerated Diet: heart healthy Discharge Instructions: Please ask your PCP if you need to continue taking valacyclovir ocean transportation intermediary at your next visit. Patient Instructions: Antibiotic Form, Gabapentin (By mouth), Fall Prevention for Older Adults (DC), Community Acquired Pneumonia (DC), Weakness (DC) Patient Language: Nepali Stand Alone Forms: General Discharge Information Follow-up/Referrals: Fransico Burgos MD [Physician, Hematology] Referral Note: Call to schedule an appointment to follow up on your low white blood cell count Iris Barrett APRN [Primary Care Provider, Internal Medicine] Referral Note: Call for an appt to be seen within 1-2 weeks of discharge Discharge Medications: Continued mecobalamin (vitamin B12) 1,000 mcg tablet,disintegrating 1,000 mcg sublingual DAILY Rx Instructions: place tablet under tongue and allow to dissolve for at least30 secs before swallowing calcium carbonate-vitamin D3 500 mg-15 mcg (600 unit) tablet 1 tablet PO BID atorvastatin 20 mg tablet 20 mg PO DAILY Qty: 90 1RF montelukast 10 mg tablet 10 mg PO DAILY Qty: 90 1RF gabapentin 100 mg capsule 200 mg PO TID albuterol sulfate [Ventolin HFA] 90 mcg/actuation HFA aerosol inhaler 2 inh inhalation Q4-6H PRN (Reason: shortness of breath or wheezing) Qty: 8.5 0RF mirtazapine 7.5 mg tablet 7.5 mg PO QHS Qty: 90 0RF Breztri Aerosphere 160-9-4.8 mcg/actuation HFA aerosol inhaler 2 inh inhalation BID prednisolone acetate 1 % drops,suspension 1 drp RIGHT EYE QPM valacyclovir 1 gram tablet 500 mg PO BID Qty: 180 0RF Rx Instructions: 500mg BID per pt report. Date of admission: 08/01/25 14:52 Primary Care Provider: Iris Barrett Admitting Provider: Jacinto Gomez Attending physician on admission: Jacinto Gomez Condition: Stable
[2025-08-08] MEDS: CALCIUM/VITAMIN D 250 MG/3.125 MCG (125 I.U.) TABLET 2 TABLET PO (08:41)
[2025-08-08] MEDS: GABAPENTIN 100 MG CAPSULE 200 MG PO ×2 (08:41→12:30)
[2025-08-08] MEDS: MONTELUKAST SODIUM 10 MG TABLET PO (08:41)
[2025-08-08] MEDS: CYANOCOBALAMIN 1,000 MCG TABLET 1000 MCG PO (08:41)
[2025-08-08] MEDS: [UNRECOGNIZED DRUG - OTHER] 2 EACH INHALATION (08:42)
[2025-08-08] MEDS: ATORVASTATIN 10 MG TABLET 20 MG PO (08:42)
--- NOTE | 2025-08-08 13:05 | PC.NURSE ---
Discharged to home, medications from home and clothing, all personal items bagged and sent home, reviewed dc instructions, no new medications upon discharge, no questions regarding follow up referals.
--- NOTE | 2025-08-09 10:35 | PC.NURSE ---
Discharge call back attempted, no answer
--- NOTE | 2025-08-09 10:43 | PC.NURSE ---
Returned call and doing well, no questions regarding dc instructions, weaker than he thought he would be but doing ok, no questions regarding instructions, did make f/u appt with his pmd.
== END 2025-08-08 13:05 | disposition home or self-care (01) | DRG 682 ==
PROVIDERS: Nurse Practitioner Adult Health; Admitting Provider Internal Medicine; PCP Nurse Practitioner Family; Visit Provider Internal Medicine
DX: N17.9 Acute kidney failure, unspecified (principal); J18.9 Pneumonia, unspecified organism; J44.0 Chronic obstructive pulmonary disease with (acute) lower respiratory infection; I12.9 Hypertensive chronic kidney disease with stage 1 through stage 4 chronic kidney disease, or unspecified chronic kidney disease; N18.1 Chronic kidney disease, stage 1; R53.1 Weakness; D72.819 Decreased white blood cell count, unspecified; E78.5 Hyperlipidemia, unspecified; F41.9 Anxiety disorder, unspecified; G62.9 Polyneuropathy, unspecified; H54.7 Unspecified visual loss; I73.9 Peripheral vascular disease, unspecified; R19.7 Diarrhea, unspecified; Z86.73 Personal history of transient ischemic attack (TIA), and cerebral infarction without residual deficits; Z79.899 Other long term (current) drug therapy
CPT/HCPCS: 36415; 80053; 85025; 97110; 97161; 97165; 97530; 97535; A9270